=== PATIENT | male | born 1970 | race Caucasian/White ===

== ENCOUNTER 2021-04-07 15:21 | Inpatient (IN) | payer OTHER, SELFPAY ==
[2021-04-07] VITALS (12 sets, daily range): BP systolic 99–185; BP diastolic 75–98; PULSE 78–109; RESP 10–16; TEMP 36.6–37.8; O2SAT 98–100; BMI 21.2
--- NOTE | ~2021-04-07 | CT_ITS ---
EXAMINATION: CT ABDOMEN AND PELVIS WITHOUT CONTRAST CLINICAL INFORMATION: Post bowel resection with question of intra-abdominal hemorrhage COMPARISON: CT abdomen pelvis 04/07/2021 TECHNIQUE: Multidetector volumetric imaging was performed from the superior aspect of the liver through the pubic symphysis. Sagittal and coronal reformatted images were obtained on the technologist's workstation. This CT examination was performed using dose optimization techniques as appropriate, variously including the following: *Automated exposure control *Adjustment of mA and/or kV according to patient size (this includes techniques or standardized protocols for targeted exams where dose is matched to indication/reason for exam; i.e. extremities or head) *Use of iterative reconstruction technique DLP: 453 mGy-cm FINDINGS: LUNG BASES: New small bilateral pleural effusions are seen. LIVER, GALLBLADDER, AND BILIARY TREE: The liver is normal in size, shape, and attenuation. No focal hepatic lesion or biliary ductal dilatation is present. The gallbladder is dense probably from prior contrast administration but is otherwise unremarkable with no evidence of radiopaque gallstones, gallbladder wall thickening, or obvious pericholecystic inflammatory changes. PANCREAS: Unremarkable. SPLEEN: Unremarkable. ADRENAL GLANDS: Unremarkable. KIDNEYS AND URETERS: The kidneys are normal in size, shape, and attenuation. No hydronephrosis, hydroureter, or calculi seen. No perinephric stranding. BLADDER: Poole catheter is present in the bladder. GASTROINTESTINAL TRACT AND PERITONEAL CAVITY: Since the prior exam, the patient has undergone a right hemicolectomy an extensive surgical material is present in the right mid/upper abdomen. Free intraperitoneal air is present along with moderate amount of intraperitoneal fluid/blood. Small foci of air are present in the leaves of the mesentery as well. Higher density is seen within the mesentery (for example 3:39 consistent with blood clot). The ascites in the pelvis is mixed with lower and higher attenuation indicative of blood clot. The residual colon is grossly abnormal and edematous, even more so than at the time of the prior study (the best example is seen in the proximal sigmoid/ distal descending colon (3:62)). There is gaseous distention of the transverse colon just prior to the surgical site. Incidental note made of a small hiatal hernia. ABDOMINAL WALL: There has been interval laparotomy with new wound in the anterior abdominal wall. Small collections of air and fluid are present. LYMPH NODES: No retroperitoneal lymphadenopathy VASCULAR: Unremarkable. Surprisingly, the IVC is not flattened despite volume loss secondary to hemorrhage PELVIC VISCERA: There is mild BPH OSSEOUS STRUCTURES: Degenerative changes present at L4-L5 CT/CT abdomen pelvis wo con IMPRESSION: Postop hemorrhage with hemoperitoneum and blood in the mesentery. Free intraperitoneal air most likely secondary to recent postop state. Grossly abnormal edematous remaining colon. This critical result was discussed with Robert JADE at 11:25 PM on the evening of the exam and it was ascertained that the content and urgency of the report was understood at the time of direct communication.
--- NOTE | ~2021-04-07 | XR_ITS ---
EXAMINATION: XR ABDOMEN KUB CLINICAL INDICATION: Postop assess for intra-abdominal bleed or perforation COMPARISON: None TECHNIQUE: AP view of the abdomen. FINDINGS: Midline skin wseetie noted. Overlying bladder catheter seen. No acute fracture or dislocation. Bowel gas pattern is grossly unremarkable. No obstructive changes seen on this single film. XR/XR abdomen 1V IMPRESSION: Postoperative changes. Unremarkable bowel gas pattern.
--- NOTE | ~2021-04-07 | NM_ITS ---
Myocardial perfusion study Indication: NSTEMI to evaluate for myocardial ischemia Technique: The patient was brought in for a Lexiscan perfusion study on 04/16/2021. Patient performed low-level exercise and was injected 0.4 mg of Lexiscan intravenously. Within a minute of injection, 25 mCi of sestamibi was given intravenously. Images were obtained using the SPECT gamma camera interlaced with the gating device. Images were obtained in supine position. Resting perfusion study was performed on 04/17/2021. Patient was administered 25 mCi of sestamibi intravenously at rest. Images were then obtained in supine position. Images obtained with and without CT attenuation. Total DLP 75 mGy-cm. Images were processed with the software and compared side to side in short axis, horizontal long axis and vertical long axis views. Findings: The stress perfusion study showed nonattenuated images show moderately reduced uptake in the basal and mid inferior wall of the LV myocardium. Remainder of the LV myocardium is normally perfused. Attenuation correction images show normalized uptake in the basal and mid inferior wall of the LV myocardium which may be over correction.. The gated study shows normal LV systolic function with calculated LVEF of 60%. LV cavity is normal in size. The gated study shows reduced inferior basal wall thickening and contraction of segments. Resting study shows no change in perfusion pattern compared to stress perfusion study. Gating at rest reveals basal and mid inferior wall motion abnormality with ejection fraction at 67%. The findings are consistent with no clear reversible defect suggestive of ischemia. On nonattenuated images there is fixed basal and mid inferior wall defect suggestive of nontransmural infarct with basal inferior wall motion abnormality.. NM/NM chapin perf SPECT rest & str Impression: 1. Myocardial perfusion imaging study shows basal and mid inferior nontransmural infarct without reversible ischemia 2. Gated LVEF is 60% 3. Transient ischemic dilatation not present EKG is nondiagnostic for ischemia
--- NOTE | ~2021-04-07 | CT_ITS ---
EXAMINATION: CT abdomen pelvis wo/w con CLINICAL INFORMATION: Reason for Exam GI bleed protocol COMPARISON: 2015 TECHNIQUE: Multidetector volumetric imaging was performed from the superior aspect of the liver through the pubic symphysis 100 mL of Omnipaque 300 injected Sagittal and coronal reformatted images were obtained on the technologist's workstation. This CT examination was performed using dose optimization techniques as appropriate, variously including the following: *Automated exposure control *Adjustment of mA and/or kV according to patient size (this includes techniques or standardized protocols for targeted exams where dose is matched to indication/reason for exam; i.e. extremities or head) *Use of iterative reconstruction technique DLP: 226 mGy-cm FINDINGS: LOWER THORAX: Platelike atelectasis at right lung base. HEPATOBILIARY: No focal hepatic lesions. No biliary ductal dilatation. GALLBLADDER: Gallbladder unremarkable. SPLEEN: Spleen is normal in size. PANCREAS: No focal mass or ductal dilatation. STOMACH AND GASTROINTESTINAL TRACT: Stomach is grossly unremarkable. There are multiple segments of circumferential wall thickening of the bowel loops especially the one seen in the right lower quadrant adjacent to the surgical anastomosis site, although nonspecific, this is compatible with patient history of Crohn's disease. There is no CT evidence of bowel obstruction. Other entities such as ischemia, infection, neoplastic infiltration are in the differential however less common. ADRENALS: No adrenal nodules. KIDNEYS/URETERS: Tiny hypodensity in the left kidney too small to characterize however commonly found to be evolving cysts. URINARY BLADDER: Partially decompressed. PELVIC VISCERA: Unremarkable PERITONEUM: No free air or fluid. LYMPH NODES: No lymphadenopathy. VASCULAR:Abdominal aorta normal in size, no aneurysm found. BONES, ABDOMINAL WALL AND SOFT TISSUES: There is anterior abdominal wall hernia mesenteric fat herniating through a small defect 1.[address]/CT abdomen pelvis wo/w con IMPRESSION: 1. There are multiple segments of bowel which exhibits circumferential wall thickening, most prominent is in the right colon adjacent to surgical anastomosis site right lower quadrants, cecum, although nonspecific, this is compatible with patient history of Crohn's disease. Included in the differential are less common entities including colitis, neoplasm, ischemia . No evidence of bowel obstruction.. Clinical correlation and Follow-up recommended. 2. Anterior abdominal wall hernias containing fat and mesentery. 3. No evidence of lymphadenopathy.
--- NOTE | ~2021-04-07 | XR_ITS ---
EXAMINATION: XR CHEST CLINICAL INFORMATION: Right jugular TLC insertion COMPARISON: 05/16/2016 TECHNIQUE: Frontal view of the chest was obtained. FINDINGS: Right IJ central line tip lies in the region of the cavoatrial junction. Lung volumes are symmetric. No focal consolidation is seen. No evidence of pneumothorax, pleural effusion, or pulmonary edema. The cardiomediastinal contour is unremarkable. No acute osseous findings are seen. XR/XR chest 1V IMPRESSION: Right IJ central line tip in the region of the cavoatrial junction.
--- NOTE | ~2021-04-07 | CT_ITS ---
EXAMINATION: CT HEAD WITHOUT CONTRAST CLINICAL INFORMATION: Fall. COMPARISON: None available. TECHNIQUE: Contiguous axial imaging was performed from the skull base to vertex without intravenous administration of contrast. DLP: 683 mGy-cm FINDINGS: There is no evidence of acute intracranial hemorrhage or edematous territorial infarction. There is no abnormal attenuation within the brain parenchyma. Booker-white matter differentiation is preserved. The ventricles are normal in size and configuration. No evidence for obstructive hydrocephalus. No abnormal mass effect or midline shift. No extra-axial fluid collections. No acute soft tissue or osseous abnormalities. Persistent metopic suture. Mild mucosal thickening of the paranasal sinuses. The mastoid air cells and middle air cavities remain well aerated. CT/CT head/brain wo con IMPRESSION: No evidence of acute intracranial hemorrhage or edematous territorial infarction.
--- NOTE | ~2021-04-07 | NM_ITS ---
EXAMINATION: NUCLEAR MEDICINE GI BLEEDING SCAN. CLINICAL INFORMATION: Acute anemia. Bloody diarrhea. History of Crohn's disease. Rule out GI bleeding. COMPARISON: None TECHNIQUE: Following labeling of red blood cells with 25 mCi of 90 9M technetium pertechnetate, imaging over the abdomen was obtained up to 1 hour. FINDINGS: On flow images there is no abnormal activity seen in the abdomen. Symmetrical activity seen in the aorta and common iliac arteries verifying patency. On continued imaging up to 1 hour there is no focal abnormal activity seen to suspect any extravasation of isotope. Normal physiological activity seen in spleen and, kidneys and bladder. NM/NM GI bleeding IMPRESSION: Unremarkable GI bleeding scan. No active focus of isotope extravasation seen.
--- NOTE | 2021-04-07 16:02 | ECG_ITS ---
Test Reason : WEAKNESS/DIZZYNESS Blood Pressure : / mmHG Vent. Rate : 089 BPM Atrial Rate : 089 BPM P-R Int : 130 ms QRS Dur : 078 ms QT Int : 358 ms P-R-T Axes : 077 034 080 degrees QTc Int : 435 ms Normal sinus rhythm Voltage criteria for left ventricular hypertrophy Nonspecific ST and T wave abnormality Abnormal ECG When compared with ECG of 19-MAY-2016 17:00, Vent. rate has increased BY 48 BPM Nonspecific T wave abnormality now evident in Lateral leads Referred By: Generic ED Physician Electronically Signed By:Tunde Lopez
[2021-04-07 16:20] LABS: MANUAL DIFF FLAG NO
[2021-04-07 16:24] LABS: Basophils Percent Auto 0.3 % (0-2); Eosinophils Absolute Auto 0.3 X10*3/uL (0.0-0.4); Eosinophils Percent Auto 2.6 % (0-4); Hematocrit 23.3 % (42-52); Hemoglobin 7.8 g/dl (14.0-18.0); Imm Gran Abs Auto 0.15 X10*3/uL (0.00-0.03); Imm Gran Pct Auto 1.2 % (0.0-0.4); Lymphocytes Percent Auto 16.6 % (20-40); Mean Corpuscular HGB Conc 33.5 g/dl (31.0-36.0); Mean Corpuscular Hemoglobin 32.6 pg (27.0-33.0); Mean Corpuscular Volume 97.5 fL (80-98); Mean Platelet Volume 9.1 fL (9.4-12.4); Monocytes Absolute Auto 1.2 X10*3/uL (0.1-1.2); Monocytes Percent Auto 9.9 % (2-11); Neutrophils Absolute Auto 8.5 X10*3/uL (2.0-8.3); Neutrophils Percent Auto 69.4 % (45-73); Platelet Count 343 X10*3/uL (160-400); Red Blood Count 2.39 X10*6/uL (4.60-5.80); Red Cell Distribution Width 14.8 % (11.0-16.0); White Blood Count 12.2 X10*3/uL (4.8-10.8)
--- NOTE | 2021-04-07 16:27 | ED_ITS ---
HPI - GI Bleed General Chief complaint: GI Bleed <TIAGO Peck Last Filed: 04/07/21 17:53> Stated complaint: blood in stool <TIAGO Peck Last Filed: 04/07/21 17:53> Time Seen by Provider: 04/07/21 16:11 <TIAGO Peck Last Filed: 04/07/21 17:53> Source: patient <TIAGO Peck Last Filed: 04/07/21 17:53> Mode of arrival: ambulatory <TIAGO Peck Last Filed: 04/07/21 17:53> Limitations: no limitations <TIAGO Peck Last Filed: 04/07/21 17:53> History of Present Illness HPI Narrative: Patient is a 51-year-old male the past medical history of Crohn's disease who presents with 2 days of bloody diarrhea, he states he has also passed a few larger maroon-colored clots. He is also complaining of dizziness, shortness of breath and a clammy feeling. Denies fevers, nausea or sick contacts. He has not been eating and drinking normally and states he has had weight loss of 25 lb over the last few months, unintentionally. He states he had a colonoscopy approximately 1 year ago, not at this hospital, which was unremarkable. He states he does take medications for his Crohn's and he is compliant. <TIAGO Peck Last Filed: 04/07/21 17:53> Related Data Home medications: Home Medications Medication Instructions Recorded Confirmed adalimumab [Humira(CF) Pen] 40 mg SUBCUT Q2W 04/07/21 04/07/21 budesonide 2 cap PO DAILY 04/07/21 04/07/21 diphenoxylate-atropine 2 tab PO NEEDED PRN 04/07/21 04/07/21 <TIAGO Peck Last Filed: 04/07/21 17:53> Allergies/Adverse reactions: Allergies Allergy/AdvReac Type Severity Reaction Status Date / Time No Known Allergies Allergy Verified 04/07/21 16:01 [No Known Allergies*] <TIAGO Peck Last Filed: 04/07/21 17:53> Review of Systems Review of Systems: Yes all other systems are reviewed and are negative <Steph Ibarra PA-C - Last Filed: 04/07/21 17:53> FORMERLY [facility], [facility] Past Medical History Medical History: Medical History (Updated 04/09/21 @ 18:[address]) Crohn's colitis Crohn's disease Psoriasis <Steph Ibarra PA-C - Last Filed: 04/07/21 17:53> Surgical History: Surgical History H/O colectomy <Steph Ibarra PA-C - Last Filed: 04/07/21 17:53> Social History Social History: Social History Household Members: Family Housing: House Do you presently have visiting nurse or other home services: No Patient Tobacco Use Status: Current everyday Tobacco user Patient Interested in Nicotine Replacement: Yes Use of substances other than those prescribed or required for medical reasons: No Currently Displaying Signs/Symptoms of Drug Intoxication Withdrawal: No Have you been hit, kicked, punched, or otherwise hurt by someone within the past year? If so, by whom?: No Do you feel safe in your current relationship?: No Is there a partner from a previous relationship who is making you feel unsafe now?: No Are you made to feel afraid or neglected: No Advance Directives: No Advance Directives Information Provided: No Do you have thoughts of harming others: None Do you have a plan to hurt others: No Plan Recently lost weight without trying: No Eating poorly because of decreased appetite: Yes Nutrition Risks: No Nutritional Risk Poor oral hygiene: No service: No Current occupational status: employed <TIAGO Peck Last Filed: 04/07/21 17:53> Physical Exam Vital Signs: Vital Signs: Last Vital Signs Temp 98.7 F 04/09/21 20:00 Pulse 80 04/09/21 20:00 Resp 12 04/09/21 20:00 BP 152/81 H 04/09/21 20:00 Pulse Ox 98 04/09/21 20:00 Body Mass Index 21.2 <TIAGO Peck Last Filed: 04/07/21 17:53> Vital Signs: Last Vital Signs Temp 98.7 F 04/09/21 20:00 Pulse 80 04/09/21 20:00 Resp 12 04/09/21 20:00 BP 152/81 H 04/09/21 20:00 Pulse Ox 98 04/09/21 20:00 Body Mass Index 21.2 <Beena Alegria, AUTOMOTIVE BRAKE SPECIALIST- - Last Filed: 04/09/21 21:58> Const: General: cooperative, healthy appearing, comfortable and tired appearing <Steph Ibarra PA-C - Last Filed: 04/07/21 17:53> Nutritional Appearance: thin <Steph Ibarra PA-C - Last Filed: 04/07/21 17:53> Orientation/consciousness: patient oriented x3 <Steph Ibarra PA-C - Last Filed: 04/07/21 17:53> HENMT: Head: Yes normal to inspection <Steph Ibarra PA-C - Last Filed: 04/07/21 17:53> Eyes: Other: Bilateral conjunctiva pallor <Stehp Ibarra PA-C - Last Filed: 04/07/21 17:53> General: appearance normal, both eyes and all related structures <Steph Ibarra PA-C - Last Filed: 04/07/21 17:53> Neck: Neck: Yes normal visual inspection and Yes full ROM <Steph Ibarra PA-C - Last Filed: 04/07/21 17:53> Resp: Effort & Inspection: normal respiratory effort and able to speak in complete sentences <Steph Ibarra PA-C - Last Filed: 04/07/21 17:53> Auscultation: clear to auscultation bilaterally <Steph Ibarra PA-C - Last Filed: 04/07/21 17:53> Cardio: Rate: regular rate (Patient was tachycardic upon arrival at 109BPM, currently heart rate is 92) <Steph Ibarra PA-C - Last Filed: 04/07/21 17:53> Rhythm: regular rhythm <Steph Ibarra PA-C - Last Filed: 04/07/21 17:53> Heart sounds: normal S1 and S2 <TIAGO Peck Last Filed: 04/07/21 17:53> GI: Palpation (GI): Soft to palpation, Tenderness to palpation present (GI) in the LLQ and in the RLQ; not periumbilically and not suprapubicly and Hernia present umbilical and ventral <TIAGO Peck Last Filed: 04/07/21 17:53> Auscultation: normal bowel sounds <TIAGO Peck Last Filed: 04/07/21 17:53> Skin: General skin exam: pallor <TIAGO Peck Last Filed: 04/07/21 17:53> Neuro: General: patient oriented x3 <TIAGO Peck Last Filed: 04/07/21 17:53> Extrem: General: Yes normal to inspection and Yes no pedal edema <TIAGO Peck Last Filed: 04/07/21 17:53> Course Course Course Narrative: Patient is a 51-year-old male the past medical history of Crohn's disease who presents with 2 days of bloody diarrhea, he states he has also passed a few larger maroon-colored clots. He is also complaining of dizziness, shortness of breath and a clammy feeling. VSS slightly tachycardic upon arrival at 109BPM but currently is 92BPM. PE remarkable for lower abdominal tenderness and guaiac- positive stool. Will get labs and abdominal and pelvic CT scan then reassess. <TIAGO Peck Last Filed: 04/07/21 17:53> Reevaluation(s) Reevaluation #1: WBC 12.2, hemoglobin 7.8 patient still actively bleeding rectally, ordered 2U RBC, consent for blood products obtained. EKG NSR 89BPM <TIAGO Peck Last Filed: 04/07/21 17:53> Time: 16:40 <TIAGO Peck Last Filed: 04/07/21 17:53> Reevaluation #2: Troponin negative, chemistry panel within normal limits, remainder of labs pending, pending CT <Steph Ibarra PA-C - Last Filed: 04/07/21 17:53> Time: 17:52 <Steph Ibarra PA-C - Last Filed: 04/07/21 17:53> Reevaluation #3: Sign out to GERMAINE Vanegas. Pending CT abd/pelvis w/wo contrast. <Steph Ibarra PA-C - Last Filed: 04/07/21 17:53> MDM - GI Bleed Medical Records Attestation: I reviewed the patient's medical records. <Steph Ibarra PA-C - Last Filed: 04/07/21 17:53> Lab Data Attestation: I reviewed the patient's lab results. <Steph Ibarra PA-C - Last Filed: 04/07/21 17:53> Result diagrams: : 04/09/21 19:15 04/09/21 19:03 <Steph Ibarra PA-C - Last Filed: 04/07/21 17:53> Labs: Lab Results 04/07/21 04/07/21 04/07/21 Range/Units 16:14 16:15 16:15 WBC 12.2 H (4.8-10.8) X10*3/uL RBC 2.39 L (4.60-5.80) X10*6/uL Hgb 7.8 L (14.0-18.0) g/dl Hct 23.3 L (42-52) % MCV 97.5 (80-98) fL MCH 32.6 (27.0-33.0) pg MCHC 33.5 (31.0-36.0) g/dl RDW 14.8 (11.0-16.0) % Plt Count 343 (160-400) X10*3/uL MPV 9.1 L (9.4-12.4) fL Immature Gran % (Auto) 1.2 H (0.0-0.4) % Neut % (Auto) 69.4 (45-73) % Lymph % (Auto) 16.6 L (20-40) % Winn % (Auto) 9.9 (2-11) % Eos % (Auto) 2.6 (0-4) % Baso % (Auto) 0.3 (0-2) % Lymph # (Auto) 2.0 (1.2-4.9) X10*3/uL Winn # (Auto) 1.2 (0.1-1.2) X10*3/uL Eos # (Auto) 0.3 (0.0-0.4) X10*3/uL Baso # (Auto) 0.0 (0.0-0.2) X10*3/uL Abs Immat Gran (auto) 0.15 H (0.00-0.03) X10*3/uL Absolute Neuts (auto) 8.5 H (2.0-8.3) X10*3/uL Absolute Nucleated RBC 0.000 (0.0-0.012) X10*3/uL Nucleated RBC % (auto) 0.0 (0.0-0.2) /100WBC PT 12.2 (10.8-13.0) SEC INR 1.0 (0.9-1.1) Sodium 138 (135-145) mmol/L Potassium 4.5 (3.3-5.1) mmol/L Chloride 105 (96-108) mmol/L Carbon Dioxide 24 (22-29) mmol/L Anion Gap 14 (12-20) BUN 18 H (9-16) mg/dL Creatinine 1.41 H (0.5-1.4) mg/dL Estim Creat Clear Calc 55.2 Estimated GFR 53 Random Glucose 114 (60-115) mg/dL Calcium 7.8 L (8.4-10.2) mg/dL Magnesium (1.6-2.6) mg/dL Total Bilirubin (0.0-1.0) mg/dL Direct Bilirubin (0.0-0.5) mg/dL AST (5-37) U/L ALT (0-40) U/L Alkaline Phosphatase (39-117) U/L Troponin I High Sens (<3.5-35.0) ng/L C-Reactive Protein 0.56 H (< or = 0.50) mg/dL Total Protein (6.5-8.0) g/dL Albumin (3.5-5.0) g/dL COVID-19 (EDD) (Negative) COVID-19 Clin Com Blood Type Antibody Screen Crossmatch 04/07/21 04/07/21 04/07/21 Range/Units 16:15 16:15 16:43 WBC (4.8-10.8) X10*3/uL RBC (4.60-5.80) X10*6/uL Hgb (14.0-18.0) g/dl Hct (42-52) % MCV (80-98) fL MCH (27.0-33.0) pg MCHC (31.0-36.0) g/dl RDW (11.0-16.0) % Plt Count (160-400) X10*3/uL MPV (9.4-12.4) fL Immature Gran % (Auto) (0.0-0.4) % Neut % (Auto) (45-73) % Lymph % (Auto) (20-40) % Winn % (Auto) (2-11) % Eos % (Auto) (0-4) % Baso % (Auto) (0-2) % Lymph # (Auto) (1.2-4.9) X10*3/uL Winn # (Auto) (0.1-1.2) X10*3/uL Eos # (Auto) (0.0-0.4) X10*3/uL Baso # (Auto) (0.0-0.2) X10*3/uL Abs Immat Gran (auto) (0.00-0.03) X10*3/uL Absolute Neuts (auto) (2.0-8.3) X10*3/uL Absolute Nucleated RBC (0.0-0.012) X10*3/uL Nucleated RBC % (auto) (0.0-0.2) /100WBC PT (10.8-13.0) SEC INR (0.9-1.1) Sodium (135-145) mmol/L Potassium (3.3-5.1) mmol/L Chloride (96-108) mmol/L Carbon Dioxide (22-29) mmol/L Anion Gap (12-20) BUN (9-16) mg/dL Creatinine (0.5-1.4) mg/dL Estim Creat Clear Calc Estimated GFR Random Glucose (60-115) mg/dL Calcium (8.4-10.2) mg/dL Magnesium (1.6-2.6) mg/dL Total Bilirubin (0.0-1.0) mg/dL Direct Bilirubin (0.0-0.5) mg/dL AST (5-37) U/L ALT (0-40) U/L Alkaline Phosphatase (39-117) U/L Troponin I High Sens 6.4 (<3.5-35.0) ng/L C-Reactive Protein (< or = 0.50) mg/dL Total Protein (6.5-8.0) g/dL Albumin (3.5-5.0) g/dL COVID-19 (EDD) Negative (Negative) COVID-19 Clin Com See Note Blood Type O Positive Antibody Screen NEGATIVE Crossmatch See Detail 04/07/21 Range/Units 16:43 WBC (4.8-10.8) X10*3/uL RBC (4.60-5.80) X10*6/uL Hgb (14.0-18.0) g/dl Hct (42-52) % MCV (80-98) fL MCH (27.0-33.0) pg MCHC (31.0-36.0) g/dl RDW (11.0-16.0) % Plt Count (160-400) X10*3/uL MPV (9.4-12.4) fL Immature Gran % (Auto) (0.0-0.4) % Neut % (Auto) (45-73) % Lymph % (Auto) (20-40) % Winn % (Auto) (2-11) % Eos % (Auto) (0-4) % Baso % (Auto) (0-2) % Lymph # (Auto) (1.2-4.9) X10*3/uL Winn # (Auto) (0.1-1.2) X10*3/uL Eos # (Auto) (0.0-0.4) X10*3/uL Baso # (Auto) (0.0-0.2) X10*3/uL Abs Immat Gran (auto) (0.00-0.03) X10*3/uL Absolute Neuts (auto) (2.0-8.3) X10*3/uL Absolute Nucleated RBC (0.0-0.012) X10*3/uL Nucleated RBC % (auto) (0.0-0.2) /100WBC PT (10.8-13.0) SEC INR (0.9-1.1) Sodium (135-145) mmol/L Potassium (3.3-5.1) mmol/L Chloride (96-108) mmol/L Carbon Dioxide (22-29) mmol/L Anion Gap (12-20) BUN (9-16) mg/dL Creatinine (0.5-1.4) mg/dL Estim Creat Clear Calc Estimated GFR Random Glucose (60-115) mg/dL Calcium (8.4-10.2) mg/dL Magnesium 1.6 (1.6-2.6) mg/dL Total Bilirubin 0.4 (0.0-1.0) mg/dL Direct Bilirubin 0.2 (0.0-0.5) mg/dL AST 8 (5-37) U/L ALT < 6 (0-40) U/L Alkaline Phosphatase 52 (39-117) U/L Troponin I High Sens (<3.5-35.0) ng/L C-Reactive Protein (< or = 0.50) mg/dL Total Protein 4.9 L (6.5-8.0) g/dL Albumin 3.0 L (3.5-5.0) g/dL COVID-19 (EDD) (Negative) COVID-19 Clin Com Blood Type Antibody Screen Crossmatch <Steph Ibarra PA-C - Last Filed: 04/07/21 17:53> Lab Results 04/07/21 04/07/21 04/07/21 Range/Units 16:14 16:15 16:15 WBC 12.2 H (4.8-10.8) X10*3/uL RBC 2.39 L (4.60-5.80) X10*6/uL Hgb 7.8 L (14.0-18.0) g/dl Hct 23.3 L (42-52) % MCV 97.5 (80-98) fL MCH 32.6 (27.0-33.0) pg MCHC 33.5 (31.0-36.0) g/dl RDW 14.8 (11.0-16.0) % Plt Count 343 (160-400) X10*3/uL MPV 9.1 L (9.4-12.4) fL Immature Gran % (Auto) 1.2 H (0.0-0.4) % Neut % (Auto) 69.4 (45-73) % Lymph % (Auto) 16.6 L (20-40) % Winn % (Auto) 9.9 (2-11) % Eos % (Auto) 2.6 (0-4) % Baso % (Auto) 0.3 (0-2) % Lymph # (Auto) 2.0 (1.2-4.9) X10*3/uL Winn # (Auto) 1.2 (0.1-1.2) X10*3/uL Eos # (Auto) 0.3 (0.0-0.4) X10*3/uL Baso # (Auto) 0.0 (0.0-0.2) X10*3/uL Abs Immat Gran (auto) 0.15 H (0.00-0.03) X10*3/uL Absolute Neuts (auto) 8.5 H (2.0-8.3) X10*3/uL Absolute Nucleated RBC 0.000 (0.0-0.012) X10*3/uL Nucleated RBC % (auto) 0.0 (0.0-0.2) /100WBC PT 12.2 (10.8-13.0) SEC INR 1.0 (0.9-1.1) Sodium 138 (135-145) mmol/L Potassium 4.5 (3.3-5.1) mmol/L Chloride 105 (96-108) mmol/L Carbon Dioxide 24 (22-29) mmol/L Anion Gap 14 (12-20) BUN 18 H (9-16) mg/dL Creatinine 1.41 H (0.5-1.4) mg/dL Estim Creat Clear Calc 55.2 Estimated GFR 53 Random Glucose 114 (60-115) mg/dL Calcium 7.8 L (8.4-10.2) mg/dL Magnesium (1.6-2.6) mg/dL Total Bilirubin (0.0-1.0) mg/dL Direct Bilirubin (0.0-0.5) mg/dL AST (5-37) U/L ALT (0-40) U/L Alkaline Phosphatase (39-117) U/L Troponin I High Sens (<3.5-35.0) ng/L C-Reactive Protein 0.56 H (< or = 0.50) mg/dL Total Protein (6.5-8.0) g/dL Albumin (3.5-5.0) g/dL COVID-19 (EDD) (Negative) COVID-19 Clin Com Blood Type Antibody Screen Crossmatch 04/07/21 04/07/21 04/07/21 Range/Units 16:15 16:15 16:43 WBC (4.8-10.8) X10*3/uL RBC (4.60-5.80) X10*6/uL Hgb (14.0-18.0) g/dl Hct (42-52) % MCV (80-98) fL MCH (27.0-33.0) pg MCHC (31.0-36.0) g/dl RDW (11.0-16.0) % Plt Count (160-400) X10*3/uL MPV (9.4-12.4) fL Immature Gran % (Auto) (0.0-0.4) % Neut % (Auto) (45-73) % Lymph % (Auto) (20-40) % Winn % (Auto) (2-11) % Eos % (Auto) (0-4) % Baso % (Auto) (0-2) % Lymph # (Auto) (1.2-4.9) X10*3/uL Winn # (Auto) (0.1-1.2) X10*3/uL Eos # (Auto) (0.0-0.4) X10*3/uL Baso # (Auto) (0.0-0.2) X10*3/uL Abs Immat Gran (auto) (0.00-0.03) X10*3/uL Absolute Neuts (auto) (2.0-8.3) X10*3/uL Absolute Nucleated RBC (0.0-0.012) X10*3/uL Nucleated RBC % (auto) (0.0-0.2) /100WBC PT (10.8-13.0) SEC INR (0.9-1.1) Sodium (135-145) mmol/L Potassium (3.3-5.1) mmol/L Chloride (96-108) mmol/L Carbon Dioxide (22-29) mmol/L Anion Gap (12-20) BUN (9-16) mg/dL Creatinine (0.5-1.4) mg/dL Estim Creat Clear Calc Estimated GFR Random Glucose (60-115) mg/dL Calcium (8.4-10.2) mg/dL Magnesium (1.6-2.6) mg/dL Total Bilirubin (0.0-1.0) mg/dL Direct Bilirubin (0.0-0.5) mg/dL AST (5-37) U/L ALT (0-40) U/L Alkaline Phosphatase (39-117) U/L Troponin I High Sens 6.4 (<3.5-35.0) ng/L C-Reactive Protein (< or = 0.50) mg/dL Total Protein (6.5-8.0) g/dL Albumin (3.5-5.0) g/dL COVID-19 (EDD) Negative (Negative) COVID-19 Clin Com See Note Blood Type O Positive Antibody Screen NEGATIVE Crossmatch See Detail 04/07/21 Range/Units 16:43 WBC (4.8-10.8) X10*3/uL RBC (4.60-5.80) X10*6/uL Hgb (14.0-18.0) g/dl Hct (42-52) % MCV (80-98) fL MCH (27.0-33.0) pg MCHC (31.0-36.0) g/dl RDW (11.0-16.0) % Plt Count (160-400) X10*3/uL MPV (9.4-12.4) fL Immature Gran % (Auto) (0.0-0.4) % Neut % (Auto) (45-73) % Lymph % (Auto) (20-40) % Winn % (Auto) (2-11) % Eos % (Auto) (0-4) % Baso % (Auto) (0-2) % Lymph # (Auto) (1.2-4.9) X10*3/uL Winn # (Auto) (0.1-1.2) X10*3/uL Eos # (Auto) (0.0-0.4) X10*3/uL Baso # (Auto) (0.0-0.2) X10*3/uL Abs Immat Gran (auto) (0.00-0.03) X10*3/uL Absolute Neuts (auto) (2.0-8.3) X10*3/uL Absolute Nucleated RBC (0.0-0.012) X10*3/uL Nucleated RBC % (auto) (0.0-0.2) /100WBC PT (10.8-13.0) SEC INR (0.9-1.1) Sodium (135-145) mmol/L Potassium (3.3-5.1) mmol/L Chloride (96-108) mmol/L Carbon Dioxide (22-29) mmol/L Anion Gap (12-20) BUN (9-16) mg/dL Creatinine (0.5-1.4) mg/dL Estim Creat Clear Calc Estimated GFR Random Glucose (60-115) mg/dL Calcium (8.4-10.2) mg/dL Magnesium 1.6 (1.6-2.6) mg/dL Total Bilirubin 0.4 (0.0-1.0) mg/dL Direct Bilirubin 0.2 (0.0-0.5) mg/dL AST 8 (5-37) U/L ALT < 6 (0-40) U/L Alkaline Phosphatase 52 (39-117) U/L Troponin I High Sens (<3.5-35.0) ng/L C-Reactive Protein (< or = 0.50) mg/dL Total Protein 4.9 L (6.5-8.0) g/dL Albumin 3.0 L (3.5-5.0) g/dL COVID-19 (EDD) (Negative) COVID-19 Clin Com Blood Type Antibody Screen Crossmatch <Beena Alegria AUTOMOTIVE BRAKE SPECIALIST-BC - Last Filed: 04/09/21 21:58> Imaging Data CT scan - abdomen: Radiologist's impression: FINDINGS: LOWER THORAX: Platelike atelectasis at right lung base. HEPATOBILIARY: No focal hepatic lesions. No biliary ductal dilatation. GALLBLADDER: Gallbladder unremarkable. SPLEEN: Spleen is normal in size. PANCREAS: No focal mass or ductal dilatation. STOMACH AND GASTROINTESTINAL TRACT: Stomach is grossly unremarkable. There are multiple segments of circumferential wall thickening of the bowel loops especially the one seen in the right lower quadrant adjacent to the surgical anastomosis site, although nonspecific, this is compatible with patient history of Crohn's disease. There is no CT evidence of bowel obstruction. Other entities such as ischemia, infection, neoplastic infiltration are in the differential however less common. ADRENALS: No adrenal nodules. KIDNEYS/URETERS: Tiny hypodensity in the left kidney too small to characterize however commonly found to be evolving cysts. URINARY BLADDER: Partially decompressed. PELVIC VISCERA: Unremarkable PERITONEUM: No free air or fluid. LYMPH NODES: No lymphadenopathy. VASCULAR:Abdominal aorta normal in size, no aneurysm found. BONES, ABDOMINAL WALL AND SOFT TISSUES: There is anterior abdominal wall hernia mesenteric fat herniating through a small defect 1.[address]/CT abdomen pelvis wo/w con IMPRESSION: 1. There are multiple segments of bowel which exhibits circumferential wall thickening, most prominent is in the right colon adjacent to surgical anastomosis site right lower quadrants, cecum, although nonspecific, this is compatible with patient history of Crohn's disease. Included in the differential are less common entities including colitis, neoplasm, ischemia . No evidence of bowel obstruction.. Clinical correlation and Follow-up recommended. 2. Anterior abdominal wall hernias containing fat and mesentery. 3. No evidence of lymphadenopathy. <GINETTE ZamoraP-BC - Last Filed: 05/23 21:58> ECG Data Attestation: I personally reviewed and interpreted this ECG as follows: <Steph adams PA-C - Last Filed: 04/07/21 17:53> Interpretation: 149 Steph Ibarra PA-C Find Patient ECG 12 lead EKG Stat Adrián Cornejo 51 M 1970 ACTIVITY DATE EXAM STATUS AUTHOR 04/07/21 16:[address] [id number] ReportDraft Patient: Garland Cornejo#: [id number]: 1970Acct:[id number]/Sex: 51 / MADM Date: 04/07/21Loc: EDAttending Dr: Ordering Physician: Generic ED Physician Date of Service: 04/07/21 Procedure(s): ECG 12 lead EKG Accession Number(s): [id number] cc: ~ Test Reason : WEAKNESS/DIZZYNESS Blood Pressure : / mmHG Vent. Rate : 089 BPM Atrial Rate : 089 BPM P-R Int : 130 ms QRS Dur : 078 ms QT Int : 358 ms P-R-T Axes : 077 034 080 degrees QTc Int : 435 ms Normal sinus rhythm Voltage criteria for left ventricular hypertrophy Nonspecific ST and T wave abnormality Abnormal ECG When compared with ECG of 19-MAY-2016 17:00, Vent. rate has increased BY 48 BPM Nonspecific T wave abnormality now evident in Lateral leads QT has lengthened Referred By: Generic ED Physician Electronically Signed By: Dictated By:Signed By: DD/ 16TD/TT: 04/07/211616Transcriptionist: <CRISTIANE Peck - Last Filed: 04/07/21 17:53> Discharge Plan Discharge Clinical Impression: Lower gastrointestinal hemorrhage Crohn's colitis Qualifiers: Digestive disease complication type: with rectal bleeding Qualified Code(s): K50.111 - Crohn's disease of large intestine with rectal bleeding <TIAGO Peck Last Filed: 04/07/21 17:53> Patient Disposition: Admitted As Inpatient <TIAGO Peck Last Filed: 04/07/21 17:53> Interventions: Admission Worksheet (ED) Last Done: 04/08/21 00:48 <Steph Ibarra PA-C - Last Filed: 04/07/21 17:53> Discharge Date/Time: 04/08/21 00:48 <TIAGO Peck Last Filed: 04/07/21 17:53>
[2021-04-07 16:31] LABS: Prothrombin Time 12.2 SEC (10.8-13.0)
[2021-04-07] MEDS: Lactated Ringers 1,000 ML 999 ML IV ×2 (16:36→17:45)
[2021-04-07 16:39] LABS: COVID-19 Test Negative (Negative)
[2021-04-07 16:59] LABS: Anion Gap 14 (12-20); Blood Urea Nitrogen 18 mg/dL (9-16); Calcium 7.8 mg/dL (8.4-10.2); Carbon Dioxide 24 mmol/L (22-29); Chloride 105 mmol/L (96-108); Creatinine Clr Calc Pharmacy 55.2; Estimated Glomerular Filt Rate 53; Glucose Random 114 mg/dL (60-115); Potassium 4.5 mmol/L (3.3-5.1); Sodium 138 mmol/L (135-145)
[2021-04-07 17:04] LABS: Troponin-I High Sensitivity 6.4 ng/L (<3.5-35.0)
[2021-04-07 17:27] LABS: Alanine Aminotransferase < 6 U/L (0-40); Alkaline Phosphatase 52 U/L (39-117); Aspartate Amino Transferase 8 U/L (5-37); Bilirubin Direct 0.2 mg/dL (0.0-0.5); Bilirubin Total 0.4 mg/dL (0.0-1.0); Magnesium 1.6 mg/dL (1.6-2.6); Total Protein 4.9 g/dL (6.5-8.0)
[2021-04-07 19:31] LABS: C Reactive Protein 0.56 mg/dL (< or = 0.50)
[2021-04-07] MEDS: iohexoL 350 MG/ML 100 ML INFUS..BTL IV (19:37)
--- NOTE | 2021-04-07 23:30 | P.HPHOSP_ITS ---
History of Present Illness Date of Service: 04/07/21 Chief Complaint: bloody diarrhea This is a 51-year-old male with past medical history of Crohn's disease currently and he marrow and budesonide as well as psoriasis who presents to the hospital with complaints of 2 days history of diarrhea with blood. Patient r eports that his Crohn was under control for very long time but last night he developed diarrhea that was bloody and then again had a second episode of bloody bowel movements. Patient reports that he lost about 1 gal of blood. He became lightheaded, weak, loss of appetite. He reports that for the past 2 months he probably lost about 25 lb mostly due to loss of appetite. He denies any abdominal pain, he denies any fever or chills, he reports a flare of his psoriasis. He denies any headache, change in vision, no chest pain, no shortness of breath, no urinary symptoms and no lower extremity edema. Arrival to the ED hemodynamically stable with no significant abnormal vitals Labs are significant for WBC count 12.2, hemoglobin of 7.8 (no baseline for comparison, hematocrit of 23.3, INR 1.0, creatinine of 1.4, normal LFTs, CRP of 0.56, albumin of 3.0, COVID-19 negative. Patient received 2 units of PRBC and will be admitted for further management Past medical history as below on confirm the patient CT abdomen shows multiple segments of bowels which exhibit circumferential wall thickening, most prominent in the right colon adjacent to surgical anastomosis site right lower quadrant, cecum this is compatible with patient history of Crohn's disease. Include in the differential also has common entities including colitis, neoplasm, ischemia. No evidence of bowel obstruction. Review of Systems Review of Systems: Yes all other systems are reviewed and are negative [facility] Medical History (Updated 04/08/21 @ 06:40 by Wen Hill MD) Crohn's disease Psoriasis Surgical History (Updated 04/08/21 @ 06:41 by Wen Hill MD) H/O colectomy Social History Household Members: Family Housing: House Do you presently have visiting nurse or other home services: No Patient Tobacco Use Status: Current everyday Tobacco user Patient Interested in Nicotine Replacement: Yes Use of substances other than those prescribed or required for medical reasons: No Have you been hit, kicked, punched, or otherwise hurt by someone within the past year? If so, by whom?: No Do you feel safe in your current relationship?: No Is there a partner from a previous relationship who is making you feel unsafe now?: No Are you made to feel afraid or neglected: No Advance Directives: No Advance Directives Information Provided: No Do you have thoughts of harming others: None Do you have a plan to hurt others: No Plan Recently lost weight without trying: No Eating poorly because of decreased appetite: Yes Nutrition Risks: No Nutritional Risk Poor oral hygiene: No Meds Allergies Allergy/AdvReac Type Severity Reaction Status Date / Time No Known Allergies Allergy Verified 04/07/21 16:01 [No Known Allergies*] Active Medications: Current Medications Generic Name Dose Route Start Last Admin Trade Name Freq PRN Reason Stop Dose Admin Pharmacy Consult 1 each 04/07/21 21:43 Consult Rx Perform Med Rec MISCELLANE ONCE PRN Consult order Home Medications Medication Instructions Recorded Confirmed Last Taken Type adalimumab [Humira(CF) Pen] 40 mg SUBCUT Q2W 04/07/21 04/07/21 Unknown History budesonide 2 cap PO DAILY 04/07/21 04/07/21 Unknown History diphenoxylate-atropine 2 tab PO NEEDED PRN 04/07/21 04/07/21 Unknown History Physical Exam Vital Signs and Narrative: Vital Signs: Last Vital Signs Temp 99.2 F 04/07/21 22:12 Pulse 80 04/07/21 23:13 Resp 10 L 04/07/21 23:13 BP 147/90 H 04/07/21 23:13 Pulse Ox 98 04/07/21 23:13 Body Mass Index 21.2 Const: General: cooperative and no acute distress Orientation/consciousness: patient oriented x3 Eyes: General: appearance normal, both eyes and all related structures Resp: Effort & Inspection: normal respiratory effort and able to speak in complete sentences Cardio: Rate: regular rate Rhythm: regular rhythm GI: Palpation (GI): Soft to palpation Auscultation: normal bowel sounds Skin: General skin exam: no rashes or lesions noted Neuro: General: patient oriented x3 Cognition (Neuro): normal cognition Extrem: General: Yes normal to inspection and Yes no pedal edema Results Labs CBC and Chem 7: 04/08/21 03:55 04/08/21 03:55 Labs: Laboratory Results - last 24 hr 04/07/21 04/07/21 04/07/21 16:14 16:15 16:15 MCV 97.5 MCH 32.6 MCHC 33.5 RDW 14.8 Plt Count 343 MPV 9.1 L Immature Gran % (Auto) 1.2 H Neut % (Auto) 69.4 Lymph % (Auto) 16.6 L Antelope % (Auto) 9.9 Eos % (Auto) 2.6 Baso % (Auto) 0.3 Lymph # (Auto) 2.0 Antelope # (Auto) 1.2 Eos # (Auto) 0.3 Baso # (Auto) 0.0 Abs Immat Gran (auto) 0.15 H Absolute Neuts (auto) 8.5 H Absolute Nucleated RBC 0.000 Nucleated RBC % (auto) 0.0 PT 12.2 INR 1.0 Anion Gap 14 Estim Creat Clear Calc 55.2 Estimated GFR 53 Random Glucose 114 Calcium 7.8 L Magnesium Total Bilirubin Direct Bilirubin AST ALT Alkaline Phosphatase Troponin I High Sens C-Reactive Protein 0.56 H Total Protein Albumin COVID-19 (EDD) COVID-[place] Com Blood Type Antibody Screen Crossmatch 04/07/21 04/07/21 04/07/21 16:15 16:15 16:43 MCV MCH MCHC RDW Plt Count MPV Immature Gran % (Auto) Neut % (Auto) Lymph % (Auto) Antelope % (Auto) Eos % (Auto) Baso % (Auto) Lymph # (Auto) Antelope # (Auto) Eos # (Auto) Baso # (Auto) Abs Immat Gran (auto) Absolute Neuts (auto) Absolute Nucleated RBC Nucleated RBC % (auto) PT INR Anion Gap Estim Creat Clear Calc Estimated GFR Random Glucose Calcium Magnesium Total Bilirubin Direct Bilirubin AST ALT Alkaline Phosphatase Troponin I High Sens 6.4 C-Reactive Protein Total Protein Albumin COVID-19 (EDD) Negative COVID-Instapage See Note Blood Type O Positive Antibody Screen NEGATIVE Crossmatch See Detail 04/07/21 16:43 MCV MCH MCHC RDW Plt Count MPV Immature Gran % (Auto) Neut % (Auto) Lymph % (Auto) Antelope % (Auto) Eos % (Auto) Baso % (Auto) Lymph # (Auto) Antelope # (Auto) Eos # (Auto) Baso # (Auto) Abs Immat Gran (auto) Absolute Neuts (auto) Absolute Nucleated RBC Nucleated RBC % (auto) PT INR Anion Gap Estim Creat Clear Calc Estimated GFR Random Glucose Calcium Magnesium 1.6 Total Bilirubin 0.4 Direct Bilirubin 0.2 AST 8 ALT < 6 Alkaline Phosphatase 52 Troponin I High Sens C-Reactive Protein Total Protein 4.9 L Albumin 3.0 L COVID-19 (EDD) COVID-19 Clin Com Blood Type Antibody Screen Crossmatch Imaging Radiologist's Impressions: Impressions Abdomen/Pelvis CT 04/07/21 16:36 IMPRESSION: 1. There are multiple segments of bowel which exhibits circumferential wall thickening, most prominent is in the right colon adjacent to surgical anastomosis site right lower quadrants, cecum, although nonspecific, this is compatible with patient history of Crohn's disease. Included in the differential are less common entities including colitis, neoplasm, ischemia . No evidence of bowel obstruction.. Clinical correlation and Follow-up recommended. 2. Anterior abdominal wall hernias containing fat and mesentery. 3. No evidence of lymphadenopathy. Assessment and Plan (1) Lower gastrointestinal hemorrhage: Status: Acute (2) Crohn's colitis: Qualifiers: Digestive disease complication type: with rectal bleeding Qualified Code(s): K50.111 - Crohn's disease of large intestine with rectal bleeding Status: Acute (3) Acute anemia: Status: Acute (4) ALLISON (acute kidney injury): Status: Acute 51-year-old male with past medical history of Crohn's disease who presents to the hospital with complaints of abdominal pain and bloody diarrhea # Crohn's colitis - patient on heme air on budesonide at home - presents with bloody diarrhea - will start patient on Solu-Medrol 60 mg daily - consult GI # acute anemia - most likely secondary to GI bleed in the setting of Crohn's colitis - received 2 units of PRBC - follow H&H # GI bleed - secondary to above - hemodynamically stable - gastroenterology consulted # ALLISON - most likely secondary to GI bleed - IV fluids - follow BMP # tobacco use - pt requesting nicotine patch DVT prophylaxis: SCDs
--- NOTE | 2021-04-07 23:58 | PC.NURSE ---
report given to rn on floor, pt ready for transport to floor.
[2021-04-08] VITALS (15 sets, daily range): BP systolic 121–165; BP diastolic 81–102; PULSE 74–114; RESP 12–18; TEMP 36.8–37.6; O2SAT 95–100
[2021-04-08] MEDS: methylPREDNISolone Sod Succ 40 MG/ML VIAL 60 MG IVPUSH (00:57)
[2021-04-08] MEDS: 0.9 % Sodium Chloride Flush 3 ML SYRINGE IVFLUSH ×4 (00:58→23:32)
[2021-04-08] MEDS: Lactated Ringers 1,000 ML 100 ML IVCONT (00:58)
[2021-04-08 04:41] LABS: Basophils Percent Auto 0.3 % (0-2); Eosinophils Percent Auto 0.5 % (0-4); Hematocrit 25.7 % (42-52); Hemoglobin 8.7 g/dl (14.0-18.0); Imm Gran Pct Auto 1.3 % (0.0-0.4); Lymphocytes Absolute Auto 0.7 X10*3/uL (1.2-4.9); Lymphocytes Percent Auto 8.6 % (20-40); MANUAL DIFF FLAG SCAN; Mean Corpuscular HGB Conc 33.9 g/dl (31.0-36.0); Mean Corpuscular Hemoglobin 30.4 pg (27.0-33.0); Mean Corpuscular Volume 89.9 fL (80-98); Mean Platelet Volume 9.9 fL (9.4-12.4); Monocytes Absolute Auto 0.2 X10*3/uL (0.1-1.2); Monocytes Percent Auto 1.9 % (2-11); Neutrophils Absolute Auto 6.8 X10*3/uL (2.0-8.3); Neutrophils Percent Auto 87.4 % (45-73); Platelet Count 216 X10*3/uL (160-400); Red Blood Count 2.86 X10*6/uL (4.60-5.80); Red Cell Distribution Width 16.9 % (11.0-16.0); SCAN SMEAR FLAG 1; White Blood Count 7.8 X10*3/uL (4.8-10.8)
[2021-04-08 05:01] LABS: Anion Gap 13 (12-20); Blood Urea Nitrogen 16 mg/dL (9-16); Calcium 7.6 mg/dL (8.4-10.2); Carbon Dioxide 23 mmol/L (22-29); Chloride 107 mmol/L (96-108); Creatinine Clr Calc Pharmacy 72.1; Estimated Glomerular Filt Rate > 60; Glucose Random 80 mg/dL (60-115); Potassium 4.3 mmol/L (3.3-5.1); Sodium 139 mmol/L (135-145)
[2021-04-08 05:08] LABS: SLIDE REVIEW VERIFIED
[2021-04-08] MEDS: Nicotine 14 MG PATCH.TD24 TRANSDERMA (07:11)
--- NOTE | 2021-04-08 09:15 | PC.NURSE ---
Patient found on bathroom floor with large amount of bloody stool. Patient visibly gomez, up to w/c, transported to bed. BP 90s systolic, fluids hung, transported to ICU at this time.
[2021-04-08] MEDS: 0.9 % Sodium Chloride 500 ML 999 ML IV ×4 (09:36→11:03)
--- NOTE | 2021-04-08 10:01 | HO.PM.IMPN ---
Subjective Subjective Date of Service: 04/08/21 Interval History: The patient was seen earlier this morning as I was called to [facility] [place]ush of blood noticed as the patient was found in the bathroom crying for help and on the floor with breathing covered with blood including the toilet and the floor. His blood pressure was noted to be around 90/60 with symptoms of lethargy shivering. Started on fluids and transferred to ICU for further management. Physical Exam Vital Signs: Vital Signs: Last Vital Signs Temp 98.5 F 04/08/21 09:17 Pulse 74 04/08/21 09:17 Resp 13 04/08/21 09:17 BP 147/83 H 04/08/21 09:17 Pulse Ox 98 04/08/21 04:00 Body Mass Index 21.2 Const: Other: Constitutional : Alert, oriented, pale, shivering, lethargic looking, in mild distress Neck : Normal inspection, Supple Cardiovascular : RRR, S1 S2, no lower extremity edema Respiratory : Who fair bilateral air entry, no crackles, wheezes or rhonchi Gastrointestinal: soft, lax, Normal bowel sounds, mild generalized abdominal tenderness Skin : Warm/Dry, No rash Neurological : Alert & oriented x3, No focal deficit Objective Data Current Medications Generic Name Dose Route Start Last Admin Trade Name Freq PRN Reason Stop Dose Admin Diphenoxylate HCl/Atropine 2 tab 04/08/21 00:31 Diphenoxylate/Atrop 2.5/0.025 Tablet PO . NEEDED PRN Diarrhea Sodium Chloride 500 mls @ 999 mls/hr 04/08/21 09:30 04/08/21 09:36 Ns IV 04/08/21 11:30 999 mls/hr .Q31M LENORA Administration Methylprednisolone Sodium Succinate 60 mg 04/08/21 01:00 04/08/21 00:57 Methylprednisolone Sod Succ 40 Mg/Ml Vial IVPUSH 60 mg Q24H LENORA Administration Nicotine 14 mg 04/08/21 09:00 04/08/21 07:11 Nicotine 14 Mg Patch.Td24 TRANSDERMA 14 mg DAILY LENORA Administration Ondansetron HCl 4 mg 04/08/21 00:31 Ondansetron Hcl 4 Mg/2 Ml Vial IVPUSH Q8H PRN Nausea and Vomiting Pharmacy Consult 1 each 04/07/21 21:43 Consult Rx Perform Med Rec MISCELLANE ONCE PRN Consult order Sodium Chloride 3 ml 04/08/21 00:31 04/08/21 07:11 0.9 % Sodium Chloride Flush 3 Ml Syringe IVFLUSH 3 ml QSHIFT [facility] Administration Labs CBC & Chem 7: 04/08/21 03:55 04/08/21 03:55 Assessment and Plan (1) Lower gastrointestinal hemorrhage: Status: Acute (2) Crohn's colitis: Status: Acute (3) Acute anemia: Status: Acute (4) ALLISON (acute kidney injury): Status: Acute Assessment and Plan: 51-year-old male with past medical history of Crohn's disease who presents to the hospital with complaints of abdominal pain and bloody diarrhea Acute blood loss anemia Symptomatic anemia Massive bleeding noticed earlier this morning Two IV lines started with statin boluses of IV fluids. Four units of RBCs were ordered. FFP ordered as well. Veterinary Dentist contacted and accepted the patient to be transferred to the ICU. GI contacted for evaluation, recommended tagged RBC study. Crohn's colitis Continue Solu-Medrol 60 mg daily Pending GI evaluation ALLISON secondary to GI bleed Continue IV fluids follow BMP tobacco use nicotine patch DVT prophylaxis: SCDs
--- NOTE | 2021-04-08 10:18 | P.PNCC_ITS ---
Subjective Subjective Date of Service: 04/08/21 Interval History: ICU day 1 for GI bleed and Crohn's disease 51-year-old gentleman with underlying history of psoriasis, chronic methadone us e, Crohn's status post left hemicolectomy, on Humira and budesonide admitted on 04/07/2021 to general medical reyez with bright red blood per rectum and subacute weight loss secondary to poor appetite. He has had 2 units of packed red blood cells transfused overnight. This a.m. patient was on the toilet and has had another episode of bright red blood per rectum, when he got up, he felt orthostatic and syncopized. He was started on IV fluid and additional blood product resuscitation (received to more units of packed red blood cells, 1 unit of FFP, and 1 unit platelets) and transferred to intensive care unit. Upon arrival to intensive care unit patient was hemodynamically stable with systolic blood pressure in 120s, pulse in 70s, normoxemia on room air. Gastroenterology evaluation is pending. Critical Care Time (minutes): 60 Physical Exam Vital Signs: Vital Signs: Last Vital Signs Temp 98.5 F 04/08/21 09:17 Pulse 74 04/08/21 09:17 Resp 13 04/08/21 09:17 BP 147/83 H 04/08/21 09:17 Pulse Ox 98 04/08/21 04:00 Body Mass Index 21.2 Const: General: no acute distress, alert and awake Eyes: Sclerae: sclerae normal EOM: EOMs intact bilaterally Neck: Neck: Yes no lymphadenopathy, Yes trachea midline and Yes supple Resp: Effort & Inspection: normal respiratory effort and no respiratory dist ress Auscultation: clear to auscultation bilaterally Cardio: Rate: regular rate Rhythm: regular rhythm Heart sounds: no gallops, no murmurs and no rubs GI: Inspection: Yes other (Ventral hernia) Palpation (GI): Soft to palpation and Other GI palpation findings present ( Nontender) Auscultation: normal bowel sounds Extrem: General: Yes no pedal edema, No clubbing and No cyanosis Objective Data Labs CBC & Chem 7: 04/08/21 03:55 04/08/21 03:55 Labs: Laboratory Results - last 24 hr 04/07/21 04/07/21 04/07/21 16:14 16:15 16:15 WBC 12.2 H RBC 2.39 L Hgb 7.8 L Hct 23.3 L MCV 97.5 MCH 32.6 MCHC 33.5 RDW 14.8 Plt Count 343 MPV 9.1 L Immature Gran % (Auto) 1.2 H Neut % (Auto) 69.4 Lymph % (Auto) 16.6 L [place] % (Auto) 9.9 Eos % (Auto) 2.6 Baso % (Auto) 0.3 Lymph # (Auto) 2.0 [place] # (Auto) 1.2 Eos # (Auto) 0.3 Baso # (Auto) 0.0 Abs Immat Gran (auto) 0.15 H Absolute Neuts (auto) 8.5 H Absolute Nucleated RBC 0.000 Nucleated RBC % (auto) 0.0 Smear Tech's Comments PT 12.2 INR 1.0 Sodium 138 Potassium 4.5 Chloride 105 Carbon Dioxide 24 Anion Gap 14 BUN 18 H Creatinine 1.41 H Estim Creat Clear Calc 55.2 Estimated GFR 53 Random Glucose 114 Calcium 7.8 L Magnesium Total Bilirubin Direct Bilirubin AST ALT Alkaline Phosphatase Troponin I High Sens C-Reactive Protein 0.56 H Total Protein Albumin Stool Occult Blood COVID-19 (EDD) [facility] Blood Type Antibody Screen Crossmatch 04/07/21 04/07/21 04/07/21 16:15 16:15 16:43 WBC RBC Hgb Hct MCV MCH MCHC RDW Plt Count MPV Immature Gran % (Auto) Neut % (Auto) Lymph % (Auto) [place] % (Auto) Eos % (Auto) Baso % (Auto) Lymph # (Auto) [place] # (Auto) Eos # (Auto) Baso # (Auto) Abs Immat Gran (auto) Absolute Neuts (auto) Absolute Nucleated RBC Nucleated RBC % (auto) Smear Tech's Comments PT INR Sodium Potassium Chloride Carbon Dioxide Anion Gap BUN Creatinine Estim Creat Clear Calc Estimated GFR Random Glucose Calcium Magnesium Total Bilirubin Direct Bilirubin AST ALT Alkaline Phosphatase Troponin I High Sens 6.4 C-Reactive Protein Total Protein Albumin Stool Occult Blood COVID-19 (EDD) Negative COVID-[facility] Com See Note Blood Type O Positive Antibody Screen NEGATIVE Crossmatch See Detail 04/07/21 04/07/21 04/08/21 16:43 Unknown 03:55 WBC 7.8 RBC 2.86 L Hgb 8.7 L Hct 25.7 L MCV 89.9 D MCH 30.4 MCHC 33.9 RDW 16.9 H Plt Count 216 D MPV 9.9 Immature Gran % (Auto) 1.3 H Neut % (Auto) 87.4 H Lymph % (Auto) 8.6 L [place] % (Auto) 1.9 L Eos % (Auto) 0.5 Baso % (Auto) 0.3 Lymph # (Auto) 0.7 L [place] # (Auto) 0.2 Eos # (Auto) 0.0 Baso # (Auto) 0.0 Abs Immat Gran (auto) 0.10 H Absolute Neuts (auto) 6.8 Absolute Nucleated RBC 0.000 Nucleated RBC % (auto) 0.0 Smear Tech's Comments VERIFIED PT INR Sodium Potassium Chloride Carbon Dioxide Anion Gap BUN Creatinine Estim Creat Clear Calc Estimated GFR Random Glucose Calcium Magnesium 1.6 Total Bilirubin 0.4 Direct Bilirubin 0.2 AST 8 ALT < 6 Alkaline Phosphatase 52 Troponin I High Sens C-Reactive Protein Total Protein 4.9 L Albumin 3.0 L Stool Occult Blood Cancelled COVID-19 (EDD) COVID-[facility] Blood Type Antibody Screen Crossmatch 04/08/21 03:55 WBC RBC Hgb Hct MCV MCH MCHC RDW Plt Count MPV Immature Gran % (Auto) Neut % (Auto) Lymph % (Auto) [place] % (Auto) Eos % (Auto) Baso % (Auto) Lymph # (Auto) [place] # (Auto) Eos # (Auto) Baso # (Auto) Abs Immat Gran (auto) Absolute Neuts (auto) Absolute Nucleated RBC Nucleated RBC % (auto) Smear Tech's Comments PT INR Sodium 139 Potassium 4.3 Chloride 107 Carbon Dioxide 23 Anion Gap 13 BUN 16 Creatinine 1.08 Estim Creat Clear Calc 72.1 Estimated GFR > 60 Random Glucose 80 Calcium 7.6 L Magnesium Total Bilirubin Direct Bilirubin AST ALT Alkaline Phosphatase Troponin I High Sens C-Reactive Protein Total Protein Albumin Stool Occult Blood COVID-19 (EDD) COVID-[facility] Blood Type Antibody Screen Crossmatch Progress Note: A&P Assessment and plan (1) Acute anemia: Status: Acute Assessment and Plan: Assessment: 51-year-old gentleman with underlying Crohn's disease admitted with acute GI bleed, likely secondary to lower GI bleed Plan: Neuro: No acute issues. Cardiac: No acute issues. Pulmonary: No acute issues. Renal: Acute kidney injury, likely secondary to intravascular volume depletion resolved with IV fluid resuscitation. Continue to monitor urine output and renal indices. Endo: No acute issues. GI: GI bleed, likely low, likely secondary to underlying Crohn's. Gastroenterology evaluation is pending. Continue on IV glucocorticoids. ID: No acute issues Heme/Onc: Acute blood loss anemia secondary to GI bleed. Status post 4 units of packed red blood cells, 1 of FFP, and 1 of platelets. Continue to monitor hemoglobin level. Psych: No acute issues. Miscellaneous: No acute issues. Prophylaxis: Intermittent pneumatic compression Diet: Nothing by mouth Critical care time spent: 60 minutes (2) Lower gastrointestinal hemorrhage: Status: Acute (3) Crohn's colitis: Status: Acute (4) ALLISON (acute kidney injury): Status: Acute
[2021-04-08 13:41] LABS: MANUAL DIFF FLAG NO
[2021-04-08 13:43] LABS: Basophils Percent Auto 0.1 % (0-2); Hematocrit 25.6 % (42-52); Hemoglobin 8.7 g/dl (14.0-18.0); Imm Gran Abs Auto 0.07 X10*3/uL (0.00-0.03); Lymphocytes Absolute Auto 0.7 X10*3/uL (1.2-4.9); Lymphocytes Percent Auto 9.7 % (20-40); Mean Corpuscular Volume 91.1 fL (80-98); Mean Platelet Volume 9.3 fL (9.4-12.4); Monocytes Absolute Auto 0.3 X10*3/uL (0.1-1.2); Monocytes Percent Auto 4.1 % (2-11); Neutrophils Absolute Auto 6.2 X10*3/uL (2.0-8.3); Neutrophils Percent Auto 85.1 % (45-73); Platelet Count 173 X10*3/uL (160-400); Red Blood Count 2.81 X10*6/uL (4.60-5.80); Red Cell Distribution Width 15.5 % (11.0-16.0); White Blood Count 7.3 X10*3/uL (4.8-10.8)
--- NOTE | 2021-04-08 13:57 | MHC.CM.PN ---
dc plan is home no svcs. pt lives alone in [facility]. he reports that he is independent in his care, he works a job and drives a car. pt has parents that live in the area and can help him should he need it. this will include a ride home at dc. dc plan is for patient to return home no svcs at dc. cm to cont. to follow.
[2021-04-08 14:04] LABS: Anion Gap 10 (12-20); Blood Urea Nitrogen 16 mg/dL (9-16); Calcium 7.4 mg/dL (8.4-10.2); Carbon Dioxide 26 mmol/L (22-29); Chloride 109 mmol/L (96-108); Creatinine Clr Calc Pharmacy 74.2; Estimated Glomerular Filt Rate > 60; Glucose Random 111 mg/dL (60-115); Magnesium 1.6 mg/dL (1.6-2.6); Potassium 4.1 mmol/L (3.3-5.1); Sodium 141 mmol/L (135-145)
[2021-04-08] MEDS: Hydrocortisone Sod Succ/PF 100 MG VIAL IVPUSH ×2 (15:15→23:32)
[2021-04-08] MEDS: Pantoprazole Sodium 40 MG/10 ML VIAL IVPUSH (15:15)
--- NOTE | 2021-04-08 15:30 | PM.EVENT ---
Event Note Date of Service: 04/08/21 Event Note: GI Consult-Full note dictated-history via patient, RN, and EMR. Imp: 51 male with underlying Crohn's presenting with fairly acute onset of diarrhea and significant bright red blood, clots, and significant anemia. He describes having had a takeout lasagna 24 hours before his symptoms started. He has required 4 u PRBC and 1 u FFP. He has presently been stable with stable VS and no active bleeding. His abdomen is benign and his bleeding scan is negative. He denies antibiotics, ill contacts, NSAID use, nor any UGI sx. He denies melena. He has been compliant with his Humira QOWeek amd Budesonide 6mg QD. His CT scan shows changes c/w inflammation of GI tract. Diff dx: Crohn's flare vs. Enteric infection. Rec: Check stools, IV steroids, IV PPI, F/U labs closely including ESR and CRP. Hold off on antibiotics for now. Try clear liquids. Will follow. D/W patient in detail. He is comfortable with this plan. Thanks.
[2021-04-08] MEDS: Calcium Gluconate/NaCl,Iso-Osm 2 GM/100 ML PLAST..BAG IV (15:45)
[2021-04-08] MEDS: Magnesium Sulfate/H2O 2 GM/50 ML PIGGYBACK IV (15:46)
--- NOTE | 2021-04-08 19:05 | PC.NURSE ---
PT TOLD ME THAT HE GOES TO THE [facility] ([facility]) ON [address] IN [place]. HIS LAST DOSE WAS 04/07/21. HE RECEIVED 85 MG. HIS REFERENCE #[id number]. THE [facility] VERIFICATION FORM IS ALL FILLED OUT, BUT THE CLINIC IS CLOSED TODAY SO PASSED FORM ON FOR IT TO BE CLARIFIED IN THE MORNING. [facility] IS NOT ON HIS HOME MEDICATION LIST.
[2021-04-08 22:12] LABS: CDIFF Ag Negative (Negative); CDIFF Internal ctrl Dots and bkg OK (V); CDiff Toxin Negative (Negative)
[2021-04-08 22:17] LABS: Leukocytes Stool Qualitative NEGATIVE (NEGATIVE)
[2021-04-09] VITALS (19 sets, daily range): BP systolic 103–158; BP diastolic 74–95; PULSE 74–111; RESP 10–20; TEMP 36.8–37.1; O2SAT 98–100
[2021-04-09] MEDS: Hydrocortisone Sod Succ/PF 100 MG VIAL IVPUSH ×3 (06:33→23:47)
[2021-04-09] MEDS: Pantoprazole Sodium 40 MG/10 ML VIAL IVPUSH ×2 (06:33→16:16)
--- NOTE | 2021-04-09 06:54 | PC.NURSE ---
Patient with 2 large stools during shift; dark maroon with clots. Patient dizzy and diaphoretic after bowel movements. See flowsheet for vital signs post bowel movements. Conrad aG NP notified of bowel movements.
[2021-04-09] MEDS: 0.9 % Sodium Chloride Flush 3 ML SYRINGE IVFLUSH ×2 (07:36→16:16)
[2021-04-09 08:00] LABS: VBG HCO3 23 mmol/L (22-26); VBG pCO2 34 mmHg; VBG pH 7.42 (7.32-7.43); VBG pO2 140 mmHg
[2021-04-09 08:25] LABS: MANUAL DIFF FLAG NO
[2021-04-09 08:30] LABS: Basophils Percent Auto 0.1 % (0-2); Imm Gran Abs Auto 0.14 X10*3/uL (0.00-0.03); Imm Gran Pct Auto 1.2 % (0.0-0.4); Lymphocytes Absolute Auto 1.1 X10*3/uL (1.2-4.9); Lymphocytes Percent Auto 9.7 % (20-40); Mean Corpuscular Hemoglobin 31.1 pg (27.0-33.0); Mean Corpuscular Volume 91.5 fL (80-98); Mean Platelet Volume 10.3 fL (9.4-12.4); Monocytes Absolute Auto 0.8 X10*3/uL (0.1-1.2); Monocytes Percent Auto 6.6 % (2-11); Neutrophils Absolute Auto 9.6 X10*3/uL (2.0-8.3); Neutrophils Percent Auto 82.4 % (45-73); Platelet Count 218 X10*3/uL (160-400); Red Blood Count 1.77 X10*6/uL (4.60-5.80); Red Cell Distribution Width 15.7 % (11.0-16.0); White Blood Count 11.7 X10*3/uL (4.8-10.8)
[2021-04-09 08:36] LABS: Venous Blood Gas Refer to POC result
[2021-04-09 08:57] LABS: C Reactive Protein 0.31 mg/dL (< or = 0.50)
[2021-04-09 08:59] LABS: Hematocrit 16.2 % (42-52); Hemoglobin 5.5 g/dl (14.0-18.0)
[2021-04-09 09:02] LABS: Alanine Aminotransferase < 6 U/L (0-40); Albumin Level 2.3 g/dL (3.5-5.0); Alkaline Phosphatase 33 U/L (39-117); Anion Gap 12 (12-20); Aspartate Amino Transferase 6 U/L (5-37); Bilirubin Total 0.5 mg/dL (0.0-1.0); Blood Urea Nitrogen 23 mg/dL (9-16); Calcium 7.4 mg/dL (8.4-10.2); Carbon Dioxide 22 mmol/L (22-29); Chloride 109 mmol/L (96-108); Creatinine Clr Calc Pharmacy 47.8; Estimated Glomerular Filt Rate 45; Glucose Random 132 mg/dL (60-115); Phosphorus 4.8 mg/dL (2.7-4.5); Sodium 139 mmol/L (135-145); Total Protein 3.6 g/dL (6.5-8.0)
[2021-04-09 10:05] LABS: Erythrocyte Sedimentation Rate 3 MM/HR (0-15)
--- NOTE | 2021-04-09 11:05 | P.PNCC_ITS ---
Subjective Subjective Date of Service: 04/09/21 Interval History: Mr. Cornejo was admitted to ICU yesterday bec of hemorrhagic shock 2? presumed lower GI bleed. The patient is a 51-year-old gentleman with underlying history of Crohn?s disease, psoriasis, and chronic methadone use. 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 15 years ago. He takes Humira and budesonide, and is compliant with his meds. Never had lower GI bleeding before. Colonoscopy some months ago was negative except for narrowing of the anastomotic site. The patient told us that about a month ago, he had a few streaks of blood in his stool which went away, and did not recur. The patient presented to the ED on April 07 complaining of 2 days of red bloody diarrhea, dizziness, shortness of breath, and a clammy feeling. He had not been eating and drinking normally and had unintentional weight loss of 25 lb over the prior few months. In the ED, the patient was tachycardic and hypotensive. Labs in ED were notable for Hb 7.8, normal coags, BUN and creatinine of 18/1.4 (no b aseline), normal LFTs, and albumin of 3.0. No lactic acid was done. He was admitted to medicine and transfused 2 units of packed red blood cells overnight. The next morning, while on the toilet, the patient had another episode of bright red blood per rectum. When he got up, he had a syncopal epi sode. He was given IV fluid and 2 more units of packed red blood cells and 1 unit of FFP, and transferred to intensive care unit. Upon arrival to intensive care unit patient was hemodynamically stable with normoxemia on room air. The patient was changed to IV hydrocortisone. Early this morning, he had minor hypotension with a blood pressure down to 103/74 associated with tachycardia. Hemoglobin at 05:00 came back 5.5, down from 8.7 yesterday afternoon. We?ve transfuse him another two units RBCs. F/U Hb is up to 7.7. Patient remains fully alert and breathing easy with a sat of 99% on room air. Heart rate this afternoon is 82, blood pressure is 140/89. He remains afebrile. The belly is benign. He has no edema. LABORATORY DATA: As below. Notably, BUN and creatinine are up to 23/1.6. IMPRESSION: 1. Crohn's disease. 2. Recurrent hemorrhagic shock secondary to lower GI bleeding. The patient did vomit this morning when he got lightheaded but there was no coffee-grounds or b lood. (Pretty much rules out an upper GI bleed.) GI bleeding is likely from a Crohn's flare versus AVM or diverticular bleed. D/W Dr. De La Torre. Colonoscopy planned for later today. Keep two units ahead in the blood bank. Recheck PT. F/U Hb after 2nd unit. Surgical consult 3. ALLISON. Hypovolemia vs ATN. Check urine lytes. Echo for volume status. Critical care time (include d/w consultants): 60+ min Critical Care Time (minutes): 60 Physical Exam Vital Signs: Vital Signs: Last Vital Signs Temp 98.4 F 04/09/21 10:53 Pulse 78 04/09/21 10:53 Resp 14 04/09/21 10:53 BP 127/85 04/09/21 10:53 Pulse Ox 100 04/09/21 07:41 Body Mass Index 21.2 Objective Data Labs CBC & Chem 7: 04/09/21 13:02 04/09/21 19:03 Labs: Laboratory Results - last 24 hr 04/07/21 04/08/21 04/08/21 16:43 13:23 13:23 WBC 7.3 RBC 2.81 L Hgb 8.7 L Hct 25.6 L MCV 91.1 MCH 31.0 MCHC 34.0 RDW 15.5 Plt Count 173 MPV 9.3 L Immature Gran % (Auto) 1.0 H Neut % (Auto) 85.1 H Lymph % (Auto) 9.7 L [place] % (Auto) 4.1 Eos % (Auto) 0.0 Baso % (Auto) 0.1 Lymph # (Auto) 0.7 L [place] # (Auto) 0.3 Eos # (Auto) 0.0 Baso # (Auto) 0.0 Abs Immat Gran (auto) 0.07 H Absolute Neuts (auto) 6.2 Absolute Nucleated RBC 0.000 Nucleated RBC % (auto) 0.0 ESR VBG pH VBG pCO2 VBG pO2 VBG HCO3 VBG O2 Saturation VBG Base Excess Sodium 141 Potassium 4.1 Chloride 109 H Carbon Dioxide 26 Anion Gap 10 L BUN 16 Creatinine 1.05 Estim Creat Clear Calc 74.2 Estimated GFR > 60 Random Glucose 111 D Calcium 7.4 L Phosphorus Magnesium 1.6 Total Bilirubin AST ALT Alkaline Phosphatase C-Reactive Protein Total Protein Albumin Stool Leukocytes, Qual C. difficile Toxin A&B C. difficile Antigen C. difficile Interpret Blood Type O Positive Antibody Screen NEGATIVE Crossmatch See Detail 04/08/21 04/08/21 04/09/21 21:16 21:16 07:53 WBC 11.7 H RBC 1.77 L D Hgb 5.5 L* D Hct 16.2 L* D MCV 91.5 MCH 31.1 MCHC 34.0 RDW 15.7 Plt Count 218 D MPV 10.3 Immature Gran % (Auto) 1.2 H Neut % (Auto) 82.4 H Lymph % (Auto) 9.7 L [place] % (Auto) 6.6 Eos % (Auto) 0.0 Baso % (Auto) 0.1 Lymph # (Auto) 1.1 L [place] # (Auto) 0.8 Eos # (Auto) 0.0 Baso # (Auto) 0.0 Abs Immat Gran (auto) 0.14 H Absolute Neuts (auto) 9.6 H Absolute Nucleated RBC 0.000 Nucleated RBC % (auto) 0.0 ESR VBG pH VBG pCO2 VBG pO2 VBG HCO3 VBG O2 Saturation VBG Base Excess Sodium Potassium Chloride Carbon Dioxide Anion Gap BUN Creatinine Estim Creat Clear Calc Estimated GFR Random Glucose Calcium Phosphorus Magnesium Total Bilirubin AST ALT Alkaline Phosphatase C-Reactive Protein Total Protein Albumin Stool Leukocytes, Qual NEGATIVE C. difficile Toxin A&B Negative C. difficile Antigen Negative C. difficile Interpret SEE NOTE Blood Type Antibody Screen Crossmatch 04/09/21 04/09/21 04/09/21 07:53 07:53 07:53 WBC RBC Hgb Hct MCV MCH MCHC RDW Plt Count MPV Immature Gran % (Auto) Neut % (Auto) Lymph % (Auto) [place] % (Auto) Eos % (Auto) Baso % (Auto) Lymph # (Auto) [place] # (Auto) Eos # (Auto) Baso # (Auto) Abs Immat Gran (auto) Absolute Neuts (auto) Absolute Nucleated RBC Nucleated RBC % (auto) ESR 3 VBG pH VBG pCO2 VBG pO2 VBG HCO3 VBG O2 Saturation VBG Base Excess Sodium 139 Potassium 4.0 Chloride 109 H Carbon Dioxide 22 Anion Gap 12 BUN 23 H Creatinine 1.63 H Estim Creat Clear Calc 47.8 Estimated GFR 45 Random Glucose 132 H Calcium 7.4 L Phosphorus 4.8 H Magnesium 2.0 Total Bilirubin 0.5 AST 6 ALT < 6 Alkaline Phosphatase 33 L D C-Reactive Protein 0.31 Total Protein 3.6 L D Albumin 2.3 L D Stool Leukocytes, Qual C. difficile Toxin A&B C. difficile Antigen C. difficile Interpret Blood Type Antibody Screen Crossmatch 04/09/21 07:53 WBC RBC Hgb Hct MCV MCH MCHC RDW Plt Count MPV Immature Gran % (Auto) Neut % (Auto) Lymph % (Auto) [place] % (Auto) Eos % (Auto) Baso % (Auto) Lymph # (Auto) [place] # (Auto) Eos # (Auto) Baso # (Auto) Abs Immat Gran (auto) Absolute Neuts (auto) Absolute Nucleated RBC Nucleated RBC % (auto) ESR VBG pH 7.42 VBG pCO2 34 VBG pO2 140 VBG HCO3 23 VBG O2 Saturation 99.0 VBG Base Excess -1.0 Sodium Potassium Chloride Carbon Dioxide Anion Gap BUN Creatinine Estim Creat Clear Calc Estimated GFR Random Glucose Calcium Phosphorus Magnesium Total Bilirubin AST ALT Alkaline Phosphatase C-Reactive Protein Total Protein Albumin Stool Leukocytes, Qual C. difficile Toxin A&B C. difficile Antigen C. difficile Interpret Blood Type Antibody Screen Crossmatch Microbiology Microbiology Results: Microbiology 04/08/21 21:16 Stool Stool Culture - Preliminary Normal so far. Progress Note: A&P Assessment and plan (1) Crohn's colitis: Status: Acute Critical Care Time Critical Care Time (minutes): 60
--- NOTE | 2021-04-09 11:28 | CONS_ITS ---
DATE OF SERVICE: 04/08/2021 REASON FOR CONSULTATION: History of Crohn's disease and GI bleeding. HISTORY OF PRESENT ILLNESS: The patient presents for evaluation of fairly acute onset of diarrhea and lower GI bleeding. In reviewing his medical record and in discussion with him, he has a history of Crohn's disease, diagnosed approximately 20 years ago during colonoscopy with Dr. Powell, which revealed evidence of involvement of the ileocecal valve and terminal ileum. He has had a history of a small bowel obstruction. His most recent care has been with Dr. Parker Caba in [place]. He did undergo a probable ileocolectomy based on his history over 10 years ago with a temporary either ileostomy or colostomy by his description. This was done at an outside facility. The patient describes that he has been doing very well on a regimen of Humira injections every other week and budesonide 6 mg daily under the guidance of Dr. Caba. He describes a colonoscopy about 6 months ago that was negative as far as he knows. He does not recall being told of any active Crohn's disease. In any event, he was doing well up until the night before admission when he developed fairly acute onset of abdominal cramping, diarrhea and hematochezia. That morning, he had a normal bowel movement. He then had frequent episodes of diarrhea and bleeding prompting his arrival in the ER. Overnight, he had further bleeding and some transient hypotension that required him to be transferred to the ICU. Since arrival in the ICU, he has been hemodynamically stable and has had no further obvious bleeding. He did have a nuclear medicine bleeding scan, which was negative for any sign of active bleeding. He has thus far received a total of 4 units of packed red blood cells and 1 unit of FFP, and things have been stable and he is more comfortable. Prior to 48 hours ago, he reports he was doing well without any abdominal complaints other than occasional episodes of diarrhea, but without bleeding. He does describe having had a takeout lasagna about 24 hours before his symptoms started. He denies any recent antibiotic use, NSAID use, nor alcohol use. He does smoke about 2 packs a day. He has had no nausea nor vomiting. There has been no reported melena. The bleeding is described as either fresh blood or mixed with blood clots and some maroon stool. He presently denies any abdominal pain. MEDICATIONS: At home; Humira injections every other week, budesonide 6 mg daily, and occasional Lomotil. PAST MEDICAL HISTORY: Crohn's disease as above. Surgery for Crohn's disease as described above. Psoriasis. He denies history of ID, diabetes, stroke, lung disease, or kidney disease. SOCIAL HISTORY: He is . He does smoke. He denies any alcohol use. 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 FAMILY HISTORY: Noncontributory. REVIEW OF SYSTEMS: CONSTITUTIONAL: Up until the past 2 days, he had been feeling well, although does describe about a 20-pound weight loss over the past few months despite having a normal diet and no reported active Crohn disease such as diarrhea or abdominal pain. He denies any fevers. SKIN: No rash or no pruritus, although he does report some psoriasis. CARDIAC: No chest pain. PULMONARY: No cough. No hemoptysis. GI: As above. URINARY: No dysuria or hematuria. NEUROLOGIC: No headache or seizures. PHYSICAL EXAMINATION: GENERAL: The patient is a pleasant, alert, comfortable-appearing male. SKIN: Warm and dry. HEENT: Anicteric sclerae. Moist mucous membranes. NECK: Supple. CHEST: Clear. CARDIAC: Normal S1 and S2. ABDOMEN: Soft and flat. Normal bowel sounds. Nontender. There is no palpable mass, rebound, or guarding. EXTREMITIES: Without edema. LABORATORY DATA: His hemoglobin on admission was 7.8 with a repeat this morning of 8.7 and a followup of 8.7 as well. MCV 91, platelets 173,000. PT 12.2 with INR 1.0. Normal electrolytes. BUN 16, creatinine 1.1. Normal LFTs. Albumin of 3.0. COVID test was negative. He did have a negative nuclear medicine bleeding scan as described above. CAT scan of the abdomen and pelvis on admission describes inflammatory changes in the area of the right lower quadrant involving at least the small bowel. There was no evidence of any bowel obstruction, free air, nor any intraabdominal fluid collections. Overall, this was felt to likely represent active Crohn's disease. There was noted an anterior abdominal wall hernia with some fat and mesentery, but no obstruction. There was no lymphadenopathy. IMPRESSION: Given the patient's clinical history, I do suspect this represents a flare of his Crohn's disease. Given some associated weight loss over the past couple of months, he may have been having some manifestations of Crohn disease without knowing it. In any event, he has had significant bleeding, but is currently stable. The only thing of note is that he did have some takeout food 24 hours before the onset of symptoms and this does raise the potential for some enteric infection contributing to this current process. At this point, he appears very stable with a benign abdomen. Given the likelihood of this being an active Crohn's flare, I would recommend IV steroids on a continuous basis every 8 hours. I have also ordered stool specimens to rule out any type of enteric infection in the meantime. Given his good clinical appearance, I would hold off on any antibiotics at this time. He will continue to be closely monitored with followup laboratories, including a sedimentation rate and C-reactive protein. I do not think he needs any further imaging studies nor endoscopic evaluation at this time. I think he can be on clear liquids for now as well. Hopefully, if things continue to remain stable and improved, we could then slowly advance his diet and transition him to oral steroids. He does report that he is not due for another Humira injection for over 1 week, so I do not think that will be an issue during the hospitalization and he can resume that once he is discharged. This has all been discussed with the patient in detail, and he is currently comfortable with the plan. Thank you for this consultation. MD BERNARD Lopez/DANIELA / [id number] [email or web address]
--- NOTE | 2021-04-09 11:47 | P.CONGS_ITS ---
History of Present Illness Consult details Consult date: 04/09/21 Narrative: 51-year-old male patient with a known history of Crohn's disease status post ileal colectomy with temporary ostomy followed by closure of ostomy performed approximately 15 years ago now presenting with lower GI bleed bright red blood over the last several days. Patient is currently being monitored in the ICU after developing orthostatic hypotension and syncope. He denies a previous history of lower GI bleeds and reports a previous colonoscopy approximately [address] of the abdomen pelvis reveals an area of inflammation at the terminal ileum and at the ileocolonic anastomosis suggestive of a Crohn's flare. Review of Systems Review of Systems: Yes all other systems are reviewed and are negative Constitutional: Constitutional: Reports fatigue, Reports lethargy, Denies night sweats and Reports weakness Cardiovascular: Cardiovascular: Denies chest pain, Reports syncope, Reports rapid heart rate and Denies dyspnea Respiratory: Respiratory: Denies cough, Denies dyspnea and Denies wheezing Gastrointestinal: Gastrointestinal: Denies bloating, Reports hematochezia, Reports diarrhea, Reports loose stools, Denies nausea and Denies hematemesis Genitourinary: Genitourinary: Reports no additional male genitourinary complaints Neurologic: Reports syncope and Reports weakness Endocrine: Endocrine: Reports fatigue Allergic/Immunologic: Allergic/Immunologic: Denies wheezing PMFSH Past Medical History Medical History Crohn's disease Psoriasis Surgical History Surgical History H/O colectomy Social History Social History Household Members: Family Housing: House Do you presently have visiting nurse or other home services: No Patient Tobacco Use Status: Current everyday Tobacco user Patient Interested in Nicotine Replacement: Yes Use of substances other than those prescribed or required for medical reasons: No Currently Displaying Signs/Symptoms of Drug Intoxication Withdrawal: No Have you been hit, kicked, punched, or otherwise hurt by someone within the past year? If so, by whom?: No Do you feel safe in your current relationship?: No Is there a partner from a previous relationship who is making you feel unsafe now?: No Are you made to feel afraid or neglected: No Advance Directives: No Advance Directives Information Provided: No Do you have thoughts of harming others: None Do you have a plan to hurt others: No Plan Recently lost weight without trying: No Eating poorly because of decreased appetite: Yes Nutrition Risks: No Nutritional Risk Poor oral hygiene: No service: No Current occupational status: employed Meds Allergies Allergy/AdvReac Type Severity Reaction Status Date / Time No Known Allergies Allergy Verified 04/07/21 16:01 [No Known Allergies*] Active Medications: Current Medications Generic Name Dose Route Start Last Admin Trade Name Freq PRN Reason Stop Dose Admin Hydrocortisone Sodium Succinate 100 mg 04/08/21 15:00 04/09/21 06:33 Hydrocortisone Sod Succ/Pf 100 Mg Vial IVPUSH 100 mg Q8H LENORA Administration Methadone HCl 80 mg 04/09/21 08:00 04/09/21 07:39 Methadone Hcl 1 Mg/0.1 Ml Oral.Conc PO Not Given DAILY LENORA Nicotine 14 mg 04/08/21 09:00 04/08/21 07:11 Nicotine 14 Mg Patch.Td24 TRANSDERMA 14 mg DAILY LENORA Administration Ondansetron HCl 4 mg 04/08/21 00:31 Ondansetron Hcl 4 Mg/2 Ml Vial IVPUSH Q8H PRN Nausea and Vomiting Pantoprazole Sodium 40 mg 04/08/21 16:30 04/09/21 06:33 Pantoprazole Sodium 40 Mg/10 Ml Vial IVPUSH 40 mg BID@0630,1630 [facility] Administration Pharmacy Consult 1 each 04/07/21 21:43 Consult Rx Perform Med Rec MISCELLANE ONCE PRN Consult order Sodium Chloride 3 ml 04/08/21 00:31 04/09/21 07:36 0.9 % Sodium Chloride Flush 3 Ml Syringe IVFLUSH 3 ml QSHIFT LENORA Administration Home Medications Medication Instructions Recorded Confirmed Last Taken Type adalimumab [Humira(CF) Pen] 40 mg SUBCUT Q2W 04/07/21 04/07/21 Unknown History budesonide 2 cap PO DAILY 04/07/21 04/07/21 Unknown History diphenoxylate-atropine 2 tab PO NEEDED PRN 04/07/21 04/07/21 Unknown History Physical Exam Vital Signs: Vital Signs: Last Vital Signs Temp 98.7 F 04/09/21 11:34 Pulse 75 06/07/21 11:34 Resp 14 04/09/21 11:34 BP 139/84 04/09/21 11:34 Pulse Ox 100 04/09/21 07:41 Body Mass Index 21.2 Const: General: cooperative, no acute distress, alert and awake Nutritional Appearance: average body habitus Orientation/consciousness: patient oriented x3 Limitations: no limitations HENMT: Head: Yes normocephalic and Yes atraumatic Ears: hearing grossly nor mal bilaterally Neck: Neck: Yes full ROM and Yes no JVD Resp: Effort & Inspection: normal respiratory effort, no cough, no stridor and not tachypneic GI: Inspection: Yes normal to inspection Palpation (GI): Soft to palpation, nontender, no guarding, not rigid and no masses Skin: Other: Cool, pale, dry, no rash Neuro: General: patient oriented x3 Extrem: General: No edema Results Labs Result diagrams: 04/09/21 07:53 04/09/21 07:53 Labs: Abnormal lab results 04/07/21 04/08/21 04/08/21 Range/Units 16:43 13:23 13:23 WBC (4.8-10.8) X10*3/uL RBC 2.81 L (4.60-5.80) X10*6/uL Hgb 8.7 L (14.0-18.0) g/dl Hct 25.6 L (42-52) % MPV 9.3 L (9.4-12.4) fL Immature Gran % (Auto) 1.0 H (0.0-0.4) % Neut % (Auto) 85.1 H (45-73) % Lymph % (Auto) 9.7 L (20-40) % Lymph # (Auto) 0.7 L (1.2-4.9) X10*3/uL Abs Immat Gran (auto) 0.07 H (0.00-0.03) X10*3/uL Absolute Neuts (auto) (2.0-8.3) X10*3/uL Chloride 109 H (96-108) mmol/L Anion Gap 10 L (12-20) BUN (9-16) mg/dL Creatinine (0.5-1.4) mg/dL Random Glucose (60-115) mg/dL Calcium 7.4 L (8.4-10.2) mg/dL Phosphorus (2.7-4.5) mg/dL Alkaline Phosphatase (39-117) U/L Total Protein (6.5-8.0) g/dL Albumin (3.5-5.0) g/dL Crossmatch See Detail 04/09/21 04/09/21 Range/Units 07:53 07:53 WBC 11.7 H (4.8-10.8) X10*3/uL RBC 1.77 L D (4.60-5.80) X10*6/uL Hgb 5.5 L* D (14.0-18.0) g/dl Hct 16.2 L* D (42-52) % MPV (9.4-12.4) fL Immature Gran % (Auto) 1.2 H (0.0-0.4) % Neut % (Auto) 82.4 H (45-73) % Lymph % (Auto) 9.7 L (20-40) % Lymph # (Auto) 1.1 L (1.2-4.9) X10*3/uL Abs Immat Gran (auto) 0.14 H (0.00-0.03) X10*3/uL Absolute Neuts (auto) 9.6 H (2.0-8.3) X10*3/uL Chloride 109 H (96-108) mmol/L Anion Gap (12-20) BUN 23 H (9-16) mg/dL Creatinine 1.63 H (0.5-1.4) mg/dL Random Glucose 132 H (60-115) mg/dL Calcium 7.4 L (8.4-10.2) mg/dL Phosphorus 4.8 H (2.7-4.5) mg/dL Alkaline Phosphatase 33 L D (39-117) U/L Total Protein 3.6 L D (6.5-8.0) g/dL Albumin 2.3 L D (3.5-5.0) g/dL Crossmatch Short CBC 04/08/21 04/09/21 Range/Units 13:23 07:53 WBC 7.3 11.7 H (4.8-10.8) X10*3/uL Hgb 8.7 L 5.5 L* D (14.0-18.0) g/dl Hct 25.6 L 16.2 L* D (42-52) % Plt Count 173 218 D (160-400) X10*3/uL BMP 04/08/21 04/09/21 13:23 07:53 Sodium 141 139 Potassium 4.1 4.0 Chloride 109 H 109 H Carbon Dioxide 26 22 BUN 16 23 H Creatinine 1.05 1.63 H Calcium 7.4 L 7.4 L Liver Function 04/09/21 Range/Units 07:53 Total Bilirubin 0.5 (0.0-1.0) mg/dL AST 6 (5-37) U/L ALT < 6 (0-40) U/L Alkaline Phosphatase 33 L D (39-117) U/L Albumin 2.3 L D (3.5-5.0) g/dL All other labs normal. Assessment and Plan (1) Lower gastrointestinal hemorrhage: Status: Acute 51-year-old male patient with history of Crohn's disease now with a 2 day history of lower GI bleed with bright red blood per rectum. Patient has become quite anemic as a result of the acute blood loss. Areas of suspected blood loss include the area of anastomosis with possible active Crohn's disease in the ileocecal anastomosis verses a diverticular or AVM bleed in the remaining colon. Colonoscopy, bleeding scan, and/or angiography would be helpful in localizing the source of bleeding. options for control of bleeding include injection, clipping, Interventional Radiology embolization, and as a last resort surgery. Discussed with Dr. De La Torre who is considering a colonoscopy for later today. Will await these results. Continue supportive care and transfusion as necessary. (2) Crohn's colitis: Qualifiers: Digestive disease complication type: with rectal bleeding Qualified Code(s): K50.111 - Crohn's disease of large intestine with rectal bleeding Status: Acute Procedures Date of Service Date of Service: 04/09/21
[2021-04-09 13:10] LABS: Hematocrit 22.6 % (42-52); Hemoglobin 7.7 g/dl (14.0-18.0)
[2021-04-09 13:34] LABS: Anion Gap 10 (12-20); Blood Urea Nitrogen 27 mg/dL (9-16); Calcium 7.3 mg/dL (8.4-10.2); Carbon Dioxide 23 mmol/L (22-29); Chloride 109 mmol/L (96-108); Creatinine Clr Calc Pharmacy 41.4; Estimated Glomerular Filt Rate 38; Glucose Random 137 mg/dL (60-115); Potassium 4.3 mmol/L (3.3-5.1); Sodium 138 mmol/L (135-145)
--- NOTE | 2021-04-09 15:02 | P.CONAN_ITS ---
[facility] Active Problems Active Problems: All Active Problems (Updated 04/08/21 @ 06:40 by Wen Hill MD) ALLISON (acute kidney injury) (Acute) Acute anemia (Acute) Lower gastrointestinal hemorrhage (Acute) Crohn's colitis (Acute) Past Medical History Medical History Crohn's disease Psoriasis Surgical History Surgical History H/O colectomy Social History Social History Household Members: Family Housing: House Do you presently have visiting nurse or other home services: No Patient Tobacco Use Status: Current everyday Tobacco user Patient Interested in Nicotine Replacement: Yes Use of substances other than those prescribed or required for medical reasons: No Currently Displaying Signs/Symptoms of Drug Intoxication Withdrawal: No Have you been hit, kicked, punched, or otherwise hurt by someone within the past year? If so, by whom?: No Do you feel safe in your current relationship?: No Is there a partner from a previous relationship who is making you feel unsafe now?: No Are you made to feel afraid or neglected: No Advance Directives: No Advance Directives Information Provided: No Do you have thoughts of harming others: None Do you have a plan to hurt others: No Plan Recently lost weight without trying: No Eating poorly because of decreased appetite: Yes Nutrition Risks: No Nutritional Risk Poor oral hygiene: No service: No Current occupational status: employed Meds Allergies Allergy/AdvReac Type Severity Reaction Status Date / Time No Known Allergies Allergy Verified 04/07/21 16:01 [No Known Allergies*] Active Medications: Current Medications Generic Name Dose Route Start Last Admin Trade Name Freq PRN Reason Stop Dose Admin Hydrocortisone Sodium Succinate 100 mg 04/08/21 15:00 04/09/21 06:33 Hydrocortisone Sod Succ/Pf 100 Mg Vial IVPUSH 100 mg Q8H LENORA Administration Methadone HCl 80 mg 04/09/21 08:00 04/09/21 07:39 Methadone Hcl 1 Mg/0.1 Ml Oral.Conc PO Not Given DAILY LENORA Nicotine 14 mg 04/08/21 09:00 04/08/21 07:11 Nicotine 14 Mg Patch.Td24 TRANSDERMA 14 mg DAILY LENORA Administration Ondansetron HCl 4 mg 04/08/21 00:31 Ondansetron Hcl 4 Mg/2 Ml Vial IVPUSH Q8H PRN Nausea and Vomiting Pantoprazole Sodium 40 mg 04/08/21 16:30 04/09/21 06:33 Pantoprazole Sodium 40 Mg/10 Ml Vial IVPUSH 40 mg BID@0630,1630 [facility] Administration Pharmacy Consult 1 each 04/07/21 21:43 Consult Rx Perform Med Rec MISCELLANE ONCE PRN Consult order Sodium Chloride 3 ml 04/08/21 00:31 04/09/21 07:36 0.9 % Sodium Chloride Flush 3 Ml Syringe IVFLUSH 3 ml QSHIFT [facility] Administration Home Medications Medication Instructions Recorded Confirmed Last Taken Type adalimumab [Humira(CF) Pen] 40 mg SUBCUT Q2W 04/07/21 04/07/21 Unknown History budesonide 2 cap PO DAILY 04/07/21 04/07/21 Unknown History diphenoxylate-atropine 2 tab PO NEEDED PRN 04/07/21 04/07/21 Unknown History Exam Exam Date and Time: April 09, 2021 1502 Height,Weight and Vital Signs: Height 5 ft 7 in Weight 61.689 kg Last Vital Signs Temp 98.5 F 04/09/21 14:54 Pulse 85 04/09/21 14:54 Resp 13 04/09/21 14:54 BP 158/95 H 04/09/21 14:54 Pulse Ox 100 04/09/21 12:00 Pertinent Lab Results Pertinent Lab Results: Laboratory Tests 04/07/21 04/07/21 04/07/21 16:14 16:15 16:15 WBC 12.2 H RBC 2.39 L Hgb 7.8 L Hct 23.3 L MCV 97.5 MCH 32.6 MCHC 33.5 RDW 14.8 Plt Count 343 MPV 9.1 L Immature Gran % (Auto) 1.2 H Neut % (Auto) 69.4 Lymph % (Auto) 16.6 L [place] % (Auto) 9.9 Eos % (Auto) 2.6 Baso % (Auto) 0.3 Lymph # (Auto) 2.0 [place] # (Auto) 1.2 Eos # (Auto) 0.3 Baso # (Auto) 0.0 Abs Immat Gran (auto) 0.15 H Absolute Neuts (auto) 8.5 H Absolute Nucleated RBC 0.000 Nucleated RBC % (auto) 0.0 Smear Tech's Comments ESR PT 12.2 INR 1.0 VBG pH VBG pCO2 VBG pO2 VBG HCO3 VBG O2 Saturation VBG Base Excess Sodium 138 Potassium 4.5 Chloride 105 Carbon Dioxide 24 Anion Gap 14 BUN 18 H Creatinine 1.41 H Estim Creat Clear Calc 55.2 Estimated GFR 53 Random Glucose 114 Calcium 7.8 L Phosphorus Magnesium Total Bilirubin Direct Bilirubin AST ALT Alkaline Phosphatase Troponin I High Sens C-Reactive Protein 0.56 H Total Protein Albumin Stool Occult Blood Stool Leukocytes, Qual C. difficile Toxin A&B C. difficile Antigen C. difficile Interpret COVID-19 (EDD) COVID-19 Collections Com Blood Type Antibody Screen Crossmatch 04/07/21 04/07/21 04/07/21 16:15 16:15 16:43 WBC RBC Hgb Hct MCV MCH MCHC RDW Plt Count MPV Immature Gran % (Auto) Neut % (Auto) Lymph % (Auto) [place] % (Auto) Eos % (Auto) Baso % (Auto) Lymph # (Auto) [place] # (Auto) Eos # (Auto) Baso # (Auto) Abs Immat Gran (auto) Absolute Neuts (auto) Absolute Nucleated RBC Nucleated RBC % (auto) Smear Tech's Comments ESR PT INR VBG pH VBG pCO2 VBG pO2 VBG HCO3 VBG O2 Saturation VBG Base Excess Sodium Potassium Chloride Carbon Dioxide Anion Gap BUN Creatinine Estim Creat Clear Calc Estimated GFR Random Glucose Calcium Phosphorus Magnesium Total Bilirubin Direct Bilirubin AST ALT Alkaline Phosphatase Troponin I High Sens 6.4 C-Reactive Protein Total Protein Albumin Stool Occult Blood Stool Leukocytes, Qual C. difficile Toxin A&B C. difficile Antigen C. difficile Interpret COVID-19 (EDD) Negative COVID-19 Tapru See Note Blood Type O Positive Antibody Screen NEGATIVE Crossmatch See Detail 04/07/21 04/07/21 04/08/21 16:43 Unknown 03:55 WBC 7.8 RBC 2.86 L Hgb 8.7 L Hct 25.7 L MCV 89.9 D MCH 30.4 MCHC 33.9 RDW 16.9 H Plt Count 216 D MPV 9.9 Immature Gran % (Auto) 1.3 H Neut % (Auto) 87.4 H Lymph % (Auto) 8.6 L [place] % (Auto) 1.9 L Eos % (Auto) 0.5 Baso % (Auto) 0.3 Lymph # (Auto) 0.7 L [place] # (Auto) 0.2 Eos # (Auto) 0.0 Baso # (Auto) 0.0 Abs Immat Gran (auto) 0.10 H Absolute Neuts (auto) 6.8 Absolute Nucleated RBC 0.000 Nucleated RBC % (auto) 0.0 Smear Tech's Comments VERIFIED ESR PT INR VBG pH VBG pCO2 VBG pO2 VBG HCO3 VBG O2 Saturation VBG Base Excess Sodium Potassium Chloride Carbon Dioxide Anion Gap BUN Creatinine Estim Creat Clear Calc Estimated GFR Random Glucose Calcium Phosphorus Magnesium 1.6 Total Bilirubin 0.4 Direct Bilirubin 0.2 AST 8 ALT < 6 Alkaline Phosphatase 52 Troponin I High Sens C-Reactive Protein Total Protein 4.9 L Albumin 3.0 L Stool Occult Blood Cancelled Stool Leukocytes, Qual C. difficile Toxin A&B C. difficile Antigen C. difficile Interpret COVID-19 (EDD) COVID-19 Clin Com Blood Type Antibody Screen Crossmatch 04/08/21 04/08/21 04/08/21 03:55 13:23 13:23 WBC 7.3 RBC 2.81 L Hgb 8.7 L Hct 25.6 L MCV 91.1 MCH 31.0 MCHC 34.0 RDW 15.5 Plt Count 173 MPV 9.3 L Immature Gran % (Auto) 1.0 H Neut % (Auto) 85.1 H Lymph % (Auto) 9.7 L [place] % (Auto) 4.1 Eos % (Auto) 0.0 Baso % (Auto) 0.1 Lymph # (Auto) 0.7 L [place] # (Auto) 0.3 Eos # (Auto) 0.0 Baso # (Auto) 0.0 Abs Immat Gran (auto) 0.07 H Absolute Neuts (auto) 6.2 Absolute Nucleated RBC 0.000 Nucleated RBC % (auto) 0.0 Smear Tech's Comments ESR PT INR VBG pH VBG pCO2 VBG pO2 VBG HCO3 VBG O2 Saturation VBG Base Excess Sodium 139 141 Potassium 4.3 4.1 Chloride 107 109 H Carbon Dioxide 23 26 Anion Gap 13 10 L BUN 16 16 Creatinine 1.08 1.05 Estim Creat Clear Calc 72.1 74.2 Estimated GFR > 60 > 60 Random Glucose 80 111 D Calcium 7.6 L 7.4 L Phosphorus Magnesium 1.6 Total Bilirubin Direct Bilirubin AST ALT Alkaline Phosphatase Troponin I High Sens C-Reactive Protein Total Protein Albumin Stool Occult Blood Stool Leukocytes, Qual C. difficile Toxin A&B C. difficile Antigen C. difficile Interpret COVID-19 (EDD) COVID-19 Clin Com Blood Type Antibody Screen Crossmatch 04/08/21 04/08/21 04/09/21 21:16 21:16 07:53 WBC 11.7 H RBC 1.77 L D Hgb 5.5 L* D Hct 16.2 L* D MCV 91.5 MCH 31.1 MCHC 34.0 RDW 15.7 Plt Count 218 D MPV 10.3 Immature Gran % (Auto) 1.2 H Neut % (Auto) 82.4 H Lymph % (Auto) 9.7 L [place] % (Auto) 6.6 Eos % (Auto) 0.0 Baso % (Auto) 0.1 Lymph # (Auto) 1.1 L [place] # (Auto) 0.8 Eos # (Auto) 0.0 Baso # (Auto) 0.0 Abs Immat Gran (auto) 0.14 H Absolute Neuts (auto) 9.6 H Absolute Nucleated RBC 0.000 Nucleated RBC % (auto) 0.0 Smear Tech's Comments ESR PT INR VBG pH VBG pCO2 VBG pO2 VBG HCO3 VBG O2 Saturation VBG Base Excess Sodium Potassium Chloride Carbon Dioxide Anion Gap BUN Creatinine Estim Creat Clear Calc Estimated GFR Random Glucose Calcium Phosphorus Magnesium Total Bilirubin Direct Bilirubin AST ALT Alkaline Phosphatase Troponin I High Sens C-Reactive Protein Total Protein Albumin Stool Occult Blood Stool Leukocytes, Qual NEGATIVE C. difficile Toxin A&B Negative C. difficile Antigen Negative C. difficile Interpret SEE NOTE COVID-19 (EDD) COVID-19 Clin Com Blood Type Antibody Screen Crossmatch 04/09/21 04/09/21 04/09/21 07:53 07:53 07:53 WBC RBC Hgb Hct MCV MCH MCHC RDW Plt Count MPV Immature Gran % (Auto) Neut % (Auto) Lymph % (Auto) [place] % (Auto) Eos % (Auto) Baso % (Auto) Lymph # (Auto) [place] # (Auto) Eos # (Auto) Baso # (Auto) Abs Immat Gran (auto) Absolute Neuts (auto) Absolute Nucleated RBC Nucleated RBC % (auto) Smear Tech's Comments ESR 3 PT INR VBG pH VBG pCO2 VBG pO2 VBG HCO3 VBG O2 Saturation VBG Base Excess Sodium 139 Potassium 4.0 Chloride 109 H Carbon Dioxide 22 Anion Gap 12 BUN 23 H Creatinine 1.63 H Estim Creat Clear Calc 47.8 Estimated GFR 45 Random Glucose 132 H Calcium 7.4 L Phosphorus 4.8 H Magnesium 2.0 Total Bilirubin 0.5 Direct Bilirubin AST 6 ALT < 6 Alkaline Phosphatase 33 L D Troponin I High Sens C-Reactive Protein 0.31 Total Protein 3.6 L D Albumin 2.3 L D Stool Occult Blood Stool Leukocytes, Qual C. difficile Toxin A&B C. difficile Antigen C. difficile Interpret COVID-19 (EDD) COVID-19 Tapru Blood Type Antibody Screen Crossmatch 04/09/21 04/09/21 04/09/21 07:53 13:02 13:02 WBC RBC Hgb 7.7 L D Hct 22.6 L D MCV MCH MCHC RDW Plt Count MPV Immature Gran % (Auto) Neut % (Auto) Lymph % (Auto) [place] % (Auto) Eos % (Auto) Baso % (Auto) Lymph # (Auto) [place] # (Auto) Eos # (Auto) Baso # (Auto) Abs Immat Gran (auto) Absolute Neuts (auto) Absolute Nucleated RBC Nucleated RBC % (auto) Smear Tech's Comments ESR PT INR VBG pH 7.42 VBG pCO2 34 VBG pO2 140 VBG HCO3 23 VBG O2 Saturation 99.0 VBG Base Excess -1.0 Sodium 138 Potassium 4.3 Chloride 109 H Carbon Dioxide 23 Anion Gap 10 L BUN 27 H Creatinine 1.88 H Estim Creat Clear Calc 41.4 Estimated GFR 38 Random Glucose 137 H Calcium 7.3 L Phosphorus Magnesium Total Bilirubin Direct Bilirubin AST ALT Alkaline Phosphatase Troponin I High Sens C-Reactive Protein Total Protein Albumin Stool Occult Blood Stool Leukocytes, Qual C. difficile Toxin A&B C. difficile Antigen C. difficile Interpret COVID-19 (EDD) COVID-19 Tapru Blood Type Antibody Screen Crossmatch Airway Mallampati Class: III (Top front teeth broken) TM Dist: >3cm Neck ROM: Full Partial: Upper Heart: RRR Lungs: CTA Assessment and Plan Assessment Anesthesia Assessment: Anesthesia Plan Discussed (Pt taking 85mg of methadone) and Chart Reviewed Final Anesthetic Review NPO: Yes ASA Class: III Final Preanesthetic Review: No Changes in Pt Med Stat and Consent Obtained/Reviewed Patient Risk: Intermediate Procedure Risk: Intermediate Anesthetic Plan Anesthetic Plan: MAC: Disposition: Standard PACU
--- NOTE | 2021-04-09 15:53 | MHC.SHP ---
Pre-Procedural Eval Section A The patient is an INPATIENT: Yes The History & Physical has been completed within 30 days and I have reviewed it.: Yes Section B Chief Complaint: Chohn's Disease, anemia Allergies: Allergies Allergy/AdvReac Type Severity Reaction Status Date / Time No Known Allergies Allergy Verified 04/07/21 16:01 [No Known Allergies*] Plan I have reviewed the history and physical and performed a pertinent physical examination on my patient. No changes have occurred unless specified.
--- NOTE | 2021-04-09 15:54 | P.EN_ITS ---
Event Note Date of Service: 04/09/21 Event Note: GI Course note re: continued significant lower GI bleeding with an emia. He had N/V x 1 without any signs of bleeding. Will plan for colonoscopy with MAC. Full consent obtained from him for this, including risks of bleeding and perforation. D/W Dr. Sahni and Dr. Simmons. Thanks
--- NOTE | 2021-04-09 18:00 | PC.NURSE ---
PT TRANSFUSED WITH 3 RBCS THIS SHIFT, TOLERATED WELL. NO BMS THIS SHIFT. BOWEL PREP TO BEGIN WHEN AVAILABLE FROM PHARMACY FOR COLONOSCOPY TOMORROW.
--- NOTE | 2021-04-09 18:19 | P.PNGI_ITS ---
Subjective Subjective Date of Service: 04/09/21 Critical Care Time (minutes): 0 Comment: Course noted with recurrent bleeding early this AM with recurrent drop in Hgb requiring transfusions. He did have nausea and vomiting x 1 without any coffee grounds nor hematemesis. He denies any abdominal pain. He has had no further bleeding since this AM. He feels OK but is weak and frustrated. Physical Exam Vital Signs: Vital Signs: Last Vital Signs Temp 98.4 F 04/09/21 16:17 Pulse 77 04/09/21 16:17 Resp 13 04/09/21 16:17 BP 141/83 H 04/09/21 16:17 Pulse Ox 99 04/09/21 16:00 Body Mass Index 21.2 Const: General: cooperative, comfortable, no acute distress, alert and awake Nutritional Appearance: thin Eyes: Sclerae: sclerae normal GI: Other: Soft, +BS, NT, nondistended, without mass/rebound/guarding Objective Data Labs CBC & Chem 7: 04/09/21 13:02 04/09/21 13:02 Labs: Laboratory Results - last 24 hr 04/07/21 04/08/21 04/08/21 16:43 21:16 21:16 WBC RBC Hgb Hct MCV MCH MCHC RDW Plt Count MPV Immature Gran % (Auto) Neut % (Auto) Lymph % (Auto) [place] % (Auto) Eos % (Auto) Baso % (Auto) Lymph # (Auto) [place] # (Auto) Eos # (Auto) Baso # (Auto) Abs Immat Gran (auto) Absolute Neuts (auto) Absolute Nucleated RBC Nucleated RBC % (auto) ESR VBG pH VBG pCO2 VBG pO2 VBG HCO3 VBG O2 Saturation VBG Base Excess Sodium Potassium Chloride Carbon Dioxide Anion Gap BUN Creatinine Estim Creat Clear Calc Estimated GFR Random Glucose Calcium Phosphorus Magnesium Total Bilirubin AST ALT Alkaline Phosphatase C-Reactive Protein Total Protein Albumin Stool Leukocytes, Qual NEGATIVE C. difficile Toxin A&B Negative C. difficile Antigen Negative C. difficile Interpret SEE NOTE Blood Type O Positive Antibody Screen NEGATIVE Crossmatch See Detail 04/09/21 04/09/21 04/09/21 07:53 07:53 07:53 WBC 11.7 H RBC 1.77 L D Hgb 5.5 L* D Hct 16.2 L* D MCV 91.5 MCH 31.1 MCHC 34.0 RDW 15.7 Plt Count 218 D MPV 10.3 Immature Gran % (Auto) 1.2 H Neut % (Auto) 82.4 H Lymph % (Auto) 9.7 L [place] % (Auto) 6.6 Eos % (Auto) 0.0 Baso % (Auto) 0.1 Lymph # (Auto) 1.1 L [place] # (Auto) 0.8 Eos # (Auto) 0.0 Baso # (Auto) 0.0 Abs Immat Gran (auto) 0.14 H Absolute Neuts (auto) 9.6 H Absolute Nucleated RBC 0.000 Nucleated RBC % (auto) 0.0 ESR 3 VBG pH VBG pCO2 VBG pO2 VBG HCO3 VBG O2 Saturation VBG Base Excess Sodium 139 Potassium 4.0 Chloride 109 H Carbon Dioxide 22 Anion Gap 12 BUN 23 H Creatinine 1.63 H Estim Creat Clear Calc 47.8 Estimated GFR 45 Random Glucose 132 H Calcium 7.4 L Phosphorus 4.8 H Magnesium 2.0 Total Bilirubin 0.5 AST 6 ALT < 6 Alkaline Phosphatase 33 L D C-Reactive Protein Total Protein 3.6 L D Albumin 2.3 L D Stool Leukocytes, Qual C. difficile Toxin A&B C. difficile Antigen C. difficile Interpret Blood Type Antibody Screen Crossmatch 04/09/21 04/09/21 04/09/21 07:53 07:53 13:02 WBC RBC Hgb 7.7 L D Hct 22.6 L D MCV MCH MCHC RDW Plt Count MPV Immature Gran % (Auto) Neut % (Auto) Lymph % (Auto) [place] % (Auto) Eos % (Auto) Baso % (Auto) Lymph # (Auto) [place] # (Auto) Eos # (Auto) Baso # (Auto) Abs Immat Gran (auto) Absolute Neuts (auto) Absolute Nucleated RBC Nucleated RBC % (auto) ESR VBG pH 7.42 VBG pCO2 34 VBG pO2 140 VBG HCO3 23 VBG O2 Saturation 99.0 VBG Base Excess -1.0 Sodium Potassium Chloride Carbon Dioxide Anion Gap BUN Creatinine Estim Creat Clear Calc Estimated GFR Random Glucose Calcium Phosphorus Magnesium Total Bilirubin AST ALT Alkaline Phosphatase C-Reactive Protein 0.31 Total Protein Albumin Stool Leukocytes, Qual C. difficile Toxin A&B C. difficile Antigen C. difficile Interpret Blood Type Antibody Screen Crossmatch 04/09/21 13:02 WBC RBC Hgb Hct MCV MCH MCHC RDW Plt Count MPV Immature Gran % (Auto) Neut % (Auto) Lymph % (Auto) [place] % (Auto) Eos % (Auto) Baso % (Auto) Lymph # (Auto) [place] # (Auto) Eos # (Auto) Baso # (Auto) Abs Immat Gran (auto) Absolute Neuts (auto) Absolute Nucleated RBC Nucleated RBC % (auto) ESR VBG pH VBG pCO2 VBG pO2 VBG HCO3 VBG O2 Saturation VBG Base Excess Sodium 138 Potassium 4.3 Chloride 109 H Carbon Dioxide 23 Anion Gap 10 L BUN 27 H Creatinine 1.88 H Estim Creat Clear Calc 41.4 Estimated GFR 38 Random Glucose 137 H Calcium 7.3 L Phosphorus Magnesium Total Bilirubin AST ALT Alkaline Phosphatase C-Reactive Protein Total Protein Albumin Stool Leukocytes, Qual C. difficile Toxin A&B C. difficile Antigen C. difficile Interpret Blood Type Antibody Screen Crossmatch Microbiology Microbiology Results: Microbiology 04/08/21 21:16 Stool Stool Culture - Preliminary Normal so far. Progress Note: A&P Assessment and plan (1) Crohn's colitis: Status: Acute Fall Risk Details Current Medications: Current Medications Generic Name Dose Route Start Last Admin Trade Name Freq PRN Reason Stop Dose Admin Hydrocortisone Sodium Succinate 100 mg 04/10/21 00:00 Hydrocortisone Sod Succ/Pf 100 Mg Vial IVPUSH Q6H LENORA Methadone HCl 80 mg 04/09/21 08:00 04/09/21 07:39 Methadone Hcl 1 Mg/0.1 Ml Oral.Conc PO Not Given DAILY LENORA Nicotine 14 mg 04/08/21 09:00 04/08/21 07:11 Nicotine 14 Mg Patch.Td24 TRANSDERMA 14 mg DAILY LENORA Administration Ondansetron HCl 4 mg 04/08/21 00:31 Ondansetron Hcl 4 Mg/2 Ml Vial IVPUSH Q8H PRN Nausea and Vomiting Pantoprazole Sodium 40 mg 04/08/21 16:30 04/09/21 16:16 Pantoprazole Sodium 40 Mg/10 Ml Vial IVPUSH 40 mg BID@0630,1630 [facility] Administration Pharmacy Consult 1 each 04/07/21 21:43 Consult Rx Perform Med Rec MISCELLANE ONCE PRN Consult order Sodium Chloride 3 ml 04/08/21 00:31 04/09/21 16:16 0.9 % Sodium Chloride Flush 3 Ml Syringe IVFLUSH 3 ml QSHIFT LENORA Administration Time Spent With Patient Time: Total time spent is greater than 50% in coordination of care (as documented) at patient's floor/unit and/or counseling patient: Time with patient: 15 - 24 minutes Procedures Date of Service Date of Service: 04/09/21
[2021-04-09] MEDS: PEG 3350/Na Sulf,Bicarb,Cl/KCL 4,000 ML SOLN.RECON 4000 ML PO (18:24)
[2021-04-09 19:35] LABS: Hematocrit 26.1 % (42-52); Hemoglobin 9.2 g/dl (14.0-18.0)
[2021-04-09 19:41] LABS: INTERNATIONAL NORM RATIO 1.4 (0.9-1.1); Prothrombin Time 17.2 SEC (10.8-13.0)
[2021-04-09 19:44] LABS: Blood Urea Nitrogen 29 mg/dL (9-16); Creatinine Clr Calc Pharmacy 40.1; Estimated Glomerular Filt Rate 37
--- NOTE | 2021-04-09 21:30 | W.PM.CCHP ---
Procedures Date of Service Date of Service: 04/10/21
[2021-04-09] MEDS: Lactated Ringers 1,000 ML 500 ML IV (21:38)
[2021-04-09 22:18] LABS: Potassium Urine Random 102.6 mmol/L; Sodium Urine Random < 20.0 mmol/L
[2021-04-09 22:48] LABS: Chloride Urine Random < 20.0 mmol/L
[2021-04-09] MEDS: Lactated Ringers 1,000 ML 100 ML IVCONT (23:46)
[2021-04-10] VITALS (42 sets, daily range): BP systolic 91–186; BP diastolic 49–110; PULSE 60–135; RESP 11–123; TEMP 35.8–37; O2SAT 97–100; BMI 21.2
--- NOTE | 2021-04-10 | ECG_ITS ---
Test Reason : repeat Blood Pressure : / mmHG Vent. Rate : 125 BPM Atrial Rate : 125 BPM P-R Int : 122 ms QRS Dur : 086 ms QT Int : 312 ms P-R-T Axes : 069 048 083 degrees QTc Int : 450 ms Sinus tachycardia with Premature atrial complexes Possible Left atrial enlargement Nonspecific ST abnormality Abnormal ECG When compared with ECG of 07-APR-2021 16:17, Premature atrial complexes are now Present ST now depressed in Anterior leads Nonspecific T wave abnormality no longer evident in Lateral leads Referred By: Matteo Jones Electronically Signed By:GAUDENCIO DYE MD
[2021-04-10 02:07] LABS: Hematocrit 18.4 % (42-52)
[2021-04-10 02:09] LABS: Hemoglobin 6.4 g/dl (14.0-18.0)
[2021-04-10] MEDS: Lactated Ringers 1,000 ML 999 ML IV ×4 (02:40→21:36)
[2021-04-10] MEDS: LORazepam 2 MG/ML VIAL 0.5 MG IVPUSH (04:45)
[2021-04-10 05:25] LABS: Hemoglobin 8.1 g/dl (14.0-18.0); Mean Corpuscular HGB Conc 35.2 g/dl (31.0-36.0); Mean Corpuscular Hemoglobin 32.9 pg (27.0-33.0); Mean Corpuscular Volume 93.5 fL (80-98); Mean Platelet Volume 10.2 fL (9.4-12.4); NRBC Pct Auto 0.2 /100WBC (0.0-0.2); Platelet Count 100 X10*3/uL (160-400); Red Blood Count 2.46 X10*6/uL (4.60-5.80); Red Cell Distribution Width 14.6 % (11.0-16.0); White Blood Count 15.4 X10*3/uL (4.8-10.8)
[2021-04-10 05:33] LABS: INTERNATIONAL NORM RATIO 2.2 (0.9-1.1); Prothrombin Time 26.4 SEC (10.8-13.0)
[2021-04-10 05:36] LABS: Partial Thromboplastin Time 32.2 SEC (24.1-38.0)
[2021-04-10 05:59] LABS: Alanine Aminotransferase < 6 U/L (0-40); Albumin Level 1.5 g/dL (3.5-5.0); Alkaline Phosphatase 20 U/L (39-117); Anion Gap 11 (12-20); Aspartate Amino Transferase 8 U/L (5-37); Bilirubin Total 0.6 mg/dL (0.0-1.0); Blood Urea Nitrogen 32 mg/dL (9-16); Calcium 6.4 mg/dL (8.4-10.2); Carbon Dioxide 22 mmol/L (22-29); Chloride 110 mmol/L (96-108); Estimated Glomerular Filt Rate 42; Glucose Random 183 mg/dL (60-115); Magnesium 1.6 mg/dL (1.6-2.6); Potassium 3.6 mmol/L (3.3-5.1); Sodium 139 mmol/L (135-145); Total Protein 2.3 g/dL (6.5-8.0)
[2021-04-10] MEDS: Phytonadione (Vit K1) 5 MG in 0.9 % Sodium Chloride 50 ML 50.5 MG IV (06:05)
[2021-04-10] MEDS: Pantoprazole Sodium 40 MG/10 ML VIAL IVPUSH (06:09)
[2021-04-10] MEDS: Hydrocortisone Sod Succ/PF 100 MG VIAL IVPUSH ×2 (06:09→13:18)
[2021-04-10] MEDS: flumazeniL 0.5 MG/5 ML VIAL 0.2 MG IVPUSH (06:14)
[2021-04-10 07:35] LABS: Cancel Lactic Acid Canceled
--- NOTE | 2021-04-10 07:42 | PC.NURSE ---
Patient alert and oriented at beginning of shift. Clear liquids and small intake of bowel prep (per patient 2.5 cups total.) [id number] Patient with 2 large stools, liquid, maroon and bloody. Total measures output 1400ml. YASMANY Dupont notified. Stat H/H ordered. Results 6.4/18.4. 2units PRBC to be infused, 1 liter LR administered. At 0300 TLC was placed to RIJ with xray confirmation. Patient with large stool during procedure. Patient with increased anxiety after procedure. Ativan 0.4 mg was administered at 0440. Patient with another large stool starting at 0530, am labs resulted and 2 units FFP ordered and 5mg VitK. First unit FFP administered and Vit K. Around 0600 patient with AMS, YASMANY notified, 0.2 mg flumazenil administered. Patient able to follow commands. At approximately [address] and time. PA was made aware during shift that patient was not voiding urine. Patient remained NPO after 2300.
--- NOTE | 2021-04-10 07:43 | P.CONAN_ITS ---
FORMERLY [facility], [facility] Active Problems Active Problems: All Active Problems (Updated 04/09/21 @ 18:[address]) Crohn's colitis (Acute) ALLISON (acute kidney injury) (Acute) Acute anemia (Acute) Lower gastrointestinal hemorrhage (Acute) Past Medical History Medical History (Updated 04/09/21 @ 18:[address] [place]) Crohn's colitis Crohn's disease Psoriasis Surgical History Surgical History H/O colectomy Social History Social History Household Members: Family Housing: House Do you presently have visiting nurse or other home services: No Patient Tobacco Use Status: Current everyday Tobacco user Patient Interested in Nicotine Replacement: Yes Use of substances other than those prescribed or required for medical reasons: No Currently Displaying Signs/Symptoms of Drug Intoxication Withdrawal: No Have you been hit, kicked, punched, or otherwise hurt by someone within the past year? If so, by whom?: No Do you feel safe in your current relationship?: No Is there a partner from a previous relationship who is making you feel unsafe now?: No Are you made to feel afraid or neglected: No Advance Directives: No Advance Directives Information Provided: No Do you have thoughts of harming others: None Do you have a plan to hurt others: No Plan Recently lost weight without trying: No Eating poorly because of decreased appetite: Yes Nutrition Risks: No Nutritional Risk Poor oral hygiene: No service: No Current occupational status: employed Meds Allergies Allergy/AdvReac Type Severity Reaction Status Date / Time No Known Allergies Allergy Verified 04/07/21 16:01 [No Known Allergies*] Active Medications: Current Medications Generic Name Dose Route Start Last Admin Trade Name Freq PRN Reason Stop Dose Admin Hydrocortisone Sodium Succinate 100 mg 04/10/21 00:00 04/10/21 06:09 Hydrocortisone Sod Succ/Pf 100 Mg Vial IVPUSH 100 mg Q6H LENORA Administration Lactated Ringer's 1,000 mls @ 100 mls/hr 04/09/21 21:00 04/10/21 03:31 Lr IVCONT 100 mls/hr .Q10H LENORA Infusion Albumin Human 100 mls @ 100 mls/hr 04/10/21 06:15 Kedbumin 25 % IV 04/10/21 08:14 Q1H LENORA Phytonadione 10 mg/ Sodium 51 mls @ 51 mls/hr 04/10/21 07:02 Chloride IV 04/10/21 08:01 ONCE ONE Methadone HCl 80 mg 04/09/21 08:00 04/09/21 07:39 Methadone Hcl 1 Mg/0.1 Ml Oral.Conc PO Not Given DAILY LENORA Nicotine 14 mg 04/08/21 09:00 04/08/21 07:11 Nicotine 14 Mg Patch.Td24 TRANSDERMA 14 mg DAILY LENORA Administration Ondansetron HCl 4 mg 04/08/21 00:31 Ondansetron Hcl 4 Mg/2 Ml Vial IVPUSH Q8H PRN Nausea and Vomiting Pantoprazole Sodium 40 mg 04/08/21 16:30 04/10/21 06:09 Pantoprazole Sodium 40 Mg/10 Ml Vial IVPUSH 40 mg BID@0630,1630 [facility] Administration Pharmacy Consult 1 each 04/07/21 21:43 Consult Rx Perform Med Rec MISCELLANE ONCE PRN Consult order Sodium Chloride 3 ml 04/08/21 00:31 04/09/21 23:49 0.9 % Sodium Chloride Flush 3 Ml Syringe IVFLUSH Not Given QSHIFT [facility] Home Medications Medication Instructions Recorded Confirmed Last Taken Type adalimumab [Humira(CF) Pen] 40 mg SUBCUT Q2W 04/07/21 04/07/21 Unknown History budesonide 2 cap PO DAILY 04/07/21 04/07/21 Unknown History diphenoxylate-atropine 2 tab PO NEEDED PRN 04/07/21 04/07/21 Unknown History Exam Exam Date and Time: April 10, 2021 0743 Height,Weight and Vital Signs: Height 5 ft 7 in Weight 61.689 kg Last Vital Signs Temp 97.8 F 04/10/21 07:34 Pulse 100 04/10/21 07:34 Resp 16 04/10/21 07:34 BP 120/75 04/10/21 07:34 Pulse Ox 97 04/10/21 07:00 Pertinent Lab Results Pertinent Lab Results: Laboratory Tests 04/07/21 04/07/21 04/07/21 16:14 16:15 16:15 WBC 12.2 H RBC 2.39 L Hgb 7.8 L Hct 23.3 L MCV 97.5 MCH 32.6 MCHC 33.5 RDW 14.8 Plt Count 343 MPV 9.1 L Immature Gran % (Auto) 1.2 H Neut % (Auto) 69.4 Lymph % (Auto) 16.6 L [place] % (Auto) 9.9 Eos % (Auto) 2.6 Baso % (Auto) 0.3 Lymph # (Auto) 2.0 [place] # (Auto) 1.2 Eos # (Auto) 0.3 Baso # (Auto) 0.0 Abs Immat Gran (auto) 0.15 H Absolute Neuts (auto) 8.5 H Absolute Nucleated RBC 0.000 Nucleated RBC % (auto) 0.0 Smear Tech's Comments ESR PT 12.2 INR 1.0 APTT VBG pH VBG pCO2 VBG pO2 VBG HCO3 VBG O2 Saturation VBG Base Excess Sodium 138 Potassium 4.5 Chloride 105 Carbon Dioxide 24 Anion Gap 14 BUN 18 H Creatinine 1.41 H Estim Creat Clear Calc 55.2 Estimated GFR 53 Random Glucose 114 Lactic Acid Calcium 7.8 L Phosphorus Magnesium Total Bilirubin Direct Bilirubin AST ALT Alkaline Phosphatase Troponin I High Sens C-Reactive Protein 0.56 H Total Protein Albumin Ur Random Sodium Ur Random Potassium Ur Random Chloride Stool Occult Blood Stool Leukocytes, Qual C. difficile Toxin A&B C. difficile Antigen C. difficile Interpret COVID-19 (EDD) COVID-19 Clin Com Blood Type Antibody Screen Crossmatch 04/07/21 04/07/21 04/07/21 16:15 16:15 16:43 WBC RBC Hgb Hct MCV MCH MCHC RDW Plt Count MPV Immature Gran % (Auto) Neut % (Auto) Lymph % (Auto) [place] % (Auto) Eos % (Auto) Baso % (Auto) Lymph # (Auto) [place] # (Auto) Eos # (Auto) Baso # (Auto) Abs Immat Gran (auto) Absolute Neuts (auto) Absolute Nucleated RBC Nucleated RBC % (auto) Smear Tech's Comments ESR PT INR APTT VBG pH VBG pCO2 VBG pO2 VBG HCO3 VBG O2 Saturation VBG Base Excess Sodium Potassium Chloride Carbon Dioxide Anion Gap BUN Creatinine Estim Creat Clear Calc Estimated GFR Random Glucose Lactic Acid Calcium Phosphorus Magnesium Total Bilirubin Direct Bilirubin AST ALT Alkaline Phosphatase Troponin I High Sens 6.4 C-Reactive Protein Total Protein Albumin Ur Random Sodium Ur Random Potassium Ur Random Chloride Stool Occult Blood Stool Leukocytes, Qual C. difficile Toxin A&B C. difficile Antigen C. difficile Interpret COVID-19 (EDD) Negative COVID-19 Clin Com See Note Blood Type O Positive Antibody Screen NEGATIVE Crossmatch See Detail 04/07/21 04/07/21 04/08/21 16:43 Unknown 03:55 WBC 7.8 RBC 2.86 L Hgb 8.7 L Hct 25.7 L MCV 89.9 D MCH 30.4 MCHC 33.9 RDW 16.9 H Plt Count 216 D MPV 9.9 Immature Gran % (Auto) 1.3 H Neut % (Auto) 87.4 H Lymph % (Auto) 8.6 L [place] % (Auto) 1.9 L Eos % (Auto) 0.5 Baso % (Auto) 0.3 Lymph # (Auto) 0.7 L [place] # (Auto) 0.2 Eos # (Auto) 0.0 Baso # (Auto) 0.0 Abs Immat Gran (auto) 0.10 H Absolute Neuts (auto) 6.8 Absolute Nucleated RBC 0.000 Nucleated RBC % (auto) 0.0 Smear Tech's Comments VERIFIED ESR PT INR APTT VBG pH VBG pCO2 VBG pO2 VBG HCO3 VBG O2 Saturation VBG Base Excess Sodium Potassium Chloride Carbon Dioxide Anion Gap BUN Creatinine Estim Creat Clear Calc Estimated GFR Random Glucose Lactic Acid Calcium Phosphorus Magnesium 1.6 Total Bilirubin 0.4 Direct Bilirubin 0.2 AST 8 ALT < 6 Alkaline Phosphatase 52 Troponin I High Sens C-Reactive Protein Total Protein 4.9 L Albumin 3.0 L Ur Random Sodium Ur Random Potassium Ur Random Chloride Stool Occult Blood Cancelled Stool Leukocytes, Qual C. difficile Toxin A&B C. difficile Antigen C. difficile Interpret COVID-19 (EDD) COVID-19 Clin Com Blood Type Antibody Screen Crossmatch 04/08/21 04/08/21 04/08/21 03:55 13:23 13:23 WBC 7.3 RBC 2.81 L Hgb 8.7 L Hct 25.6 L MCV 91.1 MCH 31.0 MCHC 34.0 RDW 15.5 Plt Count 173 MPV 9.3 L Immature Gran % (Auto) 1.0 H Neut % (Auto) 85.1 H Lymph % (Auto) 9.7 L [place] % (Auto) 4.1 Eos % (Auto) 0.0 Baso % (Auto) 0.1 Lymph # (Auto) 0.7 L [place] # (Auto) 0.3 Eos # (Auto) 0.0 Baso # (Auto) 0.0 Abs Immat Gran (auto) 0.07 H Absolute Neuts (auto) 6.2 Absolute Nucleated RBC 0.000 Nucleated RBC % (auto) 0.0 Smear Tech's Comments ESR PT INR APTT VBG pH VBG pCO2 VBG pO2 VBG HCO3 VBG O2 Saturation VBG Base Excess Sodium 139 141 Potassium 4.3 4.1 Chloride 107 109 H Carbon Dioxide 23 26 Anion Gap 13 10 L BUN 16 16 Creatinine 1.08 1.05 Estim Creat Clear Calc 72.1 74.2 Estimated GFR > 60 > 60 Random Glucose 80 111 D Lactic Acid Calcium 7.6 L 7.4 L Phosphorus Magnesium 1.6 Total Bilirubin Direct Bilirubin AST ALT Alkaline Phosphatase Troponin I High Sens C-Reactive Protein Total Protein Albumin Ur Random Sodium Ur Random Potassium Ur Random Chloride Stool Occult Blood Stool Leukocytes, Qual C. difficile Toxin A&B C. difficile Antigen C. difficile Interpret COVID-19 (EDD) COVID-19 Clin Com Blood Type Antibody Screen Crossmatch 04/08/21 04/08/21 04/09/21 21:16 21:16 07:53 WBC 11.7 H RBC 1.77 L D Hgb 5.5 L* D Hct 16.2 L* D MCV 91.5 MCH 31.1 MCHC 34.0 RDW 15.7 Plt Count 218 D MPV 10.3 Immature Gran % (Auto) 1.2 H Neut % (Auto) 82.4 H Lymph % (Auto) 9.7 L [place] % (Auto) 6.6 Eos % (Auto) 0.0 Baso % (Auto) 0.1 Lymph # (Auto) 1.1 L [place] # (Auto) 0.8 Eos # (Auto) 0.0 Baso # (Auto) 0.0 Abs Immat Gran (auto) 0.14 H Absolute Neuts (auto) 9.6 H Absolute Nucleated RBC 0.000 Nucleated RBC % (auto) 0.0 Smear Tech's Comments ESR PT INR APTT VBG pH VBG pCO2 VBG pO2 VBG HCO3 VBG O2 Saturation VBG Base Excess Sodium Potassium Chloride Carbon Dioxide Anion Gap BUN Creatinine Estim Creat Clear Calc Estimated GFR Random Glucose Lactic Acid Calcium Phosphorus Magnesium Total Bilirubin Direct Bilirubin AST ALT Alkaline Phosphatase Troponin I High Sens C-Reactive Protein Total Protein Albumin Ur Random Sodium Ur Random Potassium Ur Random Chloride Stool Occult Blood Stool Leukocytes, Qual NEGATIVE C. difficile Toxin A&B Negative C. difficile Antigen Negative C. difficile Interpret SEE NOTE COVID-19 (EDD) COVID-19 [facility] Blood Type Antibody Screen Crossmatch 04/09/21 04/09/21 04/09/21 07:53 07:53 07:53 WBC RBC Hgb Hct MCV MCH MCHC RDW Plt Count MPV Immature Gran % (Auto) Neut % (Auto) Lymph % (Auto) [place] % (Auto) Eos % (Auto) Baso % (Auto) Lymph # (Auto) [place] # (Auto) Eos # (Auto) Baso # (Auto) Abs Immat Gran (auto) Absolute Neuts (auto) Absolute Nucleated RBC Nucleated RBC % (auto) Smear Tech's Comments ESR 3 PT INR APTT VBG pH VBG pCO2 VBG pO2 VBG HCO3 VBG O2 Saturation VBG Base Excess Sodium 139 Potassium 4.0 Chloride 109 H Carbon Dioxide 22 Anion Gap 12 BUN 23 H Creatinine 1.63 H Estim Creat Clear Calc 47.8 Estimated GFR 45 Random Glucose 132 H Lactic Acid Calcium 7.4 L Phosphorus 4.8 H Magnesium 2.0 Total Bilirubin 0.5 Direct Bilirubin AST 6 ALT < 6 Alkaline Phosphatase 33 L D Troponin I High Sens C-Reactive Protein 0.31 Total Protein 3.6 L D Albumin 2.3 L D Ur Random Sodium Ur Random Potassium Ur Random Chloride Stool Occult Blood Stool Leukocytes, Qual C. difficile Toxin A&B C. difficile Antigen C. difficile Interpret COVID-19 (EDD) COVID-19 [facility] Blood Type Antibody Screen Crossmatch 04/09/21 04/09/21 04/09/21 07:53 13:02 13:02 WBC RBC Hgb 7.7 L D Hct 22.6 L D MCV MCH MCHC RDW Plt Count MPV Immature Gran % (Auto) Neut % (Auto) Lymph % (Auto) [place] % (Auto) Eos % (Auto) Baso % (Auto) Lymph # (Auto) [place] # (Auto) Eos # (Auto) Baso # (Auto) Abs Immat Gran (auto) Absolute Neuts (auto) Absolute Nucleated RBC Nucleated RBC % (auto) Smear Tech's Comments ESR PT INR APTT VBG pH 7.42 VBG pCO2 34 VBG pO2 140 VBG HCO3 23 VBG O2 Saturation 99.0 VBG Base Excess -1.0 Sodium 138 Potassium 4.3 Chloride 109 H Carbon Dioxide 23 Anion Gap 10 L BUN 27 H Creatinine 1.88 H Estim Creat Clear Calc 41.4 Estimated GFR 38 Random Glucose 137 H Lactic Acid Calcium 7.3 L Phosphorus Magnesium Total Bilirubin Direct Bilirubin AST ALT Alkaline Phosphatase Troponin I High Sens C-Reactive Protein Total Protein Albumin Ur Random Sodium Ur Random Potassium Ur Random Chloride Stool Occult Blood Stool Leukocytes, Qual C. difficile Toxin A&B C. difficile Antigen C. difficile Interpret COVID-19 (EDD) [facility] Blood Type Antibody Screen Crossmatch 04/09/21 04/09/21 04/09/21 19:03 19:15 19:15 WBC RBC Hgb 9.2 L Hct 26.1 L MCV MCH MCHC RDW Plt Count MPV Immature Gran % (Auto) Neut % (Auto) Lymph % (Auto) [place] % (Auto) Eos % (Auto) Baso % (Auto) Lymph # (Auto) [place] # (Auto) Eos # (Auto) Baso # (Auto) Abs Immat Gran (auto) Absolute Neuts (auto) Absolute Nucleated RBC Nucleated RBC % (auto) Smear Tech's Comments ESR PT 17.2 H D INR 1.4 H APTT VBG pH VBG pCO2 VBG pO2 VBG HCO3 VBG O2 Saturation VBG Base Excess Sodium Potassium Chloride Carbon Dioxide Anion Gap BUN 29 H Creatinine 1.94 H Estim Creat Clear Calc 40.1 Estimated GFR 37 Random Glucose Lactic Acid Calcium Phosphorus Magnesium Total Bilirubin Direct Bilirubin AST ALT Alkaline Phosphatase Troponin I High Sens C-Reactive Protein Total Protein Albumin Ur Random Sodium Ur Random Potassium Ur Random Chloride Stool Occult Blood Stool Leukocytes, Qual C. difficile Toxin A&B C. difficile Antigen C. difficile Interpret COVID-19 (EDD) COVID-19 [employer] Com Blood Type Antibody Screen Crossmatch 04/09/21 04/10/21 04/10/21 21:23 02:02 05:15 WBC RBC Hgb 6.4 L* D Hct 18.4 L* D MCV MCH MCHC RDW Plt Count MPV Immature Gran % (Auto) Neut % (Auto) Lymph % (Auto) [place] % (Auto) Eos % (Auto) Baso % (Auto) Lymph # (Auto) [place] # (Auto) Eos # (Auto) Baso # (Auto) Abs Immat Gran (auto) Absolute Neuts (auto) Absolute Nucleated RBC Nucleated RBC % (auto) Smear Tech's Comments ESR PT INR APTT VBG pH VBG pCO2 VBG pO2 VBG HCO3 VBG O2 Saturation VBG Base Excess Sodium 139 Potassium 3.6 Chloride 110 H Carbon Dioxide 22 Anion Gap 11 L BUN 32 H Creatinine 1.73 H Estim Creat Clear Calc 45.0 Estimated GFR 42 Random Glucose 183 H Lactic Acid Calcium 6.4 L D Phosphorus 5.0 H Magnesium 1.6 Total Bilirubin 0.6 Direct Bilirubin AST 8 ALT < 6 Alkaline Phosphatase 20 L D Troponin I High Sens C-Reactive Protein Total Protein 2.3 L D Albumin 1.5 L D Ur Random Sodium < 20.0 Ur Random Potassium 102.6 Ur Random Chloride < 20.0 Stool Occult Blood Stool Leukocytes, Qual C. difficile Toxin A&B C. difficile Antigen C. difficile Interpret COVID-19 (EDD) COVID-19 Clin Com Blood Type Antibody Screen Crossmatch 04/10/21 04/10/21 04/10/21 05:15 05:15 05:15 WBC 15.4 H RBC 2.46 L D Hgb 8.1 L D Hct 23.0 L D MCV 93.5 MCH 32.9 MCHC 35.2 RDW 14.6 Plt Count 100 L D MPV 10.2 Immature Gran % (Auto) Neut % (Auto) Lymph % (Auto) [place] % (Auto) Eos % (Auto) Baso % (Auto) Lymph # (Auto) [place] # (Auto) Eos # (Auto) Baso # (Auto) Abs Immat Gran (auto) Absolute Neuts (auto) Absolute Nucleated RBC 0.030 H Nucleated RBC % (auto) 0.2 Smear Tech's Comments ESR PT 26.4 H D INR 2.2 H APTT 32.2 VBG pH VBG pCO2 VBG pO2 VBG HCO3 VBG O2 Saturation VBG Base Excess Sodium Potassium Chloride Carbon Dioxide Anion Gap BUN Creatinine Estim Creat Clear Calc Estimated GFR Random Glucose Lactic Acid Cancelled Calcium Phosphorus Magnesium Total Bilirubin Direct Bilirubin AST ALT Alkaline Phosphatase Troponin I High Sens C-Reactive Protein Total Protein Albumin Ur Random Sodium Ur Random Potassium Ur Random Chloride Stool Occult Blood Stool Leukocytes, Qual C. difficile Toxin A&B C. difficile Antigen C. difficile Interpret COVID-19 (EDD) COVID-19 Clin Com Blood Type Antibody Screen Crossmatch Airway Mallampati Class: II (Top teeth broken) TM Dist: >3cm Neck ROM: Full Heart: Tachy Lungs: CTA Assessment and Plan Assessment Anesthesia Assessment: Anesthesia Plan Discussed and Chart Reviewed (Pt with more bleeding received 2 units PRBC/2 FFP) Final Anesthetic Review NPO: Yes ASA Class: IV Final Preanesthetic Review: No Changes in Pt Med Stat and Consent Obtained/Reviewed Patient Risk: High Procedure Risk: Intermediate Anesthetic Plan Anesthetic Plan: GA Disposition: Standard PACU
[2021-04-10] MEDS: Albumin Human 25 % 100 ML IV (07:46)
--- NOTE | 2021-04-10 07:46 | P.EN_ITS ---
Event Note Date of Service: 04/10/21 Event Note: Overnight events noted and discussed with ICU staff re: ongoing bl eeding, need for further transfusions, and need for central line placement. Will plan for both EGD and Colonoscopy this morning. Full consent has been obtained for this including risks of bleeding and perforation. Thanks.
[2021-04-10 10:34] LABS: Mean Corpuscular HGB Conc 35.2 g/dl (31.0-36.0); Mean Corpuscular Hemoglobin 32.3 pg (27.0-33.0); Mean Corpuscular Volume 91.7 fL (80-98); Mean Platelet Volume 10.2 fL (9.4-12.4); Red Blood Count 1.92 X10*6/uL (4.60-5.80); Red Cell Distribution Width 13.2 % (11.0-16.0); White Blood Count 10.5 X10*3/uL (4.8-10.8)
[2021-04-10 10:36] LABS: Platelet Count 52 X10*3/uL (160-400)
[2021-04-10 10:38] LABS: Hematocrit 17.6 % (42-52); Hemoglobin 6.2 g/dl (14.0-18.0)
--- NOTE | 2021-04-10 10:56 | MHC.CLN ---
RE: CONSULT SEE CLINICAL NUTRITION ASSESSMENT FOR FULL CONSULT FOLLOWING
--- NOTE | 2021-04-10 11:44 | P.OP_ITS ---
Operative Note Operative Note Date of Service: 04/10/21 Narrative: Preoperative diagnosis: Lower GI bleed, right colon, Crohn's disease Postoperative diagnosis: Same Procedure: Exploratory laparotomy, right colectomy with ileocolonic anastomosis Surgeon: Mark Simmons MD Superintendent Quarry: No physician Anesthesia: General endotracheal Indications for procedure: 51-year-old male patient with history of Crohn's disease and previous history of an ileocecal resection approximately 15 years ago with loop ileostomy now presenting with an acute GI bleed. Patient previously underwent endoscopy approximately 6 months ago with evidence of a stricture at the ileocolonic anastomosis. No active Crohn's disease was noted at that time. Repeat colonoscopy today by Dr. De La Torre however revealed a bleeding vessel with pulsatile flow located distal to the anastomosis. The anastomosis could not be cannulated due to stricture and inflammation. Attempt at injection of the vessel was able to slow the bleeding but not stop it. After discussion with the patient's family, the decision was made to proceed to operative intervention to resect the area of bleeding. Operative findings: Dense adhesions were noted in the right lower quadrant due to the previous abdominal surgery and ileostomy. A significant area of inflammation was noted in the distal ileum/colonic anastomosis but no active Crohn's disease was noted proximal to this in the ileum. Mildly dilated ileum was identified perhaps due to the colonic anastomotic stricture. Patient underwent a right colectomy with ileocolonic anastomosis. Specimen: Ileal colonic anastomosis Estimated blood loss: 200 mL Complications: None Procedure details: Patient was brought to the OR following completion of the colonoscopy as noted above. Informed consent was obtained from the patient's family. Patient received preoperative antibiotics and Venodyne boots were in place. Local anesthesia consisting of 0.25% Sensorcaine was infiltrated into the midline incision. The previous midline incision was opened with a scalpel carried out through subcutaneous tissue through linea alba into the peritoneal cavity. A Bookwalter retractor was placed. Multiple hernias were identified in the upper incision. These were taken down using electrocautery. Adhesions were then noted in the right lower quadrant in the region of the ileocolonic anastomosis. Using Osmin clamps to elevate the abdominal wall the adhesions were sharply taken down using Metzenbaum scissors. With this was completed the right colon was mobilized along the white line of Toldt to the hepatic flexure. Distal ileum was noted to be soft without evidence of active Crohn's disease. An area approximately 15 cm proximal to the a colonic anastomosis was identified as a normal segment. Mesentery below this was using a hemostat. A RUPERTO stapler, 60 mm, blue stapler was then obtained. This was used to divide the ileum proximal to the ileocolonic anastomosis. LigaSure was then used to divide the mesentery proximally up to the ileocolic vessels. Attention was then directed to the distal right colon which was full or other mobilized to the hepatic flexure. An area just beyond the flexure was identified as an area of resection. The mesentery was similarly divided and a RUPERTO stapler fired to staple and divide the proximal transverse colon. Mesentery was then taken down again using the LigaSure. The right colonic vessels were individually ligated using 0 silk ties. Similarly the ileocolonic vessels were ligated using silk ties. The specimen was removed and sent to pathology for further examination. A functional end-to-end stapled anastomosis was next performed. The distal ileum and proximal transverse colon were brought together using 3-0 Surgilon sutures. Enterotomy was made in both the colon and ileum and a reload of the RUPERTO 60 stapler placed into the enterotomies. The stapler was then fired to anastomose the 2 loops of bowel. The enterotomy was then closed using a TA 60 stapler. The TA stapler line was then reinforced using Lembert 3-0 Surgilon sutures. Mesentery was then reapproximated using interrupted 3-0 Surgilon sutures. The crotch point of the distal anastomosis was also reinforced using a 3-0 Surgilon suture. The bowel was returned to the abdominal cavity. Gloves were changed in the abdominal cavity irrigated thoroughly with saline solution. Wounds were checked for hemostasis at this time. Fascia was closed using a running 1 Maxon suture, sutured in a running fashion from above and below and tied in the center of the incision. Skin was then closed using skin sweetie. Sterile dressings consisting of 4 x 4 gauze and tape were then applied. The patient tolerated the procedure well. Sponge, instrument, and needle counts reported as correct. Patient was transferred to ICU in stable condition.
--- NOTE | 2021-04-10 12:26 | PM.UROCN ---
History of Present Illness Consult details Consult date: 04/10/21 Narrative: ATSP - urinary retention Undergoing surgery Unable to place Poole catheter No prior history of BPH Flexible cystoscopy performed in the operating room Navigation into bladder achieved Sixteen Lithuanian Poole catheter placed over wire Good efflux of urine Review of Systems Review of Systems: Intubated unable to obtain Yes Unobtainable due to mental condition PMFSH Past Medical History Medical History (Updated 04/10/21 @ 12:28 by Horace Betancourt MD) Crohn's colitis Crohn's disease Psoriasis Surgical History Surgical History H/O colectomy Social History Social History Household Members: Family Housing: House Do you presently have visiting nurse or other home services: No Patient Tobacco Use Status: Current everyday Tobacco user Patient Interested in Nicotine Replacement: Yes Use of substances other than those prescribed or required for medical reasons: No Currently Displaying Signs/Symptoms of Drug Intoxication Withdrawal: No Have you been hit, kicked, punched, or otherwise hurt by someone within the past year? If so, by whom?: No Do you feel safe in your current relationship?: No Is there a partner from a previous relationship who is making you feel unsafe now?: No Are you made to feel afraid or neglected: No Advance Directives: No Advance Directives Information Provided: No Do you have thoughts of harming others: None Do you have a plan to hurt others: No Plan Recently lost weight without trying: No Eating poorly because of decreased appetite: Yes Nutrition Risks: No Nutritional Risk Poor oral hygiene: No service: No Current occupational status: employed Meds Allergies Allergy/AdvReac Type Severity Reaction Status Date / Time No Known Allergies Allergy Verified 04/07/21 16:01 [No Known Allergies*] Active Medications: Current Medications Generic Name Dose Route Start Last Admin Trade Name Freq PRN Reason Stop Dose Admin Hydrocortisone Sodium Succinate 100 mg 04/10/21 00:00 04/10/21 06:09 Hydrocortisone Sod Succ/Pf 100 Mg Vial IVPUSH 100 mg Q6H LENORA Administration Lactated Ringer's 1,000 mls @ 100 mls/hr 04/09/21 21:00 04/10/21 03:31 Lr IVCONT 100 mls/hr .Q10H LENORA Infusion Potassium Chloride 40 meq in 100 mls @ 50 mls/hr 04/10/21 10:43 IV 04/10/21 12:42 ONCE ONE Magnesium Sulfate 2 gm in 50 mls @ 25 mls/hr 04/10/21 10:43 Magnesium Sulfate/H2o IV 04/10/21 12:42 ONCE ONE Phytonadione 10 mg/ Sodium 51 mls @ 51 mls/hr 04/10/21 12:15 Chloride IV 04/11/21 07:14 Q6H LENORA Methadone HCl 80 mg 04/09/21 08:00 04/09/21 07:39 Methadone Hcl 1 Mg/0.1 Ml Oral.Conc PO Not Given DAILY LENORA Nicotine 14 mg 04/08/21 09:00 04/08/21 07:11 Nicotine 14 Mg Patch.[id number] TRANSDERMA 14 mg DAILY [facility] Administration Ondansetron HCl 4 mg 04/08/21 00:31 Ondansetron Hcl 4 Mg/2 Ml Vial IVPUSH Q8H PRN Nausea and Vomiting Pantoprazole Sodium 40 mg 04/08/21 16:30 04/10/21 06:09 Pantoprazole Sodium 40 Mg/10 Ml Vial IVPUSH 40 mg BID@0630,1630 [facility] Administration Pharmacy Consult 1 each 04/07/21 21:43 Consult Rx Perform Med Rec MISCELLANE ONCE PRN Consult order Sodium Chloride 3 ml 04/08/21 00:31 04/09/21 23:49 0.9 % Sodium Chloride Flush 3 Ml Syringe IVFLUSH Not Given QSHIFT [facility] Home Medications Medication Instructions Recorded Confirmed Last Taken Type adalimumab [Humira(CF) Pen] 40 mg SUBCUT Q2W 04/07/21 04/07/21 Unknown History budesonide 2 cap PO DAILY 04/07/21 04/07/21 Unknown History diphenoxylate-atropine 2 tab PO NEEDED PRN 04/07/21 04/07/21 Unknown History Physical Exam Vital Signs: Vital Signs: Last Vital Signs Temp 97.8 F 04/10/21 07:34 Pulse 100 04/10/21 07:34 Resp 16 04/10/21 07:34 BP 120/75 04/10/21 07:34 Pulse Ox 97 04/10/21 07:00 Body Mass Index 21.2 Intubated Globally intact Results Labs Result diagrams: 04/10/21 10:23 04/10/21 05:15 Labs: Abnormal lab results 04/07/21 04/09/21 04/09/21 Range/Units 16:43 13:02 13:02 WBC (4.8-10.8) X10*3/uL RBC (4.60-5.80) X10*6/uL Hgb 7.7 L D (14.0-18.0) g/dl Hct 22.6 L D (42-52) % Plt Count (160-400) X10*3/uL Absolute Nucleated RBC (0.0-0.012) X10*3/uL PT (10.8-13.0) SEC INR (0.9-1.1) Chloride 109 H (96-108) mmol/L Anion Gap 10 L (12-20) BUN 27 H (9-16) mg/dL Creatinine 1.88 H (0.5-1.4) mg/dL Random Glucose 137 H (60-115) mg/dL Calcium 7.3 L (8.4-10.2) mg/dL Phosphorus (2.7-4.5) mg/dL Alkaline Phosphatase (39-117) U/L Total Protein (6.5-8.0) g/dL Albumin (3.5-5.0) g/dL Crossmatch See Detail 04/09/21 04/09/21 04/09/21 Range/Units 19:03 19:15 19:15 WBC (4.8-10.8) X10*3/uL RBC (4.60-5.80) X10*6/uL Hgb 9.2 L (14.0-18.0) g/dl Hct 26.1 L (42-52) % Plt Count (160-400) X10*3/uL Absolute Nucleated RBC (0.0-0.012) X10*3/uL PT 17.2 H D (10.8-13.0) SEC INR 1.4 H (0.9-1.1) Chloride (96-108) mmol/L Anion Gap (12-20) BUN 29 H (9-16) mg/dL Creatinine 1.94 H (0.5-1.4) mg/dL Random Glucose (60-115) mg/dL Calcium (8.4-10.2) mg/dL Phosphorus (2.7-4.5) mg/dL Alkaline Phosphatase (39-117) U/L Total Protein (6.5-8.0) g/dL Albumin (3.5-5.0) g/dL Crossmatch 04/10/21 04/10/21 04/10/21 Range/Units 02:02 05:15 05:15 WBC 15.4 H (4.8-10.8) X10*3/uL RBC 2.46 L D (4.60-5.80) X10*6/uL Hgb 6.4 L* D 8.1 L D (14.0-18.0) g/dl Hct 18.4 L* D 23.0 L D (42-52) % Plt Count 100 L D (160-400) X10*3/uL Absolute Nucleated RBC 0.030 H (0.0-0.012) X10*3/uL PT (10.8-13.0) SEC INR (0.9-1.1) Chloride 110 H (96-108) mmol/L Anion Gap 11 L (12-20) BUN 32 H (9-16) mg/dL Creatinine 1.73 H (0.5-1.4) mg/dL Random Glucose 183 H (60-115) mg/dL Calcium 6.4 L D (8.4-10.2) mg/dL Phosphorus 5.0 H (2.7-4.5) mg/dL Alkaline Phosphatase 20 L D (39-117) U/L Total Protein 2.3 L D (6.5-8.0) g/dL Albumin 1.5 L D (3.5-5.0) g/dL Crossmatch 04/10/21 04/10/21 Range/Units 05:15 10:23 WBC (4.8-10.8) X10*3/uL RBC 1.92 L D (4.60-5.80) X10*6/uL Hgb 6.2 L* D (14.0-18.0) g/dl Hct 17.6 L* D (42-52) % Plt Count 52 L D (160-400) X10*3/uL Absolute Nucleated RBC (0.0-0.012) X10*3/uL PT 26.4 H D (10.8-13.0) SEC INR 2.2 H (0.9-1.1) Chloride (96-108) mmol/L Anion Gap (12-20) BUN (9-16) mg/dL Creatinine (0.5-1.4) mg/dL Random Glucose (60-115) mg/dL Calcium (8.4-10.2) mg/dL Phosphorus (2.7-4.5) mg/dL Alkaline Phosphatase (39-117) U/L Total Protein (6.5-8.0) g/dL Albumin (3.5-5.0) g/dL Crossmatch Short CBC 04/09/21 04/09/21 04/10/21 Range/Units 13:02 19:15 02:02 WBC (4.8-10.8) X10*3/uL Hgb 7.7 L D 9.2 L 6.4 L* D (14.0-18.0) g/dl Hct 22.6 L D 26.1 L 18.4 L* D (42-52) % Plt Count (160-400) X10*3/uL 04/10/21 04/10/21 Range/Units 05:15 10:23 WBC 15.4 H 10.5 (4.8-10.8) X10*3/uL Hgb 8.1 L D 6.2 L* D (14.0-18.0) g/dl Hct 23.0 L D 17.6 L* D (42-52) % Plt Count 100 L D 52 L D (160-400) X10*3/uL BMP 04/09/21 04/09/21 04/10/21 13:02 19:03 05:15 Sodium 138 139 Potassium 4.3 3.6 Chloride 109 H 110 H Carbon Dioxide 23 22 BUN 27 H 29 H 32 H Creatinine 1.88 H 1.94 H 1.73 H Calcium 7.3 L 6.4 L D Liver Function 04/10/21 Range/Units 05:15 Total Bilirubin 0.6 (0.0-1.0) mg/dL AST 8 (5-37) U/L ALT < 6 (0-40) U/L Alkaline Phosphatase 20 L D (39-117) U/L Albumin 1.5 L D (3.5-5.0) g/dL All other labs normal. Assessment and Plan (1) Urinary retention: Status: Acute Procedures Date of Service Date of Service: 04/10/21 Catheter Insertion (Urinary) Date of insertion: 04/10/21 Time of insertion: 12:28 Size (Lithuanian): 16 Catheter balloon size (mL): 10 Procedure performed: without complications Additional comments: Difficult Poole placement Required bedside cystoscopy
[2021-04-10 12:36] LABS: Base Excess Bedside Calculated -3 mmol/L (-3-3); Glucose, i-STAT 178 mg/dL (60-115); HCO3 Bedside Calculated 23 mmol/L (22-26); Hematocrit Bedside < 15 %PCV (42-52); Potassium Bedside 3.5 mmol/L (3.3-5.1); SO2 Bedside Calculated 95 %; Sodium Bedside 141 mmol/L (135-145); TCO2 Bedside 25 mmol/L (24-29); pCO2 Bedside 44 mmhg (35-48); pH Bedside 7.33 (7.35-7.45); pO2 Bedside 82 mmhg (83-108)
[2021-04-10 12:36] LABS: Base Excess Bedside Calculated -4 mmol/L (-3-3); Glucose, i-STAT 167 mg/dL (60-115); HCO3 Bedside Calculated 23 mmol/L (22-26); Hematocrit Bedside < 15 %PCV (42-52); SO2 Bedside Calculated 98 %; Sodium Bedside 131 mmol/L (135-145); TCO2 Bedside 25 mmol/L (24-29); pCO2 Bedside 50 mmhg (35-48); pH Bedside 7.28 (7.35-7.45); pO2 Bedside 115 mmhg (83-108)
[2021-04-10] MEDS: Phytonadione (Vit K1) 10 MG in 0.9 % Sodium Chloride 50 ML 51 MG IV ×3 (13:17→23:20)
[2021-04-10] MEDS: HYDROmorphone HCl 1 MG/ML SYRINGE IVPUSH ×2 (13:20→21:33)
--- NOTE | 2021-04-10 13:25 | PM.CCPN ---
Subjective Subjective Date of Service: 04/10/21 Interval History: Mr. Cornejo was transferred to the ICU on April 08 bec of hemorrhagic shock 2? lower GI bleed. The patient is a 51-year-old gentleman with underlying history of Crohn?s disease, psoriasis, and chronic methadone use. 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 15 years ago. He takes Humira and budesonides. Never had lower GI bleeding before. Colonoscopy some months ago was negative except for narrowing of the anastomotic site. The patient told us that about a month ago, he had a few streaks of blood in his stool which went away, and did not recur. The patient presented to the ED on April 07 complaining of 2 days of red bloody diarrhea, dizziness, shortness of breath, and a clammy feeling. He had not been eating and drinking normally and had unintentional weight loss of 25 lb over the prior few months. In the ED, the patient was tachycardic and hypotensive. Labs in ED were notable for Hb 7.8, normal coags, BUN and creatinine of 18/1.4 (no baseline), normal LFTs, and albumin of 3.0. No lactic acid was done. He was admitted to medicine and transfused 2 units of packed red cells. The next morning, April 08, the patient had another episode of bright red blood per rectum. When he got up, he had a syncopal episode. He was given IV fluid and 2 more units of packed red blood cells and 1 unit of FFP, and transferred to intensive care unit. Upon arrival to intensive care unit patient was hemodynamically stable with normoxemia on room air. The patient was changed to IV hydrocortisone. Yesterday morning April 09, he had minor hypotension with a blood pressure down to 103/74 associated with tachycardia. Hemoglobin came back at 5.5, down from 8.7 the prior afternoon. He was transfused another two units RBCs. F/U Hb was up to 7.7. He was given a third unit of RBCs. He remained fully alert. Dr. De La Torre was unable to get him onto the OR schedule for colonoscopy yesterday, so was planned for today. He was given GoLYTELY in preparation. Early this morning, he had another bleed with recurrent hemorrhagic shock. Became tachycardic and hypotensive. Hb dropped to 6.4 from 9.2 last night. He was given 2L crystalloid, and 2 u RBCs. F/u labs showed Hb 8.1 and PT 2.2. BUN and creatinine were 32/1.7. Albumin was 1.5. He was given 2 units of FFP and vitamin K. He was taken to the OR this morning for colonoscopy, at which she was found to have an arterial pumper at or near the anastomotic site. It was unable to be controlled by Dr. De La Torre, therefore the patient underwent laparotomy and right colectomy with primary ileocolonic anastomosis. At surgery, Dr. Simmons identified a significant area of inflammation in the distal ileum/colonic anastomosis, but there was no active Crohn's disease proximal to that in the ileum. Estimated blood loss during the procedure was 200 cc. The patient was given 4 units of packed cells, 2 units FFP, and about 2300 cc of crystalloid. Urine output for the case was 800 cc. The patient was transfused one 5-pack of platelets after arrival in the ICU. The patient was brought back to the ICU still intubated. Hemodynamics were steady, if not hypertensive. Patient was put on propofol for brief period of time while everything settled in. He was breathing easy on pressure support with sat of 100% on PSV 5/40%/+5. He was then extubated to 4 L nasal cannula oxygen with no problem, satting 100%. He is complaining of pain, for which we have given him Dilaudid. No JVD at 30?. Chest is clear to auscultation, with a normal expiratory phase. The abdomen is flat with dry dressings. I heard no bowel sounds. He has no peripheral edema. Postop laboratory data: White count is 14.2, hemoglobin 7.8, [place] [address] (after the platelets). PT is 14.3/1.2. Venous blood gas shows a base excess of -4. Sodium is 141, potassium 3.4, chloride 110, bicarb 22, BUN and creatinine 28/1.7, calcium 6.4, albumin is 2.1. Magnesium was 1.6 this morning. IMPRESSION: 1. Crohn's disease. 2. Recurrent hemorrhagic shock secondary to lower GI bleeding. It?s possible that the bleeder had no relationship to the patient's Crohn's disease or the anastomosis. Either way though, the surgical resection should have taken care of it. 3. Coagulopathy. Resolved post vitamin K and FFP. I am going to continue a full replacement dose of vitamin K. 4. ALLISON. Hypovolemia +/- ATN. Improving post volume resuscitation. 5. Metabolic. Ca, K+, and Mg need replacement. 6. ID: He is not septic. He was given 2 g cefotetan in the OR. Critical care time (include d/w Dr. De La Torre, Dr. Simmons, and anesthesiology): 75+ min Critical Care Time (minutes): 75 Physical Exam Vital Signs: Vital Signs: Last Vital Signs Temp 96.5 F L 04/10/21 13:11 Pulse 72 04/10/21 13:11 Resp 19 04/10/21 13:11 BP 186/102 H 04/10/21 13:11 Pulse Ox 100 04/10/21 13:00 Body Mass Index 21.2 Objective Data Labs CBC & Chem 7: 04/10/21 14:00 04/10/21 14:00 Labs: Laboratory Results - last 24 hr 04/07/21 04/09/21 04/09/21 16:43 13:02 19:03 WBC RBC Hgb POC Hgb (Calc) Hct POC Hct MCV MCH MCHC RDW Plt Count MPV Absolute Nucleated RBC Nucleated RBC % (auto) PT INR APTT POC Std Base Excess POC O2 Sat (Calc) POC ABG pO2 POC ABG Total CO2 POC Capillary pH POC Capillary pCO2 POC Cap HCO3 (Calc) POC Sodium Sodium 138 POC Potassium Potassium 4.3 Chloride 109 H Carbon Dioxide 23 Anion Gap 10 L BUN 27 H 29 H Creatinine 1.88 H 1.94 H Estim Creat Clear Calc 41.4 40.1 Estimated GFR 38 37 POC Glucose Random Glucose 137 H Lactic Acid Calcium 7.3 L Phosphorus Magnesium Total Bilirubin AST ALT Alkaline Phosphatase Total Protein Albumin Ur Random Sodium Ur Random Potassium Ur Random Chloride Blood Type O Positive Antibody Screen NEGATIVE Crossmatch See Detail 04/09/21 04/09/21 04/09/21 19:15 19:15 21:23 WBC RBC Hgb 9.2 L POC Hgb (Calc) Hct 26.1 L POC Hct MCV MCH MCHC RDW Plt Count MPV Absolute Nucleated RBC Nucleated RBC % (auto) PT 17.2 H D INR 1.4 H APTT POC Std Base Excess POC O2 Sat (Calc) POC ABG pO2 POC ABG Total CO2 POC Capillary pH POC Capillary pCO2 POC Cap HCO3 (Calc) POC Sodium Sodium POC Potassium Potassium Chloride Carbon Dioxide Anion Gap BUN Creatinine Estim Creat Clear Calc Estimated GFR POC Glucose Random Glucose Lactic Acid Calcium Phosphorus Magnesium Total Bilirubin AST ALT Alkaline Phosphatase Total Protein Albumin Ur Random Sodium < 20.0 Ur Random Potassium 102.6 Ur Random Chloride < 20.0 Blood Type Antibody Screen Crossmatch 04/10/21 04/10/21 04/10/21 02:02 05:15 05:15 WBC 15.4 H RBC 2.46 L D Hgb 6.4 L* D 8.1 L D POC Hgb (Calc) Hct 18.4 L* D 23.0 L D POC Hct MCV 93.5 MCH 32.9 MCHC 35.2 RDW 14.6 Plt Count 100 L D MPV 10.2 Absolute Nucleated RBC 0.030 H Nucleated RBC % (auto) 0.2 PT INR APTT POC Std Base Excess POC O2 Sat (Calc) POC ABG pO2 POC ABG Total CO2 POC Capillary pH POC Capillary pCO2 POC Cap HCO3 (Calc) POC Sodium Sodium 139 POC Potassium Potassium 3.6 Chloride 110 H Carbon Dioxide 22 Anion Gap 11 L BUN 32 H Creatinine 1.73 H Estim Creat Clear Calc 45.0 Estimated GFR 42 POC Glucose Random Glucose 183 H Lactic Acid Calcium 6.4 L D Phosphorus 5.0 H Magnesium 1.6 Total Bilirubin 0.6 AST 8 ALT < 6 Alkaline Phosphatase 20 L D Total Protein 2.3 L D Albumin 1.5 L D Ur Random Sodium Ur Random Potassium Ur Random Chloride Blood Type Antibody Screen Crossmatch 04/10/21 04/10/21 04/10/21 05:15 05:15 09:56 WBC RBC Hgb POC Hgb (Calc) TNP Hct POC Hct < 15 L* MCV MCH MCHC RDW Plt Count MPV Absolute Nucleated RBC Nucleated RBC % (auto) PT 26.4 H D INR 2.2 H APTT 32.2 POC Std Base Excess -4 L POC O2 Sat (Calc) 98 POC ABG pO2 115 H POC ABG Total CO2 25 POC Capillary pH 7.28 L POC Capillary pCO2 50 H POC Cap HCO3 (Calc) 23 POC Sodium 131 L Sodium POC Potassium Potassium Chloride Carbon Dioxide Anion Gap BUN Creatinine Estim Creat Clear Calc Estimated GFR POC Glucose 167 H Random Glucose Lactic Acid Cancelled Calcium Phosphorus Magnesium Total Bilirubin AST ALT Alkaline Phosphatase Total Protein Albumin Ur Random Sodium Ur Random Potassium Ur Random Chloride Blood Type Antibody Screen Crossmatch 04/10/21 04/10/21 10:13 10:23 WBC 10.5 RBC 1.92 L D Hgb 6.2 L* D POC Hgb (Calc) TNP Hct 17.6 L* D POC Hct < 15 L* MCV 91.7 MCH 32.3 MCHC 35.2 RDW 13.2 Plt Count 52 L D MPV 10.2 Absolute Nucleated RBC 0.000 Nucleated RBC % (auto) 0.0 PT INR APTT POC Std Base Excess -3 POC O2 Sat (Calc) 95 POC ABG pO2 82 L POC ABG Total CO2 25 POC Capillary pH 7.33 L POC Capillary pCO2 44 POC Cap HCO3 (Calc) 23 POC Sodium 141 Sodium POC Potassium 3.5 Potassium Chloride Carbon Dioxide Anion Gap BUN Creatinine Estim Creat Clear Calc Estimated GFR POC Glucose 178 H Random Glucose Lactic Acid Calcium Phosphorus Magnesium Total Bilirubin AST ALT Alkaline Phosphatase Total Protein Albumin Ur Random Sodium Ur Random Potassium Ur Random Chloride Blood Type Antibody Screen Crossmatch Microbiology Microbiology Results: Microbiology 04/08/21 21:16 Stool Stool Culture - Preliminary Normal so far. Critical Care Time Critical Care Time (minutes): 90
--- NOTE | 2021-04-10 13:30 | PM.OP ---
Brief Operative Note Date of Service: 04/10/21 Pre-op diagnosis: GI Bleed Post-op diagnosis: other (Actively bleeding Dieulafoy lesion of ascending colon, Anastomotic colonic stricture, Small hiatal hernia) Procedure: EGD, Colonoscopy to anastomosis with sclerotherapy with Epi 1:10,000 Surgeon: Lane De La Torre Was an Circle Edger used for this Procedure?: No Estimated blood loss (mL): 200.0 Pathology: none sent Condition: stable Disposition: other (His care was turned over to Dr. Simmons in the OR for surgery.)
[2021-04-10] MEDS: Magnesium Sulfate/H2O 2 GM/50 ML PIGGYBACK IV (14:00)
[2021-04-10 14:06] LABS: VBG Base Excess -4.4 mmol/L; VBG HCO3 20 mmol/L (22-26); VBG pCO2 35 mmHg; VBG pH 7.36 (7.32-7.43); VBG pO2 45 mmHg
[2021-04-10 14:12] LABS: Venous Blood Gas Refer to POC result
[2021-04-10 14:21] LABS: Hematocrit 22.4 % (42-52); Hemoglobin 7.8 g/dl (14.0-18.0); Mean Corpuscular HGB Conc 34.8 g/dl (31.0-36.0); Mean Corpuscular Hemoglobin 31.1 pg (27.0-33.0); Mean Corpuscular Volume 89.2 fL (80-98); Mean Platelet Volume 10.5 fL (9.4-12.4); NRBC Pct Auto 0.2 /100WBC (0.0-0.2); Red Blood Count 2.51 X10*6/uL (4.60-5.80); Red Cell Distribution Width 13.9 % (11.0-16.0); White Blood Count 14.2 X10*3/uL (4.8-10.8)
[2021-04-10 14:27] LABS: Platelet Count 80 X10*3/uL (160-400)
[2021-04-10 14:32] LABS: INTERNATIONAL NORM RATIO 1.2 (0.9-1.1); Prothrombin Time 14.3 SEC (10.8-13.0)
[2021-04-10] MEDS: HYDROmorphone HCl 2 MG/ML VIAL IVPUSH ×4 (14:37→23:18)
[2021-04-10] MEDS: Lactated Ringers 1,000 ML 100 ML IVCONT ×2 (14:38→21:36)
[2021-04-10] MEDS: 0.9 % Sodium Chloride Flush 3 ML SYRINGE IVFLUSH ×2 (14:39→15:35)
[2021-04-10 14:55] LABS: Albumin Level 2.1 g/dL (3.5-5.0); Anion Gap 12 (12-20); Blood Urea Nitrogen 28 mg/dL (9-16); Calcium 6.4 mg/dL (8.4-10.2); Carbon Dioxide 22 mmol/L (22-29); Chloride 110 mmol/L (96-108); Creatinine Clr Calc Pharmacy 45.3; Estimated Glomerular Filt Rate 42; Glucose Random 157 mg/dL (60-115); Potassium 3.4 mmol/L (3.3-5.1); Sodium 141 mmol/L (135-145)
[2021-04-10 15:18] LABS: Lactic Acid 4.5 mmol/L (0.5-2.0)
[2021-04-10] MEDS: Potassium Chloride/H20 40 MEQ/100 ML PIGGYBACK 50 MEQ IV (15:35)
[2021-04-10] MEDS: Calcium Gluconate/NaCl,Iso-Osm 1 GM/50 ML PLAST..BAG IV (15:35)
[2021-04-10 16:33] LABS: Cancel Lactic Acid Canceled
[2021-04-10] MEDS: Hydrocortisone Sod Succ/PF 100 MG VIAL 50 MG IVPUSH ×2 (17:18→23:18)
[2021-04-10 20:19] LABS: MANUAL DIFF FLAG SCAN; PLT CLUMP 1; Red Cell Distribution Width 14.1 % (11.0-16.0); SCAN SMEAR FLAG 1
[2021-04-10 20:21] LABS: Imm Gran Abs Auto 0.46 X10*3/uL (0.00-0.03); Imm Gran Pct Auto 3.1 % (0.0-0.4); Lymphocytes Absolute Auto 1.2 X10*3/uL (1.2-4.9); Lymphocytes Percent Auto 8.3 % (20-40); Mean Corpuscular HGB Conc 35.4 g/dl (31.0-36.0); Mean Corpuscular Volume 90.4 fL (80-98); Mean Platelet Volume 11.1 fL (9.4-12.4); Monocytes Absolute Auto 1.1 X10*3/uL (0.1-1.2); Monocytes Percent Auto 7.6 % (2-11); Neutrophils Absolute Auto 12.2 X10*3/uL (2.0-8.3); Platelet Count 103 X10*3/uL (160-400); Red Blood Count 1.78 X10*6/uL (4.60-5.80)
[2021-04-10 20:25] LABS: Hematocrit 16.1 % (42-52); Hemoglobin 5.7 g/dl (14.0-18.0)
[2021-04-10 20:27] LABS: INTERNATIONAL NORM RATIO 1.2 (0.9-1.1); Prothrombin Time 13.9 SEC (10.8-13.0)
--- NOTE | 2021-04-10 20:47 | PM.CCN ---
Critical Care Event Note Summary Date of Service: 04/10/21 Code activated: No Narrative: This case had a high probability of a clinically significant, sudden, or life threatening deterioration of this patient's condition which required my full and direct attention, intervention and personal management. Critical Care Time (minutes): 45 Comment: this is a late entry from event happening on 04/10/2021 at 1:55 a.m. At 155 am RN mentioned patient was not feeling well, he feels very anxious, slightly diaphoretic, pale. Following commands. According to nurses he has had a very large hematochezia stool. Blood pressure is stable but his heart rate is in the 140s, he is a little tachypneic. I am concerned that he will developed hemorrhagic shock, axis is poor. Discussed with patient possibility of a central line and he agrees. VS: Blood pressure blood pressure has been slowly decreased and currently 99/59, heart rate 12 5, respirations 23, temperature 98.3?. General: Alert oriented x3, pale, ill-looking. Skin: Ecchymotic spots on the bilateral arms from needlestick at times. HEENT: Normocephalic, atraumatic, extraocular movements intact, neck is supple, no lymphadenopathy. Buccal mucosa moist. Throat midline. Cardiac: Clear S1-S2, no murmurs rubs or gallops. Pulmonary: Clear to auscultation, no wheezes, rales or rhonchi. Abdomen: Abdomen as above, no bowel sounds noted. Soft, nontender to light palpation. Musculoskeletal: Moving all 4 extremities upon request a major joints, no calf tenderness, no edema. Neurologic: As above, no focal deficits. Vascular: 2+ pulses upper and lower extremities distally. SIGNIFICANT LABORATORY DATA: Reviewed from yesterday, repeat labs shows H&H decrease of 6.4 from 9.2 and 18.4 from 20/6 0.1 respectively. Awaiting other labs. ASSESSMENT AND PLAN: 1.0 Lower GI bleed due to Crohn's, question malignancy versus AVM==== patient will need further evaluation by GI. In the meantime I will stabilize him, obtain labs and given blood, if necessary fresh frozen plasma, a more in INR and PT and if it is elevated will plan to give him vitamin K; will resuscitate aggressively to avoid Hemorrhagic shock. Will repeat labs closely. Given his degree of anxiety and per patient's request, I ordered 0.5 mg of Ativan IV x1 which did not have could affect the patient, he became significantly confused and sleepy, flumazenil 0.2 mg IV x1 was given with good affect. This morning, the case in the overnight events were discussed with the district medical examiner Dr De La Torre. who will plan to do a colonoscopy later on today. Will repeat labs in the morning. Case was discussed in detail with Dr. Sahni. He is aware of all the above as well as the plan of care for this patient. Critical care time used for critical evaluation of this patient, diagnosis, treatment and coordination of care, review her records and documentation TOTAL CRITICAL CARE TIME 45 MIN
[2021-04-10 20:49] LABS: Alanine Aminotransferase < 6 U/L (0-40); Albumin Level 1.8 g/dL (3.5-5.0); Alkaline Phosphatase 22 U/L (39-117); Anion Gap 15 (12-20); Aspartate Amino Transferase 7 U/L (5-37); Bilirubin Total 0.7 mg/dL (0.0-1.0); Blood Urea Nitrogen 31 mg/dL (9-16); Calcium 6.5 mg/dL (8.4-10.2); Carbon Dioxide 18 mmol/L (22-29); Chloride 111 mmol/L (96-108); Creatinine Clr Calc Pharmacy 38.2; Estimated Glomerular Filt Rate 35; Glucose Random 218 mg/dL (60-115); Magnesium 2.1 mg/dL (1.6-2.6); Phosphorus 5.9 mg/dL (2.7-4.5); Potassium 4.2 mmol/L (3.3-5.1); Sodium 140 mmol/L (135-145); Total Protein 2.6 g/dL (6.5-8.0)
[2021-04-10 20:51] LABS: Lactic Acid 8.4 mmol/L (0.5-2.0)
[2021-04-10 20:51] LABS: Troponin-I High Sensitivity 152.5 ng/L (<3.5-35.0)
[2021-04-10 20:53] LABS: SLIDE REVIEW VERIFIED
--- NOTE | 2021-04-10 20:55 | PM.CCN ---
Critical Care Event Note Summary Date of Service: 04/10/21 Code activated: No Narrative: At 7:45 p.m., the nurse reported the patient was not feeling well and his heart rate went from the 0 140s sinus tachycardia to as low as 48 beats per minute, this stain for approximately 3 minutes, on the monitor and to my eyes this rhythm appear consistent with Mobitz type 1 heart block. Patient states that he does not feel right and he feels similar to yesterday when he thought he was anxious and we discover he was having more of a GI bleed. Admits to having some chest pressure on the left chest 2/10 along with some shortness of breath, nonradiating, described as tightness, associated with lightheadedness, no nausea or vomiting. VS: Blood pressure 111/78, heart rate 69 but it was low as 48 beats per minute on the monitor, respirations 26, O2 sat 98% on 2 L nasal cannula. General: Alert oriented x3, pale, ill-looking. Skin: Fresh surgical scar cover with dressing in the mid abdomen all through the center. No surrounding bleeding, there is ecchymotic spots on the bilateral arms old in appearance. HEENT: Normocephalic, atraumatic, extraocular movements intact, neck is supple, no lymphadenopathy. Buccal mucosa moist. Throat midline. Cardiac: Clear S1-S2, no murmurs rubs or gallops. Pulmonary: Clear to auscultation, no wheezes, rales or rhonchi. Abdomen: Abdomen as above, no bowel sounds noted. Soft, nontender to light palpation. Musculoskeletal: Moving all 4 extremities upon request a major joints, no calf tenderness, no edema. Neurologic: As above, no focal deficits. Vascular: 2+ pulses upper and lower extremities distally. SIGNIFICANT LABORATORY DATA: Will be requested EKG REVIEW: EKG obtained at the time of symptoms, revealed sinus tachycardia with PVCs, there is T-wave inversions throughout leads V1 through V3 with ST depressions in leads V3, V4 all of which are new in comparison to EKG from April 07. ECHOCARDIOGRAPHY for hemodynamic monitorin. Wall thickness appears normal 2. LV cavity size is normal, and LV fxn is hyperkinetic, with approximated EF 55-60%. 3. RV size looks enlarged on the parasternal and apical 4-chamber views (RV:LV cavity ratio 1.0), but looks normal on the subcostal view. 4. LA and RA not adequately assessed. 5. AoV not assessed. 6. MV appears normal with trace MR by color ronald. 7. TV appears normal with 1+ TR by color ronald, with CWD jet measuring 2.6m/sec, or gradient of 27 mm. 8. IVC normal sized and half way contractile with inspiration. Estimated CVP of 8-10. RVSP estimate about 32 mm. ASSESSMENT AND PLAN: 1. Bradycardia, chest pain rule out ACS/PE/recurring GI bleed or surgical intra abdominal bleed and demand ischemia related chest pain, rule out electrolyte abnormality (hyperkalemia). I am concerned about the patient having recurrent bleeding but all the above should be consider, full set of labs including CBC, Chem 7, troponin, lactic acid, magnesium, phosphorus will be ordered. Blood bank has been called as I suspect the patient may have a recurrent bleed although he is not hypotensive will be ready for transfusion. In the meantime even though he has no abdominal pain, a abdominal x-ray will be done to rule out free air but will likely need a CT of the abdomen pelvis to rule out intra-abdominal bleeding versus significant ischemia. The EKG somewhat concerning and will correlate these with a repeat troponin as the 1st 1 was reported to be 152.5. His current lactic acid is 8.4. 2. ALLISON likely hypoperfussion A 2019, 2 units of packed red blood cells were ordered as the H&H was reported to be 5.716.1, this is significantly lower from earlier. Patient did receive a lactated Ringers x 1 will order a second litter as he is Anuric and has worsening ALLISON. 3. Low Albumin ==== will give 2 doses of albumin salt 4. Coagulopathy of unknown reason ? ITP 1130 pm I spoke to Dr. Cody from [facility] who reported that the patient has intra-abdominal bleed around the surgical site and the right abdomen. At this point the patient is now complaining of pain 6/10 in a diffuse manner, his abdomen is somewhat distended. His repeat H&H after the transfusion of 2 units of packed red blood cells is 7 and 21, he is hemodynamically stable. Dilaudid given. I have discussed in detail the findings with Dr. Rivas (general surgeon on-call) it is likely that the patient will undergo an exploratory surgery today. In the meantime, the patient will continue to receive 2 more units of blood, fresh frozen plasma and platelets all of which have been ordered. His repeat troponin is 203.7; repeat lactic acid 4.9. His currently hypertensive, I believe this is related to the intra-abdominal pressure on the kidneys. He did receive 2.5 mg of Lopressor, will give him 2.5 mg of Lopressor additional to that in order to control the blood pressure and heart rate. 1230 patient seen by general surgeon, patient going to the OR. 330 am pt back from the OR, exploratory surgery showed no specific bleeding site, abd cavity full of blood, DEBI drain in place, pt c/o pain will increase Dilaudid dose frequency; will give Tranxenemic ACID IV load and 6h gtt x 1 BP elevated likely due to pain will use Dilaudid and Lopressor prn given intermittent tachycardia Labs in am . All of the above was discussed in detail with Dr. Sahni who agrees with all of bed and will discuss the case with Dr. Bright patient's surgeon who is in agreement with the CT abdomen and pelvis in the remainder of the above-mentioned workup. Critical care time used for critical evaluation of this patient, diagnosis, treatment and coordination of care, review her records and documentation TOTAL CRITICAL CARE TIME 90 MIN This case had a high probability of a clinically significant, sudden, or life threatening deterioration of this patient's condition which required my full and direct attention, intervention and personal management. Critical Care Time (minutes): 60
[2021-04-10 21:02] LABS: Thyroid Stimulating Hormone 0.46 uIU/mL (0.32-4.0)
[2021-04-10] MEDS: Albumin Human 25 % 50 ML 100 ML IV ×2 (21:34→21:48)
[2021-04-10 22:03] LABS: Reflex Lactate? Lactic Acid Added
[2021-04-10 22:24] LABS: VBG Base Excess -5.4 mmol/L; VBG HCO3 19 mmol/L (22-26); VBG pCO2 33 mmHg; VBG pH 7.35 (7.32-7.43); VBG pO2 40 mmHg
[2021-04-10 22:32] LABS: MANUAL DIFF FLAG NO
[2021-04-10 22:37] LABS: Basophils Percent Auto 0.1 % (0-2); Imm Gran Pct Auto 4.1 % (0.0-0.4); Lymphocytes Absolute Auto 0.9 X10*3/uL (1.2-4.9); Lymphocytes Percent Auto 7.3 % (20-40); Mean Corpuscular HGB Conc 34.1 g/dl (31.0-36.0); Mean Corpuscular Hemoglobin 30.4 pg (27.0-33.0); Mean Corpuscular Volume 89.1 fL (80-98); Mean Platelet Volume 11.4 fL (9.4-12.4); Monocytes Absolute Auto 1.5 X10*3/uL (0.1-1.2); Neutrophils Absolute Auto 9.4 X10*3/uL (2.0-8.3); Neutrophils Percent Auto 76.5 % (45-73); White Blood Count 12.2 X10*3/uL (4.8-10.8)
[2021-04-10 22:38] LABS: NRBC Pct Auto 1.2 /100WBC (0.0-0.2); Platelet Count 64 X10*3/uL (160-400)
[2021-04-10 22:40] LABS: Hematocrit 20.5 % (42-52)
[2021-04-10 23:29] LABS: Troponin-I High Sensitivity 203.7 ng/L (<3.5-35.0)
[2021-04-10] MEDS: Metoprolol Tartrate 5 MG/5 ML VIAL 2.5 MG IVPUSH (23:43)
[2021-04-11] VITALS (46 sets, daily range): BP systolic 164–225; BP diastolic 76–124; PULSE 50–101; RESP 13–26; TEMP 36.6–37.3; O2SAT 93–100
--- NOTE | 2021-04-11 | ECG_ITS ---
Test Reason : R/O NM Blood Pressure : / mmHG Vent. Rate : 058 BPM Atrial Rate : 058 BPM P-R Int : 138 ms QRS Dur : 086 ms QT Int : 476 ms P-R-T Axes : 047 014 005 degrees QTc Int : 467 ms Sinus bradycardia Voltage criteria for left ventricular hypertrophy Abnormal ECG When compared with ECG of 10-APR-2021 19:49, Premature atrial complexes are no longer Present Vent. rate has decreased BY 67 BPM T wave inversion now evident in Inferior leads T wave amplitude has increased in Lateral leads Referred By: [place] Sahni Electronically Signed By:GAUDENCIO DYE MD
--- NOTE | 2021-04-11 00:19 | PM.EVENT ---
Event Note Date of Service: 04/11/21 Event Note: Pt underwent right colectomy earlier today for bleeding from the right colon Called by ICU team because of dropping hemoglobin from 7.8 to 5.7 postop had worsening lactic acidosis tonight Abdomen also noted to be getting more distended and firm CT scan done shows large amount of hemoperitoneum Will take the patient therefore to the OR for exploratory laparotomy and control of bleeder, likely from mesentery I explained to the patient the technique of this procedure. I reviewed the risks including but not limited to further bleeding, infections, bowel injury, injury to other organs, inherent risks of anesthesia including respiratory failure as well as the benefits and alternatives He has given consent I have discussed the plan with his mother as well over the phone I have reviewed the CAT scan images The patient just received 2 units of packed RBC Currently hemodynamically stable and appears alert
--- NOTE | 2021-04-11 00:27 | OP_ITS ---
SURGEON: Lane De La Torre MD INDICATIONS: The patient presents for evaluation of recurrent GI bleeding. Full consent has been obtained from him for both procedures, including risks of bleeding and perforation. PREOPERATIVE DIAGNOSIS: Recurrent gastrointestinal bleeding. POSTOPERATIVE DIAGNOSIS: PROCEDURE PERFORMED: Esophagogastroduodenoscopy and colonoscopy to the ascending colon and area of anastomosis with sclerotherapy of a bleeding probable Dieulafoy's lesion just distal to the strictured anastomosis. ESTIMATED BLOOD LOSS: COMPLICATIONS: ANESTHESIA: General anesthesia via endotracheal intubation. ASSISTANTS: SPECIMENS: POSTOPERATIVE DIAGNOSES: Recurrent gastrointestinal bleeding, small hiatal hernia, actively bleeding, probable Dieulafoy's lesion in the ascending colon, anastomotic stricture in the ascending colon. DESCRIPTION OF PROCEDURE: The patient was placed in the supine position. The Olympus video gastroscope was passed in the posterior oropharynx and upper esophagus. The scope was advanced into the distal esophagus. The gastroesophageal junction appeared normal at 38 cm. There was no sign of any esophagitis. The scope entered into the stomach where there was a small hiatal hernia. The scope was advanced into pylorus and the duodenum was cannulated to the descending portion. The duodenum including the bulb appeared normal without mass or ulceration. There was no blood anywhere in the duodenum. The scope was withdrawn back in the stomach. The gastric antrum and body appeared normal with good peristalsis. Scope was retroflexed visualizing the proximal stomach carefully, which appeared normal, without any sign of mass or ulceration. Scope was straightened and withdrawn back to the esophagus. The esophageal mucosa appeared normal. The scope was withdrawn from the patient. He was turned around for colonoscopy. The digital rectal exam revealed earl blood on the examining glove with some clots. The Olympus video pediatric colonoscope was entered into the rectum and was then able to easily advance to the region of his anastomosis, which appeared to be quite strictured with very minimal lumen. However, there was no mass, ulceration nor any sign of active Crohn's disease. The lumen clearly could not be passed with the scope. However, just distal to this lumen was a pulsatile area of bleeding which upon irrigation revealed what appeared to be, a Dieulafoy lesion with active bleeding. This remained basically pulsatile throughout. There was no ulceration. After copious irrigation and suction. I was then able to inject epinephrine with a sclerotherapy needle into and around the bleeding site. This was not amenable to placement of a clip as it was quite flat. However, with epinephrine injection there was good blanching of the mucosa and good hemostasis other than some very minimal oozing. At that point, with Dr. Simmons in the OR, we discussed further treatment options which would include cautery, attempts at clipping, and/or hemo spray. The other alternative was that of surgery. Given the patient's clinical course of at least 3 significant bleeds while he has been inpatient with significant hypotension requiring significant amounts of blood products, I felt that surgery would be the best option here given the presence of the stricture, which would need to be addressed at some point anyway and what I felt was a very high risk of recurrent bleeding regardless of endoscopic intervention. As such, no further endoscopic treatment was done and his care was turned over to Dr. Simmons. I could not visualize much mucosa on the way out of the colon due to all the blood. After turning his care over to Dr. Simmons, he was stable. IMPRESSION: 1. Actively bleeding Dieulafoy lesion of ascending colon, just distal to the anastomosis. 2. Anastomotic stricture. 3. Small hiatal hernia. PLAN: At this point, he will have surgery immediately. Further plans will be made depending upon the operative findings. MD BERNARD Lopez/DANIELA / [id number] MTDD
[2021-04-11] MEDS: ondansetron HCL 4 MG/2 ML VIAL IVPUSH (00:33)
[2021-04-11 00:41] LABS: Lactic Acid 4.9 mmol/L (0.5-2.0)
[2021-04-11 00:42] LABS: Reflex Lactate? Lactic Acid Added
[2021-04-11] MEDS: Metoprolol Tartrate 5 MG/5 ML VIAL 2.5 MG IVPUSH (00:56)
--- NOTE | 2021-04-11 00:57 | P.CONAN_ITS ---
[facility] Active Problems Active Problems: All Active Problems (Updated 04/10/21 @ 12:28 by Horace clinton MD) Urinary retention (Acute) Crohn's colitis (Acute) ALLISON (acute kidney injury) (Acute) Acute anemia (Acute) Lower gastrointestinal hemorrhage (Acute) Past Medical History Medical History (Updated 04/10/21 @ 12:28 by Horace Betancourt MD) Crohn's colitis Crohn's disease Psoriasis Surgical History Surgical History H/O colectomy Social History Social History Household Members: Family Housing: House Do you presently have visiting nurse or other home services: No Patient Tobacco Use Status: Current everyday Tobacco user Patient Interested in Nicotine Replacement: Yes Use of substances other than those prescribed or required for medical reasons: No Currently Displaying Signs/Symptoms of Drug Intoxication Withdrawal: No Have you been hit, kicked, punched, or otherwise hurt by someone within the past year? If so, by whom?: No Do you feel safe in your current relationship?: No Is there a partner from a previous relationship who is making you feel unsafe now?: No Are you made to feel afraid or neglected: No Advance Directives: No Advance Directives Information Provided: No Do you have thoughts of harming others: None Do you have a plan to hurt others: No Plan Recently lost weight without trying: No Eating poorly because of decreased appetite: Yes Nutrition Risks: No Nutritional Risk Poor oral hygiene: No service: No Current occupational status: employed Meds Allergies Allergy/AdvReac Type Severity Reaction Status Date / Time No Known Allergies Allergy Verified 04/07/21 16:01 [No Known Allergies*] Active Medications: Current Medications Generic Name Dose Route Start Last Admin Trade Name Freq PRN Reason Stop Dose Admin Hydrocortisone Sodium Succinate 50 mg 04/10/21 18:00 04/10/21 23:18 Hydrocortisone Sod Succ/Pf 100 Mg Vial IVPUSH 50 mg Q6H LENORA Administration Hydromorphone HCl 1 mg 04/10/21 13:27 04/10/21 21:33 Hydromorphone Hcl 1 Mg/Ml Syringe IVPUSH 1 mg Q1H PRN Administration mild pain Hydromorphone HCl 2 mg 04/10/21 13:27 04/10/21 23:18 Hydromorphone Hcl 2 Mg/Ml Vial IVPUSH 2 mg Q2H PRN Administration mod-severe pain Lactated Ringer's 1,000 mls @ 100 mls/hr 04/09/21 21:00 04/10/21 21:36 Lr IVCONT 100 mls/hr .Q10H LENORA Administration Phytonadione 10 mg/ Sodium 51 mls @ 51 mls/hr 04/10/21 12:15 04/10/21 23:36 Chloride IV 04/11/21 07:14 Infused Q6H LENORA Infusion Cefazolin Sodium/Dextrose 2 gm in 50 mls @ 100 mls/hr 04/11/21 00:38 Ancef IV 04/11/21 01:07 PREOP ONE Methadone HCl 80 mg 04/09/21 08:00 04/10/21 13:27 Methadone Hcl 1 Mg/0.1 Ml Oral.Conc PO Not Given DAILY LENORA Nicotine 14 mg 04/08/21 09:00 04/08/21 07:11 Nicotine 14 Mg Patch.[id number] TRANSDERMA 14 mg DAILY LENORA Administration Ondansetron HCl 4 mg 04/08/21 00:31 04/11/21 00:33 Ondansetron Hcl 4 Mg/2 Ml Vial IVPUSH 4 mg Q8H PRN Administration Nausea and Vomiting Pantoprazole Sodium 40 mg 04/11/21 06:30 Pantoprazole Sodium 40 Mg/10 Ml Vial IVPUSH DAILY@0630 L[place]A Sodium Chloride 3 ml 04/08/21 00:31 04/10/21 22:50 0.9 % Sodium Chloride Flush 3 Ml Syringe IVFLUSH Not Given QSHIFT [facility] Home Medications Medication Instructions Recorded Confirmed Last Taken Type adalimumab [Humira(CF) Pen] 40 mg SUBCUT Q2W 04/07/21 04/07/21 Unknown History budesonide 2 cap PO DAILY 04/07/21 04/07/21 Unknown History diphenoxylate-atropine 2 tab PO NEEDED PRN 04/07/21 04/07/21 Unknown History Exam Exam Date and Time: April 11, 2021 0057 Height,Weight and Vital Signs: Height 5 ft 7 in Weight 61.689 kg Last Vital Signs Temp 98.6 F 04/11/21 00:27 Pulse 100 04/11/21 00:56 Resp 26 H 04/11/21 00:42 BP 177/102 H 04/11/21 00:56 Pulse Ox 100 04/11/21 00:00 Pertinent Lab Results Pertinent Lab Results: Laboratory Tests 04/07/21 04/07/21 04/07/21 16:14 16:15 16:15 WBC 12.2 H RBC 2.39 L Hgb 7.8 L POC Hgb (Calc) Hct 23.3 L POC Hct MCV 97.5 MCH 32.6 MCHC 33.5 RDW 14.8 Plt Count 343 MPV 9.1 L Immature Gran % (Auto) 1.2 H Neut % (Auto) 69.4 Lymph % (Auto) 16.6 L [place] % (Auto) 9.9 Eos % (Auto) 2.6 Baso % (Auto) 0.3 Lymph # (Auto) 2.0 [place] # (Auto) 1.2 Eos # (Auto) 0.3 Baso # (Auto) 0.0 Abs Immat Gran (auto) 0.15 H Absolute Neuts (auto) 8.5 H Absolute Nucleated RBC 0.000 Nucleated RBC % (auto) 0.0 Smear Tech's Comments ESR PT 12.2 INR 1.0 APTT POC Std Base Excess POC O2 Sat (Calc) POC ABG pO2 POC ABG Total CO2 VBG pH VBG pCO2 VBG pO2 VBG HCO3 VBG O2 Saturation VBG Base Excess POC Capillary pH POC Capillary pCO2 POC Cap HCO3 (Calc) POC Sodium Sodium 138 POC Potassium Potassium 4.5 Chloride 105 Carbon Dioxide 24 Anion Gap 14 BUN 18 H Creatinine 1.41 H Estim Creat Clear Calc 55.2 Estimated GFR 53 POC Glucose Random Glucose 114 Lactic Acid Calcium 7.8 L Phosphorus Magnesium Total Bilirubin Direct Bilirubin AST ALT Alkaline Phosphatase Troponin I High Sens C-Reactive Protein 0.56 H Total Protein Albumin TSH Ur Random Sodium Ur Random Potassium Ur Random Chloride Stool Occult Blood Stool Leukocytes, Qual C. difficile Toxin A&B C. difficile Antigen C. difficile Interpret COVID-19 (EDD) COVID-19 Clin Com Blood Type Antibody Screen Crossmatch 04/07/21 04/07/21 04/07/21 16:15 16:15 16:43 WBC RBC Hgb POC Hgb (Calc) Hct POC Hct MCV MCH MCHC RDW Plt Count MPV Immature Gran % (Auto) Neut % (Auto) Lymph % (Auto) [place] % (Auto) Eos % (Auto) Baso % (Auto) Lymph # (Auto) [place] # (Auto) Eos # (Auto) Baso # (Auto) Abs Immat Gran (auto) Absolute Neuts (auto) Absolute Nucleated RBC Nucleated RBC % (auto) Smear Tech's Comments ESR PT INR APTT POC Std Base Excess POC O2 Sat (Calc) POC ABG pO2 POC ABG Total CO2 VBG pH VBG pCO2 VBG pO2 VBG HCO3 VBG O2 Saturation VBG Base Excess POC Capillary pH POC Capillary pCO2 POC Cap HCO3 (Calc) POC Sodium Sodium POC Potassium Potassium Chloride Carbon Dioxide Anion Gap BUN Creatinine Estim Creat Clear Calc Estimated GFR POC Glucose Random Glucose Lactic Acid Calcium Phosphorus Magnesium Total Bilirubin Direct Bilirubin AST ALT Alkaline Phosphatase Troponin I High Sens 6.4 C-Reactive Protein Total Protein Albumin TSH Ur Random Sodium Ur Random Potassium Ur Random Chloride Stool Occult Blood Stool Leukocytes, Qual C. difficile Toxin A&B C. difficile Antigen C. difficile Interpret COVID-19 (EDD) Negative COVID-19 Clin Com See Note Blood Type O Positive Antibody Screen NEGATIVE Crossmatch See Detail 04/07/21 04/07/21 04/08/21 16:43 Unknown 03:55 WBC 7.8 RBC 2.86 L Hgb 8.7 L POC Hgb (Calc) Hct 25.7 L POC Hct MCV 89.9 D MCH 30.4 MCHC 33.9 RDW 16.9 H Plt Count 216 D MPV 9.9 Immature Gran % (Auto) 1.3 H Neut % (Auto) 87.4 H Lymph % (Auto) 8.6 L [place] % (Auto) 1.9 L Eos % (Auto) 0.5 Baso % (Auto) 0.3 Lymph # (Auto) 0.7 L [place] # (Auto) 0.2 Eos # (Auto) 0.0 Baso # (Auto) 0.0 Abs Immat Gran (auto) 0.10 H Absolute Neuts (auto) 6.8 Absolute Nucleated RBC 0.000 Nucleated RBC % (auto) 0.0 Smear Tech's Comments VERIFIED ESR PT INR APTT POC Std Base Excess POC O2 Sat (Calc) POC ABG pO2 POC ABG Total CO2 VBG pH VBG pCO2 VBG pO2 VBG HCO3 VBG O2 Saturation VBG Base Excess POC Capillary pH POC Capillary pCO2 POC Cap HCO3 (Calc) POC Sodium Sodium POC Potassium Potassium Chloride Carbon Dioxide Anion Gap BUN Creatinine Estim Creat Clear Calc Estimated GFR POC Glucose Random Glucose Lactic Acid Calcium Phosphorus Magnesium 1.6 Total Bilirubin 0.4 Direct Bilirubin 0.2 AST 8 ALT < 6 Alkaline Phosphatase 52 Troponin I High Sens C-Reactive Protein Total Protein 4.9 L Albumin 3.0 L TSH Ur Random Sodium Ur Random Potassium Ur Random Chloride Stool Occult Blood Cancelled Stool Leukocytes, Qual C. difficile Toxin A&B C. difficile Antigen C. difficile Interpret COVID-19 (EDD) COVID-19 Clin Com Blood Type Antibody Screen Crossmatch 04/08/21 04/08/21 04/08/21 03:55 13:23 13:23 WBC 7.3 RBC 2.81 L Hgb 8.7 L POC Hgb (Calc) Hct 25.6 L POC Hct MCV 91.1 MCH 31.0 MCHC 34.0 RDW 15.5 Plt Count 173 MPV 9.3 L Immature Gran % (Auto) 1.0 H Neut % (Auto) 85.1 H Lymph % (Auto) 9.7 L [place] % (Auto) 4.1 Eos % (Auto) 0.0 Baso % (Auto) 0.1 Lymph # (Auto) 0.7 L [place] # (Auto) 0.3 Eos # (Auto) 0.0 Baso # (Auto) 0.0 Abs Immat Gran (auto) 0.07 H Absolute Neuts (auto) 6.2 Absolute Nucleated RBC 0.000 Nucleated RBC % (auto) 0.0 Smear Tech's Comments ESR PT INR APTT POC Std Base Excess POC O2 Sat (Calc) POC ABG pO2 POC ABG Total CO2 VBG pH VBG pCO2 VBG pO2 VBG HCO3 VBG O2 Saturation VBG Base Excess POC Capillary pH POC Capillary pCO2 POC Cap HCO3 (Calc) POC Sodium Sodium 139 141 POC Potassium Potassium 4.3 4.1 Chloride 107 109 H Carbon Dioxide 23 26 Anion Gap 13 10 L BUN 16 16 Creatinine 1.08 1.05 Estim Creat Clear Calc 72.1 74.2 Estimated GFR > 60 > 60 POC Glucose Random Glucose 80 111 D Lactic Acid Calcium 7.6 L 7.4 L Phosphorus Magnesium 1.6 Total Bilirubin Direct Bilirubin AST ALT Alkaline Phosphatase Troponin I High Sens C-Reactive Protein Total Protein Albumin TSH Ur Random Sodium Ur Random Potassium Ur Random Chloride Stool Occult Blood Stool Leukocytes, Qual C. difficile Toxin A&B C. difficile Antigen C. difficile Interpret COVID-19 (EDD) COVID-19 Clin Com Blood Type Antibody Screen Crossmatch 04/08/21 04/08/21 04/09/21 21:16 21:16 07:53 WBC 11.7 H RBC 1.77 L D Hgb 5.5 L* D POC Hgb (Calc) Hct 16.2 L* D POC Hct MCV 91.5 MCH 31.1 MCHC 34.0 RDW 15.7 Plt Count 218 D MPV 10.3 Immature Gran % (Auto) 1.2 H Neut % (Auto) 82.4 H Lymph % (Auto) 9.7 L [place] % (Auto) 6.6 Eos % (Auto) 0.0 Baso % (Auto) 0.1 Lymph # (Auto) 1.1 L [place] # (Auto) 0.8 Eos # (Auto) 0.0 Baso # (Auto) 0.0 Abs Immat Gran (auto) 0.14 H Absolute Neuts (auto) 9.6 H Absolute Nucleated RBC 0.000 Nucleated RBC % (auto) 0.0 Smear Tech's Comments ESR PT INR APTT POC Std Base Excess POC O2 Sat (Calc) POC ABG pO2 POC ABG Total CO2 VBG pH VBG pCO2 VBG pO2 VBG HCO3 VBG O2 Saturation VBG Base Excess POC Capillary pH POC Capillary pCO2 POC Cap HCO3 (Calc) POC Sodium Sodium POC Potassium Potassium Chloride Carbon Dioxide Anion Gap BUN Creatinine Estim Creat Clear Calc Estimated GFR POC Glucose Random Glucose Lactic Acid Calcium Phosphorus Magnesium Total Bilirubin Direct Bilirubin AST ALT Alkaline Phosphatase Troponin I High Sens C-Reactive Protein Total Protein Albumin TSH Ur Random Sodium Ur Random Potassium Ur Random Chloride Stool Occult Blood Stool Leukocytes, Qual NEGATIVE C. difficile Toxin A&B Negative C. difficile Antigen Negative C. difficile Interpret SEE NOTE COVID-19 (EDD) COVID-19 Clin Com Blood Type Antibody Screen Crossmatch 04/09/21 04/09/21 04/09/21 07:53 07:53 07:53 WBC RBC Hgb POC Hgb (Calc) Hct POC Hct MCV MCH MCHC RDW Plt Count MPV Immature Gran % (Auto) Neut % (Auto) Lymph % (Auto) [place] % (Auto) Eos % (Auto) Baso % (Auto) Lymph # (Auto) [place] # (Auto) Eos # (Auto) Baso # (Auto) Abs Immat Gran (auto) Absolute Neuts (auto) Absolute Nucleated RBC Nucleated RBC % (auto) Smear Tech's Comments ESR 3 PT INR APTT POC Std Base Excess POC O2 Sat (Calc) POC ABG pO2 POC ABG Total CO2 VBG pH VBG pCO2 VBG pO2 VBG HCO3 VBG O2 Saturation VBG Base Excess POC Capillary pH POC Capillary pCO2 POC Cap HCO3 (Calc) POC Sodium Sodium 139 POC Potassium Potassium 4.0 Chloride 109 H Carbon Dioxide 22 Anion Gap 12 BUN 23 H Creatinine 1.63 H Estim Creat Clear Calc 47.8 Estimated GFR 45 POC Glucose Random Glucose 132 H Lactic Acid Calcium 7.4 L Phosphorus 4.8 H Magnesium 2.0 Total Bilirubin 0.5 Direct Bilirubin AST 6 ALT < 6 Alkaline Phosphatase 33 L D Troponin I High Sens C-Reactive Protein 0.31 Total Protein 3.6 L D Albumin 2.3 L D TSH Ur Random Sodium Ur Random Potassium Ur Random Chloride Stool Occult Blood Stool Leukocytes, Qual C. difficile Toxin A&B C. difficile Antigen C. difficile Interpret COVID-19 (EDD) COVID-19 Clin Com Blood Type Antibody Screen Crossmatch 04/09/21 04/09/21 04/09/21 07:53 13:02 13:02 WBC RBC Hgb 7.7 L D POC Hgb (Calc) Hct 22.6 L D POC Hct MCV MCH MCHC RDW Plt Count MPV Immature Gran % (Auto) Neut % (Auto) Lymph % (Auto) [place] % (Auto) Eos % (Auto) Baso % (Auto) Lymph # (Auto) [place] # (Auto) Eos # (Auto) Baso # (Auto) Abs Immat Gran (auto) Absolute Neuts (auto) Absolute Nucleated RBC Nucleated RBC % (auto) Smear Tech's Comments ESR PT INR APTT POC Std Base Excess POC O2 Sat (Calc) POC ABG pO2 POC ABG Total CO2 VBG pH 7.42 VBG pCO2 34 VBG pO2 140 VBG HCO3 23 VBG O2 Saturation 99.0 VBG Base Excess -1.0 POC Capillary pH POC Capillary pCO2 POC Cap HCO3 (Calc) POC Sodium Sodium 138 POC Potassium Potassium 4.3 Chloride 109 H Carbon Dioxide 23 Anion Gap 10 L BUN 27 H Creatinine 1.88 H Estim Creat Clear Calc 41.4 Estimated GFR 38 POC Glucose Random Glucose 137 H Lactic Acid Calcium 7.3 L Phosphorus Magnesium Total Bilirubin Direct Bilirubin AST ALT Alkaline Phosphatase Troponin I High Sens C-Reactive Protein Total Protein Albumin TSH Ur Random Sodium Ur Random Potassium Ur Random Chloride Stool Occult Blood Stool Leukocytes, Qual C. difficile Toxin A&B C. difficile Antigen C. difficile Interpret COVID-19 (EDD) COVID-19 [facility] Blood Type Antibody Screen Crossmatch 04/09/21 04/09/21 04/09/21 19:03 19:15 19:15 WBC RBC Hgb 9.2 L POC Hgb (Calc) Hct 26.1 L POC Hct MCV MCH MCHC RDW Plt Count MPV Immature Gran % (Auto) Neut % (Auto) Lymph % (Auto) [place] % (Auto) Eos % (Auto) Baso % (Auto) Lymph # (Auto) [place] # (Auto) Eos # (Auto) Baso # (Auto) Abs Immat Gran (auto) Absolute Neuts (auto) Absolute Nucleated RBC Nucleated RBC % (auto) Smear Tech's Comments ESR PT 17.2 H D INR 1.4 H APTT POC Std Base Excess POC O2 Sat (Calc) POC ABG pO2 POC ABG Total CO2 VBG pH VBG pCO2 VBG pO2 VBG HCO3 VBG O2 Saturation VBG Base Excess POC Capillary pH POC Capillary pCO2 POC Cap HCO3 (Calc) POC Sodium Sodium POC Potassium Potassium Chloride Carbon Dioxide Anion Gap BUN 29 H Creatinine 1.94 H Estim Creat Clear Calc 40.1 Estimated GFR 37 POC Glucose Random Glucose Lactic Acid Calcium Phosphorus Magnesium Total Bilirubin Direct Bilirubin AST ALT Alkaline Phosphatase Troponin I High Sens C-Reactive Protein Total Protein Albumin TSH Ur Random Sodium Ur Random Potassium Ur Random Chloride Stool Occult Blood Stool Leukocytes, Qual C. difficile Toxin A&B C. difficile Antigen C. difficile Interpret COVID-19 (EDD) COVID-19 [facility] Blood Type Antibody Screen Crossmatch 04/09/21 04/10/21 04/10/21 21:23 02:02 05:15 WBC RBC Hgb 6.4 L* D POC Hgb (Calc) Hct 18.4 L* D POC Hct MCV MCH MCHC RDW Plt Count MPV Immature Gran % (Auto) Neut % (Auto) Lymph % (Auto) [place] % (Auto) Eos % (Auto) Baso % (Auto) Lymph # (Auto) [place] # (Auto) Eos # (Auto) Baso # (Auto) Abs Immat Gran (auto) Absolute Neuts (auto) Absolute Nucleated RBC Nucleated RBC % (auto) Smear Tech's Comments ESR PT INR APTT POC Std Base Excess POC O2 Sat (Calc) POC ABG pO2 POC ABG Total CO2 VBG pH VBG pCO2 VBG pO2 VBG HCO3 VBG O2 Saturation VBG Base Excess POC Capillary pH POC Capillary pCO2 POC Cap HCO3 (Calc) POC Sodium Sodium 139 POC Potassium Potassium 3.6 Chloride 110 H Carbon Dioxide 22 Anion Gap 11 L BUN 32 H Creatinine 1.73 H Estim Creat Clear Calc 45.0 Estimated GFR 42 POC Glucose Random Glucose 183 H Lactic Acid Calcium 6.4 L D Phosphorus 5.0 H Magnesium 1.6 Total Bilirubin 0.6 Direct Bilirubin AST 8 ALT < 6 Alkaline Phosphatase 20 L D Troponin I High Sens C-Reactive Protein Total Protein 2.3 L D Albumin 1.5 L D TSH Ur Random Sodium < 20.0 Ur Random Potassium 102.6 Ur Random Chloride < 20.0 Stool Occult Blood Stool Leukocytes, Qual C. difficile Toxin A&B C. difficile Antigen C. difficile Interpret COVID-19 (EDD) COVID-19 Clin Com Blood Type Antibody Screen Crossmatch 04/10/21 04/10/21 04/10/21 05:15 05:15 05:15 WBC 15.4 H RBC 2.46 L D Hgb 8.1 L D POC Hgb (Calc) Hct 23.0 L D POC Hct MCV 93.5 MCH 32.9 MCHC 35.2 RDW 14.6 Plt Count 100 L D MPV 10.2 Immature Gran % (Auto) Neut % (Auto) Lymph % (Auto) [place] % (Auto) Eos % (Auto) Baso % (Auto) Lymph # (Auto) [place] # (Auto) Eos # (Auto) Baso # (Auto) Abs Immat Gran (auto) Absolute Neuts (auto) Absolute Nucleated RBC 0.030 H Nucleated RBC % (auto) 0.2 Smear Tech's Comments ESR PT 26.4 H D INR 2.2 H APTT 32.2 POC Std Base Excess POC O2 Sat (Calc) POC ABG pO2 POC ABG Total CO2 VBG pH VBG pCO2 VBG pO2 VBG HCO3 VBG O2 Saturation VBG Base Excess POC Capillary pH POC Capillary pCO2 POC Cap HCO3 (Calc) POC Sodium Sodium POC Potassium Potassium Chloride Carbon Dioxide Anion Gap BUN Creatinine Estim Creat Clear Calc Estimated GFR POC Glucose Random Glucose Lactic Acid Cancelled Calcium Phosphorus Magnesium Total Bilirubin Direct Bilirubin AST ALT Alkaline Phosphatase Troponin I High Sens C-Reactive Protein Total Protein Albumin TSH Ur Random Sodium Ur Random Potassium Ur Random Chloride Stool Occult Blood Stool Leukocytes, Qual C. difficile Toxin A&B C. difficile Antigen C. difficile Interpret COVID-19 (EDD) COVID-19 Clin Com Blood Type Antibody Screen Crossmatch 04/10/21 04/10/21 04/10/21 09:56 10:13 10:23 WBC 10.5 RBC 1.92 L D Hgb 6.2 L* D POC Hgb (Calc) TNP TNP Hct 17.6 L* D POC Hct < 15 L* < 15 L* MCV 91.7 MCH 32.3 MCHC 35.2 RDW 13.2 Plt Count 52 L D MPV 10.2 Immature Gran % (Auto) Neut % (Auto) Lymph % (Auto) [place] % (Auto) Eos % (Auto) Baso % (Auto) Lymph # (Auto) [place] # (Auto) Eos # (Auto) Baso # (Auto) Abs Immat Gran (auto) Absolute Neuts (auto) Absolute Nucleated RBC 0.000 Nucleated RBC % (auto) 0.0 Smear Tech's Comments ESR PT INR APTT POC Std Base Excess -4 L -3 POC O2 Sat (Calc) 98 95 POC ABG pO2 115 H 82 L POC ABG Total CO2 25 25 VBG pH VBG pCO2 VBG pO2 VBG HCO3 VBG O2 Saturation VBG Base Excess POC Capillary pH 7.28 L 7.33 L POC Capillary pCO2 50 H 44 POC Cap HCO3 (Calc) 23 23 POC Sodium 131 L 141 Sodium POC Potassium 3.5 Potassium Chloride Carbon Dioxide Anion Gap BUN Creatinine Estim Creat Clear Calc Estimated GFR POC Glucose 167 H 178 H Random Glucose Lactic Acid Calcium Phosphorus Magnesium Total Bilirubin Direct Bilirubin AST ALT Alkaline Phosphatase Troponin I High Sens C-Reactive Protein Total Protein Albumin TSH Ur Random Sodium Ur Random Potassium Ur Random Chloride Stool Occult Blood Stool Leukocytes, Qual C. difficile Toxin A&B C. difficile Antigen C. difficile Interpret COVID-19 (EDD) COVID-19 Clin Com Blood Type Antibody Screen Crossmatch 04/10/21 04/10/21 04/10/21 13:59 14:00 14:00 WBC 14.2 H RBC 2.51 L D Hgb 7.8 L D POC Hgb (Calc) Hct 22.4 L D POC Hct MCV 89.2 MCH 31.1 MCHC 34.8 RDW 13.9 Plt Count 80 L D MPV 10.5 Immature Gran % (Auto) Neut % (Auto) Lymph % (Auto) [place] % (Auto) Eos % (Auto) Baso % (Auto) Lymph # (Auto) [place] # (Auto) Eos # (Auto) Baso # (Auto) Abs Immat Gran (auto) Absolute Neuts (auto) Absolute Nucleated RBC 0.030 H Nucleated RBC % (auto) 0.2 Smear Tech's Comments ESR PT 14.3 H D INR 1.2 H APTT POC Std Base Excess POC O2 Sat (Calc) POC ABG pO2 POC ABG Total CO2 VBG pH 7.36 VBG pCO2 35 VBG pO2 45 VBG HCO3 20 L VBG O2 Saturation 78.0 VBG Base Excess -4.4 POC Capillary pH POC Capillary pCO2 POC Cap HCO3 (Calc) POC Sodium Sodium POC Potassium Potassium Chloride Carbon Dioxide Anion Gap BUN Creatinine Estim Creat Clear Calc Estimated GFR POC Glucose Random Glucose Lactic Acid Calcium Phosphorus Magnesium Total Bilirubin Direct Bilirubin AST ALT Alkaline Phosphatase Troponin I High Sens C-Reactive Protein Total Protein Albumin TSH Ur Random Sodium Ur Random Potassium Ur Random Chloride Stool Occult Blood Stool Leukocytes, Qual C. difficile Toxin A&B C. difficile Antigen C. difficile Interpret COVID-19 (EDD) COVID-19 Clin Com Blood Type Antibody Screen Crossmatch 04/10/21 04/10/21 04/10/21 14:00 14:00 15:00 WBC RBC Hgb POC Hgb (Calc) Hct POC Hct MCV MCH MCHC RDW Plt Count MPV Immature Gran % (Auto) Neut % (Auto) Lymph % (Auto) [place] % (Auto) Eos % (Auto) Baso % (Auto) Lymph # (Auto) [place] # (Auto) Eos # (Auto) Baso # (Auto) Abs Immat Gran (auto) Absolute Neuts (auto) Absolute Nucleated RBC Nucleated RBC % (auto) Smear Tech's Comments ESR PT INR APTT POC Std Base Excess POC O2 Sat (Calc) POC ABG pO2 POC ABG Total CO2 VBG pH VBG pCO2 VBG pO2 VBG HCO3 VBG O2 Saturation VBG Base Excess POC Capillary pH POC Capillary pCO2 POC Cap HCO3 (Calc) POC Sodium Sodium 141 POC Potassium Potassium 3.4 Chloride 110 H Carbon Dioxide 22 Anion Gap 12 BUN 28 H Creatinine 1.72 H Estim Creat Clear Calc 45.3 Estimated GFR 42 POC Glucose Random Glucose 157 H Lactic Acid 4.5 H* Calcium 6.4 L Phosphorus Magnesium Total Bilirubin Direct Bilirubin AST ALT Alkaline Phosphatase Troponin I High Sens C-Reactive Protein Total Protein Albumin 2.1 L D TSH Ur Random Sodium 77.0 Ur Random Potassium Ur Random Chloride Stool Occult Blood Stool Leukocytes, Qual C. difficile Toxin A&B C. difficile Antigen C. difficile Interpret COVID-19 (EDD) COVID-19 Clin Com Blood Type Antibody Screen Crossmatch 04/10/21 04/10/21 04/10/21 17:40 19:55 19:58 WBC RBC Hgb POC Hgb (Calc) Hct POC Hct MCV MCH MCHC RDW Plt Count MPV Immature Gran % (Auto) Neut % (Auto) Lymph % (Auto) [place] % (Auto) Eos % (Auto) Baso % (Auto) Lymph # (Auto) [place] # (Auto) Eos # (Auto) Baso # (Auto) Abs Immat Gran (auto) Absolute Neuts (auto) Absolute Nucleated RBC Nucleated RBC % (auto) Smear Tech's Comments ESR PT INR APTT POC Std Base Excess POC O2 Sat (Calc) POC ABG pO2 POC ABG Total CO2 VBG pH VBG pCO2 VBG pO2 VBG HCO3 VBG O2 Saturation VBG Base Excess POC Capillary pH POC Capillary pCO2 POC Cap HCO3 (Calc) POC Sodium Sodium 140 POC Potassium Potassium 4.2 D Chloride 111 H Carbon Dioxide 18 L Anion Gap 15 BUN 31 H Creatinine 2.04 H Estim Creat Clear Calc 38.2 Estimated GFR 35 POC Glucose Random Glucose 218 H D Lactic Acid 8.4 H* Calcium 6.5 L Phosphorus 5.9 H Magnesium 2.1 Total Bilirubin 0.7 Direct Bilirubin AST 7 ALT < 6 Alkaline Phosphatase 22 L Troponin I High Sens C-Reactive Protein Total Protein 2.6 L Albumin 1.8 L TSH 0.46 Ur Random Sodium Ur Random Potassium Ur Random Chloride Stool Occult Blood Stool Leukocytes, Qual C. difficile Toxin A&B C. difficile Antigen C. difficile Interpret COVID-19 (EDD) COVID-19 Clin Com Blood Type O Positive Antibody Screen NEGATIVE Crossmatch See Detail 04/10/21 04/10/21 04/10/21 19:58 19:58 19:58 WBC 15.0 H RBC 1.78 L D Hgb 5.7 L* D POC Hgb (Calc) Hct 16.1 L* D POC Hct MCV 90.4 MCH 32.0 MCHC 35.4 RDW 14.1 Plt Count 103 L D MPV 11.1 Immature Gran % (Auto) 3.1 H Neut % (Auto) 81.0 H Lymph % (Auto) 8.3 L [place] % (Auto) 7.6 Eos % (Auto) 0.0 Baso % (Auto) 0.0 Lymph # (Auto) 1.2 [place] # (Auto) 1.1 Eos # (Auto) 0.0 Baso # (Auto) 0.0 Abs Immat Gran (auto) 0.46 H Absolute Neuts (auto) 12.2 H Absolute Nucleated RBC 0.150 H Nucleated RBC % (auto) 1.0 H Smear Tech's Comments VERIFIED ESR PT 13.9 H INR 1.2 H APTT POC Std Base Excess POC O2 Sat (Calc) POC ABG pO2 POC ABG Total CO2 VBG pH VBG pCO2 VBG pO2 VBG HCO3 VBG O2 Saturation VBG Base Excess POC Capillary pH POC Capillary pCO2 POC Cap HCO3 (Calc) POC Sodium Sodium POC Potassium Potassium Chloride Carbon Dioxide Anion Gap BUN Creatinine Estim Creat Clear Calc Estimated GFR POC Glucose Random Glucose Lactic Acid Calcium Phosphorus Magnesium Total Bilirubin Direct Bilirubin AST ALT Alkaline Phosphatase Troponin I High Sens 152.5 H* D C-Reactive Protein Total Protein Albumin TSH Ur Random Sodium Ur Random Potassium Ur Random Chloride Stool Occult Blood Stool Leukocytes, Qual C. difficile Toxin A&B C. difficile Antigen C. difficile Interpret COVID-19 (EDD) COVID-19 Clin Com Blood Type Antibody Screen Crossmatch 04/10/21 04/10/21 04/10/21 20:00 20:00 22:16 WBC 12.2 H RBC 2.30 L D Hgb 7.0 L* D POC Hgb (Calc) Hct 20.5 L* D POC Hct MCV 89.1 MCH 30.4 MCHC 34.1 RDW 15.0 Plt Count 64 L D MPV 11.4 Immature Gran % (Auto) 4.1 H Neut % (Auto) 76.5 H Lymph % (Auto) 7.3 L [place] % (Auto) 12.0 H Eos % (Auto) 0.0 Baso % (Auto) 0.1 Lymph # (Auto) 0.9 L [place] # (Auto) 1.5 H Eos # (Auto) 0.0 Baso # (Auto) 0.0 Abs Immat Gran (auto) 0.50 H Absolute Neuts (auto) 9.4 H Absolute Nucleated RBC 0.150 H Nucleated RBC % (auto) 1.2 H Smear Tech's Comments ESR PT INR APTT POC Std Base Excess POC O2 Sat (Calc) POC ABG pO2 POC ABG Total CO2 VBG pH VBG pCO2 VBG pO2 VBG HCO3 VBG O2 Saturation VBG Base Excess POC Capillary pH POC Capillary pCO2 POC Cap HCO3 (Calc) POC Sodium Sodium POC Potassium Potassium Chloride Carbon Dioxide Anion Gap BUN Creatinine Estim Creat Clear Calc Estimated GFR POC Glucose Random Glucose Lactic Acid Calcium Phosphorus Cancelled Magnesium Cancelled Total Bilirubin Direct Bilirubin AST ALT Alkaline Phosphatase Troponin I High Sens C-Reactive Protein Total Protein Albumin TSH Cancelled Ur Random Sodium Ur Random Potassium Ur Random Chloride Stool Occult Blood Stool Leukocytes, Qual C. difficile Toxin A&B C. difficile Antigen C. difficile Interpret COVID-19 (EDD) COVID-19 Clin Com Blood Type Antibody Screen Crossmatch 04/10/21 04/10/21 04/10/21 22:16 22:17 22:17 WBC RBC Hgb POC Hgb (Calc) Hct POC Hct MCV MCH MCHC RDW Plt Count MPV Immature Gran % (Auto) Neut % (Auto) Lymph % (Auto) [place] % (Auto) Eos % (Auto) Baso % (Auto) Lymph # (Auto) [place] # (Auto) Eos # (Auto) Baso # (Auto) Abs Immat Gran (auto) Absolute Neuts (auto) Absolute Nucleated RBC Nucleated RBC % (auto) Smear Tech's Comments ESR PT INR APTT POC Std Base Excess POC O2 Sat (Calc) POC ABG pO2 POC ABG Total CO2 VBG pH 7.35 VBG pCO2 33 VBG pO2 40 VBG HCO3 19 L VBG O2 Saturation 71.0 VBG Base Excess -5.4 POC Capillary pH POC Capillary pCO2 POC Cap HCO3 (Calc) POC Sodium Sodium POC Potassium Potassium Chloride Carbon Dioxide Anion Gap BUN Creatinine Estim Creat Clear Calc Estimated GFR POC Glucose Random Glucose Lactic Acid 4.9 H* Calcium Phosphorus Magnesium Total Bilirubin Direct Bilirubin AST ALT Alkaline Phosphatase Troponin I High Sens 203.7 H* C-Reactive Protein Total Protein Albumin TSH Ur Random Sodium Ur Random Potassium Ur Random Chloride Stool Occult Blood Stool Leukocytes, Qual C. difficile Toxin A&B C. difficile Antigen C. difficile Interpret COVID-19 (EDD) COVID-19 Clin Com Blood Type Antibody Screen Crossmatch Airway Mallampati Class: II TM Dist: >3cm Neck ROM: Full Heart: ST Lungs: CTA Assessment and Plan Assessment Anesthesia Assessment: Anesthesia Plan Discussed and Chart Reviewed Final Anesthetic Review NPO: Yes ASA Class: III and Emergency Final Preanesthetic Review: No Changes in Pt Med Stat, Meds/Allgs Chart Reviewed, Consent Obtained/Reviewed and Anes Risks/Benef Reviewed Patient Risk: Intermediate Procedure Risk: High Anesthetic Plan Anesthetic Plan: GA Disposition: Inp. Admit - ICU
[2021-04-11 00:58] LABS: Venous Blood Gas Refer to POC result
[2021-04-11] MEDS: ceFAZolin Sodium/Dextrose,Iso 2 GM/50 ML PIGGYBACK IV (02:00)
[2021-04-11] MEDS: Metoprolol Tartrate 5 MG/5 ML VIAL IVPUSH (03:30)
[2021-04-11] MEDS: HYDROmorphone HCl 2 MG/ML VIAL IVPUSH ×11 (03:30→16:33)
[2021-04-11] MEDS: Hydrocortisone Sod Succ/PF 100 MG VIAL 50 MG IVPUSH ×2 (05:36→12:37)
[2021-04-11] MEDS: Phytonadione (Vit K1) 10 MG in 0.9 % Sodium Chloride 50 ML 51 MG IV (05:37)
[2021-04-11 05:38] LABS: VBG Base Excess 1.2 mmol/L; VBG HCO3 24 mmol/L (22-26); VBG pCO2 33 mmHg; VBG pH 7.47 (7.32-7.43); VBG pO2 39 mmHg
[2021-04-11] MEDS: Pantoprazole Sodium 40 MG/10 ML VIAL IVPUSH (05:39)
[2021-04-11 05:48] LABS: MANUAL DIFF FLAG NO
[2021-04-11 05:52] LABS: Hematocrit 22.8 % (42-52); Hemoglobin 8.1 g/dl (14.0-18.0); Imm Gran Abs Auto 0.13 X10*3/uL (0.00-0.03); Imm Gran Pct Auto 1.6 % (0.0-0.4); Lymphocytes Absolute Auto 0.9 X10*3/uL (1.2-4.9); Lymphocytes Percent Auto 11.5 % (20-40); Mean Corpuscular HGB Conc 35.5 g/dl (31.0-36.0); Mean Corpuscular Hemoglobin 31.3 pg (27.0-33.0); Mean Platelet Volume 10.5 fL (9.4-12.4); Monocytes Absolute Auto 0.9 X10*3/uL (0.1-1.2); Monocytes Percent Auto 11.3 % (2-11); NRBC Pct Auto 1.1 /100WBC (0.0-0.2); Neutrophils Percent Auto 75.6 % (45-73); Platelet Count 73 X10*3/uL (160-400); Red Blood Count 2.59 X10*6/uL (4.60-5.80); Red Cell Distribution Width 14.2 % (11.0-16.0); White Blood Count 7.9 X10*3/uL (4.8-10.8)
--- NOTE | 2021-04-11 06:06 | W.PM.OPN ---
Operative Note Operative Note Date of Service: 04/11/21 Narrative: Preop diagnosis: Hemoperitoneum, status post right colon resection Postop diagnosis: Hemoperitoneum, status post right colon resection, with diffuse no oozing, no specific bleeding vessel identified Procedure: Exploratory laparotomy, evacuation of hemoperitoneum, over-saw of oozing areas in the right gutter, placement of Surgicel in the retroperitoneal surface Surgeon: Guru Rivas MD Neurology Stroke Physician: None The patient is a 51-year-old male who had undergone right colon resection in the morning of 08/10/2021 because of bleeding from the right colon. He was noted to have a significant drop in his hemoglobin a few hours postop with increasing distension, and worsening firmness of the abdomen. He had worsening lactic acidosis as well. He was sent for a CT scan which showed large amounts of hemoperitoneum. I therefore explained to him that it would be best to proceed with laparotomy to see if there is any bleeding vessel. I reviewed with him the risks, benefits, and alternatives. He was brought the operating room and placed in supine position under general anesthesia via endotracheal tube. I released the skin sweetie. The abdomen is then prepped and draped in the usual sterile fashion. A surgical time-out was done. The patient received cefazolin 2 g IV for prophylaxis. I opened up the incision and released the fascial suture. Immediately, large amounts of clots and blood were seen. The patient had also significant oozing from along the muscle layer of the incision. I applied retractors on the abdominal wall for good exposure. I exteriorized the small bowel loops. Large amounts of clots were also seen mostly on the right gutter and the pelvis. There was also what appeared to be relatively fresh blood. In total, I was able to evacuate about at least 1500 cc of blood and clots. I examined the anastomotic site. This appeared viable and intact. There was note of diffuse oozing from the right gutter and there seemed to be an area had relatively brisk oozing from a break in the peritoneum on the right side near the gutter. I applied multiple [id number] Dexon 3-0 sutures along this which did seem to achieve good hemostasis. Examination of the retroperitoneum on the right side including the area just adjacent to the duodenum also showed significant diffuse oozing without any identifiable particular bleeding vessel. We copiously irrigated and suctioned the irrigant fluid. I further evacuated more clots from in between the loops of bowel mostly in the right side. We applied lap packings and periodically left these in place for 2 minutes at a time. I gently released this lap pads sequentially and examined the peritoneum and there did not seem to be any significant bleeding vessel at all. However, after observing for few more minutes on the retroperitoneum, I would notice recurrent diffuse oozing again without any specific source. I therefore applied Surgicel in this area. I also examined the divided mesentery along the lines of resection. There was no obvious pulsatile bleeding on any of these although there did seem to be some mild oozing along the raw areas as well along the gutter. We spent several minutes observing, repacking and releasing the packing and would notice that the peritoneum remained dry except for diffuse, slow but steady oozing on multiple areas of the gutter. At this time, I was confident that there was no particular bleeding vessel that we needed to tie off. It is likely that the diffuse oozing was secondary to coagulopathy from his recent transfusions. I positioned a DEBI drain along the right gutter and this was brought out through an exit site on the right lower quadrant. This was secured with nylon 3-0 sutures to the skin. I closed the fascia with a running Maxon 1 stitch with a malleable retractor underneath to protect the bowel loops during closure. The skin was also closed with skin sweetie. Again, there was note of significant steady oozing throughout the muscle layer during closure of the fascia. I infiltrated the area of the incision with Marcaine 0.5% for postop analgesia. Dressings were applied and the procedure was completed. The patient tolerated the procedure well. There were no immediate complications. Initial and final counts of sponges and instruments were correct. Estimated blood loss including blood clots and blood evacuated more than 1500 cc. The patient was extubated without difficulty and transferred to the recovery room with stable vital signs.
[2021-04-11 06:21] LABS: Alanine Aminotransferase < 6 U/L (0-40); Albumin Level 2.5 g/dL (3.5-5.0); Alkaline Phosphatase 32 U/L (39-117); Anion Gap 8 (12-20); Aspartate Amino Transferase 16 U/L (5-37); Bilirubin Total 0.4 mg/dL (0.0-1.0); Blood Urea Nitrogen 26 mg/dL (9-16); Calcium 6.9 mg/dL (8.4-10.2); Carbon Dioxide 25 mmol/L (22-29); Chloride 110 mmol/L (96-108); Creatinine Clr Calc Pharmacy 45.8; Estimated Glomerular Filt Rate 43; Glucose Random 107 mg/dL (60-115); Magnesium 1.6 mg/dL (1.6-2.6); Phosphorus 4.1 mg/dL (2.7-4.5); Potassium 3.5 mmol/L (3.3-5.1); Sodium 139 mmol/L (135-145); Total Protein 3.5 g/dL (6.5-8.0)
--- NOTE | 2021-04-11 06:50 | PC.NURSE ---
Upon initial assessment at 1945- pt A&Ox3, lethargic, states feeling off , c/o SOB and CP, nausea. On tele, HR dropping from 140s to 50s - rhythm noted to be mobitz 1. Oliguric. Matteo JADE notified and at bedside. Stat EKG and labs done. PA aware of critical labs. Abd XR done. SBP 110s, MAP > 65. Abd firm and tender to palpation. New orders for 2L LR bolus, 25g albumin x2, 1 unit FFP, 1 unit PLT, and 4 units of PRBCs. S/p transfusions, SBP 180s, HR >100. Given 5 mg total of IVP metoprolol. C/O 08/12 abd/back pain. Medicated with IVP dilaudid x2 with minimal effect. Surgical dsg to midline C/D/I. 30 mL total UOP from [id number] - Matteo JADE made aware of UOP. Pt brought to CT abd without incident. PA aware of imaging results and surgery contacted and to bedside. Patient mental status improved minimally. Family updated and pt agreeable to go back to OR. Pt transported to OR by staff at approx 0120. Return from OR @ 0310. Patient A&Ox4. Midline abd surgical dressing C/D/I, DEBI drain placed in the OR - draining moderate amt sanguinous output. Total output from DEBI drain- 3:10am to 7am 0620ml. Matteo JADE at bedside, aware of pain & DEBI drain. PA ordered tranexamic acid bolus and drip, PRN IVP dilaudid, and 5mg IVP lopressor for SBP > 200. Order for Tranexemic bolus and drip, confirmed with pharmacy prior to administration. @0330 - 5mg IVP lopressor, 2mg IVP dilaudid given. Patient continuing c/o pain - Matteo JADE made aware - doesn't want to give more than Q1H dilaudid. @0400 - 1 unit FFP hung @0430 - 2mg IVP dilaudid given again for continued pain. @0435 - FFP transfused. Urine output improving, 40-50ml/hr since coming out of OR. @0445 - TXA bolus started. @0515 - TXA bolus finished, drip started at 17 ml/hr over 6 hours. Patient resting. @0530 & 0630 - dilaudid given again for consistent pain. BP still running high - Matteo PA aware.
[2021-04-11] MEDS: 0.9 % Sodium Chloride Flush 3 ML SYRINGE IVFLUSH ×2 (07:13→16:07)
--- NOTE | 2021-04-11 07:32 | PM.PNGS ---
Subjective Subjective Date of Service: 04/11/21 Interval history: Events of last night noted; return to OR for hemoperitoneum with findings of diffuse oozing from multiple surfaces. Patient awake and complaining of incisional pain. Physical Exam Vital Signs: Vital Signs: Last Vital Signs Temp 98 F 04/11/21 06:00 Pulse 80 04/11/21 07:00 Resp 20 04/11/21 07:31 BP 182/100 H 04/11/21 07:00 Pulse Ox 97 04/11/21 07:00 Body Mass Index 21.2 Const: General: alert, awake and anxious Nutritional Appearance: thin Orientation/consciousness: oriented to person and oriented to place Resp: Effort & Inspection: normal respiratory effort Auscultation: no crackles GI: Other: incisions clean and intact without bleeding/discharge. DEBI inplace, with sanguinous output. Skin: Other: warm, dry Neuro: General: oriented to person and oriented to place Extrem: General: No edema Progress Note: A&P Assessment and plan (1) Lower gastrointestinal hemorrhage: Status: Acute Assessment and Plan: POD #1/0 s/p right colectomy and return this morning for hemoperitoneum. Review of record reveals multiple oozing surfaces with blood and clot within the abdomen, mostly in the right abdominal wall and mesentary. Findings suggestive of a bleeding disorder. Will need additional clotting factor transfusion. Monitor DEBI output. Pain management. Fall Risk Details Current Medications: Current Medications Generic Name Dose Route Start Last Admin Trade Name Freq PRN Reason Stop Dose Admin Hydrocortisone Sodium Succinate 50 mg 04/10/21 18:00 04/11/21 05:36 Hydrocortisone Sod Succ/Pf 100 Mg Vial IVPUSH 50 mg Q6H LENORA Administration Hydromorphone HCl 2 mg 04/11/21 05:45 04/11/21 07:31 Hydromorphone Hcl 2 Mg/Ml Vial IVPUSH 2 mg Q1H PRN Administration Pain, Severe (Pain Scale 7-10) Hydromorphone HCl 1 mg 04/11/21 05:50 Hydromorphone Hcl 1 Mg/Ml Syringe IVPUSH Q30M PRN Pain, Mild (Pain Scale 1-3) Lactated Ringer's 1,000 mls @ 100 mls/hr 04/09/21 21:00 04/10/21 21:36 Lr IVCONT 100 mls/hr .Q10H LENORA Administration Tranexamic Acid 370 mg/ Sodium 100 mls @ 16.667 mls/hr 04/11/21 04:45 04/11/21 05:15 Chloride IV 04/11/21 10:44 16.67 mls/hr ONCE ONE Administration Methadone HCl 80 mg 04/09/21 08:00 04/11/21 07:12 Methadone Hcl 1 Mg/0.1 Ml Oral.Conc PO 80 mg DAILY LENORA Administration Nicotine 14 mg 04/08/21 09:00 04/08/21 07:11 Nicotine 14 Mg Patch.Td24 TRANSDERMA 14 mg DAILY LENORA Administration Ondansetron HCl 4 mg 04/08/21 00:31 04/11/21 00:33 Ondansetron Hcl 4 Mg/2 Ml Vial IVPUSH 4 mg Q8H PRN Administration Nausea and Vomiting Pantoprazole Sodium 40 mg 04/11/21 06:30 04/11/21 05:39 Pantoprazole Sodium 40 Mg/10 Ml Vial IVPUSH 40 mg DAILY@0630 LENORA Administration Sodium Chloride 3 ml 04/08/21 00:31 04/11/21 07:13 0.9 % Sodium Chloride Flush 3 Ml Syringe IVFLUSH 3 ml QSHIFT LENORA Administration Time Spent With Patient Time: Total time spent is greater than 50% in coordination of care (as documented) at patient's floor/unit and/or counseling patient: Time with patient: 15 - 24 minutes Procedures Date of Service Date of Service: 04/11/21
[2021-04-11 08:58] LABS: VBG Base Excess 2.5 mmol/L; VBG HCO3 25 mmol/L (22-26); VBG pCO2 35 mmHg; VBG pH 7.47 (7.32-7.43); VBG pO2 40 mmHg
[2021-04-11 09:00] LABS: Hemoglobin 8.3 g/dl (14.0-18.0); Mean Corpuscular Volume 88.3 fL (80-98); PLT CLUMP 1
[2021-04-11 09:02] LABS: Hematocrit 23.5 % (42-52); Mean Corpuscular HGB Conc 35.3 g/dl (31.0-36.0); Mean Corpuscular Hemoglobin 31.2 pg (27.0-33.0); Mean Platelet Volume 10.6 fL (9.4-12.4); NRBC Pct Auto 0.9 /100WBC (0.0-0.2); Red Blood Count 2.66 X10*6/uL (4.60-5.80); White Blood Count 7.7 X10*3/uL (4.8-10.8)
[2021-04-11 09:08] LABS: Platelet Count 72 X10*3/uL (160-400)
[2021-04-11 09:11] LABS: INTERNATIONAL NORM RATIO 1.1 (0.9-1.1); Prothrombin Time 12.7 SEC (10.8-13.0)
[2021-04-11 09:18] LABS: Lactic Acid 0.8 mmol/L (0.5-2.0)
[2021-04-11 09:30] LABS: Anion Gap 8 (12-20); Blood Urea Nitrogen 25 mg/dL (9-16); Calcium 6.9 mg/dL (8.4-10.2); Carbon Dioxide 26 mmol/L (22-29); Chloride 109 mmol/L (96-108); Creatinine Clr Calc Pharmacy 46.6; Estimated Glomerular Filt Rate 44; Glucose Fasting 105 mg/dL (60-99); Potassium 3.4 mmol/L (3.3-5.1); Sodium 140 mmol/L (135-145)
[2021-04-11 09:31] LABS: Anion Gap 7 (12-20); Blood Urea Nitrogen 24 mg/dL (9-16); Carbon Dioxide 27 mmol/L (22-29); Chloride 109 mmol/L (96-108); Creatinine Clr Calc Pharmacy 46.9; Estimated Glomerular Filt Rate 44; Glucose Random 102 mg/dL (60-115); Potassium 3.4 mmol/L (3.3-5.1); Sodium 140 mmol/L (135-145)
[2021-04-11] MEDS: Nicotine 14 MG PATCH.TD24 TRANSDERMA (09:33)
[2021-04-11] MEDS: Ketamine HCl/NS 50 MG/5 ML SYRINGE 10 MG IVPUSH ×5 (09:43→15:43)
[2021-04-11 09:56] LABS: Venous Blood Gas Refer to POC result
--- NOTE | 2021-04-11 10:13 | MHC.CLN ---
F/U DISCUSSED WITH MD DURING ROUNDS PT TO OR TODAY TPN TO START RECOMMEND D15 AA5% AT 35CC/HR TO PROVIDE [id number], 42G PROTEIN DISCUSSED WITH PHARMACY, REPLETE LYTES NEEDED FOLLOWING
[2021-04-11 10:44] LABS: Cancel Lactic Acid Canceled
[2021-04-11 10:58] LABS: Fibrinogen 314 MG/DL (259-690)
[2021-04-11 11:01] LABS: Partial Thromboplastin Time 31.6 SEC (24.1-38.0)
--- NOTE | 2021-04-11 11:22 | MHC.CM.PN ---
Patient remains in the ICU. Went to the OR this morning with Dr Rivas due to bleeding. Patient is from home and receives methadone through a clinic. No additional services anticipated to be needed. Continue to monitor for d/c needs.
[2021-04-11 11:28] LABS: Albumin Level 2.6 g/dL (3.5-5.0); Magnesium 1.6 mg/dL (1.6-2.6); Phosphorus 3.9 mg/dL (2.7-4.5)
[2021-04-11] MEDS: HYDROmorphone HCl/NS 10 MG/50 ML PIGGYBACK IV (11:29)
[2021-04-11] MEDS: Tranexamic Acid 1,000 MG in 0.9 % Sodium Chloride 50 ML 7.5 MG IV ×2 (11:35→20:58)
[2021-04-11] MEDS: Lactated Ringers 1,000 ML 100 ML IVCONT (11:41)
--- NOTE | 2021-04-11 11:45 | P.CNHO_ITS ---
Subjective - Subjective Chief complaint: GI bleeding Patient: new to practice Consult date: 04/11/21 Requesting Physician: Chico Sahni MD Primary Care Provider: Tobin Keen MD HPI - Consult Narrative Reason for consult: Coagulopathy Narrative: Adrián Cornejo is a 51 year old male with history of Crohn's diseasewho has been admitted to the ICU with severe GI bleeding. He presented on April 07 with bright red blood per rectum and hemorrhagic shock. he was anemic with a hemoglobin of 7.8 gram/dL but normal coagulation tests and normal platelet counts. He received 2 units PRBC. On April 08 patient had another episode of rectal bleeding and had a syncopal episode. He was transferred to the ICU, received 2 more units of PRBC and 1 unit FFP. On April 09 he was noted to be hypotensive and his hemoglobin was down to 5.5 gram/dL, he was transfused another 2 units of PRBC and underwent colonoscopy. He was found to have a bleeding artery at the anastomotic site from his previous right-sided bowel partial resection for Crohn's disease over 15 years ago. Bleeding could not be controlled therefore he underwent a laparotomy and right hemicolectomy with primary ileocolonic anastomosis. There were no complications during that surgery and blood loss was about 200 cc. Patient was given 4 units PRBC, 2 units FFP and crystalloid. Patient received 1 unit of platelets after arrival in the ICU. On April 10 patient developed abdominal pain and distension. His hemoglobin again dropped to 7 gram/dL and he was given 2 more units of blood and 1 unit FFP. He was taken back to the OR and this time exploratory laparotomy revealed no specific bleeding site but oozing from multiple surfaces. Coagulation tests were normal and platelet count was about 70 K. Patient has had no previous history of bleeding problems. His prior surgery had no bleeding complications 15 years ago and he has had multiple teeth extractions without any bleeding. No family history of bleeding disorder. He was started on Humira 2 years ago, he states that in the last year he feels that his cuts do not heal fast enough. However, he denies epistaxis, gum bleeding, rectal bleeding or hematuria. He does not take aspirin or any NSAIDs. He is not on any other blood thinner. Review of Systems - Constitutional Reports as per HPI - Gastrointestinal Reports abdominal pain - Neurologic Reports syncope, Reports weakness PMFSH Medical History: Medical History (Last Updated 04/09/21 @ 18:[address] La Torre) Crohn's colitis Crohn's disease Psoriasis Surgical History: Surgical History (Last Reviewed 04/09/21 @ 13:03 by Mark Simmons MD) H/O colectomy Social History: Social History (Last Reviewed 04/09/21 @ 13:03 by Mark Simmons MD) Living Situation History: Household Members: Family Housing: House Do you presently have visiting nurse or other home services: No Alcohol History Details: Alcohol intake frequency: does not drink Tobacco History: Patient Tobacco Use Status: Current everyday Tobacco Patient Interested in Nicotine Replacement: Yes Substance Use History: Use of substances other than those prescribed or required for medical reasons : No Currently Displaying Signs/Symptoms of Drug Intoxication Withdrawal: No Domestic Abuse History: Have you been hit, kicked, punched, or otherwise hurt by someone within the past year? If so, by whom?: No Do you feel safe in your current relationship?: No Is there a partner from a previous relationship who is making you feel unsafe now?: No Are you made to feel afraid or neglected: No Advance Directives: Advance Directives: No Advance Directives Information Provided: No Homicidal Assessment: Do you have thoughts of harming others: None Do you have a plan to hurt others: No Plan Nutrition Assessment: Recently lost weight without trying: No Eating poorly because of decreased appetite: Yes Nutrition Risks: No Nutritional Risk Poor oral hygiene: No Occupation Assessmet: service: No Current occupational status: employed Home Medications and Allergies Current Medications: Current Medications Generic Name Dose Route Start Last Admin Trade Name Freq PRN Reason Stop Dose Admin Hydrocortisone Sodium Succinate 50 mg 04/10/21 18:00 04/11/21 05:36 Hydrocortisone Sod Succ/Pf 100 Mg Vial IVPUSH 50 mg Q6H LENORA Administration Hydromorphone HCl 2 mg 04/11/21 05:45 04/11/21 10:35 Hydromorphone Hcl 2 Mg/Ml Vial IVPUSH 2 mg Q1H PRN Administration Pain, Severe (Pain Scale 7-10) Hydromorphone HCl 1 mg 04/11/21 05:50 Hydromorphone Hcl 1 Mg/Ml Syringe IVPUSH Q30M PRN Pain, Mild (Pain Scale 1-3) Lactated Ringer's 1,000 mls @ 100 mls/hr 04/09/21 21:00 04/11/21 11:41 Lr IVCONT 100 mls/hr .Q10H LENORA Administration Hydromorphone HCl 10 mg in 50 mls @ 0 mls/hr 04/11/21 10:00 04/11/21 11:29 Dilaudid IV 0.2 mg/hr .Q0M LENORA 1 mls/hr Administration Protocol Per Protocol Ketamine HCl 500 mg/ Dextrose 255 mls @ 2.55 mls/hr 04/11/21 10:15 04/11/21 11:03 IVCONT 5 mg/hr .Q24H LENORA 2.55 mls/hr Administration 5 MG/HR Tranexamic Acid 1,000 mg/ 60 mls @ 7.5 mls/hr 04/11/21 11:00 04/11/21 11:35 Sodium Chloride IV 04/11/21 18:59 7.5 mls/hr ONCE ONE Administration Ketamine HCl 10 mg 04/11/21 10:16 04/11/21 10:35 Ketamine Hcl/Ns 50 Mg/5 Ml Syringe IVPUSH 10 mg Q1H PRN Administration Pain, Severe (Pain Scale 7-10) Methadone HCl 80 mg 04/09/21 08:00 04/11/21 07:12 Methadone Hcl 1 Mg/0.1 Ml Oral.Conc PO 80 mg DAILY LENORA Administration Naloxone HCl 0.2 mg 04/11/21 09:47 Naloxone Hcl 0.4 Mg/Ml Vial IVPUSH Q2M PRN Excessive sedation or RR < 8 Nicotine 14 mg 04/08/21 09:00 04/11/21 09:33 Nicotine 14 Mg Patch.Td24 TRANSDERMA 14 mg DAILY LENORA Administration Ondansetron HCl 4 mg 04/08/21 00:31 04/11/21 00:33 Ondansetron Hcl 4 Mg/2 Ml Vial IVPUSH 4 mg Q8H PRN Administration Nausea and Vomiting Pantoprazole Sodium 40 mg 04/11/21 06:30 04/11/21 05:39 Pantoprazole Sodium 40 Mg/10 Ml Vial IVPUSH 40 mg DAILY@0630 LENORA Administration Sodium Chloride 3 ml 04/08/21 00:31 04/11/21 07:13 0.9 % Sodium Chloride Flush 3 Ml Syringe IVFLUSH 3 ml QSHIFT LENORA Administration Home Medications Medication Instructions Recorded Confirmed Type adalimumab [Humira(CF) Pen] 40 mg SUBCUT Q2W 04/07/21 04/07/21 History budesonide 2 cap PO DAILY 04/07/21 04/07/21 History diphenoxylate-atropine 2 tab PO NEEDED PRN 04/07/21 04/07/21 History Allergies Allergy/AdvReac Type Severity Reaction Status Date / Time No Known Allergies Allergy Verified 04/07/21 16:01 [No Known Allergies*] Physical Exam Vital signs: Vital Signs Temp 98.0 F 04/11/21 08:00 Pulse 71 04/11/21 11:00 Resp 20 04/11/21 11:29 BP 190/96 H 04/11/21 11:00 Pulse Ox 97 04/11/21 11:00 Intake & Output 04/10/21 04/11/21 04/11/21 18:59 06:59 18:59 Intake Total 1711.833 / 6033.500 4321.667 / 6033.500 1159.3 / 1159.3 Output Total 1989 1330 / 1330 Balance 731.833 / 4043.500 3411.667 / 4043.500 -170.7 / -170.7 Urine Output (Average ml/kg/hr) 1.32 0.39 1.80 Intake: Intake, Oral Amount 0 / 0 Intake (Blood Product) Amount 592 4 1322 / 1914 Aph Plts Irr Lvds (Ea015) Unit 316 / 316 [id number] Plt Aph Pas Pathreduced(E8342) 280 / 280 Unit [id number] Red Blood Cells (E0336) Unit 350 / 350 [id number] Red Blood Cells (E0336) Unit 0 / 0 [id number] Red Blood Cells (E0382) Unit 350 / 350 [id number] Thawed Plasma (E2720) Unit 312 / 312 [id number] Thawed Plasma (E2720) Unit 306 / 306 [id number] Intake, IV Amount 1119.833 / 4119.500 2999.667 / 4119.500 1159.3 / 1159.3 Albumin Human 25 % 100 ml @ 100 100 / 100 mls/hr IV Q1H [facility] Rx#: [id number] Albumin Human 25 % 50 ml @ 100 100 / 100 mls/hr IV ONCE ONE Rx#: [id number] Calcium Gluconate/NaCl,Iso-Osm 50 / 50 1 gm In 50 ml @ 50 mls/hr IV ONCE ONE Rx#:[id number] Lactated Ringers 1,000 ml @ 999 2000 / 2000 mls/hr IV .Q1H1M [facility] Rx#: [id number] Magnesium Sulfate/H2O 2 gm In 50 / 50 50 ml @ 25 mls/hr IV ONCE ONE Rx#:[id number] Phytonadione (Vit K1) 10 mg In 101.5 / 254.5 153 / 254.5 0.9 % Sodium Chloride 50 ml @ 51 mls/hr IV Q6H [facility] Rx#: [id number] Potassium Chloride/H20 40 meq 100 / 100 In 100 ml @ 50 mls/hr IV ONCE ONE Rx#:[id number] Tranexamic Acid 370 mg In 0.9 % 159.3 / 159.3 Sodium Chloride 100 ml @ 16. 667 mls/hr IV ONCE ONE Rx#: [id number] ceFAZolin Sodium/Dextrose,Iso 2 50 / 50 gm In 50 ml @ 100 mls/hr IV PREOP ONE Rx#:[id number] Lactated Ringers 1,000 ml @ 100 718.333 / 1415.000 696.667 / 8908.373 8017 / 1000 mls/hr IVCONT .Q10H [facility] Rx#: [id number] Output: Output, Tube Amount 620 / 620 DEBI Drain 620 / 620 Output, Urine Amount (Catheter) 980 / 1370 290 / 1370 1330 / 1330 Urethral 980 / 1370 290 / 1370 1330 / 1330 Other: NPO Yes Yes Urine Color Yellow Last Bowel Movement 04/10/21 Weight 61.689 kg Weight 61.689 kg Narrative: Ill-appearing, anxious appearing male, appears pale. Lying in bed, alert oriented x3. - Constitutional Present: moderate distress, thin - Routine HEENT Exam Head: Present: normal inspection Eye: Present: normal appearance, PERRL - Routine Neck Exam Absent: lymphadenopathy - Routine Respiratory Exam Present: decreased breath sounds - Routine Cardiovascular Exam Cardiovascular: Present: S1, S2 - Routine Abdominal Exam Present: diminished bowel sounds Comments: Intra-abdominal drain with blood. Hem/Onc Consult Result - Labs CBC & Chem 7: 04/11/21 08:51 04/11/21 08:51 Labs: Short CBC 04/10/21 04/10/21 04/10/21 Range/Units 14:00 19:58 22:16 WBC 14.2 H 15.0 H 12.2 H (4.8-10.8) X10*3/uL Hgb 7.8 L D 5.7 L* D 7.0 L* D (14.0-18.0) g/dl Hct 22.4 L D 16.1 L* D 20.5 L* D (42-52) % Plt Count 80 L D 103 L D 64 L D (160-400) X10*3/uL 04/11/21 04/11/21 Range/Units 05:10 08:51 WBC 7.9 7.7 (4.8-10.8) X10*3/uL Hgb 8.1 L 8.3 L (14.0-18.0) g/dl Hct 22.8 L 23.5 L (42-52) % Plt Count 73 L 72 L (160-400) X10*3/uL BMP 04/10/21 04/10/21 04/11/21 14:00 19:58 05:10 Sodium 141 140 139 Potassium 3.4 4.2 D 3.5 Chloride 110 H 111 H 110 H Carbon Dioxide 22 18 L 25 BUN 28 H 31 H 26 H Creatinine 1.72 H 2.04 H 1.70 H Calcium 6.4 L 6.5 L 6.9 L D 04/11/21 04/11/21 08:51 08:51 Sodium 140 140 Potassium 3.4 3.4 Chloride 109 H 109 H Carbon Dioxide 27 26 BUN 24 H 25 H Creatinine 1.66 H 1.67 H Calcium 7.0 L 6.9 L Liver Function 04/10/21 04/10/21 04/11/21 Range/Units 14:00 19:58 05:10 Total Bilirubin 0.7 0.4 (0.0-1.0) mg/dL AST 7 16 D (5-37) U/L ALT < 6 < 6 (0-40) U/L Alkaline Phosphatase 22 L 32 L D (39-117) U/L Albumin 2.1 L D 1.8 L 2.5 L D (3.5-5.0) g/dL 04/11/21 Range/Units 08:51 Total Bilirubin (0.0-1.0) mg/dL AST (5-37) U/L ALT (0-40) U/L Alkaline Phosphatase (39-117) U/L Albumin 2.6 L (3.5-5.0) g/dL Assessment and Plan (1) Bleeding diathesis Status: Acute 1. This is a 51-year-old male with Crohn's disease and previous partial r esection of right colon now admitted with GI bleeding and hemorrhagic shock. As detailed above patient has undergone right hemicolectomy after finding a bleeding artery on colonoscopy that could not be controlled during colonoscopy procedure. Postoperatively he became quite anemic and was found to have bleeding from multiple surfaces on exploratory laparotomy. His coagulation tests have been normal when tested on multiple occasions. No past history of bleeding diathesis and no family history of bleeding disorder. Patient has received 16 units of PRBC, 6 units FFP and 2 units platelets until this morning. Repeat coagulation tests today including fibrinogen level is normal. Possibility for bleeding could be previously undiagnosed factor XIII deficiency which is rather rare or insufficient replacement of platelets in the face of massive transfusion of RBCs. I have recommended transfusion of cryoprecipitate and platelets to control the bleeding. Administer Tranexamic acid 10 mg/kg round the clock, every 4-6 hours. I thank you for this consultation, will follow with you.
[2021-04-11] MEDS: Ketamine HCl/NS 50 MG/5 ML SYRINGE IVPUSH (11:51)
[2021-04-11] MEDS: Magnesium Sulfate/D5W 1 GM/100 ML PIGGYBACK IV (12:37)
[2021-04-11] MEDS: Calcium Gluconate/NaCl,Iso-Osm 1 GM/50 ML PLAST..BAG IV (12:38)
--- NOTE | 2021-04-11 14:15 | HO.POSTANES ---
Post Anesthesia Evaluation Post Anesthesia Evaluation Vital Signs: Vital Signs Temp Pulse Resp BP Pulse Ox 04/11/21 14:02 98.5 F 59 18 179/96 H 04/11/21 13:48 99.2 F 69 19 195/100 H 04/11/21 13:00 60 17 191/96 H 96 04/11/21 12:29 99.0 F 62 19 194/99 H 04/11/21 12:24 99.0 F 62 20 185/97 H 04/11/21 12:06 98.8 F 66 18 191/103 H 04/11/21 12:00 98.8 F 68 17 190/103 H 96 04/11/21 11:46 19 04/11/21 11:29 20 04/11/21 11:00 71 20 190/96 H 97 04/11/21 10:35 18 04/11/21 10:00 74 17 177/91 H 96 04/11/21 09:32 22 H 04/11/21 09:00 60 18 164/76 H 96 04/11/21 08:35 22 H 04/11/21 08:00 98.0 F 84 13 194/106 H 95 04/11/21 07:31 20 04/11/21 07:00 80 19 182/100 H 97 04/11/21 06:30 23 H 04/11/21 06:00 98 F 85 23 H 180/99 H 95 04/11/21 05:36 26 H 04/11/21 05:30 84 23 H 225/99 H 94 04/11/21 05:00 98 F 85 23 H 180/99 H 94 04/11/21 04:30 98 F 81 23 H 193/113 H 95 04/11/21 04:00 98 F 85 23 H 180/99 H 93 04/11/21 03:30 80 23 H 199/124 H 94 Anesthesia: General Endotracheal-GETA Mental Status: Sedated Pain Control: Satisfactory Nausea/Vomiting: None Hydration: Adequate Anesthesia-Related Issues: No Anes. Related Issues Comments: patient for colonoscopy converted to exploratory laparotomy. Patient was brought back overnight for bleeding and is in ICU comfortably recovering
--- NOTE | 2021-04-11 15:02 | PM.CCPN ---
Subjective Subjective Date of Service: 04/11/21 Interval History: Mr. Cornejo was transferred to the ICU on April 08 bec of hemorrhagic shock 2? lower GI bleed. The patient is a 51-year-old gentleman with underlying history of Crohn?s disease, psoriasis, and chronic methadone use. 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 15 years ago. He takes Humira and budesonides. Never had lower GI bleeding before. Colonoscopy some months ago was negative except for narrowing of the anastomotic site. About a month ago, he had a few streaks of blood in his stool which went away, and did not recur. The patient presented to the ED on April 07 complaining of 2 days of red bloody diarrhea, dizziness, shortness of breath, and a clammy feeling. He had not been eating and drinking normally and had unintentional weight loss of 25 lb over the prior few months. In the ED, the patient was tachycardic and hypotensive. Labs were notable for Hb 7.8, normal coags, BUN and creatinine of 18/1.4 (no baseline), normal LFTs, and albumin of 3.0. No lactic acid was done. He was admitted to medicine and transfused 2 units of packed red cells. The next morning, April 08, the patient had another episode of bright red blood per rectum. When he got up, he had a syncopal episode. He was given IV fluid and 2 more units of packed red blood cells and 1 unit of FFP, and transferred to intensive care unit. Upon arrival to intensive care unit patient was hemodynamically stable with normoxemia on room air. The patient was started on IV hydrocortisone. On the morning of April 09, he had minor hypotension with a blood pressure down to 103/74 associated with tachycardia. Hemoglobin came back at 5.5, down from 8.7 the prior afternoon. He was transfused another two units RBCs. F/U Hb was up to 7.7. He was given a third unit of RBCs. He remained fully alert. Dr. De La Torre was unable to get him onto the OR schedule for colonoscopy, so he was given GoLYTELY in preparation for colonoscopy the next morning. Early that morning (April 10) however, he had another bleed with recurrent hemorrhagic shock. Became tachycardic and hypotensive. Hb dropped to 6.4 from 9.2. He was given 2L crystalloid and 2 u RBCs. F/u labs showed Hb 8.1 and INR 2.2, BUN/creat 32/1.7, albumin 1.5. 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 It was unable to be controlled by Dr. De La Torre, therefore the patient underwent laparotomy and right colectomy with primary ileocolonic anastomosis. At surgery, Dr. Simmons identified a significant area of inflammation in the distal ileum/colonic anastomosis, but there was no active Crohn's disease proximal to that in the ileum. Estimated blood loss during the procedure was 200 cc. The patient was given 4 units of packed cells, 2 units FFP, and about 2300 cc of crystalloid. Urine output for the case was 800 cc. The patient was transfused one 5-pack of platelets after arrival in the ICU. The patient was brought back to the ICU still intubated. Hemodynamics were steady, and he was extubated about an hour later. Post op labs showed hemoglobin 7.8, platelet count 80K (after the platelets), PT 14.3/1.2, bicarb 22, BUN/creatinine 28/1.7, albumin 2.1, calcium 6.4, lactate 4.5, base excess of -4 on VBG. He was having severe pain and was medicated w Dilaudid 2mg prn. He was stable until the evening, when he became shocky again and had some bradycardic episodes. Hb was down to 5.7, lactate up to 8.4. He was vol resuscitated. Abd CT showed large hemoperitoneum. He was taken back to the OR for E-lap by Dr. Rivas, at which he was found to have large hemoperitoneum. About 2500 cc blood was evacuated. No specific bleeding site was found, more a general ooze from mult surfaces. At the end of surg, a DEBI drain was placed. The patient was extubated and returned to the ICU. All told, the patient was given 2 more units of red cells, a 5 pack of platelets, and 1 more bag of FFP. He was also given tranexamic acid. This morning the patient is sitting up in bed and looking washed out although otherwise relatively well and nontoxic. He is complaining of severe pain, 10/10. Dilaudid 2 mg hourly is not controlling his pain. We gave him 10 mg of ketamine, and he had substantial relief of pain with that. Heart rate is about 60, sinus rhythm. Blood pressure is 178/89, respiratory rate is 17, with sat of 96% on room air. The patient is afebrile and normothermic. No JVD with the head of the bed at about 40 degrees. Chest clear to auscultation, with normal expiratory phase. Heart rate and rhythm are regular, with normal-sounding S1 and S2 without any murmur or gallops. The abdomen is flat and the dressings are dry. No clear bowel sounds. He has 1+ systemic edema. LABORATORY DATA: As below. 3pm hemoglobin is 7.7, down from 8.3 at 8[place] [address] after a 5 pack of platelets this morning. INR this morning was 1.1, PTT was 31, and fibrinogen level was 314. Central venous gas this morning showed a base excess of +2. Chemistries this morning were notable for sodium of 140, potassium 3.4, BUN creatinine 25/1.6, Sandi 3.9, magnesium 1.6, and albumin of 2.6. IMPRESSION: 1. Crohn's disease. 2. Recurrent hemorrhagic shock secondary to lower GI bleeding. It?s possible that the bleeder had no relationship to the patient's Crohn's disease or the anastomosis. Either way, the surgical resection took care of it. 3. Postop hemoperitoneum, with recurrent hemorrhagic shock. 2? dilutional coagulopathy vs bleeding diathesis 2? intrinsic coagulation defect. Consulted and discussed at length w Dr. Sevilla. Gave cryoprecipitate and another plat bag. We?ve sent off VW, platelet, and F13 assays. He?s edematous from all the products. Starting Lasix. 4. Coagulopathy. Resolved post vitamin K and FFP. He?s had a full replacement dose of vitamin K. 5. Acute pain. Discussed at length w pharmacy. 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 6. ALLISON. Hypovolemia +/- ATN. Improving post volume resuscitation. 7. Metabolic. Ca, K+, and Mg need replacement. 8. ID: He is not septic. 9. Nutrition: We?ll start TPN. Critical care time (including d/w surgeons consultants, pharmacy: 75+ min Critical Care Time (minutes): 75 Physical Exam Vital Signs: Vital Signs: Last Vital Signs Temp 99.0 F 04/11/21 14:12 Pulse 50 04/11/21 14:12 Resp 18 04/11/21 14:12 BP 184/99 H 04/11/21 14:12 Pulse Ox 96 04/11/21 14:00 Body Mass Index 21.2 Objective Data Labs CBC & Chem 7: 04/11/21 15:09 04/11/21 15:09 Labs: Laboratory Results - last 24 hr 04/07/21 04/10/21 04/10/21 16:43 09:56 14:00 WBC RBC Hgb Hct MCV MCH MCHC RDW Plt Count MPV Immature Gran % (Auto) Neut % (Auto) Lymph % (Auto) Mellette % (Auto) Eos % (Auto) Baso % (Auto) Lymph # (Auto) Mellette # (Auto) Eos # (Auto) Baso # (Auto) Abs Immat Gran (auto) Absolute Neuts (auto) Absolute Nucleated RBC Nucleated RBC % (auto) Smear Tech's Comments Smear Path Review PT INR APTT Fibrinogen VBG pH VBG pCO2 VBG pO2 VBG HCO3 VBG O2 Saturation VBG Base Excess Sodium POC Potassium > 7.9 H* Potassium Chloride Carbon Dioxide Anion Gap BUN Creatinine Estim Creat Clear Calc Estimated GFR Random Glucose Fasting Glucose Lactic Acid 4.5 H* Calcium Phosphorus Magnesium Total Bilirubin AST ALT Alkaline Phosphatase Troponin I High Sens Total Protein Albumin TSH Ur Random Sodium Blood Type O Positive Antibody Screen NEGATIVE Crossmatch See Detail 04/10/21 04/10/21 04/10/21 15:00 17:40 19:55 WBC RBC Hgb Hct MCV MCH MCHC RDW Plt Count MPV Immature Gran % (Auto) Neut % (Auto) Lymph % (Auto) Mellette % (Auto) Eos % (Auto) Baso % (Auto) Lymph # (Auto) Mellette # (Auto) Eos # (Auto) Baso # (Auto) Abs Immat Gran (auto) Absolute Neuts (auto) Absolute Nucleated RBC Nucleated RBC % (auto) Smear Tech's Comments Smear Path Review PT INR APTT Fibrinogen VBG pH VBG pCO2 VBG pO2 VBG HCO3 VBG O2 Saturation VBG Base Excess Sodium POC Potassium Potassium Chloride Carbon Dioxide Anion Gap BUN Creatinine Estim Creat Clear Calc Estimated GFR Random Glucose Fasting Glucose Lactic Acid 8.4 H* Calcium Phosphorus Magnesium Total Bilirubin AST ALT Alkaline Phosphatase Troponin I High Sens Total Protein Albumin TSH Ur Random Sodium 77.0 Blood Type O Positive Antibody Screen NEGATIVE Crossmatch See Detail 04/10/21 04/10/21 04/10/21 19:58 19:58 19:58 WBC 15.0 H RBC 1.78 L D Hgb 5.7 L* D Hct 16.1 L* D MCV 90.4 MCH 32.0 MCHC 35.4 RDW 14.1 Plt Count 103 L D MPV 11.1 Immature Gran % (Auto) 3.1 H Neut % (Auto) 81.0 H Lymph % (Auto) 8.3 L Mellette % (Auto) 7.6 Eos % (Auto) 0.0 Baso % (Auto) 0.0 Lymph # (Auto) 1.2 Mellette # (Auto) 1.1 Eos # (Auto) 0.0 Baso # (Auto) 0.0 Abs Immat Gran (auto) 0.46 H Absolute Neuts (auto) 12.2 H Absolute Nucleated RBC 0.150 H Nucleated RBC % (auto) 1.0 H Smear Tech's Comments VERIFIED Smear Path Review SEE NOTE PT INR APTT Fibrinogen VBG pH VBG pCO2 VBG pO2 VBG HCO3 VBG O2 Saturation VBG Base Excess Sodium 140 POC Potassium Potassium 4.2 D Chloride 111 H Carbon Dioxide 18 L Anion Gap 15 BUN 31 H Creatinine 2.04 H Estim Creat Clear Calc 38.2 Estimated GFR 35 Random Glucose 218 H D Fasting Glucose Lactic Acid Calcium 6.5 L Phosphorus 5.9 H Magnesium 2.1 Total Bilirubin 0.7 AST 7 ALT < 6 Alkaline Phosphatase 22 L Troponin I High Sens 152.5 H* D Total Protein 2.6 L Albumin 1.8 L TSH 0.46 Ur Random Sodium Blood Type Antibody Screen Crossmatch 04/10/21 04/10/21 04/10/21 19:58 20:00 20:00 WBC RBC Hgb Hct MCV MCH MCHC RDW Plt Count MPV Immature Gran % (Auto) Neut % (Auto) Lymph % (Auto) Mellette % (Auto) Eos % (Auto) Baso % (Auto) Lymph # (Auto) Mellette # (Auto) Eos # (Auto) Baso # (Auto) Abs Immat Gran (auto) Absolute Neuts (auto) Absolute Nucleated RBC Nucleated RBC % (auto) Smear Tech's Comments Smear Path Review PT 13.9 H INR 1.2 H APTT Fibrinogen VBG pH VBG pCO2 VBG pO2 VBG HCO3 VBG O2 Saturation VBG Base Excess Sodium POC Potassium Potassium Chloride Carbon Dioxide Anion Gap BUN Creatinine Estim Creat Clear Calc Estimated GFR Random Glucose Fasting Glucose Lactic Acid Calcium Phosphorus Cancelled Magnesium Cancelled Total Bilirubin AST ALT Alkaline Phosphatase Troponin I High Sens Total Protein Albumin TSH Cancelled Ur Random Sodium Blood Type Antibody Screen Crossmatch 04/10/21 04/10/21 04/10/21 22:16 22:16 22:17 WBC 12.2 H RBC 2.30 L D Hgb 7.0 L* D Hct 20.5 L* D MCV 89.1 MCH 30.4 MCHC 34.1 RDW 15.0 Plt Count 64 L D MPV 11.4 Immature Gran % (Auto) 4.1 H Neut % (Auto) 76.5 H Lymph % (Auto) 7.3 L Mellette % (Auto) 12.0 H Eos % (Auto) 0.0 Baso % (Auto) 0.1 Lymph # (Auto) 0.9 L Mellette # (Auto) 1.5 H Eos # (Auto) 0.0 Baso # (Auto) 0.0 Abs Immat Gran (auto) 0.50 H Absolute Neuts (auto) 9.4 H Absolute Nucleated RBC 0.150 H Nucleated RBC % (auto) 1.2 H Smear Tech's Comments Smear Path Review PT INR APTT Fibrinogen VBG pH VBG pCO2 VBG pO2 VBG HCO3 VBG O2 Saturation VBG Base Excess Sodium POC Potassium Potassium Chloride Carbon Dioxide Anion Gap BUN Creatinine Estim Creat Clear Calc Estimated GFR Random Glucose Fasting Glucose Lactic Acid 4.9 H* Calcium Phosphorus Magnesium Total Bilirubin AST ALT Alkaline Phosphatase Troponin I High Sens 203.7 H* Total Protein Albumin TSH Ur Random Sodium Blood Type Antibody Screen Crossmatch 04/10/21 04/11/21 04/11/21 22:17 05:10 05:10 WBC 7.9 RBC 2.59 L Hgb 8.1 L Hct 22.8 L MCV 88.0 MCH 31.3 MCHC 35.5 RDW 14.2 Plt Count 73 L MPV 10.5 Immature Gran % (Auto) 1.6 H Neut % (Auto) 75.6 H Lymph % (Auto) 11.5 L Mellette % (Auto) 11.3 H Eos % (Auto) 0.0 Baso % (Auto) 0.0 Lymph # (Auto) 0.9 L Mellette # (Auto) 0.9 Eos # (Auto) 0.0 Baso # (Auto) 0.0 Abs Immat Gran (auto) 0.13 H Absolute Neuts (auto) 6.0 Absolute Nucleated RBC 0.090 H Nucleated RBC % (auto) 1.1 H Smear Tech's Comments Smear Path Review PT INR APTT Fibrinogen VBG pH 7.35 VBG pCO2 33 VBG pO2 40 VBG HCO3 19 L VBG O2 Saturation 71.0 VBG Base Excess -5.4 Sodium 139 POC Potassium Potassium 3.5 Chloride 110 H Carbon Dioxide 25 Anion Gap 8 L BUN 26 H Creatinine 1.70 H Estim Creat Clear Calc 45.8 Estimated GFR 43 Random Glucose 107 D Fasting Glucose Lactic Acid Calcium 6.9 L D Phosphorus 4.1 Magnesium 1.6 Total Bilirubin 0.4 AST 16 D ALT < 6 Alkaline Phosphatase 32 L D Troponin I High Sens Total Protein 3.5 L D Albumin 2.5 L D TSH Ur Random Sodium Blood Type Antibody Screen Crossmatch 04/11/21 04/11/21 04/11/21 05:10 05:12 08:50 WBC RBC Hgb Hct MCV MCH MCHC RDW Plt Count MPV Immature Gran % (Auto) Neut % (Auto) Lymph % (Auto) Mellette % (Auto) Eos % (Auto) Baso % (Auto) Lymph # (Auto) Mellette # (Auto) Eos # (Auto) Baso # (Auto) Abs Immat Gran (auto) Absolute Neuts (auto) Absolute Nucleated RBC Nucleated RBC % (auto) Smear Tech's Comments Smear Path Review PT INR APTT Fibrinogen VBG pH 7.47 H VBG pCO2 33 VBG pO2 39 VBG HCO3 24 VBG O2 Saturation 72.0 VBG Base Excess 1.2 Sodium POC Potassium Potassium Chloride Carbon Dioxide Anion Gap BUN Creatinine Estim Creat Clear Calc Estimated GFR Random Glucose Fasting Glucose Lactic Acid 1.0 0.8 Calcium Phosphorus Magnesium Total Bilirubin AST ALT Alkaline Phosphatase Troponin I High Sens Total Protein Albumin TSH Ur Random Sodium Blood Type Antibody Screen Crossmatch 04/11/21 04/11/21 04/11/21 08:51 08:51 08:51 WBC 7.7 RBC 2.66 L Hgb 8.3 L Hct 23.5 L MCV 88.3 MCH 31.2 MCHC 35.3 RDW 14.0 Plt Count 72 L MPV 10.6 Immature Gran % (Auto) Neut % (Auto) Lymph % (Auto) Mellette % (Auto) Eos % (Auto) Baso % (Auto) Lymph # (Auto) Mellette # (Auto) Eos # (Auto) Baso # (Auto) Abs Immat Gran (auto) Absolute Neuts (auto) Absolute Nucleated RBC 0.070 H Nucleated RBC % (auto) 0.9 H Smear Tech's Comments Smear Path Review PT INR APTT Fibrinogen VBG pH VBG pCO2 VBG pO2 VBG HCO3 VBG O2 Saturation VBG Base Excess Sodium 140 140 POC Potassium Potassium 3.4 3.4 Chloride 109 H 109 H Carbon Dioxide 27 26 Anion Gap 7 L 8 L BUN 24 H 25 H Creatinine 1.66 H 1.67 H Estim Creat Clear Calc 46.9 46.6 Estimated GFR 44 44 Random Glucose 102 Fasting Glucose 105 H Lactic Acid Calcium 7.0 L 6.9 L Phosphorus 3.9 Magnesium 1.6 Total Bilirubin AST ALT Alkaline Phosphatase Troponin I High Sens Total Protein Albumin 2.6 L TSH Ur Random Sodium Blood Type Antibody Screen Crossmatch 04/11/21 04/11/21 08:51 08:51 WBC RBC Hgb Hct MCV MCH MCHC RDW Plt Count MPV Immature Gran % (Auto) Neut % (Auto) Lymph % (Auto) Mellette % (Auto) Eos % (Auto) Baso % (Auto) Lymph # (Auto) Mellette # (Auto) Eos # (Auto) Baso # (Auto) Abs Immat Gran (auto) Absolute Neuts (auto) Absolute Nucleated RBC Nucleated RBC % (auto) Smear Tech's Comments Smear Path Review PT 12.7 INR 1.1 APTT 31.6 Fibrinogen 314 VBG pH 7.47 H VBG pCO2 35 VBG pO2 40 VBG HCO3 25 VBG O2 Saturation 73.0 VBG Base Excess 2.5 Sodium POC Potassium Potassium Chloride Carbon Dioxide Anion Gap BUN Creatinine Estim Creat Clear Calc Estimated GFR Random Glucose Fasting Glucose Lactic Acid Calcium Phosphorus Magnesium Total Bilirubin AST ALT Alkaline Phosphatase Troponin I High Sens Total Protein Albumin TSH Ur Random Sodium Blood Type Antibody Screen Crossmatch Microbiology Microbiology Results: Microbiology 06/06/21 21:16 Stool Stool Culture - Final 04/10/21 07:36 Blood - Venous Blood Culture - Preliminary No growth after 24 hours. 04/10/21 Unknown Blood - Venous Blood Culture - Final Critical Care Time Critical Care Time (minutes): 90
[2021-04-11 15:18] LABS: Hematocrit 22.1 % (42-52); Hemoglobin 7.7 g/dl (14.0-18.0); Mean Corpuscular HGB Conc 34.8 g/dl (31.0-36.0); Mean Corpuscular Hemoglobin 30.8 pg (27.0-33.0); Mean Corpuscular Volume 88.4 fL (80-98); Mean Platelet Volume 9.9 fL (9.4-12.4); Red Cell Distribution Width 13.9 % (11.0-16.0); White Blood Count 8.1 X10*3/uL (4.8-10.8)
[2021-04-11 15:25] LABS: NRBC Pct Auto 1.2 /100WBC (0.0-0.2); Platelet Count 92 X10*3/uL (160-400)
--- NOTE | 2021-04-11 15:29 | PM.EVENT ---
Event Note Date of Service: 04/11/21 Event Note: He underwent laparotomy and evacuation of hemoperitoneum early this morning He complains of pain but otherwise has been stable hemodynamically He was seen sitting up Abdomen is soft DEBI is in place-continues to significant bloody output Stable vital signs Hemoglobin some drift Seen by hematology - continue tranexamic acid, replacement of blood products No obvious bleeding vessel identified during laparotomy
[2021-04-11] MEDS: Furosemide 20 MG/2 ML VIAL IVPUSH (15:45)
[2021-04-11 15:58] LABS: Lactic Acid 0.7 mmol/L (0.5-2.0)
[2021-04-11] MEDS: Lidocaine HCl/D5W 2 GM/250 ML IV.SOLN 7.5 GM IVCONT (16:03)
[2021-04-11 16:26] LABS: Anion Gap 10 (12-20); Blood Urea Nitrogen 23 mg/dL (9-16); Calcium 7.4 mg/dL (8.4-10.2); Carbon Dioxide 27 mmol/L (22-29); Chloride 106 mmol/L (96-108); Creatinine Clr Calc Pharmacy 49.3; Estimated Glomerular Filt Rate 47; Glucose Random 93 mg/dL (60-115); Magnesium 1.9 mg/dL (1.6-2.6); Potassium 3.3 mmol/L (3.3-5.1); Sodium 140 mmol/L (135-145)
[2021-04-11] MEDS: Potassium Chloride/H20 40 MEQ/100 ML PIGGYBACK 50 MEQ IV (16:43)
[2021-04-11] MEDS: HYDROmorphone HCl/NS 10 MG/50 ML PIGGYBACK 5 MG IV (17:34)
[2021-04-11 18:19] LABS: Troponin-I High Sensitivity 1398.8 ng/L (<3.5-35.0)
--- NOTE | 2021-04-11 18:34 | PC.NURSE ---
Addendum entered by Danii Livingston RN 04/11/21 18:59: EDIT: TPN STARTED AT 35 ML/HR, NOT TPA. SEE MAR. Original Note: PAIN 8-10/10 TO ABDOMEN THROUGHOUT SHIFT. NEIDA ESQUIVEL X 2 AWARE. TREATED WITH PRN KETAMINE AND PRN DILAUDID WITHOUT RELIEF. STARTED ON KETAMINE GTT, DILAUDID BOAT PULLER PUMP, AND LIDOCAINE GTT - ALL GTTS STARTED AND TITRATED WITH A RN AND/OR CLIENT RELATION SPECIALIST WITNESS. SEE MAR FOR DETAILS. METHADONE GIVEN EARLY PER MD/PA. DEBI DRAIN OUTPUT FROM [id number] = 440 ML TOTAL. AT START OF SHIFT SANGUINEOUS AND HAS SLOWLY TURNED INTO MORE SEROSANGUINOUS. TRANSFUSED WITH (1)CRYOPRECIPITATE AND (1) PLASMA. TOLERATED WELL. POTASSIUM 40 MEQ, CALCIUM GLOCONATE 1 GM, AND MAGNESIUM 1 GM REPLACED. LASIX 20 MG IVP X 1 ADMINISTERED. TPA STARTED AT 35 ML/HR AT 1807. EKG DONE. CRITICAL TROPONIN 1,398.8 REPORTED TO MD AT 1817. HR LOW 53. SBP 170-190S. AWARE.
[2021-04-11] MEDS: Nitroglycerin 2 % Oint 1 GM Packet 1 INCH TRANSDERMA (19:24)
[2021-04-11] MEDS: Atorvastatin Calcium 80 MG TABLET PO (20:54)
[2021-04-11 21:15] LABS: Hemoglobin 7.7 g/dl (14.0-18.0); Mean Corpuscular Volume 88.6 fL (80-98); PLT CLUMP 1
[2021-04-11 21:17] LABS: Hematocrit 21.8 % (42-52); Mean Corpuscular HGB Conc 35.3 g/dl (31.0-36.0); Mean Corpuscular Hemoglobin 31.3 pg (27.0-33.0); Mean Platelet Volume 10.1 fL (9.4-12.4); NRBC Pct Auto 1.9 /100WBC (0.0-0.2); Platelet Count 114 X10*3/uL (160-400); Red Blood Count 2.46 X10*6/uL (4.60-5.80); Red Cell Distribution Width 13.9 % (11.0-16.0); White Blood Count 7.8 X10*3/uL (4.8-10.8)
[2021-04-11 21:47] LABS: Lactic Acid 0.7 mmol/L (0.5-2.0)
[2021-04-12] VITALS (38 sets, daily range): BP systolic 118–189; BP diastolic 74–111; PULSE 57–123; RESP 9–70; TEMP 36.7–37.3; O2SAT 94–99
--- NOTE | 2021-04-12 | ECG_ITS ---
Test Reason : ACUTE OH Blood Pressure : / mmHG Vent. Rate : 065 BPM Atrial Rate : 065 BPM P-R Int : 136 ms QRS Dur : 092 ms QT Int : 450 ms P-R-T Axes : 056 018 -07 degrees QTc Int : 468 ms Normal sinus rhythm Voltage criteria for left ventricular hypertrophy Abnormal ECG When compared with ECG of 11-APR-2021 16:56, No significant change was found Referred By: Chico Sahni Electronically Signed By:GAUDENCIO DYE MD
[2021-04-12] MEDS: 0.9 % Sodium Chloride Flush 3 ML SYRINGE IVFLUSH ×2 (00:28→09:54)
[2021-04-12] MEDS: Nitroglycerin 2 % Oint 1 GM Packet 1 INCH TRANSDERMA (00:28)
[2021-04-12] MEDS: Hydrocortisone Sod Succ/PF 100 MG VIAL 50 MG IVPUSH ×2 (00:28→14:33)
[2021-04-12] MEDS: Pantoprazole Sodium 40 MG/10 ML VIAL IVPUSH (06:23)
[2021-04-12 07:21] LABS: Hemoglobin 7.2 g/dl (14.0-18.0); Mean Corpuscular HGB Conc 34.6 g/dl (31.0-36.0); Mean Corpuscular Hemoglobin 30.9 pg (27.0-33.0); Mean Corpuscular Volume 89.3 fL (80-98); Platelet Count 108 X10*3/uL (160-400); Red Blood Count 2.33 X10*6/uL (4.60-5.80); Red Cell Distribution Width 13.8 % (11.0-16.0); White Blood Count 8.7 X10*3/uL (4.8-10.8)
[2021-04-12 07:22] LABS: VBG Base Excess 11.2 mmol/L; VBG HCO3 35 mmol/L (22-26); VBG pCO2 47 mmHg; VBG pH 7.48 (7.32-7.43); VBG pO2 59 mmHg
[2021-04-12 07:27] LABS: Venous Blood Gas Refer to POC result
[2021-04-12 07:29] LABS: Hematocrit 20.8 % (42-52)
[2021-04-12 07:34] LABS: Lactic Acid 0.5 mmol/L (0.5-2.0)
[2021-04-12 07:42] LABS: Alanine Aminotransferase 7 U/L (0-40); Albumin Level 2.5 g/dL (3.5-5.0); Alkaline Phosphatase 38 U/L (39-117); Anion Gap 8 (12-20); Aspartate Amino Transferase 26 U/L (5-37); Bilirubin Total 0.6 mg/dL (0.0-1.0); Blood Urea Nitrogen 22 mg/dL (9-16); Calcium 7.3 mg/dL (8.4-10.2); Carbon Dioxide 32 mmol/L (22-29); Chloride 99 mmol/L (96-108); Creatinine Clr Calc Pharmacy 51.2; Estimated Glomerular Filt Rate 49; Glucose Random 123 mg/dL (60-115); Magnesium 1.9 mg/dL (1.6-2.6); Phosphorus 3.6 mg/dL (2.7-4.5); Potassium 3.3 mmol/L (3.3-5.1); Sodium 136 mmol/L (135-145); Total Protein 3.8 g/dL (6.5-8.0)
[2021-04-12 07:46] LABS: Troponin-I High Sensitivity 3343.1 ng/L (<3.5-35.0)
--- NOTE | 2021-04-12 08:06 | CA_ITS ---
Transthoracic Echocardiogram Patient (Last, First, Middle): Adrián Cornejo, Gender: Male Date of : 1970 Age: 51 Procedure Date: 04/12/2021 Procedure Type: Transthoracic Echocardiogram Location: ICU Height: 170.18 cm Weight: 61.69 kg BSA: 1.72 m2 Heart Rate: bpm BP: 185 / 98 mmHg [facility] Coordinator: NIC [place] MD: Chico Sahni MD Manager Technical Services: Donovan Alanis MD Symptoms: Acute PR Study Quality: Good ECG Rhythm: Sinus Conclusions: - 1. Normal LV systolic and diastolic function with regional wall motion abnormality the of basal inferior inferoseptal segment in RCA territory 2. Normal cardiac valvular Doppler 3. Mildly dilated left atrium 4. Normal RV systolic pressure 5. No pericardial effusion Findings Left Ventricle Normal left ventricular size, thickness, and systolic function. The visually estimated ejection fraction is between 60-65%. There is evidence of regional wall motion abnormalities. Diastolic function is normal for age. Wall Motion Rest Echo Findings The basal inferior, basal inferoseptal, and basal inferolateral segments are akinetic. All other scored wall segments showed normal motion. Right Ventricle Normal right ventricular cavity size and systolic function. Atria The left atrium is mildly dilated. There is no evidence of interatrial shunt. The right atrium is normal in size. Aortic Valve The aortic valve structure and function is likely normal. There is no aortic valve stenosis. There is no aortic valve regurgitation. Mitral Valve Normal mitral valve structure and function. There is trace mitral valve regurgitation. There is no mitral valve stenosis. Pulmonic Valve The pulmonic valve is likely normal. Tricuspid Valve Normal tricuspid valve structure. There is trace tricuspid valve regurgitation. The right ventricular systolic pressure is normal. Normal right atrial pressure. There is no evidence of pulmonary hypertension. Great Vessels All visible segments of the aorta are normal in size. The pulmonary artery was not well visualized. Venous The inferior vena cava is normal in size and collapses greater than 50% with inspiration. Pericardium/Pleural There is no evidence of pericardial effusion. Prior Study Comparison No prior study available for comparison. Measurements 2D Linear Measurements IVSd: 0.75 0.6-0.9/0.6-1.0 cm LVIDd: 5.23 3.9-5.3/4.2-5.9 cm LVIDd Index: 3.04 2.4-3.2/2.2-3.1 cm/m2 LVIDs: 3.73 2.0-3.6 cm LVPWd: 0.98 0.7-1.1 cm Ao Root: 3.60 2.1-3.5 cm LA Diam: 3.50 2.7-3.8/3.0-4.0 cm LAIDs Index: 2.03 1.5-2.3 cm/m2 LV Mass: 200.80 67-162/88-224 g LV Mass Index: 116.75 43-95/49-115 g/m2 LVOT Diam: 2.20 3.0+(-)1.3 cm 2D Systolic Function EF 4C: 62.00 >55% EF 2C: 51.40 >55% EF BiP: 57.00 >55% Mitral Valve MV Pk E: 0.67 MV PK A: 0.36 MV Decel Time: 369.00 E/A: 1.90 E'Lateral: 14.40 E'Medial: 7.40 E/E' Med: 9.00 E/E' Lat: 4.60 PHT: 108.00 MVA PHT: 2.04 Decel [place]: 1.81 Aortic Valve AoV Pk Yung: 1.42 AoV Mn Yung: 1.03 AoV VTI: 0.29 AoV Pk Grad: 8.00 Aov Mn Grad: 5.00 HIRAM Cont.VTI: 2.60 LVOT LVOT Pk Yung: 0.96 LVOT Mn Yugn: 0.63 LVOT VTI: 0.20 LVOT Pk Grad: 4.00 LVOT Mn Grad: 2.00 LVOT Diam: 2.20 LVOT Area: 3.80 Diastolic Function MV Pk E: 0.67 MV Pk A: 0.36 E/A: 1.90 E'Medial: 7.40 E/E' Med: 9.00 E' Laterial: 14.40 E/E' Lat: 4.60 Tricuspid Valve TR Pk Yung: 1.64 TR Pk Grad: 11.00 RA Press: 15.00 RVSP: 26.00 Great Vessels Aorta Ao Root-2D: 3.60 2.0-3.7 cm Ao Asc: 3.20 2.1-3.4 cm Updated in Other Vendor System with Status of Final Donovan Alanis MD electronically signed on 04/12/2021 1:31:26 PM with status of Final
--- NOTE | 2021-04-12 09:18 | P.CONCA_ITS ---
History of Present Illness History of Present Illness Date of Service: 04/12/21 Requesting physician: Chico Sahni Consult reason: myocardial infarction Chief complaint: Chohn's Disease, anemia Narrative: I was requested to see Adrián in cardiology consultation today for elevated troponin consistent with myocardial infarction. He is a 51-year-old male with prior history of Crohn's disease and chronic pain syndrome was admitted with acute lower gastrointestinal bleeding leading to hemorrhagic shock. He subsequently underwent repeat major abdominal surgery for hemoperitoneum and hemorrhagic shock. Postoperatively was noted to have some E KG changes with anterior ST depression. Subsequent workup shows elevated troponins in clear rise and fall pattern consistent with acute myocardial infarction, non ST elevation. Patient was under effect of anesthesia and had no obvious ischemic symptoms. Patient says he has not had any prior cardiovascular history. His troponins are down trending. Postoperatively his EKG is improved and normalized. He currently denies any chest pain. His main issue is abdominal discomfort. He is also significantly hypertensive being managed by nitro paste at this point in time. His heart rate stable. No arrhythmias. No CHF symptoms. His QT interval is mildly prolonged at 476 milliseconds. There i s concern for QT prolongation as patient is on methadone therapy and there is plan for possibly up titrating methadone therapy due to his significant pain issues. Review of Systems Constitutional: Constitutional: Reports lethargy and Reports malaise Cardiovascular: Cardiovascular: Reports no additional cardiovascular complaints Respiratory: Respiratory: Reports no additional respiratory complaints Gastrointestinal: Gastrointestinal: Reports abdominal pain Genitourinary: Genitourinary: Reports no additional male genitourinary compl aints Neurologic: Reports system reviewed and no additional complaints, except as documented Psychiatric: Psychiatric: Reports depression Endocrine: Endocrine: Reports no additional endocrine complaints Hematologic/Lymphatic: Hematologic/Lymphatic: Reports no additional hematologic/lymphatic complaints [facility] [place] Past Medical History Medical History Crohn's colitis Crohn's disease Psoriasis Surgical History Surgical History H/O colectomy Social History Social History Household Members: Family Housing: House Do you presently have visiting nurse or other home services: No Patient Tobacco Use Status: Current everyday Tobacco user Patient Interested in Nicotine Replacement: Yes Use of substances other than those prescribed or required for medical reasons: No Currently Displaying Signs/Symptoms of Drug Intoxication Withdrawal: No Have you been hit, kicked, punched, or otherwise hurt by someone within the past year? If so, by whom?: No Do you feel safe in your current relationship?: No Is there a partner from a previous relationship who is making you feel unsafe now?: No Are you made to feel afraid or neglected: No Advance Directives: No Advance Directives Information Provided: No Do you have thoughts of harming others: None Do you have a plan to hurt others: No Plan Recently lost weight without trying: No Eating poorly because of decreased appetite: Yes Nutrition Risks: No Nutritional Risk Poor oral hygiene: No service: No Current occupational status: employed Meds Allergies Allergy/AdvReac Type Severity Reaction Status Date / Time No Known Allergies Allergy Verified 04/07/21 16:01 [No Known Allergies*] Active Medications: Current Medications Generic Name Dose Route Start Last Admin Trade Name Freq PRN Reason Stop Dose Admin Acetazolamide 500 mg 04/12/21 10:00 Acetazolamide Sodium 500 Mg Vial IVPUSH Q12H LENORA Albuterol Sulfate 2.5 mg 04/11/21 14:50 Albuterol Sulfate (0.083%) 2.5 Mg/3 Ml Vial.Neb INHALE Q2H PRN wheezing Amlodipine Besylate 2.5 mg 04/12/21 09:15 Amlodipine Besylate 2.5 Mg Tablet PO DAILY LENORA Atorvastatin Calcium 80 mg 04/11/21 21:00 04/11/21 20:54 Atorvastatin Calcium 80 Mg Tablet PO 80 mg BEDTIME LENORA Administration Hydrocortisone Sodium Succinate 50 mg 04/12/21 00:00 04/12/21 00:28 Hydrocortisone Sod Succ/Pf 100 Mg Vial IVPUSH 50 mg Q12H LENORA Administration Hydromorphone HCl 2 mg 04/11/21 05:45 04/11/21 16:33 Hydromorphone Hcl 2 Mg/Ml Vial IVPUSH 2 mg Q1H PRN Administration Pain, Severe (Pain Scale 7-10) Hydromorphone HCl 1 mg 04/11/21 05:50 Hydromorphone Hcl 1 Mg/Ml Syringe IVPUSH Q30M PRN Pain, Mild (Pain Scale 1-3) Ketamine HCl 500 mg/ Dextrose 255 mls @ 7.65 mls/hr 04/11/21 10:15 04/12/21 00:15 IVCONT 4.9 mg/hr .Q24H LENORA 2.5 mls/hr Infusion 15 MG/HR Potassium Chloride 20 meq/ 840 mls @ 35 mls/hr 04/11/21 18:00 04/11/21 18:01 Magnesium Sulfate 8 meq/ IVCONT 04/12/21 17:59 35 mls/hr Potassium Phosphate 15 mmol/ DAILY@1800 LENORA Administration Calcium Gluconate 4.65 meq/ Multivitamins 12 ml/ Trace Metals 1.2 ml/ Amino Acids/ Dextrose Lidocaine HCl/Dextrose 2 gm in 250 mls @ 11.25 mls/hr 04/11/21 16:00 04/11/21 17:22 IVCONT 1.5 mg/min .[id number] LENORA 11.25 mls/hr Infusion 1.5 MG/MIN Hydromorphone HCl 20 mg in 100 mls @ 0 mls/hr 04/11/21 18:45 04/12/21 00:44 Dilaudid IVCONT 1 mg/hr .Q0M LENORA 5 mls/hr Administration Protocol Per Protocol Potassium Chloride 40 meq in 100 mls @ 50 mls/hr 04/12/21 09:00 IV 04/12/21 14:59 Q4H LENORA Magnesium Sulfate/Dextrose 1 gm in 100 mls @ 100 mls/hr 04/12/21 08:30 Magnesium Sulfate/D5w IV 04/12/21 09:29 ONCE ONE Ketamine HCl 10 mg 04/11/21 10:16 04/11/21 15:43 Ketamine Hcl/Ns 50 Mg/5 Ml Syringe IVPUSH 10 mg Q1H PRN Administration Pain, Severe (Pain Scale 7-10) Methadone HCl 80 mg 04/09/21 08:00 04/11/21 07:12 Methadone Hcl 1 Mg/0.1 Ml Oral.Conc PO 80 mg DAILY LENORA Administration Nicotine 14 mg 04/08/21 09:00 04/11/21 09:33 Nicotine 14 Mg Patch.Td24 TRANSDERMA 14 mg DAILY LENORA Administration Nitroglycerin 2 inch 04/12/21 09:00 Nitroglycerin 2 % Oint 1 Gm Packet TRANSDERMA Q6H LENORA Ondansetron HCl 4 mg 04/08/21 00:31 04/11/21 00:33 Ondansetron Hcl 4 Mg/2 Ml Vial IVPUSH 4 mg Q8H PRN Administration Nausea and Vomiting Pantoprazole Sodium 40 mg 04/11/21 06:30 04/12/21 06:23 Pantoprazole Sodium 40 Mg/10 Ml Vial IVPUSH 40 mg DAILY@0630 [facility] Administration Sodium Chloride 3 ml 04/08/21 00:31 04/12/21 00:28 0.9 % Sodium Chloride Flush 3 Ml Syringe IVFLUSH 3 ml QSHIFT LENORA Administration Home Medications Medication Instructions Recorded Confirmed Last Taken Type adalimumab [Humira(CF) Pen] 40 mg SUBCUT Q2W 04/07/21 04/07/21 Unknown History budesonide 2 cap PO DAILY 04/07/21 04/07/21 Unknown History diphenoxylate-atropine 2 tab PO NEEDED PRN 04/07/21 04/07/21 Unknown History Physical Exam Vital Signs: Vital Signs: Last Vital Signs Temp 98.9 F 04/12/21 09:13 Pulse 68 04/12/21 09:13 Resp 13 04/12/21 09:13 BP 168/91 H 04/12/21 09:13 Pulse Ox 96 04/12/21 08:00 Body Mass Index 21.2 Const: General: cooperative, comfortable, no acute distress, alert, awake and ill appearing Nutritional Appearance: thin Orientation/consciousness: patient oriented x3 HENMT: Head: Yes normocephalic and Yes atraumatic Neck: Neck: Yes trachea midline, Yes supple and Yes no JVD Resp: Effort & Inspection: normal respiratory effort Auscultation: no rales, no wheezes and diminished lung sounds Cardio: Jugular venous distension: no JVD Palpation: normal PMI Rate: regular rate Rhythm: regular rhythm Heart sounds: S1 normal heart sound present and S2 normal heart sound present GI: Inspection: Yes other (Status post recent surgery. Tender) Auscultation: abnormal bowel sounds Skin: General skin exam: no rashes or lesions noted Neuro: General: patient oriented x3 and no focal motor deficits Extrem: General: Yes no clubbing, cyanosis or edema Psych: Affect: Depressed mood present Results Labs and Meds Result diagrams: 04/12/21 07:10 04/12/21 07:10 Lab results: Laboratory Results - last 24 hr 04/08/21 04/10/21 04/10/21 21:16 17:40 19:58 WBC RBC Hgb Hct MCV MCH MCHC RDW Plt Count MPV Absolute Nucleated RBC Nucleated RBC % (auto) Smear Path Review SEE NOTE APTT Fibrinogen VBG pH VBG pCO2 VBG pO2 VBG HCO3 VBG O2 Saturation VBG Base Excess Sodium Potassium Chloride Carbon Dioxide Anion Gap BUN Creatinine Estim Creat Clear Calc Estimated GFR Random Glucose Fasting Glucose Lactic Acid Calcium Phosphorus Magnesium Total Bilirubin AST ALT Alkaline Phosphatase Troponin I High Sens Total Protein Albumin Stl Giardia Antigen SEE NOTE Blood Type O Positive Antibody Screen NEGATIVE Crossmatch See Detail 04/11/21 04/11/21 04/11/21 08:50 08:51 08:51 WBC RBC Hgb Hct MCV MCH MCHC RDW Plt Count MPV Absolute Nucleated RBC Nucleated RBC % (auto) Smear Path Review APTT Fibrinogen VBG pH VBG pCO2 VBG pO2 VBG HCO3 VBG O2 Saturation VBG Base Excess Sodium 140 140 Potassium 3.4 3.4 Chloride 109 H 109 H Carbon Dioxide 27 26 Anion Gap 7 L 8 L BUN 24 H 25 H Creatinine 1.66 H 1.67 H Estim Creat Clear Calc 46.9 46.6 Estimated GFR 44 44 Random Glucose 102 Fasting Glucose 105 H Lactic Acid 0.8 Calcium 7.0 L 6.9 L Phosphorus 3.9 Magnesium 1.6 Total Bilirubin AST ALT Alkaline Phosphatase Troponin I High Sens Total Protein Albumin 2.6 L Stl Giardia Antigen Blood Type Antibody Screen Crossmatch 04/11/21 04/11/21 04/11/21 08:51 15:02 15:09 WBC 8.1 RBC 2.50 L Hgb 7.7 L Hct 22.1 L MCV 88.4 MCH 30.8 MCHC 34.8 RDW 13.9 Plt Count 92 L D MPV 9.9 Absolute Nucleated RBC 0.100 H Nucleated RBC % (auto) 1.2 H Smear Path Review APTT 31.6 Fibrinogen 314 VBG pH VBG pCO2 VBG pO2 VBG HCO3 VBG O2 Saturation VBG Base Excess Sodium Potassium Chloride Carbon Dioxide Anion Gap BUN Creatinine Estim Creat Clear Calc Estimated GFR Random Glucose Fasting Glucose Lactic Acid Calcium Phosphorus Magnesium Total Bilirubin AST ALT Alkaline Phosphatase Troponin I High Sens 1398.8 H* D Total Protein Albumin Stl Giardia Antigen Blood Type Antibody Screen Crossmatch 04/11/21 04/11/21 04/11/21 15:09 15:09 21:05 WBC 7.8 RBC 2.46 L Hgb 7.7 L Hct 21.8 L MCV 88.6 MCH 31.3 MCHC 35.3 RDW 13.9 Plt Count 114 L MPV 10.1 Absolute Nucleated RBC 0.150 H Nucleated RBC % (auto) 1.9 H Smear Path Review APTT Fibrinogen VBG pH VBG pCO2 VBG pO2 VBG HCO3 VBG O2 Saturation VBG Base Excess Sodium 140 Potassium 3.3 Chloride 106 Carbon Dioxide 27 Anion Gap 10 L BUN 23 H Creatinine 1.58 H Estim Creat Clear Calc 49.3 Estimated GFR 47 Random Glucose 93 Fasting Glucose Lactic Acid 0.7 Calcium 7.4 L D Phosphorus Magnesium 1.9 Total Bilirubin AST ALT Alkaline Phosphatase Troponin I High Sens Total Protein Albumin Stl Giardia Antigen Blood Type Antibody Screen Crossmatch 04/11/21 04/11/21 04/12/21 21:05 21:05 07:10 WBC 8.7 RBC 2.33 L Hgb 7.2 L Hct 20.8 L* MCV 89.3 MCH 30.9 MCHC 34.6 RDW 13.8 Plt Count 108 L MPV 10.0 Absolute Nucleated RBC 0.090 H Nucleated RBC % (auto) 1.0 H Smear Path Review APTT Fibrinogen VBG pH VBG pCO2 VBG pO2 VBG HCO3 VBG O2 Saturation VBG Base Excess Sodium Potassium Chloride Carbon Dioxide Anion Gap BUN Creatinine Estim Creat Clear Calc Estimated GFR Random Glucose Fasting Glucose Lactic Acid 0.7 Calcium Phosphorus Magnesium Total Bilirubin AST ALT Alkaline Phosphatase Troponin I High Sens 3512.7 H* D Total Protein Albumin Stl Giardia Antigen Blood Type Antibody Screen Crossmatch 04/12/21 04/12/21 04/12/21 07:10 07:10 07:10 WBC RBC Hgb Hct MCV MCH MCHC RDW Plt Count MPV Absolute Nucleated RBC Nucleated RBC % (auto) Smear Path Review APTT Fibrinogen VBG pH VBG pCO2 VBG pO2 VBG HCO3 VBG O2 Saturation VBG Base Excess Sodium 136 Potassium 3.3 Chloride 99 Carbon Dioxide 32 H Anion Gap 8 L BUN 22 H Creatinine 1.52 H Estim Creat Clear Calc 51.2 Estimated GFR 49 Random Glucose 123 H Fasting Glucose Lactic Acid 0.5 Calcium 7.3 L Phosphorus 3.6 Magnesium 1.9 Total Bilirubin 0.6 AST 26 D ALT 7 Alkaline Phosphatase 38 L Troponin I High Sens 3343.1 H* Total Protein 3.8 L Albumin 2.5 L Stl Giardia Antigen Blood Type Antibody Screen Crossmatch 04/12/21 07:15 WBC RBC Hgb Hct MCV MCH MCHC RDW Plt Count MPV Absolute Nucleated RBC Nucleated RBC % (auto) Smear Path Review APTT Fibrinogen VBG pH 7.48 H VBG pCO2 47 VBG pO2 59 VBG HCO3 35 H VBG O2 Saturation 88.0 VBG Base Excess 11.2 Sodium Potassium Chloride Carbon Dioxide Anion Gap BUN Creatinine Estim Creat Clear Calc Estimated GFR Random Glucose Fasting Glucose Lactic Acid Calcium Phosphorus Magnesium Total Bilirubin AST ALT Alkaline Phosphatase Troponin I High Sens Total Protein Albumin Stl Giardia Antigen Blood Type Antibody Screen Crossmatch Assessment and Plan (1) NSTEMI (non-ST elevated myocardial infarction): Status: Acute Non ST-elevation myocardial infarction in a middle-aged man secondary to severe bleeding as well as he Michelle take shock and noncardiac surgery. He has no ischemic symptoms at current time. His ischemic EKGs have resolved. His troponins are down trending. Obviously given his recent bleeding as well as recent surgery not a candidate for any form of antiplatelet or anticoagulant therapy. He has no prior cardiovascular history however has risk of underlying coronary artery disease which eventually will need to be evaluated prior to discharge with the myocardial perfusion imaging. Will be performed once patient is both medically and surgically more stable. His blood pressure is significa ntly elevated. Agree with treating with nitro paste and add low-dose amlodipine 2.5 mg daily. Also add low-dose metoprolol therapy, 12.5 mg b.i.d.. Consider statin therapy with Lipitor 40 mg daily. Echocardiogram to be performed today to evaluate LV systolic and diastolic function to evaluate for regional wall motion abnormality for further prognostication purposes. Strongly suggest to transfuse him to maintain hematocrit above 30 to reduce myocardial oxygen demand. Case discussed with Dr. Sahni Will follow with you. Thank you for allowing us to partake in his care Procedures Date of Service Date of Service: 04/12/21
--- NOTE | 2021-04-12 09:50 | HO.POSTANES ---
Post Anesthesia Evaluation Post Anesthesia Evaluation Vital Signs: Vital Signs Temp Pulse Resp BP Pulse Ox 04/12/21 09:13 98.9 F 68 13 168/91 H 04/12/21 09:00 65 12 168/91 H 97 04/12/21 08:46 98.9 F 04/12/21 08:00 65 11 L 160/87 H 96 04/12/21 07:00 71 13 163/88 H 95 04/12/21 05:52 68 16 164/89 H 95 04/12/21 05:51 66 16 164/89 H 95 04/12/21 05:00 64 16 162/90 H 95 04/12/21 04:44 98.1 F 66 16 164/92 H 04/12/21 04:00 66 16 164/93 H 95 04/12/21 03:00 68 70 H 168/91 H 95 04/12/21 02:00 68 16 167/94 H 94 04/12/21 00:58 68 16 174/94 H 94 04/12/21 00:44 16 04/12/21 00:00 99.2 F 70 16 165/85 H 95 04/11/21 23:00 74 16 170/92 H 95 04/11/21 22:00 66 15 166/88 H 95 Anesthesia: General Endotracheal-GETA Mental Status: Awake Pain Control: Satisfactory Nausea/Vomiting: None Hydration: Adequate Anesthesia-Related Issues: No Anes. Related Issues Comments: Patient was taken back to OR for bleeding.
[2021-04-12] MEDS: acetaZOLAMIDE sodium 500 MG VIAL IVPUSH ×2 (09:54→20:50)
[2021-04-12] MEDS: Furosemide 20 MG/2 ML VIAL IVPUSH (09:54)
[2021-04-12] MEDS: Nitroglycerin 2 % Oint 1 GM Packet 2 INCH TRANSDERMA ×3 (09:56→19:36)
[2021-04-12] MEDS: amLODIPine Besylate 2.5 MG TABLET PO ×2 (09:56→14:30)
[2021-04-12] MEDS: Magnesium Sulfate/D5W 1 GM/100 ML PIGGYBACK IV (09:57)
[2021-04-12] MEDS: Nicotine 14 MG PATCH.TD24 TRANSDERMA (09:57)
[2021-04-12] MEDS: Potassium Chloride/H20 40 MEQ/100 ML PIGGYBACK 50 MEQ IV ×2 (09:58→14:34)
--- NOTE | 2021-04-12 10:36 | MHC.CLN ---
F/U DISCUSSED WITH MD DURING ROUNDS TPN CURRENTLY RUNNING RECOMMEND INCREASING D15 AA5% TO 55CC/HR TO PROVIDE 937KCALS, 66G PROTEIN (1.06G/KG) DISCUSSED WITH PHARMACY, REPLETE LYTES NEEDED; CHECK TRIGS FOR POSSIBLE LIPIDS TOMORROW FOLLOWING
[2021-04-12] MEDS: Lidocaine HCl/D5W 2 GM/250 ML IV.SOLN IVCONT (10:59)
[2021-04-12 13:13] LABS: Hematocrit 26.2 % (42-52); Hemoglobin 8.9 g/dl (14.0-18.0)
--- NOTE | 2021-04-12 13:14 | MHC.CM.PN ---
Patient remains in ICU. 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 From home with outpatient Methadone. Continue to monitor for d/c needs.
[2021-04-12 13:20] LABS: INTERNATIONAL NORM RATIO 0.9 (0.9-1.1); Prothrombin Time 10.9 SEC (10.8-13.0)
[2021-04-12] MEDS: Metoprolol Tartrate 25 MG TABLET PO ×2 (14:29→19:34)
--- NOTE | 2021-04-12 15:05 | P.PNCC_ITS ---
Subjective Subjective Date of Service: 04/12/21 Interval History: Mr. Cornejo was transferred to the ICU on April 08 bec of hemorrhagic shock 2? lower GI bleed. The patient is a 51-year-old gentleman with underlying history of Crohn?s disease, psoriasis, and chronic methadone use. 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 15 years ago. He takes Humira and budesonide. Never had lower GI bleeding before. Colonoscopy some months ago was negative except for narrowing of the anastomotic site. About a month ago, he had a few streaks of blood in his stool which went away, and did not recur. The patient presented to the ED on April 07 complaining of 2 days of red bloody diarrhea, dizziness, shortness of breath, and a clammy feeling. He had not been eating and drinking normally and had unintentional weight loss of 25 lb over the prior few months. In the ED, the patient was tachycardic and hypotensive. Labs were notable for Hb 7.8, normal coags, BUN and creatinine of 18/1.4 (no baseline), normal LFTs, and albumin of 3.0. No lactic acid was done. He was admitted to medicine and transfused 2 units of packed red cells. The next morning, April 08, the patient had another episode of bright red blood per rectum and had a syncopal episode. He was given IV fluid and 2 more units of packed red blood cells and 1 unit of FFP, and transferred to intensive care unit. Upon arrival to intensive care unit patient was hemodynamically stable with normoxemia on room air. The patient was started on IV hydrocortisone. On the morning of April 09, he had recurrent hypotension with a blood pressure down to 103/74 associated with tachycardia. Hemoglobin came back at 5.5, down from 8.7. He was transfused another two units RBCs. F/U Hb was up to 7.7. He was given a third unit of RBCs. He remained fully alert. Dr. De La Torre was unable to get him onto the OR schedule for colonoscopy, so he was given GoLYTELY in preparation for colonoscopy the next morning. Early that morning (April 10) however, he had another bleed with recurrent hemorrhagic shock. Hb dropped to 6.4 from 9.2. He was given 2L crystalloid and 2 u RBCs. F/u labs showed Hb 8.1 and INR 2.2, BUN/creat 32/1.7, albumin 1.5. 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 It was unable to be controlled by Dr. De La Torre, therefore the patient underwent laparotomy and right colectomy with primary ileocolonic anastomosis. At surgery, Dr. Simmons identified a significant area of inflammation in the distal ileum/colonic anastomosis, but there was no active Crohn's disease proximal to that in the ileum. Estimated blood loss during the procedure was 200 cc. The patient was given 4 units of packed cells, 2 units FFP, and about 2300 cc of crystalloid. Urine output for the case was 800 cc. The patient was transfused one 5-pack of platelets after arrival in the ICU. The patient was brought back to the ICU still intubated. Hemodynamics were steady, and he was extubated about an hour later. Post op labs showed hemoglobin 7.8, platelet count 80K (after the platelets), PT 14.3/1.2, bicarb 22, BUN/creatinine 28/1.7, albumin 2.1, calcium 6.4, lactate 4.5, base excess of -4 on VBG. He was having severe pain and was medicated w Dilaudid 2mg prn. He was stable until the evening, when he became shocky again and had some bradycardic episodes. Hb was down to 5.7, lactate up to 8.4. He was vol resuscitated. Abd CT showed large hemoperitoneum. He was taken back to the OR for E-lap by Dr. Rivas, at which he was found to have large hemoperitoneum. About 2500 cc blood was evacuated. No specific bleeding site was found, more a general ooze from mult surfaces. At the end of surg, a DEBI drain was placed. The patient was extubated and returned to the ICU. All told, the patient was given 2 more units of red cells, a 5 pack of platelets, and 1 more bag of FFP. He was also given tranexamic acid. Yesterday the patient was largely stable, the main issue was pain control. Pain was not controlled by Dilaudid up to 6mg/hr Ketamine was added, which gave good relief. Later in the afternoon, a lidocaine drip was added. He bumped his troponin to 3512, with no EKG changes. He was started on NTP and atorvastatin. (No ASA or heparin or beta cristobal.) Dr. Alanis was consulted. This morning the patient is sitting up in bed and looking washed out although otherwise relatively well and nontoxic. He looks a little more comfortable than yesterday, altho still c/o severe pain. 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 He is afebrile, breathing easy, w Sat 96% on room air. Heart rate is about 70, sinus rhythm. Blood pressure is 166/108, respiratory rate is 17, with sat of 96% on room air. The patient is afebrile and normothermic. No JVD with the head of the bed at about 40 degrees. Chest clear to auscultation, with normal expiratory phase. Heart rate and rhythm are regular, with normal-sounding S1 and S2 without any murmur or gallops. The abdomen is flat and soft, mild-mod tenderness. No clear bowel sounds. He has 1+ systemic edema. LABORATORY DATA: As below. Hb 8.9 after 1 u RBC this morning. Plat 108K. INR 0.9. Central venous gas this morning showed a base excess of +11. Chemistries this morning were notable for sodium of 136, potassium 3.3, BUN creatinine 22/1.5, phos 3.6, magnesium 1.9, and albumin of 2.5. Trop up to 3343. IMPRESSION: 1. Crohn's disease. 2. Recurrent hemorrhagic shock secondary to lower GI bleeding. It?s possible that the bleeder had no relationship to the patient's Crohn's disease or the anastomosis. Either way, the surgical resection took care of it. 3. Postop hemoperitoneum, with recurrent hemorrhagic shock. 2? dilutional coagulopathy vs bleeding diathesis 2? intrinsic coagulation defect. Consulted w Dr. Sevilla. Gave cryoprecipitate and another plat bag. We?ve sent off VW, platelet, and F13 assays. He?s edematous from all the products. Started on Lasix yesterday, gave another dose today. OOB to chair today. 4. Coagulopathy. Resolved post vitamin K and FFP. He?s had a full replacement dose of vitamin K. 5. Acute pain. Discussed at length w pharmacy. Next step would be switching to oral ketamine. An increase in his methadone dose is also a consideration. 6. ALLISON. Hypovolemia +/- ATN. Improving post volume resuscitation. 7. Metabolic. Ca, K+, and Mg need replacement. 8. ID: He is not septic. 9. Elevated troponin. NonSTEMI. Echo pending. Not a candidate for any kind of platelet inhib or anticoagulation. 10. Nutrition: Started TPN yesterday. Hope to start orals soon. Critical care time (including d/w surgeon, Dr. Alanis, and pharmacy: 60+ min Critical Care Time (minutes): 60 Physical Exam Vital Signs: Vital Signs: Last Vital Signs Temp 98.7 F 04/12/21 09:45 Pulse 80 04/12/21 14:30 Resp 16 04/12/21 14:00 BP 180/102 H 04/12/21 14:30 Pulse Ox 96 04/12/21 14:00 Body Mass Index 21.2 Objective Data Labs CBC & Chem 7: 04/12/21 19:41 04/12/21 19:41 Labs: Laboratory Results - last 24 hr 04/08/21 04/10/21 04/11/21 21:16 17:40 15:02 WBC RBC Hgb Hct MCV MCH MCHC RDW Plt Count MPV Absolute Nucleated RBC Nucleated RBC % (auto) PT INR VBG pH VBG pCO2 VBG pO2 VBG HCO3 VBG O2 Saturation VBG Base Excess Sodium Potassium Chloride Carbon Dioxide Anion Gap BUN Creatinine Estim Creat Clear Calc Estimated GFR Random Glucose Lactic Acid Calcium Phosphorus Magnesium Total Bilirubin AST ALT Alkaline Phosphatase Troponin I High Sens 1398.8 H* D Total Protein Albumin Stl Giardia Antigen SEE NOTE Blood Type O Positive Antibody Screen NEGATIVE Crossmatch See Detail 04/11/21 04/11/21 04/11/21 15:09 15:09 15:09 WBC 8.1 RBC 2.50 L Hgb 7.7 L Hct 22.1 L MCV 88.4 MCH 30.8 MCHC 34.8 RDW 13.9 Plt Count 92 L D MPV 9.9 Absolute Nucleated RBC 0.100 H Nucleated RBC % (auto) 1.2 H PT INR VBG pH VBG pCO2 VBG pO2 VBG HCO3 VBG O2 Saturation VBG Base Excess Sodium 140 Potassium 3.3 Chloride 106 Carbon Dioxide 27 Anion Gap 10 L BUN 23 H Creatinine 1.58 H Estim Creat Clear Calc 49.3 Estimated GFR 47 Random Glucose 93 Lactic Acid 0.7 Calcium 7.4 L D Phosphorus Magnesium 1.9 Total Bilirubin AST ALT Alkaline Phosphatase Troponin I High Sens Total Protein Albumin Stl Giardia Antigen Blood Type Antibody Screen Crossmatch 04/11/21 04/11/21 04/11/21 21:05 21:05 21:05 WBC 7.8 RBC 2.46 L Hgb 7.7 L Hct 21.8 L MCV 88.6 MCH 31.3 MCHC 35.3 RDW 13.9 Plt Count 114 L MPV 10.1 Absolute Nucleated RBC 0.150 H Nucleated RBC % (auto) 1.9 H PT INR VBG pH VBG pCO2 VBG pO2 VBG HCO3 VBG O2 Saturation VBG Base Excess Sodium Potassium Chloride Carbon Dioxide Anion Gap BUN Creatinine Estim Creat Clear Calc Estimated GFR Random Glucose Lactic Acid 0.7 Calcium Phosphorus Magnesium Total Bilirubin AST ALT Alkaline Phosphatase Troponin I High Sens 3512.7 H* D Total Protein Albumin Stl Giardia Antigen Blood Type Antibody Screen Crossmatch 04/12/21 04/12/21 04/12/21 07:10 07:10 07:10 WBC 8.7 RBC 2.33 L Hgb 7.2 L Hct 20.8 L* MCV 89.3 MCH 30.9 MCHC 34.6 RDW 13.8 Plt Count 108 L MPV 10.0 Absolute Nucleated RBC 0.090 H Nucleated RBC % (auto) 1.0 H PT INR VBG pH VBG pCO2 VBG pO2 VBG HCO3 VBG O2 Saturation VBG Base Excess Sodium 136 Potassium 3.3 Chloride 99 Carbon Dioxide 32 H Anion Gap 8 L BUN 22 H Creatinine 1.52 H Estim Creat Clear Calc 51.2 Estimated GFR 49 Random Glucose 123 H Lactic Acid 0.5 Calcium 7.3 L Phosphorus 3.6 Magnesium 1.9 Total Bilirubin 0.6 AST 26 D ALT 7 Alkaline Phosphatase 38 L Troponin I High Sens Total Protein 3.8 L Albumin 2.5 L Stl Giardia Antigen Blood Type Antibody Screen Crossmatch 04/12/21 04/12/21 04/12/21 07:10 07:15 13:02 WBC RBC Hgb 8.9 L D Hct 26.2 L D MCV MCH MCHC RDW Plt Count MPV Absolute Nucleated RBC Nucleated RBC % (auto) PT INR VBG pH 7.48 H VBG pCO2 47 VBG pO2 59 VBG HCO3 35 H VBG O2 Saturation 88.0 VBG Base Excess 11.2 Sodium Potassium Chloride Carbon Dioxide Anion Gap BUN Creatinine Estim Creat Clear Calc Estimated GFR Random Glucose Lactic Acid Calcium Phosphorus Magnesium Total Bilirubin AST ALT Alkaline Phosphatase Troponin I High Sens 3343.1 H* Total Protein Albumin Stl Giardia Antigen Blood Type Antibody Screen Crossmatch 04/12/21 13:02 WBC RBC Hgb Hct MCV MCH MCHC RDW Plt Count MPV Absolute Nucleated RBC Nucleated RBC % (auto) PT 10.9 INR 0.9 VBG pH VBG pCO2 VBG pO2 VBG HCO3 VBG O2 Saturation VBG Base Excess Sodium Potassium Chloride Carbon Dioxide Anion Gap BUN Creatinine Estim Creat Clear Calc Estimated GFR Random Glucose Lactic Acid Calcium Phosphorus Magnesium Total Bilirubin AST ALT Alkaline Phosphatase Troponin I High Sens Total Protein Albumin Stl Giardia Antigen Blood Type Antibody Screen Crossmatch Microbiology Microbiology Results: Microbiology 04/10/21 07:36 Blood - Venous Blood Culture - Preliminary No growth after 48 hours. 04/08/21 21:16 Stool Stool Culture - Final 04/10/21 Unknown Blood - Venous Blood Culture - Final Critical Care Time Critical Care Time (minutes): 60
[2021-04-12 15:24] LABS: Troponin-I High Sensitivity 3512.7 ng/L (<3.5-35.0)
[2021-04-12] MEDS: lisinopriL 10 MG TABLET PO (17:26)
--- NOTE | 2021-04-12 18:39 | PM.EVENT ---
Event Note Date of Service: 04/12/21 Event Note: still has pain issues but better no events reported looks more comfortable was sitting on the recliner earlier abd soft DEBI drain much less output, serosanguinous Hg 8.9 improving clinically follow Hg has remained hemodynamically stable
[2021-04-12] MEDS: HYDROmorphone HCl 2 MG/ML VIAL IVPUSH (19:34)
[2021-04-12] MEDS: Atorvastatin Calcium 80 MG TABLET PO (19:36)
[2021-04-12 20:01] LABS: Mean Corpuscular Volume 89.8 fL (80-98); PLT CLUMP 1
[2021-04-12 20:03] LABS: Hematocrit 27.4 % (42-52); Hemoglobin 9.3 g/dl (14.0-18.0); Mean Corpuscular HGB Conc 33.9 g/dl (31.0-36.0); Mean Corpuscular Hemoglobin 30.5 pg (27.0-33.0); Mean Platelet Volume 10.3 fL (9.4-12.4); NRBC Pct Auto 0.5 /100WBC (0.0-0.2); Platelet Count 124 X10*3/uL (160-400); Red Blood Count 3.05 X10*6/uL (4.60-5.80); Red Cell Distribution Width 13.7 % (11.0-16.0); White Blood Count 11.9 X10*3/uL (4.8-10.8)
[2021-04-12] MEDS: Ketamine HCl/NS 50 MG/5 ML SYRINGE 10 MG IVPUSH (20:31)
[2021-04-12 20:36] LABS: Anion Gap 10 (12-20); Carbon Dioxide 29 mmol/L (22-29); Chloride 100 mmol/L (96-108); Magnesium 2.3 mg/dL (1.6-2.6); Potassium 3.4 mmol/L (3.3-5.1); Sodium 136 mmol/L (135-145)
[2021-04-13] VITALS (33 sets, daily range): BP systolic 98–183; BP diastolic 59–102; PULSE 55–98; RESP 10–21; TEMP 36.4–37; O2SAT 95–99
--- NOTE | 2021-04-13 | ECG_ITS ---
Test Reason : RHYTHM CHECK Blood Pressure : / mmHG Vent. Rate : 066 BPM Atrial Rate : 066 BPM P-R Int : 144 ms QRS Dur : 086 ms QT Int : 446 ms P-R-T Axes : 058 019 -31 degrees QTc Int : 467 ms Normal sinus rhythm Possible Left atrial enlargement Left ventricular hypertrophy T wave abnormality, consider inferior ischemia Abnormal ECG When compared to the previous EKG of No significant changes seen Referred By: Chico Sahni Electronically Signed By:GAUDENCIO DYE MD
[2021-04-13] MEDS: 0.9 % Sodium Chloride Flush 3 ML SYRINGE IVFLUSH ×3 (00:01→15:05)
[2021-04-13] MEDS: Potassium Chloride/H20 40 MEQ/100 ML PIGGYBACK 50 MEQ IV ×2 (00:08→11:20)
[2021-04-13] MEDS: Hydrocortisone Sod Succ/PF 100 MG VIAL 50 MG IVPUSH ×2 (00:08→11:29)
[2021-04-13] MEDS: HYDROmorphone HCl 2 MG/ML VIAL IVPUSH (02:10)
[2021-04-13] MEDS: Nitroglycerin 2 % Oint 1 GM Packet 2 INCH TRANSDERMA ×3 (02:11→15:06)
--- NOTE | 2021-04-13 03:36 | PC.NURSE ---
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
[2021-04-13] MEDS: Pantoprazole Sodium 40 MG/10 ML VIAL IVPUSH (05:19)
[2021-04-13 05:31] LABS: VBG HCO3 23 mmol/L (22-26); VBG pCO2 35 mmHg; VBG pH 7.43 (7.32-7.43); VBG pO2 37 mmHg
[2021-04-13 05:56] LABS: Hemoglobin 10.2 g/dl (14.0-18.0); Mean Corpuscular Hemoglobin 30.4 pg (27.0-33.0); Mean Corpuscular Volume 89.3 fL (80-98); Mean Platelet Volume 9.9 fL (9.4-12.4); NRBC Pct Auto 0.3 /100WBC (0.0-0.2); Platelet Count 148 X10*3/uL (160-400); Red Blood Count 3.36 X10*6/uL (4.60-5.80); Red Cell Distribution Width 13.9 % (11.0-16.0); White Blood Count 13.7 X10*3/uL (4.8-10.8)
[2021-04-13 06:21] LABS: Albumin Level 3.3 g/dL (3.5-5.0); Anion Gap 12 (12-20); Blood Urea Nitrogen 24 mg/dL (9-16); Calcium 7.6 mg/dL (8.4-10.2); Carbon Dioxide 28 mmol/L (22-29); Chloride 101 mmol/L (96-108); Creatinine Clr Calc Pharmacy 48.1; Estimated Glomerular Filt Rate 46; Glucose Random 127 mg/dL (60-115); Magnesium 2.4 mg/dL (1.6-2.6); Phosphorus 3.5 mg/dL (2.7-4.5); Potassium 3.4 mmol/L (3.3-5.1); Sodium 138 mmol/L (135-145)
[2021-04-13 06:28] LABS: Troponin-I High Sensitivity 1009.8 ng/L (<3.5-35.0)
--- NOTE | 2021-04-13 07:27 | PM.PNGS ---
Subjective Subjective Date of Service: 04/13/21 Interval history: Patient feels more comfortable, no bowel movements over night. He is not sure if he is passing flatus. Physical Exam Vital Signs: Vital Signs: Last Vital Signs Temp 97.6 F 04/13/21 03:24 Pulse 66 04/13/21 06:00 Resp 16 04/13/21 06:41 BP 150/90 H 04/13/21 06:00 Pulse Ox 95 04/13/21 06:00 Body Mass Index 21.2 Const: General: cooperative Nutritional Appearance: thin Limitations: no limitations Resp: Effort & Inspection: normal respiratory effort, no stridor and not tachypneic GI: Other: Abdomen is flat, incisions clean, dry, and intact without redness or discharge. Peter-Contreras with serous fluid Skin: Other: Warm, dry Extrem: Other: No edema Progress Note: A&P Assessment and plan (1) Bleeding diathesis: Status: Acute (2) Lower gastrointestinal hemorrhage: Status: Acute Assessment and Plan: Status post right colectomy with ileocolonic anastomosis, re-exploration for intraperitoneal bleed with diffuse oozing identified. Patient currently with no evidence of ongoing bleeding. Incisions are clean and intact. H/H is 10/30. Okay to start clear liquids. Encouraged out of bed and deep breathing exercises. Fall Risk Details Current Medications: Current Medications Generic Name Dose Route Start Last Admin Trade Name Freq PRN Reason Stop Dose Admin Acetazolamide 500 mg 04/12/21 10:00 04/12/21 20:50 Acetazolamide Sodium 500 Mg Vial IVPUSH 500 mg Q12H LENORA Administration Albuterol Sulfate 2.5 mg 04/11/21 14:50 Albuterol Sulfate (0.083%) 2.5 Mg/3 Ml Vial.Neb INHALE Q2H PRN wheezing Amlodipine Besylate 5 mg 04/13/21 09:00 Amlodipine Besylate 5 Mg Tablet PO DAILY LENORA Atorvastatin Calcium 80 mg 04/11/21 21:00 04/12/21 19:36 Atorvastatin Calcium 80 Mg Tablet PO 80 mg BEDTIME LENORA Administration Hydrocortisone Sodium Succinate 50 mg 04/12/21 00:00 04/13/21 00:08 Hydrocortisone Sod Succ/Pf 100 Mg Vial IVPUSH 50 mg Q12H LENORA Administration Hydromorphone HCl 2 mg 04/11/21 05:45 04/13/21 02:10 Hydromorphone Hcl 2 Mg/Ml Vial IVPUSH 2 mg Q1H PRN Administration Pain, Severe (Pain Scale 7-10) Hydromorphone HCl 1 mg 04/11/21 05:50 Hydromorphone Hcl 1 Mg/Ml Syringe IVPUSH Q30M PRN Pain, Mild (Pain Scale 1-3) Ketamine HCl 500 mg/ Dextrose 255 mls @ 7.65 mls/hr 04/11/21 10:15 04/13/21 01:48 IVCONT 4.9 mg/hr .Q24H LENORA 2.5 mls/hr Infusion 15 MG/HR Lidocaine HCl/Dextrose 2 gm in 250 mls @ 11.25 mls/hr 04/11/21 16:00 04/12/21 17:50 IVCONT 0 mg/min .[id number] LENORA 0 mls/hr Infusion 1.5 MG/MIN Hydromorphone HCl 20 mg in 100 mls @ 0 mls/hr 04/11/21 18:45 04/13/21 06:41 Dilaudid IVCONT 1 mg/hr .Q0M LENORA 5 mls/hr Administration Protocol Per Protocol Potassium Chloride 40 meq/ 1,320 mls @ 55 mls/hr 04/12/21 18:00 04/12/21 18:19 Magnesium Sulfate 16 meq/ IVCONT 04/13/21 17:59 55 mls/hr Potassium Phosphate 30 mmol/ DAILY@1800 LENORA Administration Calcium Gluconate 9.3 meq/ Multivitamins 15 ml/ Trace Metals 1.5 ml/ Amino Acids/ Dextrose Ketamine HCl 10 mg 04/11/21 10:16 04/12/21 20:31 Ketamine Hcl/Ns 50 Mg/5 Ml Syringe IVPUSH 10 mg Q1H PRN Administration Pain, Severe (Pain Scale 7-10) Methadone HCl 80 mg 04/09/21 08:00 04/12/21 10:01 Methadone Hcl 1 Mg/0.1 Ml Oral.Conc PO 80 mg DAILY LENORA Administration Metoprolol Tartrate 25 mg 04/12/21 21:00 04/12/21 19:34 Metoprolol Tartrate 25 Mg Tablet PO 25 mg BID LENORA Administration Protocol Nicotine 14 mg 04/08/21 09:00 04/12/21 09:57 Nicotine 14 Mg Patch.Td24 TRANSDERMA 14 mg DAILY LENORA Administration Nitroglycerin 2 inch 04/12/21 09:00 04/13/21 02:11 Nitroglycerin 2 % Oint 1 Gm Packet TRANSDERMA 2 inch Q6H LENORA Administration Ondansetron HCl 4 mg 04/08/21 00:31 04/11/21 00:33 Ondansetron Hcl 4 Mg/2 Ml Vial IVPUSH 4 mg Q8H PRN Administration Nausea and Vomiting Pantoprazole Sodium 40 mg 04/11/21 06:30 04/13/21 05:19 Pantoprazole Sodium 40 Mg/10 Ml Vial IVPUSH 40 mg DAILY@0630 LENORA Administration Sodium Chloride 3 ml 04/08/21 00:31 04/13/21 00:01 0.9 % Sodium Chloride Flush 3 Ml Syringe IVFLUSH 3 ml QSHIFT LENORA Administration Time Spent With Patient Time: Total time spent is greater than 50% in coordination of care (as documented) at patient's floor/unit and/or counseling patient: Time with patient: 15 - 24 minutes Procedures Date of Service Date of Service: 04/13/21
[2021-04-13 08:01] LABS: Venous Blood Gas Refer to POC result
[2021-04-13 08:12] LABS: Triglycerides 131 mg/dL
[2021-04-13] MEDS: Nicotine 14 MG PATCH.TD24 TRANSDERMA (08:12)
[2021-04-13] MEDS: amLODIPine Besylate 5 MG TABLET PO (08:14)
[2021-04-13] MEDS: Metoprolol Tartrate 25 MG TABLET PO (08:14)
[2021-04-13] MEDS: acetaZOLAMIDE sodium 500 MG VIAL IVPUSH (09:29)
--- NOTE | 2021-04-13 10:05 | PM.PNCARD ---
Subjective Subjective Date of Service: 04/13/21 Principal diagnosis: NSTEMI Interval history: Patient seen and examined. Says yesterday had some palpitations. No chest discomfort. Blood pressure remains elevated. Abdominal discomfort is better currently. No shortness of breath, orthopnea, PND. No cardiac arrhythmias noted overnight. Echocardiogram shows normal LV systolic function with wall motion abnormality in RCA territory Review of Systems Constitutional: Reports no additional constitutional complaints Cardiovascular: Denies chest pain, Reports rapid heart rate, Denies lightheadedness and Denies Loss of Consciousness Respiratory: Reports no additional respiratory complaints Gastrointestinal: Reports no additional gastrointestinal complaints Reports system reviewed and no additional complaints, except as documented Psychiatric: Reports no additional psychiatric complaints Physical Exam Vital Signs: Last Vital Signs Temp 98.6 F 04/13/21 09:00 Pulse 89 04/13/21 09:00 Resp 12 04/13/21 09:00 BP 145/99 H 04/13/21 09:00 Pulse Ox 96 04/13/21 09:00 Body Mass Index 21.2 Const General: cooperative, comfortable, no acute distress, alert, awake and ill appearing Nutritional Appearance: thin Orientation/consciousness: patient oriented x3 Neck Neck: Yes trachea midline, Yes supple and Yes no JVD Resp Effort & Inspection: normal respiratory effort Auscultation: clear to auscultation bilaterally Cardio Jugular venous distension: no JVD Palpation: normal PMI Rate: regular rate Rhythm: regular rhythm Heart sounds: S1 normal heart sound present and S2 normal heart sound present GI Auscultation: Hypoactive bowel sounds present Skin General skin exam: no rashes or lesions noted Neuro General: patient oriented x3 Extrem General: Yes no clubbing, cyanosis or edema Results Labs and Meds Result diagrams: 04/13/21 05:25 04/13/21 05:25 Lab results: Laboratory Results - last 24 hr 04/10/21 04/11/21 04/12/21 17:40 21:05 13:02 WBC RBC Hgb 8.9 L D Hct 26.2 L D MCV MCH MCHC RDW Plt Count MPV Absolute Nucleated RBC Nucleated RBC % (auto) PT INR VBG pH VBG pCO2 VBG pO2 VBG HCO3 VBG O2 Saturation VBG Base Excess Sodium Potassium Chloride Carbon Dioxide Anion Gap BUN Creatinine Estim Creat Clear Calc Estimated GFR Random Glucose Calcium Phosphorus Magnesium Troponin I High Sens 3512.7 H* D Albumin Triglycerides Crossmatch See Detail 04/12/21 04/12/21 04/12/21 13:02 19:41 19:41 WBC 11.9 H RBC 3.05 L D Hgb 9.3 L Hct 27.4 L MCV 89.8 MCH 30.5 MCHC 33.9 RDW 13.7 Plt Count 124 L MPV 10.3 Absolute Nucleated RBC 0.060 H Nucleated RBC % (auto) 0.5 H PT 10.9 INR 0.9 VBG pH VBG pCO2 VBG pO2 VBG HCO3 VBG O2 Saturation VBG Base Excess Sodium 136 Potassium 3.4 Chloride 100 Carbon Dioxide 29 Anion Gap 10 L BUN Creatinine Estim Creat Clear Calc Estimated GFR Random Glucose Calcium Phosphorus Magnesium 2.3 Troponin I High Sens Albumin Triglycerides Crossmatch 04/12/21 04/13/21 04/13/21 19:41 05:24 05:25 WBC 13.7 H RBC 3.36 L Hgb Cancelled 10.2 L Hct Cancelled 30.0 L MCV 89.3 MCH 30.4 MCHC 34.0 RDW 13.9 Plt Count 148 L MPV 9.9 Absolute Nucleated RBC 0.040 H Nucleated RBC % (auto) 0.3 H PT INR VBG pH 7.43 VBG pCO2 35 VBG pO2 37 VBG HCO3 23 VBG O2 Saturation 68.0 VBG Base Excess 0.0 Sodium Potassium Chloride Carbon Dioxide Anion Gap BUN Creatinine Estim Creat Clear Calc Estimated GFR Random Glucose Calcium Phosphorus Magnesium Troponin I High Sens Albumin Triglycerides Crossmatch 04/13/21 04/13/21 05:25 05:25 WBC RBC Hgb Hct MCV MCH MCHC RDW Plt Count MPV Absolute Nucleated RBC Nucleated RBC % (auto) PT INR VBG pH VBG pCO2 VBG pO2 VBG HCO3 VBG O2 Saturation VBG Base Excess Sodium 138 Potassium 3.4 Chloride 101 Carbon Dioxide 28 Anion Gap 12 BUN 24 H Creatinine 1.62 H Estim Creat Clear Calc 48.1 Estimated GFR 46 Random Glucose 127 H Calcium 7.6 L Phosphorus 3.5 Magnesium 2.4 Troponin I High Sens 1009.8 H* D Albumin 3.3 L D Triglycerides 131 Crossmatch Progress Note: A&P Assessment and plan (1) NSTEMI (non-ST elevated myocardial infarction): Status: Acute Assessment and Plan: Non ST-elevation myocardial infarction secondary to hemorrhagic shock as well as major surgery. Clinically doing okay with no symptoms of angina. Echocardiogram shows normal LV systolic function with RCA territory wall motion abnormality. Blood pressure remains elevated. Will switch metoprolol to labetalol 200 mg b.i.d.. Continue Norvasc 5 mg daily nitro paste. Continue statin therapy. Hematocrit has improved with transfusion. Continue to trend the same. Renal function has improved marginally. If remains stable may consider adding lisinopril to his regimen as well. Once his medical/surgical condition has improved and he is off IV drips, will pursue noninvasive testing with vasodilating myocardial perfusion imaging, most likely happen early next week. Will continue to follow with the patient. Fall Risk Details Current Medications: Current Medications Generic Name Dose Route Start Last Admin Trade Name Freq PRN Reason Stop Dose Admin Acetazolamide 500 mg 04/12/21 10:00 04/13/21 09:29 Acetazolamide Sodium 500 Mg Vial IVPUSH 500 mg Q12H [facility]EN[facility]A Administration Albuterol Sulfate 2.5 mg 04/11/21 14:50 Albuterol Sulfate (0.083%) 2.5 Mg/3 Ml Vial.Neb INHALE Q2H PRN wheezing Amlodipine Besylate 5 mg 04/13/21 09:00 04/13/21 08:14 Amlodipine Besylate 5 Mg Tablet PO 5 mg DAILY LENORA Administration Atorvastatin Calcium 80 mg 04/11/21 21:00 04/12/21 19:36 Atorvastatin Calcium 80 Mg Tablet PO 80 mg BEDTIME LENORA Administration Hydrocortisone Sodium Succinate 50 mg 04/12/21 00:00 04/13/21 00:08 Hydrocortisone Sod Succ/Pf 100 Mg Vial IVPUSH 50 mg Q12H LENORA Administration Hydromorphone HCl 2 mg 04/11/21 05:45 04/13/21 02:10 Hydromorphone Hcl 2 Mg/Ml Vial IVPUSH 2 mg Q1H PRN Administration Pain, Severe (Pain Scale 7-10) Hydromorphone HCl 1 mg 04/11/21 05:50 Hydromorphone Hcl 1 Mg/Ml Syringe IVPUSH Q30M PRN Pain, Mild (Pain Scale 1-3) Ketamine HCl 500 mg/ Dextrose 255 mls @ 7.65 mls/hr 04/11/21 10:15 04/13/21 09:52 IVCONT 4.9 mg/hr .Q24H LENORA 2.5 mls/hr Administration 15 MG/HR Lidocaine HCl/Dextrose 2 gm in 250 mls @ 11.25 mls/hr 04/11/21 16:00 04/12/21 17:50 IVCONT 0 mg/min .[id number] LENORA 0 mls/hr Infusion 1.5 MG/MIN Hydromorphone HCl 20 mg in 100 mls @ 0 mls/hr 04/11/21 18:45 04/13/21 06:41 Dilaudid IVCONT 1 mg/hr .Q0M LENORA 5 mls/hr Administration Protocol Per Protocol Potassium Chloride 40 meq/ 1,320 mls @ 55 mls/hr 04/12/21 18:00 04/12/21 18:19 Magnesium Sulfate 16 meq/ IVCONT 04/13/21 17:59 55 mls/hr Potassium Phosphate 30 mmol/ DAILY@1800 LENORA Administration Calcium Gluconate 9.3 meq/ Multivitamins 15 ml/ Trace Metals 1.5 ml/ Amino Acids/ Dextrose Ketamine HCl 10 mg 04/11/21 10:16 04/12/21 20:31 Ketamine Hcl/Ns 50 Mg/5 Ml Syringe IVPUSH 10 mg Q1H PRN Administration Pain, Severe (Pain Scale 7-10) Labetalol HCl 200 mg 04/13/21 09:45 Labetalol Hcl 200 Mg Tablet PO BID [facility] Protocol Methadone HCl 80 mg 04/09/21 08:00 04/13/21 08:09 Methadone Hcl 1 Mg/0.1 Ml Oral.Conc PO 80 mg DAILY LENORA Administration Nicotine 14 mg 04/08/21 09:00 04/13/21 08:12 Nicotine 14 Mg Patch.Td24 TRANSDERMA 14 mg DAILY LENORA Administration Nitroglycerin 2 inch 04/12/21 09:00 04/13/21 08:16 Nitroglycerin 2 % Oint 1 Gm Packet TRANSDERMA 2 inch Q6H [facility] Administration Ondansetron HCl 4 mg 04/08/21 00:31 04/11/21 00:33 Ondansetron Hcl 4 Mg/2 Ml Vial IVPUSH 4 mg Q8H PRN Administration Nausea and Vomiting Pantoprazole Sodium 40 mg 04/11/21 06:30 04/13/21 05:19 Pantoprazole Sodium 40 Mg/10 Ml Vial IVPUSH 40 mg DAILY@0630 LENORA Administration Sodium Chloride 3 ml 04/08/21 00:31 04/13/21 08:10 0.9 % Sodium Chloride Flush 3 Ml Syringe IVFLUSH 3 ml QSHIFT LENORA Administration Time Spent With Patient Time: Total time spent is greater than 50% in coordination of care (as documented) at patient's floor/unit and/or counseling patient: Time with patient: 15 - 24 minutes Procedures Date of Service Date of Service: 04/13/21
[2021-04-13] MEDS: Labetalol HCL 200 MG TABLET PO ×2 (10:18→20:30)
--- NOTE | 2021-04-13 11:13 | MHC.CLN ---
F/U TPN CURRENTLY RUNNING RECOMMEND INCREASING D15 AA5% TO 75CC/HR WITH 17ML OF 20% LIPIDS X 12 HRS TO PROVIDE 1686 TOTAL KCALS (27KCALS/KG), 90G PROTEIN (1.5G/KG) DISCUSSED WITH PHARMACY, REPLETE LYTES NEEDED; HOLDING Na PER DR GEORGES FOLLOWING
[2021-04-13] MEDS: Calcium Gluconate/NaCl,Iso-Osm 2 GM/100 ML PLAST..BAG IV (12:10)
--- NOTE | 2021-04-13 12:40 | P.PNCC_ITS ---
Subjective Subjective Date of Service: 04/13/21 Interval History: Mr. Cornejo was transferred to the ICU on April 08 bec of hemorrhagic shock 2? lower GI bleed. The patient is a 51-year-old gentleman with underlying history of Crohn?s disease, psoriasis, and chronic methadone use for chronic pain. 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 15 years ago. He takes Humira and budesonide. Never had lower GI bleeding before. Colonoscopy some months ago was negative except for narrowing of the anastomotic site. About a month ago, he had a few streaks of blood in his stool which went away, and did not recur. The patient presented to the ED on April 07 complaining of 2 days of red bloody diarrhea, dizziness, shortness of breath, and a clammy feeling. He had not been eating and drinking normally and had unintentional weight loss of 25 lb over the prior few months. In the ED, the patient was tachycardic and hypotensive. Labs were notable for Hb 7.8, normal coags, BUN and creatinine of 18/1.4 (no baseline), normal LFTs, and albumin of 3.0. No lactic acid was done. He was admitted to medicine and transfused 2 units of packed red cells. Over the next 2 days, the patient had multiple bleeds with recurrent episodes of hemorrhagic shock for which she was transferred to the ICU and treated with red cells and FFP, culminating in colonoscopy in the adhesion tester of April 10, at which he was found to have an arterial pumper near the anastomotic site. It was unable to be controlled by Dr. De La Torre, therefore the patient underwent laparotomy and right colectomy with primary ileocolonic anastomosis by doctor Simmons. At surgery, Dr. Simmons identified a significant area of inflammation in the distal ileum/colonic anastomosis, but there was no active Crohn's disease proximal to that in the ileum. The patient did well in the initial hours postoperatively but that then developed recurrent hypotension and hemorrhagic shock. Abd CT showed large hemoperitoneum. He was taken back to the OR for E-lap by Dr. Rivas, at which he was found to have large hemoperitoneum. About 2500 cc blood was evacuated. No specific bleeding site was found, more a general ooze from mult surfaces, thought secondary to dilutional coagulopathy. The patient was given more products including FFP, cryoprecipitate, and platelets, plus TXA. The patient was extubated and returned to the ICU in the adhesion tester of April 11. Since then the patient?s course has been stable, with the following four issues: #1 - The night of April 10, he bumped his troponin and had some T wave inversion. Peak trop was in the 3000 range. His EKG normalized by the next morning. Echo showed regional wall motion abnormalities in the basal inferior inferoseptal segment in RCA territory. The patient never had any chest pain. He was given statin and beta cristobal, but could not be given ASA or anticoagulation. Being followed by Dr. Alanis. #2 - Uncontrolled HTN in the 190/110 range. We?ve now got him on amlodipine, labetolol, and NTP with BP down to the 120/80 range. #3 - Post op pain was difficult to control, requiring WET PROCESS TECHNICIAN Dilaudid, up to 6mg/hr; ketamine infusion up to 15 mg/hr; and lidocaine infusion up to 1.5 mg/min. He?s much improved now, and the ketamine and lidoc are off. He?s been up and walking around today. His WET PROCESS TECHNICIAN is now set to ? mg Dilaudid per WET PROCESS TECHNICIAN dose, lockout interval 10 min, max 6 doses per hour, ho basal rate. The patient has b een getting his usual 80 mg daily oral dose of methadone every day that he?s been here. #4 - He bumped his renal indices. I anticipate that eventually they?ll return to normal. I?ve diuresed him the last two days, but I?m holding further Lasix today. Respiratory status has never been an issue, he?s been on room air almost his entire ICU course. His belly is less tender today, he?s passing flatus, and has excellent bowel sounds. We gave him TPN for 3 days; today is the last day and he started taking full liquids this morning with no problem. LABORATORY DATA: As below. BUN/creat up slightly today to 24/1.6. IMPRESSION: 1. Crohn's disease. 2. Recurrent hemorrhagic shock secondary to lower GI bleeding. It?s possible that the original bleeder had no relationship to the patient's Crohn's disease or the anastomosis. Either way, the surgical resection took care of it. 3. Postop hemoperitoneum, with recurrent hemorrhagic shock. 2? dilutional coagulopathy vs bleeding diathesis 2? intrinsic coagulation defect. Consulted w Dr. Sevilla. Gave cryoprecipitate and more platelets and since then no problems. We?ve sent off VW, platelet, and F13 assays. He?s edematous from all the pro ducts. OOB and walking today. 4. Coagulopathy. Resolved post vitamin K and FFP. He?s had a full replacement dose of vitamin K. 5. Acute pain. Discussed above. 6. ALLISON. Hypovolemia +/- ATN. Improving post volume resuscitation. 7. ID: He is not septic. 8. Elevated troponin. NonSTEMI. Discussed above. F/u with Dr. Alanis. 9. Nutrition: Started TPN 04/11. Got 3 days worth. Started oral feeds today. Stable for transfer to [facility]. Will sign out to hospitalists. Time: 50 min. ([id number]) Critical Care Time (minutes): 0 Physical Exam Vital Signs: Vital Signs: Last Vital Signs Temp 98.6 F 04/13/21 11:55 Pulse 74 04/13/21 11:55 Resp 10 L 04/13/21 11:55 BP 122/81 04/13/21 11:55 Pulse Ox 95 04/13/21 11:55 Body Mass Index 21.2 Objective Data Labs CBC & Chem 7: 04/13/21 05:25 04/13/21 05:25 Labs: Laboratory Results - last 24 hr 04/10/21 04/11/21 04/12/21 17:40 21:05 13:02 WBC RBC Hgb 8.9 L D Hct 26.2 L D MCV MCH MCHC RDW Plt Count MPV Absolute Nucleated RBC Nucleated RBC % (auto) PT INR VBG pH VBG pCO2 VBG pO2 VBG HCO3 VBG O2 Saturation VBG Base Excess Sodium Potassium Chloride Carbon Dioxide Anion Gap BUN Creatinine Estim Creat Clear Calc Estimated GFR Random Glucose Calcium Phosphorus Magnesium Troponin I High Sens 3512.7 H* D Albumin Triglycerides Crossmatch See Detail 04/12/21 04/12/21 04/12/21 13:02 19:41 19:41 WBC 11.9 H RBC 3.05 L D Hgb 9.3 L Hct 27.4 L MCV 89.8 MCH 30.5 MCHC 33.9 RDW 13.7 Plt Count 124 L MPV 10.3 Absolute Nucleated RBC 0.060 H Nucleated RBC % (auto) 0.5 H PT 10.9 INR 0.9 VBG pH VBG pCO2 VBG pO2 VBG HCO3 VBG O2 Saturation VBG Base Excess Sodium 136 Potassium 3.4 Chloride 100 Carbon Dioxide 29 Anion Gap 10 L BUN Creatinine Estim Creat Clear Calc Estimated GFR Random Glucose Calcium Phosphorus Magnesium 2.3 Troponin I High Sens Albumin Triglycerides Crossmatch 04/12/21 04/13/21 04/13/21 19:41 05:24 05:25 WBC 13.7 H RBC 3.36 L Hgb Cancelled 10.2 L Hct Cancelled 30.0 L MCV 89.3 MCH 30.4 MCHC 34.0 RDW 13.9 Plt Count 148 L MPV 9.9 Absolute Nucleated RBC 0.040 H Nucleated RBC % (auto) 0.3 H PT INR VBG pH 7.43 VBG pCO2 35 VBG pO2 37 VBG HCO3 23 VBG O2 Saturation 68.0 VBG Base Excess 0.0 Sodium Potassium Chloride Carbon Dioxide Anion Gap BUN Creatinine Estim Creat Clear Calc Estimated GFR Random Glucose Calcium Phosphorus Magnesium Troponin I High Sens Albumin Triglycerides Crossmatch 04/13/21 04/13/21 05:25 05:25 WBC RBC Hgb Hct MCV MCH MCHC RDW Plt Count MPV Absolute Nucleated RBC Nucleated RBC % (auto) PT INR VBG pH VBG pCO2 VBG pO2 VBG HCO3 VBG O2 Saturation VBG Base Excess Sodium 138 Potassium 3.4 Chloride 101 Carbon Dioxide 28 Anion Gap 12 BUN 24 H Creatinine 1.62 H Estim Creat Clear Calc 48.1 Estimated GFR 46 Random Glucose 127 H Calcium 7.6 L Phosphorus 3.5 Magnesium 2.4 Troponin I High Sens 1009.8 H* D Albumin 3.3 L D Triglycerides 131 Crossmatch Microbiology Microbiology Results: Microbiology 04/10/21 07:36 Blood - Venous Blood Culture - Preliminary No growth after 48 hours. 04/08/21 21:16 Stool Stool Culture - Final 04/10/21 Unknown Blood - Venous Blood Culture - Final
--- NOTE | 2021-04-13 12:55 | PM.EVENT ---
Event Note Date of Service: 04/13/21 Event Note: pt appears to have improving pain control no events reported vital signs have been stable abd soft he looks comfortable DEBI drain now with serous output hold anticoagulation
[2021-04-13] MEDS: Fat Emulsions 20% 250 ML 17 ML IVCONT (18:03)
[2021-04-13] MEDS: Atorvastatin Calcium 80 MG TABLET PO (20:30)
[2021-04-14] VITALS (19 sets, daily range): BP systolic 103–160; BP diastolic 63–89; PULSE 63–87; RESP 16–116; TEMP 36.4–37.2; O2SAT 97–99
[2021-04-14 06:59] LABS: Hematocrit 27.5 % (42-52); Hemoglobin 9.3 g/dl (14.0-18.0); Mean Corpuscular HGB Conc 33.8 g/dl (31.0-36.0); Mean Corpuscular Hemoglobin 30.8 pg (27.0-33.0); Mean Corpuscular Volume 91.1 fL (80-98); Mean Platelet Volume 10.6 fL (9.4-12.4); NRBC Pct Auto 0.3 /100WBC (0.0-0.2); Platelet Count 209 X10*3/uL (160-400); Red Blood Count 3.02 X10*6/uL (4.60-5.80); Red Cell Distribution Width 14.6 % (11.0-16.0); White Blood Count 10.8 X10*3/uL (4.8-10.8)
[2021-04-14 07:31] LABS: Albumin Level 2.8 g/dL (3.5-5.0); Anion Gap 14 (12-20); Blood Urea Nitrogen 30 mg/dL (9-16); Calcium 7.5 mg/dL (8.4-10.2); Carbon Dioxide 19 mmol/L (22-29); Chloride 106 mmol/L (96-108); Creatinine Clr Calc Pharmacy 46.6; Estimated Glomerular Filt Rate 44; Glucose Random 110 mg/dL (60-115); Magnesium 2.1 mg/dL (1.6-2.6); Phosphorus 3.5 mg/dL (2.7-4.5); Potassium 3.4 mmol/L (3.3-5.1); Sodium 136 mmol/L (135-145)
[2021-04-14] MEDS: amLODIPine Besylate 5 MG TABLET PO (09:29)
[2021-04-14] MEDS: Labetalol HCL 200 MG TABLET PO (09:30)
[2021-04-14] MEDS: Nicotine 14 MG PATCH.TD24 TRANSDERMA (09:30)
--- NOTE | 2021-04-14 10:58 | P.PNIM_ITS ---
Subjective Subjective Date of Service: 04/14/21 Interval History: pain, no bm yet Cardiovascular Cardiovascular: Reports no additional cardiovascular complaints Gastrointestinal Gastrointestinal: Reports no additional gastrointestinal complaints Physical Exam Vital Signs: Vital Signs: Last Vital Signs Temp 99.0 F 04/14/21 03:38 Pulse 77 04/14/21 09:30 Resp 16 04/14/21 08:00 BP 130/74 04/14/21 09:30 Pulse Ox 99 04/14/21 08:00 Body Mass Index 21.2 General: AO X 3, no acute distress, frail Resp: CTA bilateral CVS: S1,S2,RRR GI: soft, drain in place Neuro: motor grossly intact Psych: appropriate affect Objective Data Current Medications Generic Name Dose Route Start Last Admin Trade Name Freq PRN Reason Stop Dose Admin Amlodipine Besylate 5 mg 04/13/21 09:00 04/14/21 09:29 Amlodipine Besylate 5 Mg Tablet PO 5 mg DAILY LENORA Administration Atorvastatin Calcium 80 mg 04/11/21 21:00 04/13/21 20:30 Atorvastatin Calcium 80 Mg Tablet PO 80 mg BEDTIME LENORA Administration Hydromorphone HCl 20 mg in 100 mls @ 0 mls/hr 04/11/21 18:45 04/14/21 05:34 Dilaudid IVCONT 0.5 mg/hr .Q0M LENORA 2.5 mls/hr Infusion Protocol Per Protocol Labetalol HCl 200 mg 04/13/21 09:45 04/14/21 09:30 Labetalol Hcl 200 Mg Tablet PO 200 mg BID LENORA Administration Protocol Methadone HCl 80 mg 04/09/21 08:00 04/14/21 09:29 Methadone Hcl 1 Mg/0.1 Ml Oral.Conc PO 80 mg DAILY LENORA Administration Nicotine 14 mg 04/08/21 09:00 04/14/21 09:30 Nicotine 14 Mg Patch.Td24 TRANSDERMA 14 mg DAILY LENORA Administration Nitroglycerin 2 inch 04/12/21 09:00 04/14/21 09:42 Nitroglycerin 2 % Oint 1 Gm Packet TRANSDERMA Not Given Q6H [facility] Sodium Chloride 3 ml 04/08/21 00:31 04/14/21 09:25 0.9 % Sodium Chloride Flush 3 Ml Syringe IVFLUSH Not Given QSHIFT [facility] Labs CBC & Chem 7: 04/14/21 05:51 04/14/21 05:51 Microbiology Microbiology Results: Microbiology 04/10/21 07:36 Blood - Venous Blood Culture - Preliminary No growth after 48 hours. 04/08/21 21:16 Stool Stool Culture - Final 04/10/21 Unknown Blood - Venous Blood Culture - Final Assessment and Plan (1) NSTEMI (non-ST elevated myocardial infarction): Status: Acute Assessment and Plan: 51M presented with hematochezia, initially admitted to medical floor, but next morning started bleeding briskly, became unstable, hgb decreased to 5.5, was transfered to ICU, received multiple tranfusions, colonoscopy 04/10/21 revealed Actively bleeding Dieulafoy lesion of ascending colon, received epi and sclerotherapy and was transferred to OR for Exploratory laparotomy, right colectomy with ileocolonic anastomosis. hgb then dropped again to 5.7 and patient became tachycardiac on 04/11/21 he underwent Exploratory laparotomy, evacuation of hemoperitoneum, over-saw of oozing areas in the right gutter, placement of Surgicel in the retroperitoneal surface, course complicated by NSTEMI, troponins peaked at 3500, felt to by type II [place], will need ischemic work up as outpaitnet. also complicated by ALLISON, due to hypoperfusion, creatinine now stable around 1.6. patient now stable, transfered to medical floor 04/13/21. acute blood loss anemia due to crohns flare with bleeding dieuloafoy lesion s/p surgery hgb stable monitor wean off dilaudid on clears, monitor stools NSTEMI type II outpatient ischemic work up ALLISON stable, monitor HTN amlodipine labeltolol
--- NOTE | 2021-04-14 11:20 | PM.PNGS ---
Subjective Subjective Date of Service: 04/14/21 Interval history: Out of bed to chair this morning. He reports that he feels weak. Had significant abdominal pain this morning that was crampy in nature. Better now. Passing flatus. No bowel movement. Tolerating full liquid diet. Physical Exam Vital Signs: Vital Signs: Last Vital Signs Temp 99.0 F 04/14/21 03:38 Pulse 77 04/14/21 09:30 Resp 16 04/14/21 08:00 BP 130/74 04/14/21 09:30 Pulse Ox 99 04/14/21 08:00 Body Mass Index 21.2 Laboratory Results - last 24 hr 04/10/21 04/14/21 04/14/21 17:40 05:51 05:51 WBC 10.8 RBC 3.02 L Hgb 9.3 L Hct 27.5 L MCV 91.1 MCH 30.8 MCHC 33.8 RDW 14.6 Plt Count 209 D MPV 10.6 Absolute Nucleated RBC 0.030 H Nucleated RBC % (a uto) 0.3 H Sodium 136 Potassium 3.4 Chloride 106 Carbon Dioxide 19 L Anion Gap 14 BUN 30 H Creatinine 1.67 H Estim Creat Clear Calc 46.6 Estimated GFR 44 Random Glucose 110 Calcium 7.5 L Phosphorus 3.5 Magnesium 2.1 Albumin 2.8 L Crossmatch See Detail Const: Other: Alert, looks tired, no acute distress Resp: Effort & Inspection: normal respiratory effort Auscultation: clear to auscultation bilaterally Cardio: Rate: regular rate Rhythm: regular rhythm GI: Other: Nondistended, hypoactive bowel sounds, incision clean and dry. DEBI output serosanguineous. Skin: Other: Warm and dry Progress Note: A&P Assessment and plan (1) Crohn's colitis: Status: Acute (2) Lower gastrointestinal hemorrhage: Status: Acute (3) Bleeding diathesis: Status: Acute Assessment and Plan: 51-year-old male status post right colectomy for bleeding secondary to Crohn's colitis. Postoperative course complicated by bleeding requiring return to the operating room, no evidence of recurrent bleeding. Improving slowly postoperatively. Remains on TPN. Tolerating full liquid diet. Will advance to solid diet today. If he does well with this, he can stop TPN. Remains on Dilaudid ELEVATOR MECHANIC APPRENTICE. Had difficulty with acute pain this morning, so will continue on ELEVATOR MECHANIC APPRENTICE for now, but likely will switch to oral regimen with IV backup tomorrow. Continue usual methadone dose. Discussed with him. Non ST elevation [place], being followed by Cardiology, Dr. Alanis. Plan is for noninvasive testing once he has recovered adequately postoperatively. Fall Risk Details Current Medications: Current Medications Generic Name Dose Route Start Last Admin Trade Name Christopher PRN Reason Stop Dose Admin Amlodipine Besylate 5 mg 04/13/21 09:00 04/14/21 09:29 Amlodipine Besylate 5 Mg Tablet PO 5 mg DAILY L[facility]ORA Administration Atorvastatin Calcium 80 mg 04/11/21 21:00 04/13/21 20:30 Atorvastatin Calcium 80 Mg Tablet PO 80 mg BEDTIME L[facility]ORA Administration Hydromorphone HCl 20 mg in 100 mls @ 0 mls/hr 04/11/21 18:45 04/14/21 05:34 Dilaudid IVCONT 0.5 mg/hr .Q0M [facility] 2.5 mls/hr Infusion Protocol Per Protocol Labetalol HCl 200 mg 04/13/21 09:45 04/14/21 09:30 Labetalol Hcl 200 Mg Tablet PO 200 mg BID LEN[facility]A Administration Protocol Methadone HCl 80 mg 04/09/21 08:00 04/14/21 09:29 Methadone Hcl 1 Mg/0.1 Ml Oral.Conc PO 80 mg DAILY LENORA Administration Nicotine 14 mg 04/08/21 09:00 04/14/21 09:30 Nicotine 14 Mg Patch.Td24 TRANSDERMA 14 mg DAILY LENORA Administration Nitroglycerin 2 inch 04/12/21 09:00 04/14/21 09:42 Nitroglycerin 2 % Oint 1 Gm Packet TRANSDERMA Not Given Q6H [facility] Sodium Chloride 3 ml 04/08/21 00:31 04/14/21 09:25 0.9 % Sodium Chloride Flush 3 Ml Syringe IVFLUSH Not Given QSHIFT LENORA Time Spent With Patient Time: Total time spent is greater than 50% in coordination of care (as documented) at patient's floor/unit and/or counseling patient: Time with patient: 15 - 24 minutes Procedures Date of Service Date of Service: 04/14/21
--- NOTE | 2021-04-14 13:08 | PM.PNCARD ---
Subjective Subjective Date of Service: 04/14/21 Principal diagnosis: NSTEMI Interval history: No cardiac symptoms to report. Blood pressure is much better controlled. Review of Systems Constitutional: Reports weakness Cardiovascular: Reports no additional cardiovascular complaints Respiratory: Reports no additional respiratory complaints Reports system reviewed and no additional complaints, except as documented and Reports weakness Psychiatric: Reports no additional psychiatric complaints Endocrine: Reports no additional endocrine complaints Physical Exam Vital Signs: Last Vital Signs Temp 97.5 F 04/14/21 11:55 Pulse 85 04/14/21 11:55 Resp 19 04/14/21 11:55 BP 111/74 04/14/21 11:55 Pulse Ox 98 04/14/21 11:55 Body Mass Index 21.2 Const General: cooperative, comfortable, no acute distress, alert, awake and tired appearing Nutritional Appearance: thin Orientation/consciousness: patient oriented x3 Neck Neck: Yes trachea midline, Yes supple and Yes no JVD Resp Effort & Inspection: normal respiratory effort Auscultation: clear to auscultation bilaterally Cardio Jugular venous distension: no JVD Palpation: normal PMI Rate: regular rate Rhythm: regular rhythm Heart sounds: S1 normal heart sound present and S2 normal heart sound present Neuro General: patient oriented x3 Extrem General: Yes no clubbing, cyanosis or edema Results Labs and Meds Result diagrams: 04/14/21 05:51 04/14/21 05:51 Lab results: Laboratory Results - last 24 hr 04/10/21 04/14/21 04/14/21 17:40 05:51 05:51 WBC 10.8 RBC 3.02 L Hgb 9.3 L Hct 27.5 L MCV 91.1 MCH 30.8 MCHC 33.8 RDW 14.6 Plt Count 209 D MPV 10.6 Absolute Nucleated RBC 0.030 H Nucleated RBC % (auto) 0.3 H Sodium 136 Potassium 3.4 Chloride 106 Carbon Dioxide 19 L Anion Gap 14 BUN 30 H Creatinine 1.67 H Estim Creat Clear Calc 46.6 Estimated GFR 44 Random Glucose 110 Calcium 7.5 L Phosphorus 3.5 Magnesium 2.1 Albumin 2.8 L Crossmatch See Detail Progress Note: A&P Assessment and plan (1) NSTEMI (non-ST elevated myocardial infarction): Status: Acute Assessment and Plan: Blood pressure is doing extremely well. No cardiac symptoms actively at this point time. Continue medical management. Continue labetalol and Norvasc at current dose. Switch nitro paste to isosorbide mononitrate 30 mg b.i.d.. Continue statin therapy. Discussed with surgery, and they say patient is okay with low-dose aspirin therapy at this point time. Can be started. Myocardial ischemic workup prior to discharge will be done early next week. Continue supportive care. Continue care for his underlying medical/surgical issues. Fall Risk Details Current Medications: Current Medications Generic Name Dose Route Start Last Admin Trade Name Christopher PRN Reason Stop Dose Admin Amlodipine Besylate 5 mg 04/13/21 09:00 04/14/21 09:29 Amlodipine Besylate 5 Mg Tablet PO 5 mg DAILY LENORA Administration Atorvastatin Calcium 80 mg 04/11/21 21:00 04/13/21 20:30 Atorvastatin Calcium 80 Mg Tablet PO 80 mg BEDTIME LENORA Administration Hydromorphone HCl 20 mg in 100 mls @ 0 mls/hr 04/11/21 18:45 04/14/21 05:34 Dilaudid IVCONT 0.5 mg/hr .Q0M LENORA 2.5 mls/hr Infusion Protocol Per Protocol Isosorbide Mononitrate 30 mg 04/14/21 21:00 Isosorbide Mononitrate 30 Mg Tab.Er.24h PO BID LENORA Protocol Labetalol HCl 200 mg 04/13/21 09:45 04/14/21 09:30 Labetalol Hcl 200 Mg Tablet PO 200 mg BID LENORA Administration Protocol Methadone HCl 80 mg 04/09/21 08:00 04/14/21 09:29 Methadone Hcl 1 Mg/0.1 Ml Oral.Conc PO 80 mg DAILY LENORA Administration Nicotine 14 mg 04/08/21 09:00 04/14/21 09:30 Nicotine 14 Mg Patch.Td24 TRANSDERMA 14 mg DAILY L[facility]ORA Administration Sodium Chloride 3 ml 04/08/21 00:31 04/14/21 09:25 0.9 % Sodium Chloride Flush 3 Ml Syringe IVFLUSH Not Given QSHIFT LENORA Time Spent With Patient Time: Total time spent is greater than 50% in coordination of care (as documented) at patient's floor/unit and/or counseling patient: Time with patient: 15 - 24 minutes Procedures Date of Service Date of Service: 04/14/21
[2021-04-14] MEDS: Aspirin Enteric Coated 81 MG TABLET.DR PO (14:08)
--- NOTE | 2021-04-14 16:27 | PC.NURSE ---
PT moved his bowels today. Stools were watery with dark red blood. No coffee ground appearance. Dr. Wyman made aware. Will continue to monitor as it could be old blood.
[2021-04-14] MEDS: 0.9 % Sodium Chloride Flush 3 ML SYRINGE IVFLUSH (17:04)
[2021-04-14] MEDS: Atorvastatin Calcium 80 MG TABLET PO (22:23)
[2021-04-15] VITALS (17 sets, daily range): BP systolic 117–140; BP diastolic 69–84; PULSE 70–89; RESP 16–20; TEMP 36.8–37.6; O2SAT 97–100
--- NOTE | 2021-04-15 | CA_ITS ---
Acquisition Time: 2021-04-16 10:24:47 Total Exercise Time: 00:02:00 Test Indications: NSTEMI Medications: SEE CHART Protocol: LEXISCAN Max HR: 107 BPM 62% of Pred: 171 BPM Max BP: 112/068 mmHG Max Work Load: 1.0 METS Pharmacological stress test with Lexiscan injection, while sitting and kicking his legs, without anginal symptoms, without arrythmia, with normotensive response to injection, with nondiagnostic EKG for ischemia. At 7 min recovery his SBP was noted to be 88 and he was then Treated with Aminophylline 75mg IVP to reverse Lexiscan with no significant change in BP. He was then given a 100cc bolus of normal saline ( 50cc given during first part of test) with improvement in BP back to near baseline. Nuclear images pending. Test reviewed with Dr Anders. Referred By: Donovan Alanis Overread By: INOCENCIA WEBSTER
--- NOTE | 2021-04-15 04:52 | PC.NURSE ---
At 0400 rounds this RN noticed that RESPIRATORY COORDINATOR pump was not recording boluses properly, and not showing boluses that had preciously showed. nursing supervisor metal placing at bedside and had been at bed side previously and witnessed previous recording that are not showing at this time. pt reports feeling relief from pain, states he hears pump running when he pressed his button. RESPIRATORY COORDINATOR pump changed out. Will cont to monitor
[2021-04-15 07:15] LABS: Hematocrit 28.3 % (42-52); Hemoglobin 9.3 g/dl (14.0-18.0); Mean Corpuscular HGB Conc 32.9 g/dl (31.0-36.0); Mean Corpuscular Hemoglobin 30.4 pg (27.0-33.0); Mean Corpuscular Volume 92.5 fL (80-98); Mean Platelet Volume 10.7 fL (9.4-12.4); Platelet Count 229 X10*3/uL (160-400); Red Blood Count 3.06 X10*6/uL (4.60-5.80); Red Cell Distribution Width 15.5 % (11.0-16.0); White Blood Count 10.8 X10*3/uL (4.8-10.8)
[2021-04-15 07:36] LABS: Anion Gap 10 (12-20); Blood Urea Nitrogen 33 mg/dL (9-16); Calcium 7.7 mg/dL (8.4-10.2); Carbon Dioxide 22 mmol/L (22-29); Chloride 108 mmol/L (96-108); Creatinine Clr Calc Pharmacy 44.5; Estimated Glomerular Filt Rate 42; Glucose Fasting 73 mg/dL (60-99); Potassium 3.9 mmol/L (3.3-5.1); Sodium 136 mmol/L (135-145)
[2021-04-15] MEDS: Aspirin Enteric Coated 81 MG TABLET.DR PO (08:20)
[2021-04-15] MEDS: 0.9 % Sodium Chloride Flush 3 ML SYRINGE IVFLUSH ×3 (08:20→20:30)
[2021-04-15] MEDS: Nicotine 14 MG PATCH.TD24 TRANSDERMA (08:20)
--- NOTE | 2021-04-15 11:24 | HO.PM.IMPN ---
Subjective Subjective Date of Service: 04/15/21 Interval History: had bm, pain present but improving Cardiovascular Cardiovascular: Reports no additional cardiovascular complaints Genitourinary Genitourinary: Reports no additional male genitourinary complaints Physical Exam Vital Signs: Vital Signs: Last Vital Signs Temp 98.7 F 04/15/21 10:00 Pulse 78 04/15/21 10:00 Resp 16 04/15/21 10:00 BP 118/72 04/15/21 10:00 Pulse Ox 98 04/15/21 10:00 Body Mass Index 21.2 General: AO X 3, no acute distress, frail Resp: CTA bilateral CVS: S1,S2,RRR GI: soft, drain in place, surgical site appears clean Neuro: motor grossly intact Psych: appropriate affect Objective Data Current Medications Generic Name Dose Route Start Last Admin Trade Name Freq PRN Reason Stop Dose Admin Amlodipine Besylate 5 mg 04/13/21 09:00 04/15/21 08:25 Amlodipine Besylate 5 Mg Tablet PO Not Given DAILY LENORA Aspirin 81 mg 04/14/21 13:25 04/15/21 08:20 Aspirin Enteric Coated 81 Mg Tablet.Dr PO 81 mg DAILY LENORA Administration Atorvastatin Calcium 80 mg 04/11/21 21:00 04/14/21 22:23 Atorvastatin Calcium 80 Mg Tablet PO 80 mg BEDTIME LENORA Administration Hydromorphone HCl 0.5 mg 04/15/21 11:07 Hydromorphone Hcl 0.5 Mg/0.5 Ml Syringe IVPUSH Q4H PRN pain Isosorbide Mononitrate 30 mg 04/14/21 21:00 04/15/21 08:26 Isosorbide Mononitrate 30 Mg Tab.Er.24h PO Not Given BID LENORA Protocol Labetalol HCl 200 mg 04/13/21 09:45 04/15/21 08:26 Labetalol Hcl 200 Mg Tablet PO Not Given BID L[facility]ORA Protocol Methadone HCl 80 mg 04/09/21 08:00 04/15/21 08:20 Methadone Hcl 1 Mg/0.1 Ml Oral.Conc PO 80 mg DAILY LENORA Administration Nicotine 14 mg 04/08/21 09:00 04/15/21 08:20 Nicotine 14 Mg Patch.Td24 TRANSDERMA 14 mg DAILY L[facility]ORA Administration Sodium Chloride 3 ml 04/08/21 00:31 04/15/21 08:20 0.9 % Sodium Chloride Flush 3 Ml Syringe IVFLUSH 3 ml QSHIFT LENORA Administration Labs CBC & Chem 7: 04/15/21 05:41 04/15/21 05:41 Microbiology Microbiology Results: Microbiology 04/10/21 07:36 Blood - Venous Blood Culture - Final No growth after 5 days. 04/08/21 21:16 Stool Stool Culture - Final 04/10/21 Unknown Blood - Venous Blood Culture - Final Assessment and Plan (1) NSTEMI (non-ST elevated myocardial infarction): Status: Acute Assessment and Plan: 51M presented with hematochezia, initially admitted to medical floor, but next morning started bleeding briskly, became unstable, hgb decreased to 5.5, was transfered to ICU, received multiple tranfusions, colonoscopy 04/10/21 revealed Actively bleeding Dieulafoy lesion of ascending colon, received epi and sclerotherapy and was transferred to OR for Exploratory laparotomy, right colectomy with ileocolonic anastomosis. hgb then dropped again to 5.7 and patient became tachycardiac on 04/11/21 he underwent Exploratory laparotomy, evacuation of hemoperitoneum, over-saw of oozing areas in the right gutter, placement of Surgicel in the retroperitoneal surface, course complicated by NSTEMI, troponins peaked at 3500, felt to by type II OR, will need ischemic work up as outpaitnet. also complicated by ALLISON, due to hypoperfusion, creatinine now stable around 1.6. patient now stable, transfered to medical floor 04/13/21. acute blood loss anemia due to crohns flare with bleeding dieuloafoy lesion s/p surgery hgb remains stable wean off dilaudid, will change from pump to intermittent IV tolerating solids, had BM NSTEMI type II plan for stress test tomorrow ALLISON stable, monitor HTN amlodipine labetolol imdur
--- NOTE | 2021-04-15 11:37 | PM.PNGS ---
Subjective Subjective Date of Service: 04/15/21 Interval history: Out of bed. Feeling a little stronger today. He reports that he is tolerating solid food though he does not have a big appetite yet. Had moderate abdominal pain when he woke up this morning, but now improved. He thinks that he just needed to catch up on the pain medication as he did yesterday. The pain was not as bad today as it was yesterday. Physical Exam Vital Signs: Vital Signs: Last Vital Signs Temp 98.7 F 04/15/21 10:00 Pulse 78 04/15/21 10:00 Resp 16 04/15/21 10:00 BP 118/72 04/15/21 10:00 Pulse Ox 98 04/15/21 10:00 Body Mass Index 21.2 Const: General: cooperative, no acute distress and alert Resp: Effort & Inspection: normal respiratory effort Cardio: Rate: regular rate Rhythm: regular rhythm GI: Other: Soft, nondistended, mild tenderness present. Incision clean dry and intact. DEBI remains in place right abdomen-output serosanguineous and moderate in volume Skin: Other: Warm and dry Progress Note: A&P Assessment and plan (1) Bleeding diathesis: Status: Acute (2) Crohn's colitis: Status: Acute (3) Lower gastrointestinal hemorrhage: Status: Acute (4) NSTEMI (non-ST elevated myocardial infarction): Status: Acute Assessment and Plan: 51-year-old male status post right colectomy for bleeding secondary to Crohn's colitis. Postoperative course complicated by bleeding requiring return to the operating room, no evidence of recurrent bleeding. Improving slowly postoperatively. Tolerating regular diet. TPN discontinued yesterday. 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 Had difficulty with acute pain again this morning, but improved from yesterday. CLINICAL ASSOCIATE to be discontinued today. Non ST elevation DC, being followed by Cardiology, Dr. Alanis. Plan is for noninvasive testing once he has recovered adequately postoperatively. Fall Risk Details Current Medications: Current Medications Generic Name Dose Route Start Last Admin Trade Name Freq PRN Reason Stop Dose Admin Amlodipine Besylate 5 mg 04/13/21 09:00 04/15/21 08:25 Amlodipine Besylate 5 Mg Tablet PO Not Given DAILY [facility] Aspirin 81 mg 04/14/21 13:25 04/15/21 08:20 Aspirin Enteric Coated 81 Mg Tablet. PO 81 mg DAILY LENORA Administration Atorvastatin Calcium 80 mg 04/11/21 21:00 04/14/21 22:23 Atorvastatin Calcium 80 Mg Tablet PO 80 mg BEDTIME LENORA Administration Hydromorphone HCl 0.5 mg 04/15/21 11:07 Hydromorphone Hcl 0.5 Mg/0.5 Ml Syringe IVPUSH Q4H PRN pain Isosorbide Mononitrate 30 mg 04/14/21 21:00 04/15/21 08:26 Isosorbide Mononitrate 30 Mg Tab.Er.24h PO Not Given BID LENORA Protocol Labetalol HCl 200 mg 04/13/21 09:45 04/15/21 08:26 Labetalol Hcl 200 Mg Tablet PO Not Given BID LENORA Protocol Methadone HCl 80 mg 04/09/21 08:00 04/15/21 08:20 Methadone Hcl 1 Mg/0.1 Ml Oral.Conc PO 80 mg DAILY LENORA Administration Nicotine 14 mg 04/08/21 09:00 04/15/21 08:20 Nicotine 14 Mg Patch.Td24 TRANSDERMA 14 mg DAILY LENORA Administration Sodium Chloride 3 ml 04/08/21 00:31 04/15/21 08:20 0.9 % Sodium Chloride Flush 3 Ml Syringe IVFLUSH 3 ml QSHIFT LENORA Administration Time Spent With Patient Time: Total time spent is greater than 50% in coordination of care (as documented) at patient's floor/unit and/or counseling patient: Time with patient: less than 15 minutes Procedures Date of Service Date of Service: 04/15/21
[2021-04-15] MEDS: HYDROmorphone HCl 0.5 MG/0.5 ML SYRINGE IVPUSH ×4 (12:42→23:06)
[2021-04-15] MEDS: Atorvastatin Calcium 80 MG TABLET PO (20:26)
[2021-04-15] MEDS: Isosorbide Mononitrate 30 MG TAB.ER.24H PO (20:27)
[2021-04-15] MEDS: Labetalol HCL 200 MG TABLET PO (20:27)
[2021-04-16] VITALS (10 sets, daily range): BP systolic 97–138; BP diastolic 63–78; PULSE 78–85; RESP 16–20; TEMP 36.1–36.7; O2SAT 98–100
[2021-04-16] MEDS: HYDROmorphone HCl 0.5 MG/0.5 ML SYRINGE IVPUSH ×8 (02:22→23:55)
[2021-04-16 06:58] LABS: Hematocrit 26.4 % (42-52); Hemoglobin 8.7 g/dl (14.0-18.0); Mean Corpuscular Hemoglobin 30.2 pg (27.0-33.0); Mean Corpuscular Volume 91.7 fL (80-98); Mean Platelet Volume 10.4 fL (9.4-12.4); Platelet Count 251 X10*3/uL (160-400); Red Blood Count 2.88 X10*6/uL (4.60-5.80); Red Cell Distribution Width 15.6 % (11.0-16.0); White Blood Count 7.8 X10*3/uL (4.8-10.8)
[2021-04-16 07:06] LABS: Anion Gap 11 (12-20); Blood Urea Nitrogen 29 mg/dL (9-16); Calcium 7.5 mg/dL (8.4-10.2); Carbon Dioxide 20 mmol/L (22-29); Chloride 109 mmol/L (96-108); Creatinine Clr Calc Pharmacy 48.7; Estimated Glomerular Filt Rate 46; Glucose Fasting 83 mg/dL (60-99); Potassium 3.9 mmol/L (3.3-5.1); Sodium 136 mmol/L (135-145)
[2021-04-16] MEDS: 0.9 % Sodium Chloride Flush 3 ML SYRINGE IVFLUSH ×3 (08:30→21:14)
--- NOTE | 2021-04-16 08:47 | HE.PHANOTE ---
Waste of ketamine recorded by CRYS Adan and CRYS DAVENPORT on handwritten document on 04/13/21 @2618. Filed with other controlled substance records in Pharmacy.
[2021-04-16] MEDS: Nicotine 14 MG PATCH.TD24 TRANSDERMA (08:57)
[2021-04-16] MEDS: Isosorbide Mononitrate 30 MG TAB.ER.24H PO ×2 (08:58→21:13)
[2021-04-16] MEDS: amLODIPine Besylate 5 MG TABLET PO (08:59)
[2021-04-16] MEDS: Aspirin Enteric Coated 81 MG TABLET.DR PO (08:59)
[2021-04-16] MEDS: Labetalol HCL 200 MG TABLET PO ×2 (08:59→21:12)
--- NOTE | 2021-04-16 09:52 | P.PNIM_ITS ---
Subjective Subjective Date of Service: 04/16/21 Interval History: abd pain Cardiovascular Cardiovascular: Reports no additional cardiovascular complaints Respiratory Respiratory: Reports no additional respiratory complaints Physical Exam Vital Signs: Vital Signs: Last Vital Signs Temp 98.2 F 04/15/21 23:40 Pulse 85 04/16/21 08:58 Resp 16 04/16/21 04:00 BP 118/73 04/16/21 08:58 Pulse Ox 98 04/16/21 04:00 Body Mass Index 21.2 Const General: cooperative, no acute distress and alert Resp Effort & Inspection: normal respiratory effort Cardio Rate: regular rate Rhythm: regular rhythm GI Other: Soft, nondistended, mild tenderness present. Incision clean dry and in tact. DEBI remains in place right abdomen-output serosanguineous and moderate in volume Skin Other: Warm and dry Objective Data Current Medications Generic Name Dose Route Start Last Admin Trade Name Freq PRN Reason Stop Dose Admin Amlodipine Besylate 5 mg 04/13/21 09:00 04/16/21 08:59 Amlodipine Besylate 5 Mg Tablet PO 5 mg DAILY LENORA Administration Aspirin 81 mg 04/14/21 13:25 04/16/21 08:59 Aspirin Enteric Coated 81 Mg Tablet.Dr PO 81 mg DAILY LENORA Administration Atorvastatin Calcium 80 mg 04/11/21 21:00 04/15/21 20:26 Atorvastatin Calcium 80 Mg Tablet PO 80 mg BEDTIME LENORA Administration Hydromorphone HCl 0.5 mg 04/15/21 15:20 04/16/21 08:25 Hydromorphone Hcl 0.5 Mg/0.5 Ml Syringe IVPUSH 0.5 mg Q2H PRN Administration pain Isosorbide Mononitrate 30 mg 04/14/21 21:00 04/16/21 08:58 Isosorbide Mononitrate 30 Mg Tab.Er.24h PO 30 mg BID LENORA Administration Protocol Labetalol HCl 200 mg 04/13/21 09:45 04/16/21 08:59 Labetalol Hcl 200 Mg Tablet PO 200 mg BID LENORA Administration Protocol Methadone HCl 80 mg 04/09/21 08:00 04/16/21 08:58 Methadone Hcl 1 Mg/0.1 Ml Oral.Conc PO 80 mg DAILY LENORA Administration Nicotine 14 mg 04/08/21 09:00 04/16/21 08:57 Nicotine 14 Mg Patch.Td24 TRANSDERMA 14 mg DAILY LENORA Administration Sodium Chloride 3 ml 04/08/21 00:31 04/16/21 08:30 0.9 % Sodium Chloride Flush 3 Ml Syringe IVFLUSH 3 ml QSHIFT LENORA Administration Labs CBC & Chem 7: 04/16/21 06:12 04/16/21 06:12 Microbiology Microbiology Results: Microbiology 04/10/21 07:36 Blood - Venous Blood Culture - Final No growth after 5 days. 04/08/21 21:16 Stool Stool Culture - Final 04/10/21 Unknown Blood - Venous Blood Culture - Final Assessment and Plan (1) NSTEMI (non-ST elevated myocardial infarction): Status: Acute Assessment and Plan: 51M presented with hematochezia, initially admitted to medical floor, but next morning started bleeding briskly, became unstable, hgb decreased to 5.5, was transfered to ICU, received multiple tranfusions, colonoscopy 04/10/21 revealed Actively bleeding Dieulafoy lesion of ascending colon, received epi and sclerotherapy and was transferred to OR for Exploratory laparotomy, right colectomy with ileocolonic anastomosis. hgb then dropped again to 5.7 and patient became tachycardiac on 04/11/21 he underwent Exploratory laparotomy, evacuation of hemoperitoneum, over-saw of oozing areas in the right gutter, placement of Surgicel in the retroperitoneal surface, course complicated by NSTEMI, troponins peaked at 3500, felt to by type II [place], will need ischemic work up as outpaitnet. also complicated by ALLISON, due to hypoperfusion, creatinine now stable around 1.6. patient now stable, transfered to medical floor 04/13/21. acute blood loss anemia due to crohns flare with bleeding dieuloafoy lesion s/p surgery hgb remains stable, 8.7 today wean off dilaudid, transitioned forom pump to intermittent on 04/15/21 having pain with solids, had BM NSTEMI type II plan for stress test today ALLISON stable, monitor HTN amlodipine labetolol imdur
--- NOTE | 2021-04-16 11:16 | MHC.CLN ---
F/U TPN D/C PO INTAKE 100% X 2 MEALS (04/13) DIET RX: LOW RESIDUE-APPROPRIATE RECOMMEND ADDING ENSURE TID TO INCREASE KCALS SUPPLEMENT TO PROVIDE 1050KCALS, 60G PROTEIN MONITOR PO INTAKE CLOSELY
--- NOTE | 2021-04-16 12:29 | PM.PNCARD ---
Subjective Subjective Date of Service: 04/16/21 <ALBERTO Millard - Last Filed: 04/16/21 13:24> 04/16/21 <Skinny Anders MD - Last Filed: 04/16/21 14:11> Principal diagnosis: NSTEMI <ALBERTO Millard - Last Filed: 04/16/21 13:24> Interval history: Cardiology follow up for NSTEMI/ Seen at 1100. Today he reports doing OK. Still feeling very weak. No sob, chest pains, palpitation. Not dizzy with standing. No Leg swelling. <ALBERTO Millard - Last Filed: 04/16/21 13:24> Review of Systems Review of Systems as above <ALBERTO Millard Last Filed: 04/16/21 13:24> Yes all other systems are reviewed and are negative <ALBRETO Millard - Last Filed: 04/16/21 13:24> Physical Exam Vital Signs: Last Vital Signs Temp 97.5 F 04/16/21 11:58 Pulse 82 04/16/21 11:58 Resp 18 04/16/21 11:58 BP 112/63 04/16/21 11:58 Pulse Ox 98 04/16/21 11:58 Body Mass Index 21.2 <ALBERTO Millard - Last Filed: 04/16/21 13:24> Const General: no acute distress, alert and awake <ALBERTO Millard - Last Filed: 04/16/21 13:24> Orientation/consciousness: patient oriented x3 <ALBERTO Millard - Last Filed: 04/16/21 13:24> Neck Neck: Yes normal visual inspection and Yes no JVD <ALBERTO Millard Last Filed: 04/16/21 13:24> Resp Effort & Inspection: normal respiratory effort, able to speak in complete sentences and not labored <ALBERTO Millard Last Filed: 04/16/21 13:24> Auscultation: clear to auscultation bilaterally, no crackles, no rales, no rhonchi and no wheezes <ALBERTO Millard - Last Filed: 04/16/21 13:24> Cardio Palpation: normal PMI <Maddison ZhaoJACQUELYNC - Last Filed: 04/16/21 13:24> Rate: regular rate <Maddiosn ZhaoJACQUELYNC - Last Filed: 04/16/21 13:24> Rhythm: regular rhythm <Maddison ZhaoJACQUELYNC - Last Filed: 04/16/21 13:24> Heart sounds: S1 normal heart sound present and S2 normal heart sound present <Maddison ZhaoJACQUELYNC - Last Filed: 04/16/21 13:24> Peripheral pulses: Peripheral pulses 2+ throughout <Maddison ZhaoJACQUELYNC - Last Filed: 04/16/21 13:24> Neuro General: patient oriented x3 <Maddison ZhaoJACQUELYNC - Last Filed: 04/16/21 13:24> Extrem General: Yes normal to inspection and No edema <Maddison Nava ALBERTO Zhao - Last Filed: 04/16/21 13:24> Results Labs and Meds Result diagrams: : 04/16/21 06:12 04/16/21 06:12 <Maddison ZhaoJACQUELYNC - Last Filed: 04/16/21 13:24> Lab results: Laboratory Results - last 24 hr 04/16/21 04/16/21 06:12 06:12 WBC 7.8 RBC 2.88 L Hgb 8.7 L Hct 26.4 L MCV 91.7 MCH 30.2 MCHC 33.0 RDW 15.6 Plt Count 251 MPV 10.4 Absolute Nucleated RBC 0.000 Nucleated RBC % (auto) 0.0 Sodium 136 Potassium 3.9 Chloride 109 H Carbon Dioxide 20 L Anion Gap 11 L BUN 29 H Creatinine 1.60 H Estim Creat Clear Calc 48.7 Estimated GFR 46 Fasting Glucose 83 Calcium 7.5 L <Maddison GriggsALBERTO morales - Last Filed: 04/16/21 13:24> Progress Note: A&P Assessment and plan (1) NSTEMI (non-ST elevated myocardial infarction): Status: Acute <Maddison Nava ALBERTO Zhao Last Filed: 04/16/21 13:24> Assessment and Plan: NSTEMI 04/11 in setting of acute medical/ surgical event. EKG with T wave inversions inferiorly. Troponin level up to 3512 and has come down. Echo showed EF 60-65%, basal inferior, inferior septal WMA, RCA territory. Managed medically and continues on Aspirin, Atorvastatin, Imdur, Labetolol, Amlodipine. BP had been elevated, now improved. Having stress portion of nuclear stress test today, Rest images will be obtained tomorrow. Continue current mgt.Ongoing tele monitoring. EKG if he reports CP. We will follow. <ALBERTO Millard - Last Filed: 04/16/21 13:24> Fall Risk Details Current Medications: Current Medications Generic Name Dose Route Start Last Admin Trade Name Freq PRN Reason Stop Dose Admin Amlodipine Besylate 5 mg 04/13/21 09:00 04/16/21 08:59 Amlodipine Besylate 5 Mg Tablet PO 5 mg DAILY L[facility]A Administration Aspirin 81 mg 04/14/21 13:25 04/16/21 08:59 Aspirin Enteric Coated 81 Mg Tablet. PO 81 mg DAILY LENORA Administration Atorvastatin Calcium 80 mg 04/11/21 21:00 04/15/21 20:26 Atorvastatin Calcium 80 Mg Tablet PO 80 mg BEDTIME LENORA Administration Hydromorphone HCl 0.5 mg 04/15/21 15:20 04/16/21 11:56 Hydromorphone Hcl 0.5 Mg/0.5 Ml Syringe IVPUSH 0.5 mg Q2H PRN Administration pain Isosorbide Mononitrate 30 mg 04/14/21 21:00 04/16/21 08:58 Isosorbide Mononitrate 30 Mg Tab.Er.24h PO 30 mg BID LENORA Administration Protocol Labetalol HCl 200 mg 04/13/21 09:45 04/16/21 08:59 Labetalol Hcl 200 Mg Tablet PO 200 mg BID LENORA Administration Protocol Methadone HCl 80 mg 04/09/21 08:00 04/16/21 08:58 Methadone Hcl 1 Mg/0.1 Ml Oral.Conc PO 80 mg DAILY LENORA Administration Nicotine 14 mg 04/08/21 09:00 04/16/21 08:57 Nicotine 14 Mg Patch.Td24 TRANSDERMA 14 mg DAILY LENORA Administration Sodium Chloride 3 ml 04/08/21 00:31 04/16/21 08:30 0.9 % Sodium Chloride Flush 3 Ml Syringe IVFLUSH 3 ml QSHIFT LENORA Administration <ALBERTO Millard - Last Filed: 04/16/21 13:24> Time Spent With Patient Time: Total time spent is greater than 50% in coordination of care (as documented) at patient's floor/unit and/or counseling patient: 20 <ALBERTO Millard - Last Filed: 04/16/21 13:24> Time with patient: 15 - 24 minutes <ALBERTO Millard - Last Filed: 04/16/21 13:24> Procedures Date of Service Date of Service: 04/16/21 <ALBERTO Millard - Last Filed: 04/16/21 13:24>
--- NOTE | 2021-04-16 15:57 | PM.PNGS ---
Subjective Subjective Date of Service: 04/16/21 Interval history: POD #6 s/p ileaocolectomy for right colon bleeding, Crohn's disease, bleeding diathesis, now tolerating some solid food without nausea or vomiting. He is concerned about pain control but mainly is taking IV pain medications. He reports loose bowel movements but denies any bleeding. Physical Exam Vital Signs: Vital Signs: Last Vital Signs Temp 97.5 F 04/16/21 15:16 Pulse 85 04/16/21 15:16 Resp 20 04/16/21 15:16 BP 107/66 04/16/21 15:16 Pulse Ox 100 04/16/21 15:16 Body Mass Index 21.2 Const: General: no acute distress, alert and awake Nutritional Appearance: thin Orientation/consciousness: patient oriented x3 Limitations: no limitations Resp: Effort & Inspection: normal respiratory effort GI: Other: Abdomen is flat nondistended, incision clean, dry, and intact with intact sweetie; and DEBI intact draining a scant amount of serous fluid. Skin: Other: Warm, dry, no rash, normal color Neuro: General: patient oriented x3 Extrem: General: No edema Progress Note: A&P Assessment and plan (1) Lower gastrointestinal hemorrhage: Status: Acute Assessment and Plan: Patient with no evidence of active bleeding at this time. He is tolerating some p.o. but does report loose bowels. Wounds are clean and intact. Patient undergoing workup for NSTEMI, underwent stress test today. Will keep DEBI in for now, probable removal tomorrow if continued low output. Fall Risk Details Current Medications: Current Medications Generic Name Dose Route Start Last Admin Trade Name Christopher PRN Reason Stop Dose Admin Amlodipine Besylate 5 mg 04/13/21 09:00 04/16/21 08:59 Amlodipine Besylate 5 Mg Tablet PO 5 mg DAILY [facility] Administration Aspirin 81 mg 04/14/21 13:25 04/16/21 08:59 Aspirin Enteric Coated 81 Mg Tablet. PO 81 mg DAILY [facility] Administration Atorvastatin Calcium 80 mg 04/11/21 21:00 04/15/21 20:26 Atorvastatin Calcium 80 Mg Tablet PO 80 mg BEDTIME [facility] Administration Hydromorphone HCl 0.5 mg 04/15/21 15:20 04/16/21 14:30 Hydromorphone Hcl 0.5 Mg/0.5 Ml Syringe IVPUSH 0.5 mg Q2H PRN Administration pain Isosorbide Mononitrate 30 mg 04/14/21 21:00 04/16/21 08:58 Isosorbide Mononitrate 30 Mg Tab.Er.24h PO 30 mg BID [facility] Administration Protocol Labetalol HCl 200 mg 04/13/21 09:45 04/16/21 08:59 Labetalol Hcl 200 Mg Tablet PO 200 mg BID [facility] Administration Protocol Methadone HCl 80 mg 04/09/21 08:00 04/16/21 08:58 Methadone Hcl 1 Mg/0.1 Ml Oral.Conc PO 80 mg DAILY [facility] Administration Nicotine 14 mg 04/08/21 09:00 04/16/21 08:57 Nicotine 14 Mg Patch.Td24 TRANSDERMA 14 mg DAILY [facility]A Administration Sodium Chloride 3 ml 04/08/21 00:31 04/16/21 14:32 0.9 % Sodium Chloride Flush 3 Ml Syringe IVFLUSH 3 ml QSHIFT [facility]A Administration Time Spent With Patient Time: Total time spent is greater than 50% in coordination of care (as documented) at patient's floor/unit and/or counseling patient: Time with patient: 15 - 24 minutes Procedures Date of Service Date of Service: 04/16/21
[2021-04-16] MEDS: Zolpidem Tartrate 5 MG TABLET PO (21:13)
[2021-04-16] MEDS: oxyCODONE HCl Immed Release 5 MG TABLET PO (21:13)
[2021-04-16] MEDS: Atorvastatin Calcium 80 MG TABLET PO (21:13)
[2021-04-17] VITALS (13 sets, daily range): BP systolic 95–125; BP diastolic 51–69; PULSE 78–88; RESP 14–20; TEMP 36.2–37.2; O2SAT 96–100
[2021-04-17] MEDS: HYDROmorphone HCl 0.5 MG/0.5 ML SYRINGE IVPUSH ×5 (02:32→23:28)
[2021-04-17] MEDS: oxyCODONE HCl Immed Release 5 MG TABLET PO ×3 (02:32→20:49)
[2021-04-17 06:51] LABS: Anion Gap 10 (12-20); Blood Urea Nitrogen 25 mg/dL (9-16); Calcium 7.6 mg/dL (8.4-10.2); Carbon Dioxide 22 mmol/L (22-29); Chloride 111 mmol/L (96-108); Creatinine Clr Calc Pharmacy 51.9; Estimated Glomerular Filt Rate 50; Glucose Fasting 73 mg/dL (60-99); Sodium 139 mmol/L (135-145)
[2021-04-17 06:56] LABS: Hematocrit 25.3 % (42-52); Hemoglobin 8.3 g/dl (14.0-18.0); Mean Corpuscular HGB Conc 32.8 g/dl (31.0-36.0); Mean Corpuscular Hemoglobin 30.5 pg (27.0-33.0); Mean Platelet Volume 10.1 fL (9.4-12.4); Platelet Count 289 X10*3/uL (160-400); Red Blood Count 2.72 X10*6/uL (4.60-5.80); Red Cell Distribution Width 15.4 % (11.0-16.0); White Blood Count 5.7 X10*3/uL (4.8-10.8)
[2021-04-17] MEDS: Labetalol HCL 200 MG TABLET PO (08:06)
[2021-04-17] MEDS: Isosorbide Mononitrate 30 MG TAB.ER.24H PO ×2 (08:07→20:50)
[2021-04-17] MEDS: Aspirin Enteric Coated 81 MG TABLET.DR PO (08:07)
[2021-04-17] MEDS: 0.9 % Sodium Chloride Flush 3 ML SYRINGE IVFLUSH ×3 (08:11→20:54)
[2021-04-17] MEDS: Nicotine 14 MG PATCH.TD24 TRANSDERMA (08:11)
[2021-04-17] MEDS: amLODIPine Besylate 5 MG TABLET PO (10:03)
--- NOTE | 2021-04-17 12:26 | HO.PM.IMPN ---
Subjective Subjective Date of Service: 04/17/21 Interval History: having trouble eating Cardiovascular Cardiovascular: Reports no additional cardiovascular complaints Genitourinary Genitourinary: Reports no additional male genitourinary complaints Physical Exam Vital Signs: Vital Signs: Last Vital Signs Temp 97.5 F 04/17/21 11:51 Pulse 88 04/17/21 11:51 Resp 20 04/17/21 11:51 BP 95/51 L 04/17/21 11:51 Pulse Ox 100 04/17/21 11:51 Body Mass Index 21.2 Const General: cooperative, no acute distress and alert Resp Effort & Inspection: normal respiratory effort Cardio Rate: regular rate Rhythm: regular rhythm GI Other: Soft, nondistended, mild tenderness present. Incision clean dry and intact. DEBI remains in place right abdomen-output serosanguineous and moderate in volume Skin Other: Warm and dry Objective Data Current Medications Generic Name Dose Route Start Last Admin Trade Name Freq PRN Reason Stop Dose Admin Amlodipine Besylate 5 mg 04/13/21 09:00 04/17/21 10:03 Amlodipine Besylate 5 Mg Tablet PO 5 mg DAILY [facility] Administration Aspirin 81 mg 04/14/21 13:25 04/17/21 08:07 Aspirin Enteric Coated 81 Mg Tablet.Dr PO 81 mg DAILY [facility] Administration Atorvastatin Calcium 80 mg 04/11/21 21:00 04/16/21 21:13 Atorvastatin Calcium 80 Mg Tablet PO 80 mg BEDTIME [facility] Administration Hydromorphone HCl 0.5 mg 04/15/21 15:20 04/17/21 10:03 Hydromorphone Hcl 0.5 Mg/0.5 Ml Syringe IVPUSH 0.5 mg Q2H PRN Administration pain Isosorbide Mononitrate 30 mg 04/14/21 21:00 04/17/21 08:07 Isosorbide Mononitrate 30 Mg Tab.Er.24h PO 30 mg BID [facility] Administration Protocol Labetalol HCl 200 mg 04/13/21 09:45 04/17/21 08:06 Labetalol Hcl 200 Mg Tablet PO 200 mg BID [facility] Administration Protocol Methadone HCl 80 mg 04/09/21 08:00 04/17/21 08:06 Methadone Hcl 1 Mg/0.1 Ml Oral.Conc PO 80 mg DAILY [facility] Administration Nicotine 14 mg 04/08/21 09:00 04/17/21 08:11 Nicotine 14 Mg Patch.Td24 TRANSDERMA 14 mg DAILY [facility] Administration Oxycodone HCl 5 mg 04/16/21 20:08 04/17/21 11:18 Oxycodone Hcl Immed Release 5 Mg Tablet PO 5 mg Q4H PRN Administration Pain, Severe (Pain Scale 7-10) Sodium Chloride 3 ml 04/08/21 00:31 04/17/21 08:11 0.9 % Sodium Chloride Flush 3 Ml Syringe IVFLUSH 3 ml QSHIFT [facility] Administration Zolpidem Tartrate 5 mg 04/16/21 21:00 04/16/21 21:13 Zolpidem Tartrate 5 Mg Tablet PO 5 mg BEDTIME [facility] Administration Labs CBC & Chem 7: 04/17/21 05:33 04/17/21 05:33 Labs: Laboratory Results - last 24 hr 04/17/21 04/17/21 05:33 05:33 WBC 5.7 RBC 2.72 L Hgb 8.3 L Hct 25.3 L MCV 93.0 MCH 30.5 MCHC 32.8 RDW 15.4 Plt Count 289 MPV 10.1 Absolute Nucleated RBC 0.000 Nucleated RBC % (auto) 0.0 Sodium 139 Potassium 4.0 Chloride 111 H Carbon Dioxide 22 Anion Gap 10 L BUN 25 H Creatinine 1.50 H Estim Creat Clear Calc 51.9 Estimated GFR 50 Fasting Glucose 73 Calcium 7.6 L Assessment and Plan (1) NSTEMI (non-ST elevated myocardial infarction): Status: Acute Assessment and Plan: 51M presented with hematochezia, initially admitted to medical floor, but next morning started bleeding briskly, became unstable, hgb decreased to 5.5, was transfered to ICU, received multiple tranfusions, colonoscopy 04/10/21 revealed Actively bleeding Dieulafoy lesion of ascending colon, received epi and sclerotherapy and was transferred to OR for Exploratory laparotomy, right colectomy with ileocolonic anastomosis. hgb then dropped again to 5.7 and patient became tachycardiac on 04/11/21 he underwent Exploratory laparotomy, evacuation of hemoperitoneum, over-saw of oozing areas in the right gutter, placement of Surgicel in the retroperitoneal surface, course complicated by NSTEMI, troponins peaked at 3500, felt to by type II CA, will need ischemic work up as outpaitnet. also complicated by ALLISON, due to hypoperfusion, creatinine now stable around 1.6. patient now stable, transfered to medical floor 04/13/21. acute blood loss anemia due to crohns flare with bleeding dieuloafoy lesion 9 units prbc total 6 units total FFP, 1 platelets, 1 cryoprecipitate s/p surgery right colectomy 04/10 and exploarion and hemoperitoneum evac 04/11 hgb mostly stable now, has dropped 1gm from 9.3 to 8.3 over 48hrs, unlikely active bleed, continue to monitor wean off dilaudid, transitioned from pump to intermittent on 04/15/21 having pain with solids, had BM, but hesitant to eat due to pain NSTEMI type II second part of stress test today ALLISON stable, monitor HTN amlodipine labetolol imdur
--- NOTE | 2021-04-17 14:53 | PM.PNGS ---
Subjective Subjective Date of Service: 04/17/21 Interval history: Adrián reports intestinal soreness associated with diarrhea which he attributes to his Crohn's disease. He feels the incisional pain is much improved. Physical Exam Vital Signs: Vital Signs: Last Vital Signs Temp 97.4 F 04/17/21 13:00 Pulse 88 04/17/21 11:51 Resp 20 04/17/21 11:51 BP 95/51 L 04/17/21 11:51 Pulse Ox 100 04/17/21 11:51 Body Mass Index 21.2 Const: General: cooperative and no acute distress Resp: Effort & Inspection: normal respiratory effort GI: Other: Soft, nondistended, active bowel sounds, incision clean, dry, and intact. DEBI with serous output Skin: General skin exam: no rashes or lesions noted Extrem: Other: No edema Progress Note: A&P Assessment and plan (1) Lower gastrointestinal hemorrhage: Status: Acute Assessment and Plan: Status post right colectomy for bleeding lesion, no evidence of recurrent bleeding. Bowels are now moving and he is tolerating a diet without nausea or vomiting. Patient may need to restart his diphenoxylate atropine to control his bowel. Encouraged ambulation. Fall Risk Details Current Medications: Current Medications Generic Name Dose Route Start Last Admin Trade Name Freq PRN Reason Stop Dose Admin Amlodipine Besylate 5 mg 04/13/21 09:00 04/17/21 10:03 Amlodipine Besylate 5 Mg Tablet PO 5 mg DAILY [facility] Administration Aspirin 81 mg 04/14/21 13:25 04/17/21 08:07 Aspirin Enteric Coated 81 Mg Tablet. PO 81 mg DAILY [facility] Administration Atorvastatin Calcium 80 mg 04/11/21 21:00 04/16/21 21:13 Atorvastatin Calcium 80 Mg Tablet PO 80 mg BEDTIME [facility] Administration Hydromorphone HCl 0.5 mg 04/15/21 15:20 04/17/21 14:38 Hydromorphone Hcl 0.5 Mg/0.5 Ml Syringe IVPUSH 0.5 mg Q2H PRN Administration pain Isosorbide Mononitrate 30 mg 04/14/21 21:00 04/17/21 08:07 Isosorbide Mononitrate 30 Mg Tab.Er.24h PO 30 mg BID [facility] Administration Protocol Labetalol HCl 200 mg 04/13/21 09:45 04/17/21 08:06 Labetalol Hcl 200 Mg Tablet PO 200 mg BID [facility] Administration Protocol Methadone HCl 80 mg 04/09/21 08:00 04/17/21 08:06 Methadone Hcl 1 Mg/0.1 Ml Oral.Conc PO 80 mg DAILY [facility] Administration Nicotine 14 mg 04/08/21 09:00 04/17/21 08:11 Nicotine 14 Mg Patch.Td24 TRANSDERMA 14 mg DAILY [facility] Administration Oxycodone HCl 5 mg 04/16/21 20:08 04/17/21 11:18 Oxycodone Hcl Immed Release 5 Mg Tablet PO 5 mg Q4H PRN Administration Pain, Severe (Pain Scale 7-10) Sodium Chloride 3 ml 04/08/21 00:31 04/17/21 08:11 0.9 % Sodium Chloride Flush 3 Ml Syringe IVFLUSH 3 ml QSHIFT [facility]A Administration Zolpidem Tartrate 5 mg 04/16/21 21:00 04/16/21 21:13 Zolpidem Tartrate 5 Mg Tablet PO 5 mg BEDTIME [facility]ORA Administration Time Spent With Patient Time: Total time spent is greater than 50% in coordination of care (as documented) at patient's floor/unit and/or counseling patient: Time with patient: 15 - 24 minutes Procedures Date of Service Date of Service: 04/17/21
[2021-04-17] MEDS: Atorvastatin Calcium 80 MG TABLET PO (20:49)
[2021-04-17] MEDS: Zolpidem Tartrate 5 MG TABLET PO (20:50)
--- NOTE | 2021-04-17 21:34 | PM.EVENT ---
Event Note Date of Service: 04/17/21 Event Note: GI Follow up--Course noted I will plan to see patient for further evaluation on 04/18. Given the endoscopic, surgical, and path findings, I don't think he is having any symptoms from active Crohn's. In regard to his diarrhea, I have ordered a stool for C.diff, started him on prn Imodium, and added Lactose-free restrictions to his diet. I will also add Dicyclomine prn for any intestinal spasms and discomfort. Going forward we can consider adding Cholestyramine for any ongoing diarrhea to treat any component of bile-induced diarrhea given his altered GI anatomy. He will need to resume his Humira as an outpatient. Thanks.
[2021-04-17] MEDS: Nystatin Powder 15 GM BOTTLE 1 APPL TOPICAL (23:24)
[2021-04-18] VITALS (10 sets, daily range): BP systolic 100–128; BP diastolic 51–69; PULSE 75–82; RESP 14–20; TEMP 36.6–37.4; O2SAT 98–100
[2021-04-18] MEDS: oxyCODONE HCl Immed Release 5 MG TABLET PO ×5 (02:26→22:08)
[2021-04-18 07:09] LABS: Hematocrit 24.1 % (42-52); Hemoglobin 7.9 g/dl (14.0-18.0); Mean Corpuscular HGB Conc 32.8 g/dl (31.0-36.0); Mean Corpuscular Hemoglobin 30.2 pg (27.0-33.0); Mean Platelet Volume 10.4 fL (9.4-12.4); Platelet Count 325 X10*3/uL (160-400); Red Blood Count 2.62 X10*6/uL (4.60-5.80); Red Cell Distribution Width 14.8 % (11.0-16.0); White Blood Count 6.4 X10*3/uL (4.8-10.8)
[2021-04-18 07:42] LABS: Anion Gap 10 (12-20); Blood Urea Nitrogen 23 mg/dL (9-16); Calcium 7.4 mg/dL (8.4-10.2); Carbon Dioxide 22 mmol/L (22-29); Chloride 110 mmol/L (96-108); Creatinine Clr Calc Pharmacy 54.9; Estimated Glomerular Filt Rate 53; Glucose Fasting 82 mg/dL (60-99); Potassium 3.6 mmol/L (3.3-5.1); Sodium 138 mmol/L (135-145)
[2021-04-18] MEDS: amLODIPine Besylate 5 MG TABLET PO (08:36)
[2021-04-18] MEDS: Dicyclomine HCl 10 MG CAPSULE PO ×3 (08:36→17:58)
[2021-04-18] MEDS: Labetalol HCL 200 MG TABLET PO ×2 (08:36→20:13)
[2021-04-18] MEDS: Isosorbide Mononitrate 30 MG TAB.ER.24H PO ×2 (08:36→20:12)
[2021-04-18] MEDS: Nicotine 14 MG PATCH.TD24 TRANSDERMA (08:37)
[2021-04-18] MEDS: 0.9 % Sodium Chloride Flush 3 ML SYRINGE IVFLUSH ×3 (08:37→20:13)
[2021-04-18] MEDS: Aspirin Enteric Coated 81 MG TABLET.DR PO (08:37)
--- NOTE | 2021-04-18 10:47 | PM.PNCARD ---
Subjective Subjective Date of Service: 04/18/21 Principal diagnosis: NSTEMI Interval history: Generally weak but no specific cardiac symptoms. Review of Systems Review of Systems Yes all other systems are reviewed and are negative Cardiovascular: Reports as per HPI, Reports no additional cardiovascular complaints, Denies acrocyanosis, Denies cool extremities, Denies painful fingertips, Denies chest pain, Denies chest pain at rest, Denies diaphoresis, Denies syncope, Denies irregular heart rhythm, Denies claudication, Denies leg edema, Denies lightheadedness, Denies palpitations and Denies dyspnea Respiratory: Denies dyspnea Denies syncope Endocrine: Denies palpitations Physical Exam Vital Signs: Last Vital Signs Temp 99.3 F 04/18/21 07:58 Pulse 75 04/18/21 09:32 Resp 20 04/18/21 07:58 BP 119/69 04/18/21 09:32 Pulse Ox 98 04/18/21 07:58 Body Mass Index 21.2 Const General: cooperative, comfortable and no acute distress Orientation/consciousness: patient oriented x3 HENMT Other: Unremarkable Neck Neck: Yes normal visual inspection Chest Chest palpation & inspection: normal inspection of the chest Resp Auscultation: clear to auscultation bilaterally, no crackles and no wheezes Cardio Jugular venous distension: no JVD Palpation: normal PMI Heart sounds: S1 normal heart sound present, S2 normal heart sound present, no gallops, no murmurs and no rubs GI Palpation (GI): Soft to palpation Back/Spine/Pelvis Other: unremarkable Skin General skin exam: no rashes or lesions noted Neuro General: patient oriented x3 Extrem General: Yes no clubbing, cyanosis or edema Psych Mental Status: mental status grossly normal Results Labs and Meds Result diagrams: 04/18/21 05:48 04/18/21 05:48 Lab results: Laboratory Results - last 24 hr 04/08/21 04/18/21 04/18/21 21:16 05:48 05:48 WBC 6.4 RBC 2.62 L Hgb 7.9 L Hct 24.1 L MCV 92.0 MCH 30.2 MCHC 32.8 RDW 14.8 Plt Count 325 MPV 10.4 Absolute Nucleated RBC 0.000 Nucleated RBC % (auto) 0.0 Sodium 138 Potassium 3.6 Chloride 110 H Carbon Dioxide 22 Anion Gap 10 L BUN 23 H Creatinine 1.42 H Estim Creat Clear Calc 54.9 Estimated GFR 53 Fasting Glucose 82 Calcium 7.4 L O & P Trichrome Stain SEE NOTE Imaging Radiologist's impression: Impressions Myocardial Perfusion Scan Nuc [facility] 04/16/21 07:55 Impression: 1. Myocardial perfusion imaging study shows basal and mid inferior nontransmural infarct without reversible ischemia 2. Gated LVEF is 60% 3. Transient ischemic dilatation not present EKG is nondiagnostic for ischemia Progress Note: A&P Assessment and plan (1) NSTEMI (non-ST elevated myocardial infarction): Status: Acute Assessment and Plan: Cardiac studies reviewed. Echocardiogram with normal LVEF, 60-65%. There is basal inferior, basal inferoseptal and basal inferolateral akinesis. Myocardial perfusion imaging study shows basal and mid inferior nontransmural infarct but there is no reversible ischemia. Overall, we can treat him for stable CAD. Continue low-dose aspirin. Continue beta-blockers, amlodipine and high-dose statins. He is also on long-acting nitrates. Will arrange follow-up in the office. Fall Risk Details Current Medications: Current Medications Generic Name Dose Route Start Last Admin Trade Name Freq PRN Reason Stop Dose Admin Amlodipine Besylate 5 mg 04/13/21 09:00 04/18/21 08:36 Amlodipine Besylate 5 Mg Tablet PO 5 mg DAILY L[facility]A Administration Aspirin 81 mg 04/14/21 13:25 04/18/21 08:37 Aspirin Enteric Coated 81 Mg Tablet. PO 81 mg DAILY [facility] Administration Atorvastatin Calcium 80 mg 04/11/21 21:00 04/17/21 20:49 Atorvastatin Calcium 80 Mg Tablet PO 80 mg BEDTIME [facility] Administration Dicyclomine HCl 10 mg 04/18/21 07:30 04/18/21 08:36 Dicyclomine Hcl 10 Mg Capsule PO 10 mg TIDAC [facility]EN[facility]A Administration Hydromorphone HCl 0.5 mg 04/15/21 15:20 04/17/21 23:28 Hydromorphone Hcl 0.5 Mg/0.5 Ml Syringe IVPUSH 0.5 mg Q2H PRN Administration pain Isosorbide Mononitrate 30 mg 04/14/21 21:00 04/18/21 08:36 Isosorbide Mononitrate 30 Mg Tab.Er.24h PO 30 mg BID L[facility]A Administration Protocol Labetalol HCl 200 mg 04/13/21 09:45 04/18/21 08:36 Labetalol Hcl 200 Mg Tablet PO 200 mg BID [facility]A Administration Protocol Loperamide HCl 2 mg 04/17/21 21:34 Loperamide Hcl 2 Mg Capsule PO Q4H PRN Diarrhea Methadone HCl 80 mg 04/09/21 08:00 04/18/21 08:37 Methadone Hcl 1 Mg/0.1 Ml Oral.Conc PO 80 mg DAILY L[facility]A Administration Nicotine 14 mg 04/08/21 09:00 04/18/21 08:37 Nicotine 14 Mg Patch.Td24 TRANSDERMA 14 mg DAILY L[facility]ORA Administration Nystatin 1 appl 04/17/21 22:00 04/18/21 08:50 Nystatin Powder 15 Gm Bottle TOPICAL Not Given BID [facility] Protocol Oxycodone HCl 5 mg 04/16/21 20:08 04/18/21 08:36 Oxycodone Hcl Immed Release 5 Mg Tablet PO 5 mg Q4H PRN Administration Pain, Severe (Pain Scale 7-10) Sodium Chloride 3 ml 04/08/21 00:31 04/18/21 08:37 0.9 % Sodium Chloride Flush 3 Ml Syringe IVFLUSH 3 ml QSHIFT L[facility]A Administration Zolpidem Tartrate 5 mg 04/16/21 21:00 04/17/21 20:50 Zolpidem Tartrate 5 Mg Tablet PO 5 mg BEDTIME L[facility]ORA Administration Time Spent With Patient Time: Total time spent is greater than 50% in coordination of care (as documented) at patient's floor/unit and/or counseling patient: Time with patient: less than 15 minutes Progress Note: Quality Stroke Does the patient have a stroke diagnosis?: No VTE Prior VTE?: No VTE Risk Level:: Medical - moderate - high VTE Device Contraindication: N/A - Device Ordered VTE Drug Contraindication: N/A - Med Ordered Procedures Date of Service Date of Service: 04/18/21
[2021-04-18] MEDS: Acetaminophen 325 MG TABLET 650 MG PO (11:13)
--- NOTE | 2021-04-18 13:20 | MHC.CLN ---
F/U PO INTAKE 25% DIET RX: LOW RESIDUE LACTOSE FREE-APPROPRIATE PT REPORTED TOLERATING 1/2 HAM SANDWICH TODAY; ALSO TOLERATING SOUP AT MEALS PT RECEPTIVE TO DRINKING ENSURE; PREFERS [facility] BUT WANTS ALL FLAVORS SUPPLEMENT PROVIDES 1050KCALS (62% EST KCALS NEEDS), 60G PROTEIN (65% EST PROTEIN NEEDS) MONITOR PO INTAKE CLOSELY GAVE PT'S FAMILY MEMBER COUPONS FOR ENSURE UPON DISCHARGE
--- NOTE | 2021-04-18 13:43 | P.PNGS_ITS ---
Subjective Subjective Date of Service: 04/18/21 Interval history: Patient complains of rash in groin; started Immodium and Bentyl. Ambulated with physical therapy. Physical Exam Vital Signs: Vital Signs: Last Vital Signs Temp 98.5 F 04/18/21 11:30 Pulse 82 04/18/21 11:30 Resp 19 04/18/21 11:30 BP 103/64 04/18/21 11:30 Pulse Ox 100 04/18/21 11:30 Body Mass Index 21.2 Const: General: cooperative and comfortable Nutritional Appearance: thin Orientation/consciousness: patient oriented x3 Limitations: no limitations Resp: Effort & Inspection: normal respiratory effort GI: Other: soft, flat, normal BS, well healed midline incision. DEBI intact with serous discharge Skin: Other: warm, dry, rash in groin Neuro: General: patient oriented x3 Progress Note: A&P Assessment and plan (1) Lower gastrointestinal hemorrhage: Status: Acute Assessment and Plan: Patient's blood count is drifting down slowly; no evidence of rebleeding. DEBI with serous fluid. DEBI removed today. Continue PT, ambulation and stair training. Diet as tolerated. Pain management Fall Risk Details Current Medications: Current Medications Generic Name Dose Route Start Last Admin Trade Name Freq PRN Reason Stop Dose Admin Acetaminophen 650 mg 04/18/21 10:52 04/18/21 11:13 Acetaminophen 325 Mg Tablet PO 650 mg Q6H PRN Administration Pain, Mild (Pain Scale 1-3) Amlodipine Besylate 5 mg 04/13/21 09:00 04/18/21 08:36 Amlodipine Besylate 5 Mg Tablet PO 5 mg DAILY [facility]ORA Administration Aspirin 81 mg 04/14/21 13:25 04/18/21 08:37 Aspirin Enteric Coated 81 Mg Tablet.Dr PO 81 mg DAILY [facility]A Administration Atorvastatin Calcium 80 mg 04/11/21 21:00 04/17/21 20:49 Atorvastatin Calcium 80 Mg Tablet PO 80 mg BEDTIME [facility]A Administration Dicyclomine HCl 10 mg 04/18/21 07:30 04/18/21 11:13 Dicyclomine Hcl 10 Mg Capsule PO 10 mg TIDAC LENORA Administration Hydromorphone HCl 0.5 mg 04/15/21 15:20 04/17/21 23:28 Hydromorphone Hcl 0.5 Mg/0.5 Ml Syringe IVPUSH 0.5 mg Q2H PRN Administration pain Isosorbide Mononitrate 30 mg 04/14/21 21:00 04/18/21 08:36 Isosorbide Mononitrate 30 Mg Tab.Er.24h PO 30 mg BID [facility] Administration Protocol Labetalol HCl 200 mg 04/13/21 09:45 04/18/21 08:36 Labetalol Hcl 200 Mg Tablet PO 200 mg BID [facility] Administration Protocol Loperamide HCl 2 mg 04/17/21 21:34 Loperamide Hcl 2 Mg Capsule PO Q4H PRN Diarrhea Methadone HCl 80 mg 04/09/21 08:00 04/18/21 08:37 Methadone Hcl 1 Mg/0.1 Ml Oral.Conc PO 80 mg DAILY [facility] Administration Nicotine 14 mg 04/08/21 09:00 04/18/21 08:37 Nicotine 14 Mg Patch.Td24 TRANSDERMA 14 mg DAILY [facility]A Administration Nystatin 1 appl 04/17/21 22:00 04/18/21 08:50 Nystatin Powder 15 Gm Bottle TOPICAL Not Given BID [facility] Protocol Oxycodone HCl 5 mg 04/16/21 20:08 04/18/21 12:34 Oxycodone Hcl Immed Release 5 Mg Tablet PO 5 mg Q4H PRN Administration Pain, Severe (Pain Scale 7-10) Sodium Chloride 3 ml 04/08/21 00:31 04/18/21 08:37 0.9 % Sodium Chloride Flush 3 Ml Syringe IVFLUSH 3 ml QSHIFT [facility] Administration Zolpidem Tartrate 5 mg 04/16/21 21:00 04/17/21 20:50 Zolpidem Tartrate 5 Mg Tablet PO 5 mg BEDTIME [facility]ORA Administration Time Spent With Patient Time: Total time spent is greater than 50% in coordination of care (as documented) at patient's floor/unit and/or counseling patient: Time with patient: 15 - 24 minutes Procedures Date of Service Date of Service: 04/18/21 Quality Stroke Does the patient have a stroke diagnosis?: No VTE Prior VTE?: No VTE Risk Level:: Medical - moderate - high VTE Device Contraindication: N/A - Device Ordered VTE Drug Contraindication: N/A - Med Ordered
--- NOTE | 2021-04-18 14:46 | P.CONWO_ITS ---
History of Present Illness Data of Consult Service Date: 04/18/21 Requesting physician: Sean Jensen Primary Care Provider: Tobin Keen MD HPI Reason for consult: Scrotal perineum rash The patient is a 51-year-old male with a complex history of lower GI bleed [place] disease who underwent partial colectomy and then required reoperation for intra-abdominal bleeding. He is doing better from this now. However he has been having multiple loose stools uncontrollable and this has led to breakdown of his scrotal perineum medial thigh. Wound care consult is now being requested for this. Patient is doing a little bit better with his GI and food tolerance. Still having moderate diarrhea. Review of Systems Review of Systems: as above Yes all other systems are reviewed and are negative and Unobtainable due to mental condition Constitutional: Constitutional: Reports as per HPI, Reports no additional constitutional complaints, Reports fatigue, Reports lethargy, Reports malaise, Denies night sweats and Reports weakness Cardiovascular: Cardiovascular: Reports as per HPI, Reports no additional cardiovascular complaints, Denies acrocyanosis, Denies cool extremities, Denies painful fingertips, Denies chest pain, Denies chest pain at rest, Denies diaphoresis, Denies syncope, Reports rapid heart rate, Denies irregular heart rhythm, Denies claudication, Denies leg edema, Denies lightheadedness, Denies Loss of Consciousness, Denies palpitations and Denies dyspnea Respiratory: Respiratory: Reports no additional respiratory complaints, Denies cough, Denies dyspnea and Denies wheezing Gastrointestinal: Gastrointestinal: Reports no additional gastrointestinal complaints, Reports abdominal pain, Denies bloating, Reports hematochezia, Reports diarrhea, Reports loose stools, Denies nausea and Denies hematemesis Genitourinary: Genitourinary: Reports no additional male genitourinary comp laints Neurologic: Reports system reviewed and no additional complaints, except as documented, Denies syncope and Reports weakness Psychiatric: Psychiatric: Reports no additional psychiatric complaints and Re ports depression Endocrine: Endocrine: Reports no additional endocrine complaints, Reports fatigue and Denies palpitations Hematologic/Lymphatic: Hematologic/Lymphatic: Reports no additional hematologic/lymphatic complaints Allergic/Immunologic: Allergic/Immunologic: Denies wheezing [facility] Medical History Crohn's colitis Crohn's disease Psoriasis Surgical History H/O colectomy Social History Household Members: Family Housing: House Do you presently have visiting nurse or other home services: No Patient Tobacco Use Status: Current everyday Tobacco user Patient Interested in Nicotine Replacement: Yes Use of substances other than those prescribed or required for medical reasons: No Currently Displaying Signs/Symptoms of Drug Intoxication Withdrawal: No Have you been hit, kicked, punched, or otherwise hurt by someone within the past year? If so, by whom?: No Do you feel safe in your current relationship?: No Is there a partner from a previous relationship who is making you feel unsafe now?: No Are you made to feel afraid or neglected: No Advance Directives: No Advance Directives Information Provided: No Do you have thoughts of harming others: None Do you have a plan to hurt others: No Plan Recently lost weight without trying: No Eating poorly because of decreased appetite: Yes Nutrition Risks: No Nutritional Risk Poor oral hygiene: No service: No Current occupational status: employed Meds Allergies Allergy/AdvReac Type Severity Reaction Status Date / Time No Known Allergies Allergy Verified 04/07/21 16:01 [No Known Allergies*] Active Medications: Current Medications Generic Name Dose Route Start Last Admin Trade Name Freq PRN Reason Stop Dose Admin Acetaminophen 650 mg 04/18/21 10:52 04/18/21 11:13 Acetaminophen 325 Mg Tablet PO 650 mg Q6H PRN Administration Pain, Mild (Pain Scale 1-3) Amlodipine Besylate 5 mg 04/13/21 09:00 04/18/21 08:36 Amlodipine Besylate 5 Mg Tablet PO 5 mg DAILY [facility] Administration Aspirin 81 mg 04/14/21 13:25 04/18/21 08:37 Aspirin Enteric Coated 81 Mg Tablet.Dr PO 81 mg DAILY [facility] Administration Atorvastatin Calcium 80 mg 04/11/21 21:00 04/17/21 20:49 Atorvastatin Calcium 80 Mg Tablet PO 80 mg BEDTIME [facility] Administration Dicyclomine HCl 10 mg 04/18/21 07:30 04/18/21 11:13 Dicyclomine Hcl 10 Mg Capsule PO 10 mg TIDAC [facility] Administration Hydromorphone HCl 0.5 mg 04/15/21 15:20 04/17/21 23:28 Hydromorphone Hcl 0.5 Mg/0.5 Ml Syringe IVPUSH 0.5 mg Q2H PRN Administration pain Isosorbide Mononitrate 30 mg 04/14/21 21:00 04/18/21 08:36 Isosorbide Mononitrate 30 Mg Tab.Er.24h PO 30 mg BID [facility] Administration Protocol Labetalol HCl 200 mg 04/13/21 09:45 04/18/21 08:36 Labetalol Hcl 200 Mg Tablet PO 200 mg BID [facility] Administration Protocol Loperamide HCl 2 mg 04/17/21 21:34 Loperamide Hcl 2 Mg Capsule PO Q4H PRN Diarrhea Methadone HCl 80 mg 04/09/21 08:00 04/18/21 08:37 Methadone Hcl 1 Mg/0.1 Ml Oral.Conc PO 80 mg DAILY [facility] Administration Nicotine 14 mg 04/08/21 09:00 04/18/21 08:37 Nicotine 14 Mg Patch.Td24 TRANSDERMA 14 mg DAILY [facility] Administration Nystatin 1 appl 04/17/21 22:00 04/18/21 08:50 Nystatin Powder 15 Gm Bottle TOPICAL Not Given BID [facility] Protocol Oxycodone HCl 5 mg 04/16/21 20:08 04/18/21 12:34 Oxycodone Hcl Immed Release 5 Mg Tablet PO 5 mg Q4H PRN Administration Pain, Severe (Pain Scale 7-10) Sodium Chloride 3 ml 04/08/21 00:31 04/18/21 08:37 0.9 % Sodium Chloride Flush 3 Ml Syringe IVFLUSH 3 ml QSHIFT [facility] Administration Zinc Oxide 1 appl 04/18/21 14:43 Zinc Oxide 20% Ointment 28.35 Gm Tube TOPICAL DAILY PRN Rash Protocol Zolpidem Tartrate 5 mg 04/16/21 21:00 04/17/21 20:50 Zolpidem Tartrate 5 Mg Tablet PO 5 mg BEDTIME [facility] Administration Home Medications Medication Instructions Recorded Confirmed Last Taken Type adalimumab [Humira(CF) Pen] 40 mg SUBCUT Q2W 04/07/21 04/07/21 Unknown History budesonide 2 cap PO DAILY 04/07/21 04/07/21 Unknown History diphenoxylate-atropine 2 tab PO NEEDED PRN 04/07/21 04/07/21 Unknown History Physical Exam Vital Signs and Narrative: Vital Signs: Last Vital Signs Temp 98.5 F 04/18/21 11:30 Pulse 82 04/18/21 11:30 Resp 19 04/18/21 11:30 BP 103/64 04/18/21 11:30 Pulse Ox 100 04/18/21 11:30 Body Mass Index 21.2 Const: Other: Alert, looks tired, no acute distress General: cooperative, healthy appearing, comfortable, no acute distress, alert, awake, anxious, ill appearing and tired appearing Nutritional Appearance: average body habitus and thin Orientation/consciousness: oriented to person, oriented to place and patient oriented x3 Limitations: no limitations HENMT: Other: Unremarkable Head: Yes normal to inspection, Yes normocephalic and Yes atraumatic Ears: hearing grossly normal bilaterally Eyes: General: appearance normal, both eyes and all related structures Sclerae: sclerae normal EOM: EOMs intact bilaterally Neck: Yes normal visual inspection, Yes full ROM, Yes no lymphadenopathy, Yes trachea midline, Yes supple and Yes no JVD Chest: Chest palpation & inspection: normal inspection of the chest Resp: Effort & Inspection: normal respiratory effort, able to speak in complete sentences, no cough, not labored, no respiratory distress, no stridor and not tachypneic Auscultation: clear to auscultation bilaterally, no crackles, no rales, no rhonchi, no wheezes and diminished lung sounds Cardio: Heart sounds: no gallops, no murmurs and no rubs Peripheral pulses: Peripheral pulses 2+ throughout GI: Other: soft, flat, normal BS, well healed midline incision. DEBI intact with serous discharge Inspection: Yes normal to inspection and Yes other (Status post recent surgery. Tender) Palpation (GI): Soft to palpation, nontender, no guarding, not rigid, Hernia present umbilical and ventral, no masses and Other GI palpation findings present ( Nontender) Auscultation: normal bowel sounds, abnormal bowel sounds and Hypoactive bowel sounds present Back/Spine/Pelvis: Other: unremarkable Skin: Other: Generally his skin is within normal limits however at the base of the penis moving posteriorly all along his scrotum and going to clarence rectum there is erythematous a little edematous changes consistent with may be a partial cellulitis and a rash with moisture in the area. Along the right medial thigh there is some deep partial-thickness breakdown of the skin. Neuro: General: oriented to person, oriented to place, patient oriented x3 and no focal motor deficits Cognition (Neuro): normal cognition Extrem: Other: No edema General: Yes normal to inspection, Yes no clubbing, cyanosis or edema, Yes no pedal edema, No clubbing, No cyanosis and No edema Psych: Mental Status: mental status grossly normal Affect: Depressed mood present Results Labs CBC and Chem 7: 04/18/21 05:48 04/18/21 05:48 Labs: Laboratory Results - last 24 hr 04/08/21 04/18/21 04/18/21 21:16 05:48 05:48 MCV 92.0 MCH 30.2 MCHC 32.8 RDW 14.8 Plt Count 325 MPV 10.4 Absolute Nucleated RBC 0.000 Nucleated RBC % (auto) 0.0 Anion Gap 10 L Estim Creat Clear Calc 54.9 Estimated GFR 53 Fasting Glucose 82 Calcium 7.4 L O & P Trichrome Stain SEE NOTE Imaging Radiologist's Impressions: Impressions Myocardial Perfusion Scan Nuc Med 04/16/21 07:55 Impression: 1. Myocardial perfusion imaging study shows basal and mid inferior nontransmural infarct without reversible ischemia 2. Gated LVEF is 60% 3. Transient ischemic dilatation not present EKG is nondiagnostic for ischemia Assessment and Plan (1) Lower gastrointestinal hemorrhage: Status: Acute Patient's blood count is drifting down slowly; no evidence of rebleeding. DEBI with serous fluid. DBEI removed today. Continue PT, ambulation and stair training. Diet as tolerated. Pain management (2) Fungal rash of torso: Status: Acute 51-year-old male with rash over the scrotum medial size going to the clarence rectum area very tender macerated skin secondary to probable diarrhea due to his bowels surgeries ingrown disease. At this point plan is to use at least 20% zinc oxide mixed with the nystatin cream and apply daily all over the region. Patient and nursing team nose. Hopefully this will heal my quickly and the medical management will be able to decrease the consistency of his stool and frequent sees which will also be helpful. Patient understands agrees with the above plan
--- NOTE | 2021-04-18 16:21 | P.PNIM_ITS ---
Subjective Subjective Date of Service: 04/18/21 Interval History: the patient was seen and evaluated this morning Laying in bed, feels comfortable overall mainly complaining of increased w eakness and wounds in his inguinal area Denies any fever, chills or shortness of breath No reported other overnight events. Systemic review: No fever, chills but complaining mainly of weakness No chest pain, palpitation No shortness of breath or coughing No abdominal pain, nausea or vomiting but reporting episodes of diarrhea on daily basis No urinary symptoms As rash in his inguinal and perineal areas. Physical Exam Vital Signs: Vital Signs: Last Vital Signs Temp 98.5 F 04/18/21 11:30 Pulse 82 04/18/21 11:30 Resp 19 04/18/21 11:30 BP 103/64 04/18/21 11:30 Pulse Ox 100 04/18/21 11:30 Body Mass Index 21.2 Const: Other: Constitutional : Alert, oriented, looks tired and weak Neck : Normal inspection, Supple Cardiovascular : RRR, S1 S2, no lower extremity edema Respiratory : Good bilateral air entry, no crackles, wheezes or rhonchi Gastrointestinal: soft, lax, Normal bowel sounds, Non tender Skin : Warm/Dry, rash in the inguinal and perineal area seems to be under check Neurological : Alert & oriented x3, No focal deficit Objective Data Current Medications Generic Name Dose Route Start Last Admin Trade Name Freq PRN Reason Stop Dose Admin Acetaminophen 650 mg 04/18/21 10:52 04/18/21 11:13 Acetaminophen 325 Mg Tablet PO 650 mg Q6H PRN Administration Pain, Mild (Pain Scale 1-3) Amlodipine Besylate 5 mg 04/13/21 09:00 04/18/21 08:36 Amlodipine Besylate 5 Mg Tablet PO 5 mg DAILY [facility] Administration Aspirin 81 mg 04/14/21 13:25 04/18/21 08:37 Aspirin Enteric Coated 81 Mg Tablet.Dr PO 81 mg DAILY [facility] Administration Atorvastatin Calcium 80 mg 04/11/21 21:00 04/17/21 20:49 Atorvastatin Calcium 80 Mg Tablet PO 80 mg BEDTIME [facility] Administration Dicyclomine HCl 10 mg 04/18/21 07:30 04/18/21 11:13 Dicyclomine Hcl 10 Mg Capsule PO 10 mg TIDAC [facility] Administration Hydromorphone HCl 0.5 mg 04/15/21 15:20 04/17/21 23:28 Hydromorphone Hcl 0.5 Mg/0.5 Ml Syringe IVPUSH 0.5 mg Q2H PRN Administration pain Isosorbide Mononitrate 30 mg 04/14/21 21:00 04/18/21 08:36 Isosorbide Mononitrate 30 Mg Tab.Er.24h PO 30 mg BID [facility] Administration Protocol Labetalol HCl 200 mg 04/13/21 09:45 04/18/21 08:36 Labetalol Hcl 200 Mg Tablet PO 200 mg BID [facility] Administration Protocol Loperamide HCl 2 mg 04/17/21 21:34 Loperamide Hcl 2 Mg Capsule PO Q4H PRN Diarrhea Methadone HCl 80 mg 04/09/21 08:00 04/18/21 08:37 Methadone Hcl 1 Mg/0.1 Ml Oral.Conc PO 80 mg DAILY [facility] Administration Nicotine 14 mg 04/08/21 09:00 04/18/21 08:37 Nicotine 14 Mg Patch.Td24 TRANSDERMA 14 mg DAILY [facility] Administration Nystatin 1 appl 04/17/21 22:00 04/18/21 08:50 Nystatin Powder 15 Gm Bottle TOPICAL Not Given BID [facility] Protocol Oxycodone HCl 5 mg 04/16/21 20:08 04/18/21 12:34 Oxycodone Hcl Immed Release 5 Mg Tablet PO 5 mg Q4H PRN Administration Pain, Severe (Pain Scale 7-10) Sodium Chloride 3 ml 04/08/21 00:31 04/18/21 08:37 0.9 % Sodium Chloride Flush 3 Ml Syringe IVFLUSH 3 ml QSHIFT [facility] Administration Zinc Oxide 1 appl 04/18/21 14:43 Zinc Oxide 20% Ointment 28.35 Gm Tube TOPICAL DAILY PRN Rash Protocol Zolpidem Tartrate 5 mg 04/16/21 21:00 04/17/21 20:50 Zolpidem Tartrate 5 Mg Tablet PO 5 mg BEDTIME [facility] Administration Labs CBC & Chem 7: 04/18/21 05:48 04/18/21 05:48 Labs: Laboratory Results - last 24 hr 04/18/21 04/18/21 05:48 05:48 WBC 6.4 RBC 2.62 L Hgb 7.9 L Hct 24.1 L MCV 92.0 MCH 30.2 MCHC 32.8 RDW 14.8 Plt Count 325 MPV 10.4 Absolute Nucleated RBC 0.000 Nucleated RBC % (auto) 0.0 Sodium 138 Potassium 3.6 Chloride 110 H Carbon Dioxide 22 Anion Gap 10 L BUN 23 H Creatinine 1.42 H Estim Creat Clear Calc 54.9 Estimated GFR 53 Fasting Glucose 82 Calcium 7.4 L Quality Stroke Does the patient have a stroke diagnosis?: No VTE Prior VTE?: No VTE Risk Level:: Medical - moderate - high VTE Device Contraindication: N/A - Device Ordered VTE Drug Contraindication: N/A - Med Ordered Assessment and Plan (1) NSTEMI (non-ST elevated myocardial infarction): Status: Acute Assessment and Plan: 51M presented with hematochezia, initially admitted to medical floor, but next morning started bleeding briskly, became unstable, hgb decreased to 5.5, was transfered to ICU, received multiple tranfusions, colonoscopy 04/10/21 revealed Actively bleeding Dieulafoy lesion of ascending colon, received epi and sclerotherapy and was transferred to OR for Exploratory laparotomy, right colectomy with ileocolonic anastomosis. hgb then dropped again to 5.7 and patient became tachycardiac on 04/11/21 he underwent Exploratory laparotomy, evacuation of hemoperitoneum, over-saw of oozing areas in the right gutter, placement of Surgicel in the retroperitoneal surface, course complicated by NSTEMI, troponins peaked at 3500, felt to by type II MN, will need ischemic work up as outpaitnet. also complicated by ALLISON, due to hypoperfusion, creatinine now stable around 1.6. patient now stable, transfered to medical floor 04/13/21. acute blood loss anemia due to crohns flare with bleeding dieuloafoy lesion 9 units prbc total 6 units total FFP, 1 platelets, 1 cryoprecipitate s/p surgery right colectomy 04/10 and exploarion and hemoperitoneum evac 04/11 hgb mostly stable now, has dropped 1gm from 9.3 to 8.3 over 48hrs, unlikely acti ve bleed, continue to monitor wean off dilaudid, transitioned from pump to intermittent on 04/15/21 having pain with solids, had BM, but hesitant to eat due to pain NSTEMI type II Stress test was showing basis inferior, inferoseptal inferolateral akinesis. With ejection fraction of 60 65%. Cardiology input appreciated, continue low-dose aspirin, beta-cristobal and amlodipine along with statin next Lyme continue long-acting nitrate ALLISON stable, monitor HTN amlodipine labetolol imdur Physical deconditioning Physical therapy Perineum wounds From diarrhea To get wound care evaluation Diarrhea GI input appreciated Pending C diff Start Imodium as needed DVT PPX SCDs
[2021-04-18] MEDS: Zinc Oxide 20% Ointment 28.35 GM TUBE 1 APPL TOPICAL (17:58)
[2021-04-18] MEDS: Loperamide HCl 2 MG CAPSULE PO ×2 (18:13→22:08)
[2021-04-18 19:03] LABS: CDIFF Ag Negative (Negative); CDIFF Internal ctrl Dots and bkg OK (V); CDiff Toxin Negative (Negative)
--- NOTE | 2021-04-18 19:15 | PM.GIPN ---
Subjective Subjective Date of Service: 04/18/21 Interval History: Patient seen at Noon today. He feels weak but walked with PT. Abdominal discomfort is improving. Apetite is fair. Denies N/V. Denies any rectal bleeding. No BM's today as yet. Critical Care Time (minutes): 0 Physical Exam Vital Signs: Vital Signs: Last Vital Signs Temp 97.9 F 04/18/21 16:00 Pulse 75 04/18/21 16:00 Resp 14 04/18/21 16:00 BP 100/51 L 04/18/21 16:00 Pulse Ox 100 04/18/21 16:00 Body Mass Index 21.2 Const: General: cooperative, comfortable, no acute distress and alert Nutritional Appearance: thin GI: Other: +BS, soft, Nondistended, Mild diffuse tenderness, No mass/rebound/guarding Objective Data Labs CBC & Chem 7: 04/18/21 05:48 04/18/21 05:48 Labs: Laboratory Results - last 24 hr 04/18/21 04/18/21 04/18/21 05:48 05:48 18:17 WBC 6.4 RBC 2.62 L Hgb 7.9 L Hct 24.1 L MCV 92.0 MCH 30.2 MCHC 32.8 RDW 14.8 Plt Count 325 MPV 10.4 Absolute Nucleated RBC 0.000 Nucleated RBC % (auto) 0.0 Sodium 138 Potassium 3.6 Chloride 110 H Carbon Dioxide 22 Anion Gap 10 L BUN 23 H Creatinine 1.42 H Estim Creat Clear Calc 54.9 Estimated GFR 53 Fasting Glucose 82 Calcium 7.4 L C. difficile Toxin A&B Negative C. difficile Antigen Negative C. difficile Interpret SEE NOTE Microbiology Microbiology Results: Microbiology 04/10/21 07:36 Blood - Venous Blood Culture - Final No growth after 5 days. 04/08/21 21:16 Stool Stool Culture - Final 04/10/21 Unknown Blood - Venous Blood Culture - Final Progress Note: A&P Fall Risk Details Current Medications: Current Medications Generic Name Dose Route Start Last Admin Trade Name Freq PRN Reason Stop Dose Admin Acetaminophen 650 mg 04/18/21 10:52 04/18/21 11:13 Acetaminophen 325 Mg Tablet PO 650 mg Q6H PRN Administration Pain, Mild (Pain Scale 1-3) Amlodipine Besylate 5 mg 04/13/21 09:00 04/18/21 08:36 Amlodipine Besylate 5 Mg Tablet PO 5 mg DAILY [facility] Administration Aspirin 81 mg 04/14/21 13:25 04/18/21 08:37 Aspirin Enteric Coated 81 Mg Tablet.Dr PO 81 mg DAILY [facility] Administration Atorvastatin Calcium 80 mg 04/11/21 21:00 04/17/21 20:49 Atorvastatin Calcium 80 Mg Tablet PO 80 mg BEDTIME [facility] Administration Dicyclomine HCl 10 mg 04/18/21 07:30 04/18/21 17:58 Dicyclomine Hcl 10 Mg Capsule PO 10 mg TIDAC [facility] Administration Hydromorphone HCl 0.5 mg 04/15/21 15:20 04/17/21 23:28 Hydromorphone Hcl 0.5 Mg/0.5 Ml Syringe IVPUSH 0.5 mg Q2H PRN Administration pain Isosorbide Mononitrate 30 mg 04/14/21 21:00 04/18/21 08:36 Isosorbide Mononitrate 30 Mg Tab.Er.24h PO 30 mg BID [facility] Administration Protocol Labetalol HCl 200 mg 04/13/21 09:45 04/18/21 08:36 Labetalol Hcl 200 Mg Tablet PO 200 mg BID [facility] Administration Protocol Loperamide HCl 2 mg 04/17/21 21:34 04/18/21 18:13 Loperamide Hcl 2 Mg Capsule PO 2 mg Q4H PRN Administration Diarrhea Methadone HCl 80 mg 04/09/21 08:00 04/18/21 08:37 Methadone Hcl 1 Mg/0.1 Ml Oral.Conc PO 80 mg DAILY [facility] Administration Nicotine 14 mg 04/08/21 09:00 04/18/21 08:37 Nicotine 14 Mg Patch.Td24 TRANSDERMA 14 mg DAILY [facility] Administration Nystatin 1 appl 04/17/21 22:00 04/18/21 08:50 Nystatin Powder 15 Gm Bottle TOPICAL Not Given BID [facility] Protocol Oxycodone HCl 5 mg 04/16/21 20:08 04/18/21 17:58 Oxycodone Hcl Immed Release 5 Mg Tablet PO 5 mg Q4H PRN Administration Pain, Severe (Pain Scale 7-10) Sodium Chloride 3 ml 04/08/21 00:31 04/18/21 17:59 0.9 % Sodium Chloride Flush 3 Ml Syringe IVFLUSH 3 ml QSHIFT [facility] Administration Zinc Oxide 1 appl 04/18/21 14:43 04/18/21 17:58 Zinc Oxide 20% Ointment 28.35 Gm Tube TOPICAL 1 appl DAILY PRN Administration Rash Protocol Zolpidem Tartrate 5 mg 04/16/21 21:00 04/17/21 20:50 Zolpidem Tartrate 5 Mg Tablet PO 5 mg BEDTIME [facility] Administration Time Spent With Patient Time: Total time spent is greater than 50% in coordination of care (as documented) at patient's floor/unit and/or counseling patient: Time with patient: 15 - 24 minutes Procedures Date of Service Date of Service: 04/18/21 Quality Stroke Does the patient have a stroke diagnosis?: No VTE Prior VTE?: No VTE Risk Level:: Medical - moderate - high VTE Device Contraindication: N/A - Device Ordered VTE Drug Contraindication: N/A - Med Ordered
[2021-04-18] MEDS: Nystatin Powder 15 GM BOTTLE 1 APPL TOPICAL (20:11)
[2021-04-18] MEDS: Atorvastatin Calcium 80 MG TABLET PO (20:12)
[2021-04-18] MEDS: Zolpidem Tartrate 5 MG TABLET PO (20:12)
[2021-04-19] VITALS (8 sets, daily range): BP systolic 89–104; BP diastolic 55–61; PULSE 70–84; RESP 16–19; TEMP 36–37.3; O2SAT 98–100
[2021-04-19] MEDS: oxyCODONE HCl Immed Release 5 MG TABLET PO ×5 (02:11→23:13)
[2021-04-19 08:30] LABS: MANUAL DIFF FLAG NO
[2021-04-19 08:32] LABS: Basophils Percent Auto 0.3 % (0-2); Eosinophils Absolute Auto 0.3 X10*3/uL (0.0-0.4); Eosinophils Percent Auto 4.6 % (0-4); Hematocrit 24.5 % (42-52); Hemoglobin 8.1 g/dl (14.0-18.0); Imm Gran Abs Auto 0.07 X10*3/uL (0.00-0.03); Lymphocytes Absolute Auto 0.9 X10*3/uL (1.2-4.9); Lymphocytes Percent Auto 13.1 % (20-40); Mean Corpuscular HGB Conc 33.1 g/dl (31.0-36.0); Mean Corpuscular Hemoglobin 30.7 pg (27.0-33.0); Mean Corpuscular Volume 92.8 fL (80-98); Mean Platelet Volume 9.9 fL (9.4-12.4); Monocytes Percent Auto 14.7 % (2-11); Neutrophils Absolute Auto 4.5 X10*3/uL (2.0-8.3); Neutrophils Percent Auto 66.3 % (45-73); Platelet Count 350 X10*3/uL (160-400); Red Blood Count 2.64 X10*6/uL (4.60-5.80); White Blood Count 6.8 X10*3/uL (4.8-10.8)
[2021-04-19 08:38] LABS: INTERNATIONAL NORM RATIO 1.1 (0.9-1.1); Prothrombin Time 12.6 SEC (10.8-13.0)
[2021-04-19] MEDS: Aspirin Enteric Coated 81 MG TABLET.DR PO (08:54)
[2021-04-19] MEDS: Labetalol HCL 200 MG TABLET PO (08:55)
[2021-04-19] MEDS: Isosorbide Mononitrate 30 MG TAB.ER.24H PO (08:55)
[2021-04-19] MEDS: amLODIPine Besylate 5 MG TABLET PO (08:55)
[2021-04-19] MEDS: Dicyclomine HCl 10 MG CAPSULE PO ×3 (08:55→17:43)
[2021-04-19] MEDS: Nicotine 14 MG PATCH.TD24 TRANSDERMA (08:56)
[2021-04-19] MEDS: 0.9 % Sodium Chloride Flush 3 ML SYRINGE IVFLUSH ×3 (08:57→20:39)
[2021-04-19] MEDS: Nystatin Powder 15 GM BOTTLE 1 APPL TOPICAL ×2 (09:01→20:38)
[2021-04-19 09:03] LABS: Anion Gap 12 (12-20); Blood Urea Nitrogen 24 mg/dL (9-16); Calcium 7.7 mg/dL (8.4-10.2); Carbon Dioxide 24 mmol/L (22-29); Chloride 109 mmol/L (96-108); Creatinine Clr Calc Pharmacy 54.9; Estimated Glomerular Filt Rate 53; Glucose Random 78 mg/dL (60-115); Potassium 4.3 mmol/L (3.3-5.1); Sodium 141 mmol/L (135-145)
--- NOTE | 2021-04-19 09:04 | PM.PNGS ---
Subjective Subjective Date of Service: 04/19/21 Interval history: Patient is mostly concerned about his groin rash which is slow causing him pain. His bowels are much improved after starting Imodium. He is tolerating regular diet this morning without nausea or vomiting. Physical Exam Vital Signs: Vital Signs: Last Vital Signs Temp 99.2 F 04/19/21 08:00 Pulse 78 04/19/21 08:00 Resp 19 04/19/21 08:00 BP 103/61 04/19/21 08:00 Pulse Ox 98 04/19/21 08:00 Body Mass Index 21.2 Const: General: cooperative, comfortable, no acute distress, well developed and alert Nutritional Appearance: thin Orientation/consciousness: patient oriented x3 Limitations: no limitations Resp: Effort & Inspection: normal respiratory effort GI: Other: Soft, nondistended, nontender, healing midline incision without redness or discharge. 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 Patient with no ongoing bleeding but blood count is slowly drifting perhaps due to poor nutrition. His appetite is improving now that his bowels are better controlled. Patient now receiving treatment for his groin rash. Fall Risk Details Current Medications: Current Medications Generic Name Dose Route Start Last Admin Trade Name Freq PRN Reason Stop Dose Admin Acetaminophen 650 mg 04/18/21 10:52 04/18/21 11:13 Acetaminophen 325 Mg Tablet PO 650 mg Q6H PRN Administration Pain, Mild (Pain Scale 1-3) Amlodipine Besylate 5 mg 04/13/21 09:00 04/19/21 08:55 Amlodipine Besylate 5 Mg Tablet PO 5 mg DAILY LENORA Administration Aspirin 81 mg 04/14/21 13:25 04/19/21 08:54 Aspirin Enteric Coated 81 Mg Tablet. PO 81 mg DAILY LENORA Administration Atorvastatin Calcium 80 mg 04/11/21 21:00 04/18/21 20:12 Atorvastatin Calcium 80 Mg Tablet PO 80 mg BEDTIME LENORA Administration Dicyclomine HCl 10 mg 04/18/21 07:30 04/19/21 08:55 Dicyclomine Hcl 10 Mg Capsule PO 10 mg TIDAC LENORA Administration Hydromorphone HCl 0.5 mg 04/15/21 15:20 04/17/21 23:28 Hydromorphone Hcl 0.5 Mg/0.5 Ml Syringe IVPUSH 0.5 mg Q2H PRN Administration pain Isosorbide Mononitrate 30 mg 04/14/21 21:00 04/19/21 08:55 Isosorbide Mononitrate 30 Mg Tab.Er.24h PO 30 mg BID LENORA Administration Protocol Labetalol HCl 200 mg 04/13/21 09:45 04/19/21 08:55 Labetalol Hcl 200 Mg Tablet PO 200 mg BID LENORA Administration Protocol Loperamide HCl 2 mg 04/17/21 21:34 04/18/21 22:08 Loperamide Hcl 2 Mg Capsule PO 2 mg Q4H PRN Administration Diarrhea Methadone HCl 80 mg 04/09/21 08:00 04/19/21 08:55 Methadone Hcl 1 Mg/0.1 Ml Oral.Conc PO 80 mg DAILY LENORA Administration Nicotine 14 mg 04/08/21 09:00 04/19/21 08:56 Nicotine 14 Mg Patch.Td24 TRANSDERMA 14 mg DAILY LENORA Administration Nystatin 1 appl 04/17/21 22:00 04/19/21 09:01 Nystatin Powder 15 Gm Bottle TOPICAL 1 appl BID LENORA Administration Protocol Oxycodone HCl 5 mg 04/16/21 20:08 04/19/21 05:57 Oxycodone Hcl Immed Release 5 Mg Tablet PO 5 mg Q4H PRN Administration Pain, Severe (Pain Scale 7-10) Sodium Chloride 3 ml 04/08/21 00:31 04/19/21 08:57 0.9 % Sodium Chloride Flush 3 Ml Syringe IVFLUSH 3 ml QSHIFT LENORA Administration Zinc Oxide 1 appl 04/18/21 14:43 04/18/21 17:58 Zinc Oxide 20% Ointment 28.35 Gm Tube TOPICAL 1 appl DAILY PRN Administration Rash Protocol Zolpidem Tartrate 5 mg 04/16/21 21:00 04/18/21 20:12 Zolpidem Tartrate 5 Mg Tablet PO 5 mg BEDTIME LENORA Administration Time Spent With Patient Time: Total time spent is greater than 50% in coordination of care (as documented) at patient's floor/unit and/or counseling patient: Time with patient: 15 - 24 minutes Procedures Date of Service Date of Service: 04/19/21 Quality Stroke Does the patient have a stroke diagnosis?: No VTE Prior VTE?: No VTE Risk Level:: Medical - moderate - high VTE Device Contraindication: N/A - Device Ordered VTE Drug Contraindication: N/A - Med Ordered
[2021-04-19 09:05] LABS: Iron 10 mcg/dL (45-160); Percent Iron Saturation 5 % (15-50); Total Iron Binding Capacity 202 mcg/dL (228-428); Unsaturated Iron Binding 192 ug/dL
[2021-04-19] MEDS: HYDROmorphone HCl 0.5 MG/0.5 ML SYRINGE IVPUSH ×2 (09:14→13:02)
[2021-04-19 09:25] LABS: Ferritin 164 ng/mL (20-250)
[2021-04-19 09:29] LABS: Alanine Aminotransferase 14 U/L (0-40); Albumin Level 2.6 g/dL (3.5-5.0); Alkaline Phosphatase 58 U/L (39-117); Aspartate Amino Transferase 12 U/L (5-37); Bilirubin Direct 0.3 mg/dL (0.0-0.5); Bilirubin Total 0.4 mg/dL (0.0-1.0); Total Protein 4.4 g/dL (6.5-8.0)
[2021-04-19 10:01] LABS: Folate 12.5 ng/mL (> or = 4.0); Vitamin B12 < 146 pg/mL (200-900)
--- NOTE | 2021-04-19 11:31 | P.PNIM_ITS ---
Subjective Subjective Date of Service: 04/19/21 Interval History: the patient was seen and evaluated this morning Laying in bed, feels better overall complaining of increased weakness and pain from wounds in his perineum area Denies any fever, chills or shortness of breath No reported other overnight events. Systemic review: No fever, chills but complaining mainly of weakness No chest pain, palpitation No shortness of breath or coughing No abdominal pain, nausea or vomiting but reporting episodes of diarrhea on daily basis No urinary symptoms As rash in his perineal area Physical Exam Vital Signs: Vital Signs: Last Vital Signs Temp 99.2 F 04/19/21 08:00 Pulse 78 04/19/21 10:10 Resp 19 04/19/21 08:00 BP 103/61 04/19/21 10:10 Pulse Ox 98 04/19/21 10:10 Body Mass Index 21.2 Const: Other: Constitutional : Alert, oriented, looks tired and weak Neck : Normal inspection, Supple Cardiovascular : RRR, S1 S2, no lower extremity edema Respiratory : Good bilateral air entry, no crackles, wheezes or rhonchi Gastrointestinal: soft, lax, Normal bowel sounds, Non tender Skin : Warm/Dry, exfoliating rash in the perineal area covered with cream Neurological : Alert & oriented x3, No focal deficit Objective Data Current Medications Generic Name Dose Route Start Last Admin Trade Name Freq PRN Reason Stop Dose Admin Acetaminophen 650 mg 04/18/21 10:52 04/18/21 11:13 Acetaminophen 325 Mg Tablet PO 650 mg Q6H PRN Administration Pain, Mild (Pain Scale 1-3) Amlodipine Besylate 5 mg 04/13/21 09:00 04/19/21 08:55 Amlodipine Besylate 5 Mg Tablet PO 5 mg DAILY LENORA Administration Aspirin 81 mg 04/14/21 13:25 04/19/21 08:54 Aspirin Enteric Coated 81 Mg Tablet.Dr PO 81 mg DAILY LENORA Administration Atorvastatin Calcium 80 mg 04/11/21 21:00 04/18/21 20:12 Atorvastatin Calcium 80 Mg Tablet PO 80 mg BEDTIME LENORA Administration Dicyclomine HCl 10 mg 04/18/21 07:30 04/19/21 08:55 Dicyclomine Hcl 10 Mg Capsule PO 10 mg TIDAC LENORA Administration Hydromorphone HCl 0.5 mg 04/15/21 15:20 04/19/21 09:14 Hydromorphone Hcl 0.5 Mg/0.5 Ml Syringe IVPUSH 0.5 mg Q2H PRN Administration pain Isosorbide Mononitrate 30 mg 04/14/21 21:00 04/19/21 08:55 Isosorbide Mononitrate 30 Mg Tab.Er.24h PO 30 mg BID LENORA Administration Protocol Labetalol HCl 200 mg 04/13/21 09:45 04/19/21 08:55 Labetalol Hcl 200 Mg Tablet PO 200 mg BID LENORA Administration Protocol Loperamide HCl 2 mg 04/17/21 21:34 04/18/21 22:08 Loperamide Hcl 2 Mg Capsule PO 2 mg Q4H PRN Administration Diarrhea Methadone HCl 80 mg 04/09/21 08:00 04/19/21 08:55 Methadone Hcl 1 Mg/0.1 Ml Oral.Conc PO 80 mg DAILY LENORA Administration Nicotine 14 mg 04/08/21 09:00 04/19/21 08:56 Nicotine 14 Mg Patch.Td24 TRANSDERMA 14 mg DAILY LENORA Administration Nystatin 1 appl 04/17/21 22:00 04/19/21 09:01 Nystatin Powder 15 Gm Bottle TOPICAL 1 appl BID LENORA Administration Protocol Oxycodone HCl 5 mg 04/16/21 20:08 04/19/21 10:39 Oxycodone Hcl Immed Release 5 Mg Tablet PO 5 mg Q4H PRN Administration Pain, Severe (Pain Scale 7-10) Sodium Chloride 3 ml 04/08/21 00:31 04/19/21 08:57 0.9 % Sodium Chloride Flush 3 Ml Syringe IVFLUSH 3 ml QSHIFT LENORA Administration Zinc Oxide 1 appl 04/18/21 14:43 04/18/21 17:58 Zinc Oxide 20% Ointment 28.35 Gm Tube TOPICAL 1 appl DAILY PRN Administration Rash Protocol Zolpidem Tartrate 5 mg 04/16/21 21:00 04/18/21 20:12 Zolpidem Tartrate 5 Mg Tablet PO 5 mg BEDTIME LENORA Administration Labs CBC & Chem 7: 04/19/21 07:55 04/19/21 07:55 Labs: Laboratory Results - last 24 hr 04/18/21 04/19/21 04/19/21 18:17 07:55 07:55 WBC 6.8 RBC 2.64 L Hgb 8.1 L Hct 24.5 L MCV 92.8 MCH 30.7 MCHC 33.1 RDW 15.0 Plt Count 350 MPV 9.9 Immature Gran % (Auto) 1.0 H Neut % (Auto) 66.3 Lymph % (Auto) 13.1 L [place] % (Auto) 14.7 H Eos % (Auto) 4.6 H Baso % (Auto) 0.3 Lymph # (Auto) 0.9 L [place] # (Auto) 1.0 Eos # (Auto) 0.3 Baso # (Auto) 0.0 Abs Immat Gran (auto) 0.07 H Absolute Neuts (auto) 4.5 Absolute Nucleated RBC 0.000 Nucleated RBC % (auto) 0.0 PT INR Sodium 141 Potassium 4.3 Chloride 109 H Carbon Dioxide 24 Anion Gap 12 BUN 24 H Creatinine 1.42 H Estim Creat Clear Calc 54.9 Estimated GFR 53 Random Glucose 78 Calcium 7.7 L Iron TIBC % Saturation Unsat Iron Binding Ferritin Total Bilirubin Direct Bilirubin AST ALT Alkaline Phosphatase Total Protein Albumin Vitamin B12 Folate C. difficile Toxin A&B Negative C. difficile Antigen Negative C. difficile Interpret SEE NOTE 04/19/21 04/19/21 04/19/21 07:55 07:55 07:55 WBC RBC Hgb Hct MCV MCH MCHC RDW Plt Count MPV Immature Gran % (Auto) Neut % (Auto) Lymph % (Auto) [place] % (Auto) Eos % (Auto) Baso % (Auto) Lymph # (Auto) [place] # (Auto) Eos # (Auto) Baso # (Auto) Abs Immat Gran (auto) Absolute Neuts (auto) Absolute Nucleated RBC Nucleated RBC % (auto) PT 12.6 INR 1.1 Sodium Potassium Chloride Carbon Dioxide Anion Gap BUN Creatinine Estim Creat Clear Calc Estimated GFR Random Glucose Calcium Iron 10 L TIBC 202 L % Saturation 5 L Unsat Iron Binding 192 Ferritin 164 Total Bilirubin 0.4 Direct Bilirubin 0.3 AST 12 D ALT 14 Alkaline Phosphatase 58 D Total Protein 4.4 L Albumin 2.6 L Vitamin B12 Folate C. difficile Toxin A&B C. difficile Antigen C. difficile Interpret 04/19/21 07:55 WBC RBC Hgb Hct MCV MCH MCHC RDW Plt Count MPV Immature Gran % (Auto) Neut % (Auto) Lymph % (Auto) [place] % (Auto) Eos % (Auto) Baso % (Auto) Lymph # (Auto) [place] # (Auto) Eos # (Auto) Baso # (Auto) Abs Immat Gran (auto) Absolute Neuts (auto) Absolute Nucleated RBC Nucleated RBC % (auto) PT INR Sodium Potassium Chloride Carbon Dioxide Anion Gap BUN Creatinine Estim Creat Clear Calc Estimated GFR Random Glucose Calcium Iron TIBC % Saturation Unsat Iron Binding Ferritin Total Bilirubin Direct Bilirubin AST ALT Alkaline Phosphatase Total Protein Albumin Vitamin B12 < 146 L Folate 12.5 C. difficile Toxin A&B C. difficile Antigen C. difficile Interpret Quality Stroke Does the patient have a stroke diagnosis?: No VTE Prior VTE?: No VTE Risk Level:: Medical - moderate - high VTE Device Contraindication: N/A - Device Ordered VTE Drug Contraindication: N/A - Med Ordered Assessment and Plan (1) NSTEMI (non-ST elevated myocardial infarction): Status: Acute Assessment and Plan: 51M presented with hematochezia, initially admitted to medical floor, but next morning started bleeding briskly, became unstable, hgb decreased to 5.5, was transfered to ICU, received multiple tranfusions, colonoscopy 04/10/21 revealed Actively bleeding Dieulafoy lesion of ascending colon, received epi and sclerotherapy and was transferred to OR for Exploratory laparotomy, right colectomy with ileocolonic anastomosis. hgb then dropped again to 5.7 and patient became tachycardiac on 04/11/21 he underwent Exploratory laparotomy, evacuation of hemoperitoneum, over-saw of oozing areas in the right gutter, placement of Surgicel in the retroperitoneal surface, course complicated by NSTEMI, troponins peaked at 3500, felt to by type II [place], will need ischemic work up as outpaitnet. also complicated by ALLISON, due to hypoperfusion, creatinine now stable around 1.6. patient now stable, transfered to medical floor 04/13/21. Perineum wounds From diarrhea Wound care input appreciated, to use nystatin and zinc oxide Diarrhea GI input appreciated Pending C diff Start Imodium as needed acute blood loss anemia due to crohns flare with bleeding dieuloafoy lesion 9 units prbc total 6 units total FFP, 1 platelets, 1 cryoprecipitate: Hemoglobin stable around 8 s/p surgery right colectomy 04/10 and exploarion and hemoperitoneum evac 04/11 wean off dilaudid, transitioned from pump to intermittent on 04/15/21 having pain with solids, had BM, but hesitant to eat due to pain NSTEMI type II Stress test was showing basis inferior, inferoseptal inferolateral akinesis. Wi th ejection fraction of 60 65%. Cardiology input appreciated, continue low-dose aspirin, beta-cristobal and amlodipine along with statin next [place] continue long-acting nitrate ALLISON stable, monitor HTN amlodipine labetolol imdur Physical deconditioning Physical therapy DVT PPX SCDs
[2021-04-19] MEDS: Ferrous Sulfate 324 MG TABLET.DR PO (14:55)
[2021-04-19] MEDS: Cyanocobalamin (Vitamin B-12) 1,000 MCG/ML VIAL 1000 MCG IM (14:55)
[2021-04-19] MEDS: Zinc Oxide 20% Ointment 28.35 GM TUBE 1 APPL TOPICAL ×2 (15:01→20:39)
[2021-04-19] MEDS: Ketorolac Tromethamine 15 MG/ML VIAL IVPUSH (17:43)
--- NOTE | 2021-04-19 18:08 | PM.GIPN ---
Subjective Subjective Date of Service: 04/19/21 Interval History: Feeling OK, but weak. He feels he that is making some progress. He reports that the BM's and abdominal cramps are better with the Imodium and the Dicyclomine. He denies any bleeding. He received a B12 shot today. Critical Care Time (minutes): 0 Physical Exam Vital Signs: Vital Signs: Last Vital Signs Temp 98.1 F 04/19/21 15:15 Pulse 72 04/19/21 15:15 Resp 18 04/19/21 15:15 BP 96/60 04/19/21 15:15 Pulse Ox 100 04/19/21 15:15 Body Mass Index 21.2 Const: General: cooperative, comfortable and no acute distress GI: Other: +BS, soft, Nondistended, no mass; midline scar healing Objective Data Labs CBC & Chem 7: 04/19/21 07:55 04/19/21 07:55 Labs: Laboratory Results - last 24 hr 04/18/21 04/19/21 04/19/21 18:17 07:55 07:55 WBC 6.8 RBC 2.64 L Hgb 8.1 L Hct 24.5 L MCV 92.8 MCH 30.7 MCHC 33.1 RDW 15.0 Plt Count 350 MPV 9.9 Immature Gran % (Auto) 1.0 H Neut % (Auto) 66.3 Lymph % (Auto) 13.1 L [place] % (Auto) 14.7 H Eos % (Auto) 4.6 H Baso % (Auto) 0.3 Lymph # (Auto) 0.9 L [place] # (Auto) 1.0 Eos # (Auto) 0.3 Baso # (Auto) 0.0 Abs Immat Gran (auto) 0.07 H Absolute Neuts (auto) 4.5 Absolute Nucleated RBC 0.000 Nucleated RBC % (auto) 0.0 PT INR Sodium 141 Potassium 4.3 Chloride 109 H Carbon Dioxide 24 Anion Gap 12 BUN 24 H Creatinine 1.42 H Estim Creat Clear Calc 54.9 Estimated GFR 53 Random Glucose 78 Calcium 7.7 L Iron TIBC % Saturation Unsat Iron Binding Ferritin Total Bilirubin Direct Bilirubin AST ALT Alkaline Phosphatase Total Protein Albumin Vitamin B12 Folate C. difficile Toxin A&B Negative C. difficile Antigen Negative C. difficile Interpret SEE NOTE 04/19/21 04/19/21 04/19/21 07:55 07:55 07:55 WBC RBC Hgb Hct MCV MCH MCHC RDW Plt Count MPV Immature Gran % (Auto) Neut % (Auto) Lymph % (Auto) [place] % (Auto) Eos % (Auto) Baso % (Auto) Lymph # (Auto) [place] # (Auto) Eos # (Auto) Baso # (Auto) Abs Immat Gran (auto) Absolute Neuts (auto) Absolute Nucleated RBC Nucleated RBC % (auto) PT 12.6 INR 1.1 Sodium Potassium Chloride Carbon Dioxide Anion Gap BUN Creatinine Estim Creat Clear Calc Estimated GFR Random Glucose Calcium Iron 10 L TIBC 202 L % Saturation 5 L Unsat Iron Binding 192 Ferritin 164 Total Bilirubin 0.4 Direct Bilirubin 0.3 AST 12 D ALT 14 Alkaline Phosphatase 58 D Total Protein 4.4 L Albumin 2.6 L Vitamin B12 Folate C. difficile Toxin A&B C. difficile Antigen C. difficile Interpret 04/19/21 07:55 WBC RBC Hgb Hct MCV MCH MCHC RDW Plt Count MPV Immature Gran % (Auto) Neut % (Auto) Lymph % (Auto) [place] % (Auto) Eos % (Auto) Baso % (Auto) Lymph # (Auto) [place] # (Auto) Eos # (Auto) Baso # (Auto) Abs Immat Gran (auto) Absolute Neuts (auto) Absolute Nucleated RBC Nucleated RBC % (auto) PT INR Sodium Potassium Chloride Carbon Dioxide Anion Gap BUN Creatinine Estim Creat Clear Calc Estimated GFR Random Glucose Calcium Iron TIBC % Saturation Unsat Iron Binding Ferritin Total Bilirubin Direct Bilirubin AST ALT Alkaline Phosphatase Total Protein Albumin Vitamin B12 < 146 L Folate 12.5 C. difficile Toxin A&B C. difficile Antigen C. difficile Interpret Microbiology Microbiology Results: Microbiology 04/10/21 07:36 Blood - Venous Blood Culture - Final No growth after 5 days. 04/08/21 21:16 Stool Stool Culture - Final 04/10/21 Unknown Blood - Venous Blood Culture - Final Progress Note: A&P Fall Risk Details Current Medications: Current Medications Generic Name Dose Route Start Last Admin Trade Name Freq PRN Reason Stop Dose Admin Acetaminophen 650 mg 04/18/21 10:52 04/18/21 11:13 Acetaminophen 325 Mg Tablet PO 650 mg Q6H PRN Administration Pain, Mild (Pain Scale 1-3) Amlodipine Besylate 5 mg 04/13/21 09:00 04/19/21 08:55 Amlodipine Besylate 5 Mg Tablet PO 5 mg DAILY LENORA Administration Aspirin 81 mg 04/14/21 13:25 04/19/21 08:54 Aspirin Enteric Coated 81 Mg Tablet. PO 81 mg DAILY LENORA Administration Atorvastatin Calcium 80 mg 04/11/21 21:00 04/18/21 20:12 Atorvastatin Calcium 80 Mg Tablet PO 80 mg BEDTIME LENORA Administration Cyanocobalamin 1,000 mcg 04/19/21 14:00 04/19/21 14:55 Cyanocobalamin (Vitamin B-12) 1,000 Mcg/Ml Vial IM 05/10/21 09:01 1,000 mcg Th@0900 LENORA Administration Dicyclomine HCl 10 mg 04/18/21 07:30 04/19/21 17:43 Dicyclomine Hcl 10 Mg Capsule PO 10 mg TIDAC LENORA Administration Ferrous Sulfate 324 mg 04/19/21 14:00 04/19/21 14:55 Ferrous Sulfate 324 Mg Tablet. PO 324 mg DAILY LENORA Administration Hydromorphone HCl 0.5 mg 04/15/21 15:20 04/19/21 13:02 Hydromorphone Hcl 0.5 Mg/0.5 Ml Syringe IVPUSH 0.5 mg Q2H PRN Administration pain Isosorbide Mononitrate 30 mg 04/14/21 21:00 04/19/21 08:55 Isosorbide Mononitrate 30 Mg Tab.Er.24h PO 30 mg BID LENORA Administration Protocol Labetalol HCl 200 mg 04/13/21 09:45 04/19/21 08:55 Labetalol Hcl 200 Mg Tablet PO 200 mg BID LENORA Administration Protocol Loperamide HCl 2 mg 04/17/21 21:34 04/18/21 22:08 Loperamide Hcl 2 Mg Capsule PO 2 mg Q4H PRN Administration Diarrhea Methadone HCl 80 mg 04/09/21 08:00 04/19/21 08:55 Methadone Hcl 1 Mg/0.1 Ml Oral.Conc PO 80 mg DAILY LENORA Administration Nicotine 14 mg 04/08/21 09:00 04/19/21 08:56 Nicotine 14 Mg Patch.Td24 TRANSDERMA 14 mg DAILY LENROA Administration Nystatin 1 appl 04/17/21 22:00 04/19/21 09:01 Nystatin Powder 15 Gm Bottle TOPICAL 1 appl BID LENORA Administration Protocol Oxycodone HCl 5 mg 04/16/21 20:08 04/19/21 15:08 Oxycodone Hcl Immed Release 5 Mg Tablet PO 5 mg Q4H PRN Administration Pain, Severe (Pain Scale 7-10) Sodium Chloride 3 ml 04/08/21 00:31 04/19/21 15:08 0.9 % Sodium Chloride Flush 3 Ml Syringe IVFLUSH 3 ml QSHIFT LENORA Administration Zinc Oxide 1 appl 04/19/21 15:00 04/19/21 15:01 Zinc Oxide 20% Ointment 28.35 Gm Tube TOPICAL 1 appl TID LENORA Administration Protocol Zolpidem Tartrate 5 mg 04/16/21 21:00 04/18/21 20:12 Zolpidem Tartrate 5 Mg Tablet PO 5 mg BEDTIME LENORA Administration Time Spent With Patient Time: Total time spent is greater than 50% in coordination of care (as documented) at patient's floor/unit and/or counseling patient: Time with patient: 15 - 24 minutes Procedures Date of Service Date of Service: 04/19/21 Quality Stroke Does the patient have a stroke diagnosis?: No VTE Prior VTE?: No VTE Risk Level:: Medical - moderate - high VTE Device Contraindication: N/A - Device Ordered VTE Drug Contraindication: N/A - Med Ordered
[2021-04-19] MEDS: Atorvastatin Calcium 80 MG TABLET PO (20:37)
[2021-04-19] MEDS: Zolpidem Tartrate 5 MG TABLET PO (20:38)
[2021-04-20] VITALS (11 sets, daily range): BP systolic 98–125; BP diastolic 48–66; PULSE 62–82; RESP 17–20; TEMP 36.4–37; O2SAT 99–100
[2021-04-20] MEDS: oxyCODONE HCl Immed Release 5 MG TABLET PO ×4 (04:16→20:11)
[2021-04-20 07:21] LABS: Anion Gap 12 (12-20); Blood Urea Nitrogen 29 mg/dL (9-16); Calcium 7.6 mg/dL (8.4-10.2); Carbon Dioxide 23 mmol/L (22-29); Chloride 108 mmol/L (96-108); Creatinine Clr Calc Pharmacy 52.3; Estimated Glomerular Filt Rate 50; Glucose Random 82 mg/dL (60-115); Potassium 4.2 mmol/L (3.3-5.1); Sodium 139 mmol/L (135-145)
[2021-04-20] MEDS: Acetaminophen 325 MG TABLET 650 MG PO ×2 (08:03→16:26)
[2021-04-20] MEDS: Nicotine 14 MG PATCH.TD24 TRANSDERMA (08:03)
[2021-04-20] MEDS: Aspirin Enteric Coated 81 MG TABLET.DR PO (08:04)
[2021-04-20] MEDS: Ferrous Sulfate 324 MG TABLET.DR PO (08:04)
[2021-04-20] MEDS: Dicyclomine HCl 10 MG CAPSULE PO ×3 (08:04→16:26)
[2021-04-20] MEDS: 0.9 % Sodium Chloride Flush 3 ML SYRINGE IVFLUSH ×3 (08:05→20:08)
[2021-04-20] MEDS: Nystatin Powder 15 GM BOTTLE 1 APPL TOPICAL (08:06)
[2021-04-20] MEDS: Sodium Ferric Gluconat/Sucrose 125 MG in 0.9 % Sodium Chloride 100 ML 100 MG IV (08:54)
[2021-04-20] MEDS: Ketorolac Tromethamine 15 MG/ML VIAL IVPUSH ×2 (09:51→23:55)
[2021-04-20] MEDS: Zinc Oxide 20% Ointment 28.35 GM TUBE 1 APPL TOPICAL ×3 (11:10→20:07)
[2021-04-20] MEDS: Nystatin/Triamcinolone Cream 15 GM TUBE 1 APPL TOPICAL ×2 (11:10→20:07)
[2021-04-20] MEDS: Omeprazole 20 MG CAPSULE.DR PO ×2 (11:42→16:26)
--- NOTE | 2021-04-20 13:32 | P.PNIM_ITS ---
Subjective Subjective Date of Service: 04/20/21 Interval History: the patient was seen and evaluated this morning Laying in bed, feels better overall but has worsening pain from wounds in his perineum area Denies any fever, chills or shortness of breath No reported other overnight events. Systemic review: No fever, chills but complaining mainly of weakness No chest pain, palpitation No shortness of breath or coughing No abdominal pain, nausea or vomiting but reporting episodes of diarrhea on daily basis No urinary symptoms As rash in his perineal area getting worse Physical Exam Vital Signs: Vital Signs: Last Vital Signs Temp 98.2 F 04/20/21 11:40 Pulse 67 04/20/21 11:41 Resp 20 04/20/21 11:40 BP 98/48 L 04/20/21 11:41 Pulse Ox 100 04/20/21 11:40 Body Mass Index 21.2 Const: Other: Constitutional : Alert, oriented, looks tired and weak Neck : Normal inspection, Supple Cardiovascular : RRR, S1 S2, no lower extremity edema Respiratory : Good bilateral air entry, no crackles, wheezes or rhonchi Gastrointestinal: soft, lax, Normal bowel sounds, Non tender Skin : Warm/Dry, exfoliating rash in the perineal area covered with cream with areas of bleeding Neurological : Alert & oriented x3, No focal deficit Objective Data Current Medications Generic Name Dose Route Start Last Admin Trade Name Freq PRN Reason Stop Dose Admin Acetaminophen 650 mg 04/18/21 10:52 04/20/21 08:03 Acetaminophen 325 Mg Tablet PO 650 mg Q6H PRN Administration Pain, Mild (Pain Scale 1-3) Aspirin 81 mg 04/14/21 13:25 04/20/21 08:04 Aspirin Enteric Coated 81 Mg Tablet. PO 81 mg DAILY [facility] Administration Atorvastatin Calcium 80 mg 04/11/21 21:00 04/19/21 20:37 Atorvastatin Calcium 80 Mg Tablet PO 80 mg BEDTIME [facility] Administration Cyanocobalamin 1,000 mcg 04/19/21 14:00 04/19/21 14:55 Cyanocobalamin (Vitamin B-12) 1,000 Mcg/Ml Vial IM 05/10/21 09:01 1,000 mcg Th@0900 [facility] Administration Dicyclomine HCl 10 mg 04/18/21 07:30 04/20/21 11:42 Dicyclomine Hcl 10 Mg Capsule PO 10 mg TIDAC [facility] Administration Ferrous Sulfate 324 mg 04/19/21 14:00 04/20/21 08:04 Ferrous Sulfate 324 Mg Tablet. PO 324 mg DAILY [facility] Administration Hydromorphone HCl 0.5 mg 04/15/21 15:20 04/19/21 13:02 Hydromorphone Hcl 0.5 Mg/0.5 Ml Syringe IVPUSH 0.5 mg Q2H PRN Administration pain Ferric Sodium Gluconate 110 mls @ 100 mls/hr 04/20/21 09:00 04/20/21 10:33 Complex 125 mg/ Sodium IV 04/22/21 10:05 Infused Chloride DAILY [facility] Infusion Ketorolac Tromethamine 15 mg 04/20/21 09:38 04/20/21 09:51 Ketorolac Tromethamine 15 Mg/Ml Vial IVPUSH 15 mg RQ8H PRN Administration Pain, Moderate (Pain Scale 4-6 Loperamide HCl 2 mg 04/17/21 21:34 04/18/21 22:08 Loperamide Hcl 2 Mg Capsule PO 2 mg Q4H PRN Administration Diarrhea Methadone HCl 80 mg 04/09/21 08:00 04/20/21 08:03 Methadone Hcl 1 Mg/0.1 Ml Oral.Conc PO 80 mg DAILY [facility] Administration Metoprolol Succinate 25 mg 04/20/21 09:00 04/20/21 11:41 Metoprolol Succinate Er 25 Mg Tab.Er.24h PO Not Given DAILY [facility] Protocol Nicotine 14 mg 04/08/21 09:00 04/20/21 08:03 Nicotine 14 Mg Patch.Td24 TRANSDERMA 14 mg DAILY [facility] Administration Nystatin/Triamcinolone Acetonide 1 appl 04/20/21 09:40 04/20/21 11:10 Nystatin/Triamcinolone Cream 15 Gm Tube TOPICAL 1 appl BID [facility] Administration Protocol Omeprazole 20 mg 04/20/21 09:45 04/20/21 11:42 Omeprazole 20 Mg Capsule. PO 20 mg BID@0630,1630 [facility] Administration Oxycodone HCl 5 mg 04/16/21 20:08 04/20/21 08:04 Oxycodone Hcl Immed Release 5 Mg Tablet PO 5 mg Q4H PRN Administration Pain, Severe (Pain Scale 7-10) Sodium Chloride 3 ml 04/08/21 00:31 04/20/21 08:05 0.9 % Sodium Chloride Flush 3 Ml Syringe IVFLUSH 3 ml QSHIFT [facility] Administration Zinc Oxide 1 appl 04/19/21 15:00 04/20/21 11:10 Zinc Oxide 20% Ointment 28.35 Gm Tube TOPICAL 1 appl TID [facility] Administration Protocol Zolpidem Tartrate 5 mg 04/16/21 21:00 04/19/21 20:38 Zolpidem Tartrate 5 Mg Tablet PO 5 mg BEDTIME [facility] Administration Labs CBC & Chem 7: 04/19/21 07:55 04/20/21 05:31 Labs: Laboratory Results - last 24 hr 04/20/21 05:31 Sodium 139 Potassium 4.2 Chloride 108 Carbon Dioxide 23 Anion Gap 12 BUN 29 H Creatinine 1.49 H Estim Creat Clear Calc 52.3 Estimated GFR 50 Random Glucose 82 Calcium 7.6 L Quality Stroke Does the patient have a stroke diagnosis?: No VTE Prior VTE?: No VTE Risk Level:: Medical - moderate - high VTE Device Contraindication: N/A - Device Ordered VTE Drug Contraindication: N/A - Med Ordered Assessment and Plan (1) NSTEMI (non-ST elevated myocardial infarction): Status: Acute Assessment and Plan: 51M presented with hematochezia, initially admitted to medical floor, but next morning started bleeding briskly, became unstable, hgb decreased to 5.5, was transfered to ICU, received multiple tranfusions, colonoscopy 04/10/21 revealed Actively bleeding Dieulafoy lesion of ascending colon, received epi and sclerotherapy and was transferred to OR for Exploratory laparotomy, right colectomy with ileocolonic anastomosis. hgb then dropped again to 5.7 and patient became tachycardiac on 04/11/21 he underwent Exploratory laparotomy, evacuation of hemoperitoneum, over-saw of oozing areas in the right gutter, placement of Surgicel in the retroperitoneal surface, course complicated by NSTEMI, troponins peaked at 3500, felt to by type II [place], will need ischemic work up as outpaitnet. also complicated by ALLISON, due to hypoperfusion, creatinine now stable around 1.6. patient now stable, transfered to medical floor 04/13/21. Perineum wounds From diarrhea Wound care input appreciated, to use nystatin and zinc oxide To add steroid cream Diarrhea GI input appreciated negative C diff Imodium as needed Acute blood loss anemia due to crohns flare with bleeding dieuloafoy lesion 9 units prbc total 6 units total FFP, 1 platelets, 1 cryoprecipitate: H emoglobin stable around 8 s/p surgery right colectomy 04/10 and exploarion and hemoperitoneum evac 04/11 wean off dilaudid, transitioned from pump to intermittent on 04/15/21 having pain with solids, had BM, but hesitant to eat due to pain NSTEMI type II Stress test was showing basis inferior, inferoseptal inferolateral akinesis. With ejection fraction of 60 65%. Cardiology input appreciated, continue low-dose aspirin, beta-cristobal and amlodipine along with statin next [place] continue long-acting nitrate ALLISON stable, monitor HTN amlodipine labetolol imdur Physical deconditioning Physical therapy DVT PPX SCDs
--- NOTE | 2021-04-20 14:03 | PM.PNGS ---
Subjective Subjective Date of Service: 04/20/21 Interval history: Patient denies abdominal pain, nausea, or vomiting. He has been eating multiple small meals and tolerating this fairly well. His major complaint continues to be the skin irritation which is being monitored by wound care. Zinc oxide is being applied to the skin in the perineal region. Physical Exam Vital Signs: Vital Signs: Last Vital Signs Temp 98.2 F 04/20/21 11:40 Pulse 67 04/20/21 13:28 Resp 20 04/20/21 11:40 BP 98/48 L 04/20/21 13:28 Pulse Ox 100 04/20/21 11:40 Body Mass Index 21.2 Const: General: cooperative, comfortable, no acute distress, alert and awake Nutritional Appearance: thin Orientation/consciousness: patient oriented x3 Limitations: no limitations Resp: Effort & Inspection: normal respiratory effort, no stridor and not tachypneic GI: Other: Soft, nondistended, normal bowel sounds, well-healed midline incision without redness or discharge. Intact sweetie. Skin: Other: Warm, dry, perineal rash Neuro: General: patient oriented x3 Extrem: Other: no edema Progress Note: A&P Assessment and plan (1) Lower gastrointestinal hemorrhage: Status: Acute Assessment and Plan: status post right colectomy for bleeding lesion and right colon. No evidence of ongoing bleeding. Patient is now dealing with. Anal skin irritation related to diarrhea which is now better controlled. Abdominal wounds are healing well without evidence of infection. Sweetie were removed today. Patient was evaluated by Physical therapy today but he was unable to ambulate due to pain and bleeding from his perianal skin irritation. He will try again tomorrow. Fall Risk Details Current Medications: Current Medications Generic Name Dose Route Start Last Admin Trade Name Freq PRN Reason Stop Dose Admin Acetaminophen 650 mg 04/18/21 10:52 04/20/21 08:03 Acetaminophen 325 Mg Tablet PO 650 mg Q6H PRN Administration Pain, Mild (Pain Scale 1-3) Aspirin 81 mg 04/14/21 13:25 04/20/21 08:04 Aspirin Enteric Coated 81 Mg Tablet. PO 81 mg DAILY [facility] Administration Atorvastatin Calcium 80 mg 04/11/21 21:00 04/19/21 20:37 Atorvastatin Calcium 80 Mg Tablet PO 80 mg BEDTIME [facility] Administration Cyanocobalamin 1,000 mcg 04/19/21 14:00 04/19/21 14:55 Cyanocobalamin (Vitamin B-12) 1,000 Mcg/Ml Vial IM 05/10/21 09:01 1,000 mcg Th@0900 [facility] Administration Dicyclomine HCl 10 mg 04/18/21 07:30 04/20/21 11:42 Dicyclomine Hcl 10 Mg Capsule PO 10 mg TIDAC [facility] Administration Ferrous Sulfate 324 mg 04/19/21 14:00 04/20/21 08:04 Ferrous Sulfate 324 Mg Tablet. PO 324 mg DAILY [facility] Administration Hydromorphone HCl 0.5 mg 04/15/21 15:20 04/19/21 13:02 Hydromorphone Hcl 0.5 Mg/0.5 Ml Syringe IVPUSH 0.5 mg Q2H PRN Administration pain Ferric Sodium Gluconate 110 mls @ 100 mls/hr 04/20/21 09:00 04/20/21 10:33 Complex 125 mg/ Sodium IV 04/22/21 10:05 Infused Chloride DAILY [facility] Infusion Ketorolac Tromethamine 15 mg 04/20/21 09:38 04/20/21 09:51 Ketorolac Tromethamine 15 Mg/Ml Vial IVPUSH 15 mg RQ8H PRN Administration Pain, Moderate (Pain Scale 4-6 Loperamide HCl 2 mg 04/17/21 21:34 04/18/21 22:08 Loperamide Hcl 2 Mg Capsule PO 2 mg Q4H PRN Administration Diarrhea Methadone HCl 80 mg 04/09/21 08:00 04/20/21 08:03 Methadone Hcl 1 Mg/0.1 Ml Oral.Conc PO 80 mg DAILY [facility] Administration Metoprolol Succinate 25 mg 04/20/21 09:00 04/20/21 11:41 Metoprolol Succinate Er 25 Mg Tab.Er.24h PO Not Given DAILY [facility] Protocol Nicotine 14 mg 04/08/21 09:00 04/20/21 08:03 Nicotine 14 Mg Patch.Td24 TRANSDERMA 14 mg DAILY [facility] Administration Nystatin/Triamcinolone Acetonide 1 appl 04/20/21 09:40 04/20/21 11:10 Nystatin/Triamcinolone Cream 15 Gm Tube TOPICAL 1 appl BID [facility] Administration Protocol Omeprazole 20 mg 04/20/21 09:45 04/20/21 11:42 Omeprazole 20 Mg Capsule. PO 20 mg BID@8251,2144 [facility] Administration Oxycodone HCl 5 mg 04/16/21 20:08 04/20/21 13:42 Oxycodone Hcl Immed Release 5 Mg Tablet PO 5 mg Q4H PRN Administration Pain, Severe (Pain Scale 7-10) Sodium Chloride 3 ml 04/08/21 00:31 04/20/21 08:05 0.9 % Sodium Chloride Flush 3 Ml Syringe IVFLUSH 3 ml QSHIFT [facility] Administration Zinc Oxide 1 appl 04/19/21 15:00 04/20/21 11:10 Zinc Oxide 20% Ointment 28.35 Gm Tube TOPICAL 1 appl TID [facility] Administration Protocol Zolpidem Tartrate 5 mg 04/16/21 21:00 04/19/21 20:38 Zolpidem Tartrate 5 Mg Tablet PO 5 mg BEDTIME [facility] Administration Time Spent With Patient Time: Total time spent is greater than 50% in coordination of care (as documented) at patient's floor/unit and/or counseling patient: Time with patient: 15 - 24 minutes Procedures Date of Service Date of Service: 04/20/21 Quality Stroke Does the patient have a stroke diagnosis?: No VTE Prior VTE?: No VTE Risk Level:: Medical - moderate - high VTE Device Contraindication: N/A - Device Ordered VTE Drug Contraindication: N/A - Med Ordered
--- NOTE | 2021-04-20 14:24 | MHC.CLN ---
F/U PO INTAKE 25% PER PT DIET RX: LOW RESIDUE LACTOSE FREE-APPROPRIATE PT RECEIVING ENSURE TID; PREFERS [facility] BUT WANTS ALL FLAVORS SUPPLEMENT PROVIDES 1050KCALS (62% EST KCALS NEEDS), 60G PROTEIN (65% EST PROTEIN NEEDS) MONITOR PO INTAKE CLOSELY
--- NOTE | 2021-04-20 14:41 | PC.NURSE ---
Pt. seen today for wound/skin issues. Pt. has excoriation with skin peeling on penis, scrotum to perianal area and upper inner thighs from diarrhea. Pt. was seen by Dr. Carpenter from wound clinic, 20% zinc oxide and nystatin powder was ordered for patient. Spoke with Dr. De La Torre this morning about wound which he said looked worse. We added nystatin/triamcinolone cream in addition to the 20% zinc oxide. This was applied today.
[2021-04-20] MEDS: Atorvastatin Calcium 80 MG TABLET PO (20:06)
[2021-04-20] MEDS: Zolpidem Tartrate 5 MG TABLET PO (20:06)
[2021-04-21 04:00] VITALS: BP 109/66; PULSE 79; RESP 20; TEMP 36.9; O2SAT 100
[2021-04-21] MEDS: Omeprazole 20 MG CAPSULE.DR PO ×2 (04:57→16:28)
[2021-04-21] MEDS: oxyCODONE HCl Immed Release 5 MG TABLET PO ×2 (04:57→13:28)
[2021-04-21 06:11] LABS: Anion Gap 12 (12-20); Blood Urea Nitrogen 30 mg/dL (9-16); Calcium 7.9 mg/dL (8.4-10.2); Carbon Dioxide 23 mmol/L (22-29); Chloride 108 mmol/L (96-108); Creatinine Clr Calc Pharmacy 48.7; Estimated Glomerular Filt Rate 46; Glucose Random 74 mg/dL (60-115); Potassium 4.1 mmol/L (3.3-5.1); Sodium 139 mmol/L (135-145)
[2021-04-21 07:29] VITALS: BP 122/64; PULSE 72; RESP 16; TEMP 37.1; O2SAT 100
[2021-04-21] MEDS: Ketorolac Tromethamine 15 MG/ML VIAL IVPUSH ×2 (08:42→16:28)
[2021-04-21 08:44] VITALS: BP 122/64; PULSE 72
[2021-04-21] MEDS: Aspirin Enteric Coated 81 MG TABLET.DR PO (08:44)
[2021-04-21] MEDS: Metoprolol Succinate ER 25 MG TAB.ER.24H PO (08:44)
[2021-04-21] MEDS: Nicotine 14 MG PATCH.TD24 TRANSDERMA (08:44)
[2021-04-21] MEDS: Dicyclomine HCl 10 MG CAPSULE PO ×3 (08:44→16:28)
[2021-04-21] MEDS: Ferrous Sulfate 324 MG TABLET.DR PO (08:44)
[2021-04-21] MEDS: Zinc Oxide 20% Ointment 28.35 GM TUBE 1 APPL TOPICAL ×2 (08:46→15:38)
[2021-04-21] MEDS: Nystatin/Triamcinolone Cream 15 GM TUBE 1 APPL TOPICAL (08:46)
[2021-04-21] MEDS: 0.9 % Sodium Chloride Flush 3 ML SYRINGE IVFLUSH ×2 (08:47→15:37)
--- NOTE | 2021-04-21 09:09 | PM.PNGS ---
Subjective Subjective Date of Service: 04/21/21 Patient reports: no new complaints, feels better, flatus and no bowel movement Interval history: skin rash is improving but not gone Physical Exam Vital Signs: Vital Signs: Last Vital Signs Temp 98.8 F 04/21/21 07:29 Pulse 72 04/21/21 08:44 Resp 16 04/21/21 07:29 BP 122/64 04/21/21 08:44 Pulse Ox 100 04/21/21 07:29 Body Mass Index 21.2 Resp: Other: breathing comfortably on room air, no respiratory distress GI: Other: well healed midline incision Palpation (GI): Soft to palpation, not firm, nontender, no guarding and no hernias Extrem: Other: no edema Progress Note: A&P Assessment and plan (1) Lower gastrointestinal hemorrhage: Status: Acute Assessment and Plan: status post right colectomy for bleeding lesion and right colon. No evidence of ongoing bleeding. Patient is now dealing with perianal skin irritation related to diarrhea which is now better controlled. Abdominal wounds are healing well without evidence of infection. Continue physical therapy; discharge planning. Fall Risk Details Current Medications: Current Medications Generic Name Dose Route Start Last Admin Trade Name Freq PRN Reason Stop Dose Admin Acetaminophen 650 mg 04/18/21 10:52 04/20/21 16:26 Acetaminophen 325 Mg Tablet PO 650 mg Q6H PRN Administration Pain, Mild (Pain Scale 1-3) Aspirin 81 mg 04/14/21 13:25 04/21/21 08:44 Aspirin Enteric Coated 81 Mg Tablet. PO 81 mg DAILY [facility] Administration Atorvastatin Calcium 80 mg 04/11/21 21:00 04/20/21 20:06 Atorvastatin Calcium 80 Mg Tablet PO 80 mg BEDTIME [facility] Administration Cyanocobalamin 1,000 mcg 04/19/21 14:00 04/19/21 14:55 Cyanocobalamin (Vitamin B-12) 1,000 Mcg/Ml Vial IM 05/10/21 09:01 1,000 mcg Th@0900 [facility] Administration Dicyclomine HCl 10 mg 04/18/21 07:30 04/21/21 08:44 Dicyclomine Hcl 10 Mg Capsule PO 10 mg TIDAC [facility] Administration Ferrous Sulfate 324 mg 04/19/21 14:00 04/21/21 08:44 Ferrous Sulfate 324 Mg Tablet. PO 324 mg DAILY [facility] Administration Ferric Sodium Gluconate 110 mls @ 100 mls/hr 04/20/21 09:00 04/20/21 10:33 Complex 125 mg/ Sodium IV 04/22/21 10:05 Infused Chloride DAILY [facility] Infusion Ketorolac Tromethamine 15 mg 04/20/21 09:38 04/21/21 08:42 Ketorolac Tromethamine 15 Mg/Ml Vial IVPUSH 15 mg RQ8H PRN Administration Pain, Moderate (Pain Scale 4-6 Loperamide HCl 2 mg 04/17/21 21:34 04/18/21 22:08 Loperamide Hcl 2 Mg Capsule PO 2 mg Q4H PRN Administration Diarrhea Methadone HCl 80 mg 04/09/21 08:00 04/21/21 08:58 Methadone Hcl 1 Mg/0.1 Ml Oral.Conc PO 80 mg DAILY [facility] Administration Metoprolol Succinate 25 mg 04/20/21 09:00 04/21/21 08:44 Metoprolol Succinate Er 25 Mg Tab.Er.24h PO 25 mg DAILY [facility] Administration Protocol Nicotine 14 mg 04/08/21 09:00 04/21/21 08:44 Nicotine 14 Mg Patch.Td24 TRANSDERMA 14 mg DAILY [facility] Administration Nystatin/Triamcinolone Acetonide 1 appl 04/20/21 09:40 04/21/21 08:46 Nystatin/Triamcinolone Cream 15 Gm Tube TOPICAL 1 appl BID [facility] Administration Protocol Omeprazole 20 mg 04/20/21 09:45 04/21/21 04:57 Omeprazole 20 Mg Capsule.Dr PO 20 mg BID@0630,1630 [facility] Administration Oxycodone HCl 5 mg 04/16/21 20:08 04/21/21 04:57 Oxycodone Hcl Immed Release 5 Mg Tablet PO 5 mg Q4H PRN Administration Pain, Severe (Pain Scale 7-10) Sodium Chloride 3 ml 04/08/21 00:31 04/21/21 08:47 0.9 % Sodium Chloride Flush 3 Ml Syringe IVFLUSH 3 ml QSHIFT [facility] Administration Zinc Oxide 1 appl 04/19/21 15:00 04/21/21 08:46 Zinc Oxide 20% Ointment 28.35 Gm Tube TOPICAL 1 appl TID [facility] Administration Protocol Zolpidem Tartrate 5 mg 04/16/21 21:00 04/20/21 20:06 Zolpidem Tartrate 5 Mg Tablet PO 5 mg BEDTIME [facility] Administration Time Spent With Patient Time: Total time spent is greater than 50% in coordination of care (as documented) at patient's floor/unit and/or counseling patient: Time with patient: 15 - 24 minutes Procedures Date of Service Date of Service: 04/21/21 Quality Stroke Does the patient have a stroke diagnosis?: No VTE Prior VTE?: No VTE Risk Level:: Medical - moderate - high VTE Device Contraindication: N/A - Device Ordered VTE Drug Contraindication: N/A - Med Ordered
[2021-04-21] MEDS: Sodium Ferric Gluconat/Sucrose 125 MG in 0.9 % Sodium Chloride 100 ML 100 MG IV (10:02)
[2021-04-21 11:21] VITALS: BP 107/66; PULSE 67; RESP 18; TEMP 37.2; O2SAT 99
--- NOTE | 2021-04-21 11:33 | HO.PM.IMPN ---
Subjective Subjective Date of Service: 04/21/21 Interval History: the patient was seen and evaluated this morning Laying in bed, feels better overall Improvement in the pain of the inguinal wounds Denies any fever, chills or shortness of breath No reported other overnight events. Systemic review: No fever, chills but complaining mainly of weakness No chest pain, palpitation No shortness of breath or coughing No abdominal pain, nausea or vomiting but reporting episodes of diarrhea on daily basis No urinary symptoms As rash in his perineal area getting little better today Physical Exam Vital Signs: Vital Signs: Last Vital Signs Temp 99.0 F 04/21/21 11:21 Pulse 67 04/21/21 11:21 Resp 18 04/21/21 11:21 BP 107/66 04/21/21 11:21 Pulse Ox 99 04/21/21 11:21 Body Mass Index 21.2 Const: Other: Constitutional : Alert, oriented, looks tired and weak Neck : Normal inspection, Supple Cardiovascular : RRR, S1 S2, no lower extremity edema Respiratory : Good bilateral air entry, no crackles, wheezes or rhonchi Gastrointestinal: soft, lax, Normal bowel sounds, Non tender Skin : Warm/Dry, exfoliating rash in the perineal area covered with cream with areas of bleeding Neurological : Alert & oriented x3, No focal deficit Objective Data Current Medications Generic Name Dose Route Start Last Admin Trade Name Michq PRN Reason Stop Dose Admin Acetaminophen 650 mg 04/18/21 10:52 04/20/21 16:26 Acetaminophen 325 Mg Tablet PO 650 mg Q6H PRN Administration Pain, Mild (Pain Scale 1-3) Aspirin 81 mg 04/14/21 13:25 04/21/21 08:44 Aspirin Enteric Coated 81 Mg Tablet. PO 81 mg DAILY [facility] Administration Atorvastatin Calcium 80 mg 04/11/21 21:00 04/20/21 20:06 Atorvastatin Calcium 80 Mg Tablet PO 80 mg BEDTIME [facility] Administration Cyanocobalamin 1,000 mcg 04/19/21 14:00 04/19/21 14:55 Cyanocobalamin (Vitamin B-12) 1,000 Mcg/Ml Vial IM 05/10/21 09:01 1,000 mcg Th@0900 [facility] Administration Dicyclomine HCl 10 mg 04/18/21 07:30 04/21/21 11:28 Dicyclomine Hcl 10 Mg Capsule PO 10 mg TIDAC [facility] Administration Ferrous Sulfate 324 mg 04/19/21 14:00 04/21/21 08:44 Ferrous Sulfate 324 Mg Tablet. PO 324 mg DAILY [facility] Administration Ferric Sodium Gluconate 110 mls @ 100 mls/hr 04/20/21 09:00 04/21/21 11:08 Complex 125 mg/ Sodium IV 04/22/21 10:05 Infused Chloride DAILY [facility] Infusion Ketorolac Tromethamine 15 mg 04/20/21 09:38 04/21/21 08:42 Ketorolac Tromethamine 15 Mg/Ml Vial IVPUSH 15 mg RQ8H PRN Administration Pain, Moderate (Pain Scale 4-6 Loperamide HCl 2 mg 04/17/21 21:34 04/18/21 22:08 Loperamide Hcl 2 Mg Capsule PO 2 mg Q4H PRN Administration Diarrhea Methadone HCl 80 mg 04/09/21 08:00 04/21/21 08:58 Methadone Hcl 1 Mg/0.1 Ml Oral.Conc PO 80 mg DAILY [facility] Administration Metoprolol Succinate 25 mg 04/20/21 09:00 04/21/21 08:44 Metoprolol Succinate Er 25 Mg Tab.Er.24h PO 25 mg DAILY [facility] Administration Protocol Nicotine 14 mg 04/08/21 09:00 04/21/21 08:44 Nicotine 14 Mg Patch.Td24 TRANSDERMA 14 mg DAILY [facility] Administration Nystatin/Triamcinolone Acetonide 1 appl 04/20/21 09:40 04/21/21 08:46 Nystatin/Triamcinolone Cream 15 Gm Tube TOPICAL 1 appl BID [facility] Administration Protocol Omeprazole 20 mg 04/20/21 09:45 04/21/21 04:57 Omeprazole 20 Mg Capsule. PO 20 mg BID@0630,1630 [facility] Administration Oxycodone HCl 5 mg 04/16/21 20:08 04/21/21 04:57 Oxycodone Hcl Immed Release 5 Mg Tablet PO 5 mg Q4H PRN Administration Pain, Severe (Pain Scale 7-10) Sodium Chloride 3 ml 04/08/21 00:31 04/21/21 08:47 0.9 % Sodium Chloride Flush 3 Ml Syringe IVFLUSH 3 ml QSHIFT [facility] Administration Zinc Oxide 1 appl 04/19/21 15:00 04/21/21 08:46 Zinc Oxide 20% Ointment 28.35 Gm Tube TOPICAL 1 appl TID [facility] Administration Protocol Zolpidem Tartrate 5 mg 04/16/21 21:00 04/20/21 20:06 Zolpidem Tartrate 5 Mg Tablet PO 5 mg BEDTIME [facility] Administration Labs CBC & Chem 7: 04/19/21 07:55 04/21/21 05:12 Labs: Laboratory Results - last 24 hr 04/19/21 04/21/21 07:55 05:12 Sodium 139 Potassium 4.1 Chloride 108 Carbon Dioxide 23 Anion Gap 12 BUN 30 H Creatinine 1.60 H Estim Creat Clear Calc 48.7 Estimated GFR 46 Random Glucose 74 Calcium 7.9 L Cortisol 18.2 Quality Stroke Does the patient have a stroke diagnosis?: No VTE Prior VTE?: No VTE Risk Level:: Medical - moderate - high VTE Device Contraindication: N/A - Device Ordered VTE Drug Contraindication: N/A - Med Ordered Assessment and Plan (1) NSTEMI (non-ST elevated myocardial infarction): Status: Acute Assessment and Plan: 51M presented with hematochezia, initially admitted to medical floor, but next morning started bleeding briskly, became unstable, hgb decreased to 5.5, was transfered to ICU, received multiple tranfusions, colonoscopy 04/10/21 revealed Actively bleeding Dieulafoy lesion of ascending colon, received epi and sclerotherapy and was transferred to OR for Exploratory laparotomy, right colectomy with ileocolonic anastomosis. hgb then dropped again to 5.7 and patient became tachycardiac on 04/11/21 he underwent Exploratory laparotomy, evacuation of hemoperitoneum, over-saw of oozing areas in the right gutter, placement of Surgicel in the retroperitoneal surface, course complicated by NSTEMI, troponins peaked at 3500, felt to by type II [place], will need ischemic work up as outpaitnet. also complicated by ALLISON, due to hypoperfusion, creatinine now stable around 1.6. patient now stable, transfered to medical floor 04/13/21. Perineum wounds From diarrhea Wound care input appreciated, to use nystatin and zinc oxide continue steroid cream Diarrhea resolved negative C diff Imodium as needed Acute blood loss anemia due to crohns flare with bleeding dieuloafoy lesion 9 units prbc total 6 units total FFP, 1 platelets, 1 cryoprecipitate: Hemoglobin stable around 8 s/p surgery right colectomy 04/10 and exploarion and hemoperitoneum evac 04/11 wean off dilaudid, transitioned from pump to intermittent on 04/15/21 having pain with solids, had BM, but hesitant to eat due to pain NSTEMI type II Stress test was showing basis inferior, inferoseptal inferolateral akinesis. With ejection fraction of 60 65%. Cardiology input appreciated, continue low-dose aspirin, beta-cristobal and amlodipine along with statin next [place] continue long-acting nitrate ALLISON stable, monitor HTN amlodipine labetolol imdur Physical deconditioning Physical therapy DVT PPX SCDs
[2021-04-21 15:27] VITALS: BP 109/65; PULSE 68; RESP 18; TEMP 36.9; O2SAT 100
[2021-04-21 19:00] VITALS: BP 121/66; PULSE 66; RESP 18; TEMP 37.1; O2SAT 99
[2021-04-21] MEDS: Atorvastatin Calcium 80 MG TABLET PO (21:47)
[2021-04-21] MEDS: Zolpidem Tartrate 5 MG TABLET PO (21:47)
[2021-04-22] VITALS: BP 119/69; PULSE 70; RESP 18; TEMP 36.8; O2SAT 97
[2021-04-22] MEDS: Ketorolac Tromethamine 15 MG/ML VIAL IVPUSH (00:04)
[2021-04-22] MEDS: 0.9 % Sodium Chloride Flush 3 ML SYRINGE IVFLUSH ×2 (01:49→09:58)
[2021-04-22 04:00] VITALS: BP 122/72; PULSE 69; RESP 18; TEMP 37.1; O2SAT 100
[2021-04-22] MEDS: Omeprazole 20 MG CAPSULE.DR PO (06:28)
[2021-04-22 06:30] LABS: Hematocrit 26.8 % (42-52); Hemoglobin 8.6 g/dl (14.0-18.0); Mean Corpuscular HGB Conc 32.1 g/dl (31.0-36.0); Mean Corpuscular Hemoglobin 29.8 pg (27.0-33.0); Mean Corpuscular Volume 92.7 fL (80-98); Mean Platelet Volume 10.2 fL (9.4-12.4); Platelet Count 420 X10*3/uL (160-400); Red Blood Count 2.89 X10*6/uL (4.60-5.80); Red Cell Distribution Width 14.6 % (11.0-16.0); White Blood Count 7.4 X10*3/uL (4.8-10.8)
[2021-04-22 07:30] VITALS: BP 126/69; PULSE 75; RESP 18; TEMP 37.3; O2SAT 100
[2021-04-22] MEDS: Sodium Ferric Gluconat/Sucrose 125 MG in 0.9 % Sodium Chloride 100 ML 100 MG IV (09:52)
--- NOTE | 2021-04-22 09:54 | PM.PNGS ---
Subjective Subjective Date of Service: 04/22/21 Interval history: Adrián feels improved with decreased pain in the perianal skin and minimal abdominal incisional pain. He is tolerating a regular diet without nausea or vomiting. He reports a normal bowel movement yesterday without bleeding or diarrhea. He was able to ambulate yesterday and feels reasonably comfortable to go home today. Physical Exam Vital Signs: Vital Signs: Last Vital Signs Temp 99.1 F 04/22/21 07:30 Pulse 75 04/22/21 07:30 Resp 18 04/22/21 07:30 BP 126/69 04/22/21 07:30 Pulse Ox 100 04/22/21 07:30 Body Mass Index 21.2 Const: General: cooperative, comfortable, no acute distress, alert and awake Resp: Other: Breathing comfortably on room air, no respiratory distress GI: Other: Soft, nondistended, well-healed midline incision without erythema or discharge Skin: Other: Warm, dry, no rash, normal color Extrem: General: Yes no clubbing, cyanosis or edema Progress Note: A&P Assessment and plan (1) Lower gastrointestinal hemorrhage: Status: Acute Assessment and Plan: Status post right colectomy for bleeding lesion and right colon. No evidence of ongoing bleeding. Patient is now dealing with perianal skin irritation related to diarrhea which is now better controlled. Abdominal wounds are healing well without evidence of infection. Patient's bowels are now solid without bleeding. His energy level is improving and he is ready for discharge to home from my standpoint. He should follow up my office in approximately 2 weeks. No lifting greater than 10 lb the next 2 weeks. Fall Risk Details Current Medications: Current Medications Generic Name Dose Route Start Last Admin Trade Name Christopher PRN Reason Stop Dose Admin Acetaminophen 650 mg 04/18/21 10:52 04/20/21 16:26 Acetaminophen 325 Mg Tablet PO 650 mg Q6H PRN Administration Pain, Mild (Pain Scale 1-3) Aspirin 81 mg 04/14/21 13:25 04/21/21 08:44 Aspirin Enteric Coated 81 Mg Tablet. PO 81 mg DAILY [facility] Administration Atorvastatin Calcium 80 mg 04/11/21 21:00 04/21/21 21:47 Atorvastatin Calcium 80 Mg Tablet PO 80 mg BEDTIME [facility] Administration Cyanocobalamin 1,000 mcg 04/19/21 14:00 04/19/21 14:55 Cyanocobalamin (Vitamin B-12) 1,000 Mcg/Ml Vial IM 05/10/21 09:01 1,000 mcg Th@0900 [facility] Administration Dicyclomine HCl 10 mg 04/18/21 07:30 04/21/21 16:28 Dicyclomine Hcl 10 Mg Capsule PO 10 mg TIDAC [facility] Administration Ferrous Sulfate 324 mg 04/19/21 14:00 04/21/21 08:44 Ferrous Sulfate 324 Mg Tablet. PO 324 mg DAILY [facility] Administration Ferric Sodium Gluconate 110 mls @ 100 mls/hr 04/20/21 09:00 04/21/21 11:08 Complex 125 mg/ Sodium IV 04/22/21 10:05 Infused Chloride DAILY [facility] Infusion Loperamide HCl 2 mg 04/17/21 21:34 04/18/21 22:08 Loperamide Hcl 2 Mg Capsule PO 2 mg Q4H PRN Administration Diarrhea Methadone HCl 80 mg 04/09/21 08:00 04/21/21 08:58 Methadone Hcl 1 Mg/0.1 Ml Oral.Conc PO 80 mg DAILY [facility] Administration Metoprolol Succinate 25 mg 04/20/21 09:00 04/21/21 08:44 Metoprolol Succinate Er 25 Mg Tab.Er.24h PO 25 mg DAILY [facility] Administration Protocol Nicotine 14 mg 04/08/21 09:00 04/21/21 08:44 Nicotine 14 Mg Patch.Td24 TRANSDERMA 14 mg DAILY [facility] Administration Nystatin/Triamcinolone Acetonide 1 appl 04/20/21 09:40 04/21/21 22:02 Nystatin/Triamcinolone Cream 15 Gm Tube TOPICAL Not Given BID [facility] Protocol Omeprazole 20 mg 04/20/21 09:45 04/22/21 06:28 Omeprazole 20 Mg Capsule. PO 20 mg BID@0630,1630 [facility] Administration Sodium Chloride 3 ml 04/08/21 00:31 04/22/21 01:49 0.9 % Sodium Chloride Flush 3 Ml Syringe IVFLUSH 3 ml QSHIFT [facility] Administration Zinc Oxide 1 appl 04/19/21 15:00 04/21/21 22:01 Zinc Oxide 20% Ointment 28.35 Gm Tube TOPICAL Not Given TID [facility] Protocol Zolpidem Tartrate 5 mg 04/21/21 21:37 04/21/21 21:47 Zolpidem Tartrate 5 Mg Tablet PO 5 mg BEDTIME PRN Administration Insomnia Time Spent With Patient Time: Total time spent is greater than 50% in coordination of care (as documented) at patient's floor/unit and/or counseling patient: Time with patient: 15 - 24 minutes Procedures Date of Service Date of Service: 04/22/21 Quality Stroke Does the patient have a stroke diagnosis?: No VTE Prior VTE?: No VTE Risk Level:: Medical - moderate - high VTE Device Contraindication: N/A - Device Ordered VTE Drug Contraindication: N/A - Med Ordered
[2021-04-22 09:59] VITALS: BP 126/69; PULSE 75
[2021-04-22] MEDS: Dicyclomine HCl 10 MG CAPSULE PO ×2 (09:59→13:21)
[2021-04-22] MEDS: Loperamide HCl 2 MG CAPSULE PO (09:59)
[2021-04-22] MEDS: Ferrous Sulfate 324 MG TABLET.DR PO (09:59)
[2021-04-22] MEDS: Aspirin Enteric Coated 81 MG TABLET.DR PO (09:59)
[2021-04-22] MEDS: Metoprolol Succinate ER 25 MG TAB.ER.24H PO (09:59)
[2021-04-22] MEDS: Nicotine 14 MG PATCH.TD24 TRANSDERMA (10:00)
[2021-04-22] MEDS: Zinc Oxide 20% Ointment 28.35 GM TUBE 1 APPL TOPICAL (10:04)
--- NOTE | 2021-04-22 11:03 | P.DS_ITS ---
DS: Providers Provider Date of Service: 04/22/21 Date of admission: 04/07/21 22:45 Primary care physician: Tobin Keen MD Consults: 04/08/21 00:31 Consult to Gastroenterology Routine Consulting Provider: Lane De La Torre Reason for consultation: Crohn's flare, bloody diarrhea Has provider been notified: No 04/09/21 10:20 Consult to General Surgery Routine Consulting Provider: Mark Simmons Reason for consultation: Crohn's with GI bleeding Has provider been notified: Yes 04/11/21 10:19 Consult to Hematology / Oncology Routine Consulting Provider: Qian Sevilla Reason for consultation: bleeding diathesis Has provider been notified: Yes 04/12/21 08:05 Consult to Cardiology Routine Consulting Provider: Donovan Alanis Reason for consultation: ACS Has provider been notified: Yes 04/18/21 10:53 Consult to Wound Care Routine Consulting Provider: Hellen Manning Reason for consultation: pelvic rash and sloughing for your eval and rec. DS: Diagnosis Discharge Diagnosis (1) Lower gastrointestinal hemorrhage: Status: Acute (2) Acute anemia: Status: Acute (3) ALLISON (acute kidney injury): Status: Acute (4) Blood loss anemia: Status: Acute (5) Fungal rash of torso: Status: Acute (6) NSTEMI (non-ST elevated myocardial infarction): Status: Acute (7) Bleeding diathesis: Status: Acute (8) Urinary retention: Status: Acute (9) Crohn's colitis: Status: Acute DS: Medications Discharge Medications Home Medications: Home Medications Medication Instructions Recorded Confirmed Humira(CF) Pen 40 mg SUBCUT Q2W 04/07/21 04/07/21 budesonide 2 cap PO DAILY 04/07/21 04/07/21 diphenoxylate-atropine 2 tab PO NEEDED PRN 04/07/21 04/07/21 Previous Rx's Medication Instructions Recorded aspirin 81 mg PO DAILY #30 tab 04/22/21 atorvastatin 80 mg PO BEDTIME #30 tab 04/22/21 dicyclomine 10 mg PO TIDAC 30 Days #90 cap 04/22/21 ferrous sulfate 324 mg PO DAILY #30 tab 04/22/21 loperamide 2 mg PO Q4H PRN #30 cap 04/22/21 metoprolol succinate 25 mg PO DAILY #30 tab 04/22/21 nicotine 14 mg TRANSDERMAL DAILY 30 Days ea 04/22/21 nystatin-triamcinolone 1 appl TOPICAL BID 14 Days g 04/22/21 omeprazole 20 mg PO BID@0630,1630 #60 cap 04/22/21 zinc oxide 1 appl TOPICAL TID 14 Days g 04/22/21 DS: Summary Hospital Course Hospital Course: The patient has prolonged hospital stay for full details please returned to EMR. Admission note HPI This is a 51-year-old male with past medical history of Crohn's disease currently and he marrow and budesonide as well as psoriasis who presents to the hospital with complaints of 2 days history of diarrhea with blood. Patient reports that his Crohn was under control for very long time but last night he developed diarrhea that was bloody and then again had a second episode of bloody bowel movements. Patient reports that he lost about 1 gal of blood. He became lightheaded, weak, loss of appetite. He reports that for the past 2 months he probably lost about 25 lb mostly due to loss of appetite. He denies any abdominal pain, he denies any fever or chills, he reports a flare of his psoriasis. He denies any headache, change in vision, no chest pain, no shortness of breath, no urinary symptoms and no lower extremity edema. Arrival to the ED hemodynamically stable with no significant abnormal vitals Labs are significant for WBC count 12.2, hemoglobin of 7.8 (no baseline for comparison, hematocrit of 23.3, INR 1.0, creatinine of 1.4, normal LFTs, CRP of 0.56, albumin of 3.0, COVID-19 negative. Patient received 2 units of PRBC and will be admitted for further management Past medical history as below on confirm the patient CT abdomen shows multiple segments of bowels which exhibit circumferential wall thickening, most prominent in the right colon adjacent to surgical anastomosis site right lower quadrant, cecum this is compatible with patient history of Crohn's disease. Include in the differential also has common entities including colitis, neoplasm, ischemia. No evidence of bowel obstruction. Hospital course The patient presented to the ED on April 07 complaining of 2 days of red bloody diarrhea, dizziness, shortness of breath, and a clammy feeling. He had not been eating and drinking normally and had unintentional weight loss of 25 lb over the prior few months. In the ED, the patient was tachycardic and hypotensive. Labs were notable for Hb 7.8, and transfused 2 units of blood at that point. Overnight the patient had multiple episodes of GI bleeds with picture of hemorrhagic shock for which he was transferred to the ICU and treated with red cells and FFP. colonoscopy in the clinical laboratory aide of April 10, at which he was found to have an arterial pumper near the anastomotic site. It was unable to be controlled by Dr. De La Torre, therefore the patient underwent laparotomy and right colectomy with primary ileocolonic anastomosis by doctor Simmons. At surgery, Dr. Simmons identified a significant area of inflammation in the distal ileum/colonic anastomosis, but there was no active Crohn's disease proximal to that in the i leum. The patient did well in the initial hours postoperatively but that then developed recurrent hypotension and hemorrhagic shock. Abd CT showed large hemoperitoneum. He was taken back to the OR for E-lap by Dr. Rivas, at which he was found to have large hemoperitoneum. About 2500 cc blood was evacuated. No specific bleeding site was found, more a general ooze from mult surfaces, thought secondary to dilutional coagulopathy. The patient was given more products including FFP, cryoprecipitate, and platelets, plus TXA. The patient was extubated and returned to the ICU in the clinical laboratory aide of April 11. The night of April 10, he bumped his troponin and had some T wave inversion. Peak trop was in the 3000 range. His EKG normalized by the next morning. Echo showed regional wall motion abnormalities in the basal inferior inferoseptal segment in RCA territory. The patient never had any chest pain. He was given statin and beta cristobal, but could not be given ASA or anticoagulation. followed by Dr. Alanis who treated as type 2 NSTEMI. To be discharged on baby aspirin, metoprolol and atorvastatin. Patient was transferred back to the medical floor on April 14. No further ble eding noticed at that stage with stable hemoglobin around 8. He was started on iron supplement in to be discharged on iron pills. Noticed to have diarrhea with a result of uremia wounds. Tested negative for C diff. responded well to as needed Imodium. Evaluated by wound care team who suggested using the statin, zinc oxide and steroid cream with good response. Evaluated by physical therapy team as the patient as to be discharged home with VNA day to continue physical therapy at home. Discharge plan Start iron pills for anemia Continue aspirin, atorvastatin and metoprolol for the heart attack Use loperamide as needed for diarrhea Start omeprazole twice Daily To use the creams as prescribed for the affected area To do physical therapy at home To follow-up with Dr. Alanis from Cardiology in 2 weeks To follow-up with Dr. Simmons From surgery in 2 weeks To follow-up with Dr. De La Torre from Gastroenterology after calling for an appointment Time Spent with Patient Time attestation: Total time spent providing and/or coordinating discharge services: Discharge coordination time: Greater than 30 minutes Quality: Stroke Does the patient have a stroke diagnosis?: No Physical Exam Vital Signs: Vital Signs: Last Vital Signs Temp 99.1 F 04/22/21 07:30 Pulse 75 04/22/21 09:59 Resp 18 04/22/21 07:30 BP 126/69 04/22/21 09:59 Pulse Ox 100 04/22/21 07:30 Body Mass Index 21.2 Const: Other: Constitutional : Alert, oriented, looks tired and weak Neck : Normal inspection, Supple Cardiovascular : RRR, S1 S2, no lower extremity edema Respiratory : Good bilateral air entry, no crackles, wheezes or rhonchi Gastrointestinal: soft, lax, Normal bowel sounds, Non tender Skin : Warm/Dry, rash in the perineal area improving, less erythematous and tender Neurological : Alert & oriented x3, No focal deficit DS: Data Data Completed and Pending Completed studies during hospitalization [Text1]: Pending at discharge 04/10/21 11:30 Surgical [PTH] Routine Labs on day of discharge: Laboratory Results - last 24 hr 04/22/21 06:09 WBC 7.4 RBC 2.89 L Hgb 8.6 L Hct 26.8 L MCV 92.7 MCH 29.8 MCHC 32.1 RDW 14.6 Plt Count 420 H MPV 10.2 Absolute Nucleated RBC 0.000 Nucleated RBC % (auto) 0.[address] scan - abdomen: Radiologist's impression: ITS Impressions Abdomen/Pelvis CT 04/07/21 16:36 IMPRESSION: 1. There are multiple segments of bowel which exhibits circumferential wall thickening, most prominent is in the right colon adjacent to surgical anastomosis site right lower quadrants, cecum, although nonspecific, this is compatible with patient history of Crohn's disease. Included in the differential are less common entities including colitis, neoplasm, ischemia . No evidence of bowel obstruction.. Clinical correlation and Follow-up recommended. 2. Anterior abdominal wall hernias containing fat and mesentery. 3. No evidence of lymphadenopathy. GI Bleed Scan Nuclear Medicine 04/08/21 08:34 IMPRESSION: Unremarkable GI bleeding scan. No active focus of isotope extravasation seen. Head CT 04/08/21 12:10 IMPRESSION: No evidence of acute intracranial hemorrhage or edematous territorial infarction. Chest X-Ray 04/10/21 03:04 IMPRESSION: Right IJ central line tip in the region of the cavoatrial junction. Abdomen X-Ray 04/10/21 20:40 IMPRESSION: Postoperative changes. Unremarkable bowel gas pattern. Abdomen/Pelvis CT 04/10/21 23:12 IMPRESSION: Postop hemorrhage with hemoperitoneum and blood in the mesentery. Free intraperitoneal air most likely secondary to recent postop state. Grossly abnormal edematous remaining colon. This critical result was discussed with Robert JADE at 11:25 PM on the evening of the exam and it was ascertained that the content and urgency of the report was understood at the time of direct communication. Myocardial Perfusion Scan Nuc Med 04/16/21 07:55 Impression: 1. Myocardial perfusion imaging study shows basal and mid inferior nontransmural infarct without reversible ischemia 2. Gated LVEF is 60% 3. Transient ischemic dilatation not present EKG is nondiagnostic for ischemia Discharge Plan Discharge Patient Disposition: Home Health Service Discharge Diagnosis: Gastrointestinal bleeding Acute kidney injury Myocardial infarction Referrals: [facility] [Outside] - 1 Week Tobin Keen MD [Primary Care Provider] - 1 Week Mark Simmons MD [Physician] - 2 Weeks Discharge Medications: New dicyclomine 10 mg Capsule 10 mg PO TIDAC 30 Days Qty: 90 RF: 0 nicotine 14 mg/24 hr Patch 24 Hour 14 mg transdermal DAILY 30 Days RF: 0 ferrous sulfate 324 mg (65 mg iron) Tablet,Delayed Release (Dr/Ec) 324 mg PO DAILY Qty: 30 RF: 0 atorvastatin 80 mg Tablet 80 mg PO BEDTIME Qty: 30 RF: 0 metoprolol succinate 25 mg Tablet Extended Release 24 Hr 25 mg PO DAILY Qty: 30 RF: 0 aspirin 81 mg Tablet,Delayed Release (Dr/Ec) 81 mg PO DAILY Qty: 30 RF: 0 loperamide 2 mg Capsule 2 mg PO Q4H PRN (Reason: Diarrhea) Qty: 30 RF: 0 omeprazole 20 mg Capsule,Delayed Release(Dr/Ec) 20 mg PO BID@0630,1630 Qty: 60 RF: 0 nystatin-triamcinolone 100,000-0.1 unit/g-% Cream 1 appl topical BID 14 Days RF: 0 zinc oxide 20 % Ointment 1 appl topical TID 14 Days RF: 0 Continued diphenoxylate-atropine 2.5-0.025 mg tablet 2 tab PO NEEDED PRN (Reason: Diarrhea) RF: 0 budesonide 3 mg capsule,delayed,extend.release 2 cap PO DAILY RF: 0 Humira(CF) Pen 40 mg/0.4 mL pen injector kit 40 mg subcut Q2W RF: 0 Discharge Orders: Discharge Order (Routine); Ordered 04/22/21 Ordered By: Sean Jensen Diet: advance to usual diet Activity on Discharge: As tolerated Stand Alone Forms: Patient Portal Discharge page Care Plan Goals: Read below Health Concerns: Read below Plan of Treatment: You were admitted to the hospital for gastrointestinal bleeding. Received multiple transfusion and monitored in the ICU. Had a colonoscopy done showing large bleeding lesion of the cold requiring right colon resection with anastomosis. Requiring a 2nd surgery to clear the leakage from the anastomosis side. You did improve after that and became able to tolerate diet well. After the 2nd surgery you were noticed to have a heart attack treated by [facility] with IV heparin and oral medications with good response. Noticed to have a rash in the perineal area followed by the wound care and treated with creams with significant improvement. Assessment: Start iron pills for anemia Continue aspirin, atorvastatin and metoprolol for the heart attack Use loperamide as needed for diarrhea Start omeprazole twice Daily To use the creams as prescribed for the affected area To do physical therapy at home To follow-up with Dr. Alanis from Cardiology in 2 weeks To follow-up with Dr. Simmons From surgery in 2 weeks To follow-up with Dr. De La Torre from Gastroenterology after calling for an appointment
--- NOTE | 2021-04-22 11:10 | MHC.CM.PN ---
PT CLEARED TO DC HOME TODAY WITH [facility]. FAMILY TO TRANSPORT
[2021-04-22 11:33] VITALS: BP 128/76; PULSE 73; RESP 18; TEMP 37.1; O2SAT 100
== END 2021-04-22 13:48 | disposition home health service (06) | DRG 329 ==
LOC: HO.ED 17:33 → HO.IMC 23:03 → HO.ICU 04-08 08:43 → HO.IMC 04-13 18:36
PROVIDERS: Anesthesiology; Internal Medicine; Internal Medicine Pulmonary Disease; Nurse Practitioner Family; Physician Assistant; Physician Assistant Medical; Surgery; Admitting Provider Internal Medicine; Emergency Provider Emergency Medicine; PCP Family Medicine; Visit Provider Student in an Organized Health Care Education/Training Program
PROC: 0DJ08ZZ Inspection of Upper Intestinal Tract, Via Natural or Artificial Opening Endoscopic (ICD-10-PCS; principal; 2021-04-10 07:30)
PROC: 0DBF0ZZ Excision of Right Large Intestine, Open Approach (ICD-10-PCS; CPT 49000; 2021-04-10 07:30)
PROC: (CPT 49000; principal; 2021-04-11 00:45)
DX: K50.112 Crohn's disease of large intestine with intestinal obstruction (principal); R57.8 Other shock; K63.81 Dieulafoy lesion of intestine; I21.A1 Myocardial infarction type 2; N17.9 Acute kidney failure, unspecified; D68.9 Coagulation defect, unspecified; K91.840 Postprocedural hemorrhage of a digestive system organ or structure following a digestive system procedure; D62 Acute posthemorrhagic anemia; K44.9 Diaphragmatic hernia without obstruction or gangrene; E87.5 Hyperkalemia; R21 Rash and other nonspecific skin eruption; I10 Essential (primary) hypertension; I95.9 Hypotension, unspecified; L40.9 Psoriasis, unspecified; F17.210 Nicotine dependence, cigarettes, uncomplicated; Z71.6 Tobacco abuse counseling; Z20.822 Contact with and (suspected) exposure to COVID-19; Z79.82 Long term (current) use of aspirin; Z79.899 Other long term (current) drug therapy
CPT/HCPCS: 36415; 70450; 71045; 74018; 74176; 74178; 78278; 78452; 80048; 80051; 80053; 80076; 82040; 82436; 82533; 82565; 82607; 82728; 82746; 83540; 83605; 83735; 84100; 84133; 84300; 84443; 84478; 84484; 84520; 85014; 85018; 85025; 85027; 85384; 85610; 85652; 85730; 86140; 86850; 86900; 86901; 86923; 87040; 87045; 87046; 87177; 87209; 87324; 87329; 87449; 87635; 88307; 89055; 93005; 93017; 93306; 94002; 94003; 94799; 97110; 97116; 97163; 99024; 99285; A9500; A9560; C1769; J0171; J0280; J0330; J0610; J0690; J1170; J1885; J1940; J2060; J2370; J2405; J2785; J2916; J2920; J3010; J3430; J3475; P9012; P9016; P9017; P9035; P9047; Q9967

== ENCOUNTER → 2021-05-03 12:54 | Outpatient (BNVA) | payer OTHER, SELFPAY | PROVIDERS: PCP Internal Medicine; Referring Provider Family Medicine; Visit Provider Nurse Practitioner Family ==

== ENCOUNTER → 2021-05-31 12:52 | Outpatient (BNVA) | payer OTHER, SELFPAY | PROVIDERS: PCP Family Medicine; Referring Provider Family Medicine; Visit Provider Surgery ==

== ENCOUNTER → 2021-06-13 12:55 | Outpatient (BNVA) | payer OTHER, SELFPAY | PROVIDERS: PCP Family Medicine; Referring Provider Family Medicine; Visit Provider Nurse Practitioner Family ==

== ENCOUNTER → 2021-09-18 15:22 | Outpatient (BNVA) | payer OTHER, SELFPAY | PROVIDERS: PCP Family Medicine; Referring Provider Family Medicine; Visit Provider Internal Medicine Cardiovascular Disease ==

== ENCOUNTER 2021-09-29 10:31 | Outpatient (REF) | payer OTHER, SELFPAY ==
[2021-09-29 11:38] LABS: Alanine Aminotransferase 21 U/L (0-40); Aspartate Amino Transferase 25 U/L (5-37); Cholesterol 163 mg/dL; HDL Cholesterol 37 mg/dL; LDL Cholesterol Calculated 90 mg/dl; Triglycerides 184 mg/dL
[2021-10-02 09:16] LABS: CRP High Sensitivity 2.3 mg/L
== END 2021-09-29 10:32 | disposition home or self-care (01) ==
LOC: HO.LAB 10:31
PROVIDERS: Nurse Practitioner Family; PCP Family Medicine; Visit Provider Internal Medicine Cardiovascular Disease
DX: I24.1 Dressler's syndrome (principal); I25.10 Atherosclerotic heart disease of native coronary artery without angina pectoris; E78.5 Hyperlipidemia, unspecified
CPT/HCPCS: 36415; 80061; 84450; 84460; 86141

== ENCOUNTER → 2022-02-15 08:23 | Outpatient (REF) | payer OTHER, SELFPAY ==
--- NOTE | 2022-02-15 08:32 | CA_ITS ---
Transthoracic Echocardiogram Patient (Last, First, Middle): Adrián Cornejo, Gender: Male Date of : 1970 Age: 51 Procedure Date: 02/15/2022 Procedure Type: Transthoracic Echocardiogram Location: OP Height: 180.34 cm Weight: 72.58 kg BSA: 1.92 m2 Heart Rate: bpm BP: 140 / 80 mmHg Urgent Care Physician Assistant: VH/TO Referring MD: Donovan Alanis MD Symptoms: I25.10 - Atherosclerotic heart disease of [place] coronary... Study Quality: Good Conclusions: - Normal left ventricular size, thickness, and systolic function. The visually estimated ejection fraction is between 55-60%. There is no evidence of regional wall motion abnormalities. Diastolic function is normal for age. - Normal right ventricular cavity size and systolic function. - There is mild dilatation of the sinuses of Valsalva measuring 3.77 cm and mild dilatation of the ascending aorta measuring 3.90 cm. Findings Left Ventricle Normal left ventricular size, thickness, and systolic function. The visually estimated ejection fraction is between 55-60%. There is no evidence of regional wall motion abnormalities. Diastolic function is normal for age. Right Ventricle Normal right ventricular cavity size and systolic function. Atria The left atrium is mildly dilated. Aortic Valve Normal aortic valve structure and function. There is no aortic valve stenosis. There is no aortic valve regurgitation. Mitral Valve Normal mitral valve structure and function. There is no mitral valve regurgitation. There is no mitral valve stenosis. Pulmonic Valve The pulmonic valve is likely normal. Tricuspid Valve Normal tricuspid valve structure and function. There is trace tricuspid valve regurgitation. Normal right atrial pressure. There is no evidence of pulmonary hypertension. Great Vessels There is mild dilatation of the sinuses of Valsalva measuring 3.77 cm and mild dilatation of the ascending aorta measuring 3.90 cm. The visualized portions of the pulmonary artery and branches are normal. Venous The inferior vena cava is normal in size and collapses greater than 50% with inspiration. Pericardium/Pleural There is no evidence of pericardial effusion. Prior Study Comparison Changes noted compared to prior study dated: 04/12/2021. Mildly dilated aorta. No RWMA present now. Measurements 2D Linear Measurements IVSd: 0.87 0.6-0.9/0.6-1.0 cm LVIDd: 5.36 3.9-5.3/4.2-5.9 cm LVIDd Index: 2.79 2.4-3.2/2.2-3.1 cm/m2 LVIDs: 3.63 2.0-3.6 cm LVPWd: 0.91 0.7-1.1 cm LA Diam: 3.70 2.7-3.8/3.0-4.0 cm LAIDs Index: 1.93 1.5-2.3 cm/m2 LV Mass: 219.04 67-162/88-224 g LV Mass Index: 114.08 43-95/49-115 g/m2 LVOT Diam: 2.20 3.0+(-)1.3 cm 2D Systolic Function EF 4C: 61.40 >55% EF 2C: 55.50 >55% EF BiP: 57.60 >55% Mitral Valve MV Pk E: 0.99 MV PK A: 0.68 MV Decel Time: 172.00 E/A: 1.50 E'Lateral: 12.80 E'Medial: 11.00 E/E' Med: 9.00 E/E' Lat: 7.70 PHT: 50.00 MVA PHT: 4.40 Decel [place]: 5.72 Aortic Valve AoV Pk Yung: 1.36 AoV Mn Yung: 0.92 AoV VTI: 0.29 AoV Pk Grad: 7.00 Aov Mn Grad: 4.00 HIRAM Cont.VTI: 2.94 LVOT LVOT Pk Yung: 1.00 LVOT Mn Yung: 0.67 LVOT VTI: 0.22 LVOT Pk Grad: 4.00 LVOT Mn Grad: 2.00 LVOT Diam: 2.20 LVOT Area: 3.80 Diastolic Function MV Pk E: 0.99 MV Pk A: 0.68 E/A: 1.50 E'Medial: 11.00 E/E' Med: 9.00 E' Laterial: 12.80 E/E' Lat: 7.70 Right Ventricle TAPSE (mm): 22.60 TVS' Yung: 12.70 Tricuspid Valve TR Pk Yung: 2.23 TR Pk Grad: 20.00 RA Press: 3.00 RVSP: 23.00 Great Vessels Aorta Sinus of Valsalva: 3.77 2.0-3.[address] [place]: 3.50 1.7-3.4 cm Ao Asc: 3.90 2.1-3.4 cm Updated in Other Vendor System with Status of Final Tunde Lopez MD electronically signed on 02/17/2022 1:08:20 PM with status of Final
== END ==
LOC: HO.CARD 08:23
PROVIDERS: PCP Family Medicine; Visit Provider Internal Medicine Cardiovascular Disease
DX: I25.10 Atherosclerotic heart disease of native coronary artery without angina pectoris (principal)
CPT/HCPCS: 93306

== ENCOUNTER → 2022-03-28 15:18 | Outpatient (BNVA) | payer OTHER, SELFPAY | PROVIDERS: PCP Family Medicine; Referring Provider Family Medicine; Visit Provider Internal Medicine Cardiovascular Disease | DX: I25.10 Atherosclerotic heart disease of native coronary artery without angina pectoris (principal); I10 Essential (primary) hypertension | CPT/HCPCS: 93005 ==

== ENCOUNTER → 2022-11-29 10:25 | Outpatient (BNVA) | payer OTHER, SELFPAY | PROVIDERS: PCP Family Medicine; Visit Provider Urology | DX: Z13.89 Encounter for screening for other disorder (principal) ==

== ENCOUNTER 2023-02-28 14:41 | Outpatient (REF) | payer OTHER, SELFPAY ==
--- NOTE | ~2023-02-28 | US_ITS ---
EXAMINATION: US RETROPERITONEAL LIMITED (RENAL ONLY) CLINICAL INFORMATION: Stage 3a chronic kidney disease. COMPARISON: CT abdomen and pelvis 04/10/2021 TECHNIQUE: Real-time imaging of the kidneys. FINDINGS: RIGHT KIDNEY: 9.3 x 5.6 x 4.4 cm (SAG x AP x TRV). The kidney is small but otherwise normal in appearance. Renal cortical thickness is normal. No calculi or focal parenchymal lesions. No hydronephrosis. LEFT KIDNEY: 8.8 x 4.3 x 4.2 cm (SAG x AP x TRV). The kidney is small but otherwise normal in appearance. Renal cortical thickness is normal. No calculi or focal parenchymal lesions. No hydronephrosis. US/US renal BI IMPRESSION: Small kidneys. Normal parenchymal echogenicity. No hydronephrosis.
== END 2023-02-28 14:42 | disposition home or self-care (01) ==
LOC: HO.US 14:41
PROVIDERS: PCP Family Medicine; Visit Provider Internal Medicine Nephrology
DX: I12.9 Hypertensive chronic kidney disease with stage 1 through stage 4 chronic kidney disease, or unspecified chronic kidney disease (principal); N18.31 Chronic kidney disease, stage 3a
CPT/HCPCS: 76775

== ENCOUNTER 2023-03-05 16:19 | Outpatient (REF) | payer OTHER, SELFPAY ==
[2023-03-05 16:50] LABS: MANUAL DIFF FLAG NO
[2023-03-05 17:35] LABS: Basophils Percent Auto 0.6 % (0-2); Eosinophils Absolute Auto 0.4 X10*3/uL (0.0-0.4); Eosinophils Percent Auto 5.1 % (0-4); Hematocrit 35.8 % (42.0-52.0); Hemoglobin 11.6 g/dl (14.0-18.0); Imm Gran Abs Auto 0.04 X10*3/uL (0.00-0.03); Imm Gran Pct Auto 0.6 % (0.0-0.4); Lymphocytes Absolute Auto 1.4 X10*3/uL (1.2-4.9); Lymphocytes Percent Auto 19.9 % (20-40); Mean Corpuscular HGB Conc 32.4 g/dl (31.0-36.0); Mean Corpuscular Hemoglobin 28.4 pg (27.0-33.0); Mean Corpuscular Volume 87.5 fL (80.0-98.0); Mean Platelet Volume 9.6 fL (9.4-12.4); Monocytes Absolute Auto 0.8 X10*3/uL (0.1-1.2); Monocytes Percent Auto 10.7 % (2-11); Neutrophils Absolute Auto 4.6 x10*3/uL (2.0-8.3); Neutrophils Percent Auto 63.1 % (45-73); Platelet Count 354 X10*3/uL (160-400); Red Blood Count 4.09 X10*6/uL (4.60-5.80); Red Cell Distribution Width 14.5 % (11.0-16.0); White Blood Count 7.2 X10*3/uL (4.8-10.8)
[2023-03-05 17:41] LABS: INTERNATIONAL NORM RATIO 0.9 (0.9-1.1); Prothrombin Time 10.5 SEC (10.0-13.1)
[2023-03-05 18:09] LABS: Alanine Aminotransferase 7 U/L (0-40); Albumin Level 3.5 g/dL (3.5-5.0); Alkaline Phosphatase 88 U/L (39-117); Anion Gap 11 (12-20); Aspartate Amino Transferase 11 U/L (5-37); Bilirubin Direct < 0.2 mg/dL (0.0-0.5); Bilirubin Total 0.2 mg/dL (0.0-1.0); Blood Urea Nitrogen 12 mg/dL (9-16); Calcium 8.8 mg/dL (8.4-10.2); Carbon Dioxide 27 mmol/L (22-29); Chloride 106 mmol/L (96-108); Estimated Glomerular Filt Rate 42; Potassium 5.2 mmol/L (3.3-5.1); Sodium 139 mmol/L (135-145); Total Protein 6.2 g/dL (6.5-8.0)
[2023-03-05 19:15] LABS: Appearance Urine Clear; Color Urine Dark Yellow; Glucose Urine UA Negative (Negative); Leukocyte Esterase Urine Negative (Negative); Nitrite Urine Negative (Negative); PH 5.5 (5.0-9.0); Urine Blood Negative (Negative); Urine Ketones Trace mg/dL (Negative); Urine Protein Trace mg/dL (Neg-Trace)
[2023-03-05 19:20] LABS: Bacteria Urine None Seen (None Seen); RBC Urine 0-2 /HPF (0-2); Squamous Epithelial Cell Urine 0-2 /HPF (0-2); WBC Urine 0-5 /HPF (0-5)
[2023-03-05 19:28] LABS: Creatinine Urine 182.88 mg/dL; Protein/Creatinine Ratio, Ur 0.09 (<0.2); Total Protein Urine Random 17 mg/dL (<12)
[2023-03-07 04:43] LABS: HIV AB/AG Nonreactive (Nonreactive); HIV Num 1 0.08 S/CO (0.00-0.99); Hepatitis B Core Antibody Nonreactive (Nonreactive); ~HepC Num1 0.13 S/CO (0.00-0.79); ~Hepatitis C Antibody Nonreactive (Nonreactive)
[2023-03-07 12:38] LABS: Prot Elec - Albumin 3.5 g/dL (3.8-4.8); Prot Elec - Alpha1 0.5 g/dL (0.2-0.3); Prot Elec - Alpha2 0.8 g/dL (0.5-0.9); Prot Elec - Beta 1 0.4 g/dL (0.4-0.6); Prot Elec - Beta 2 0.4 g/dL (0.2-0.5); Prot Elec - Total Protein 6.6 g/dL (6.1-8.1)
[2023-03-07 19:44] LABS: Complement C3 102 mg/dL (82-185)
[2023-03-10 15:24] LABS: Neutrophil Cyto Ab Screen NEGATIVE (NEGATIVE)
[2023-03-17 02:43] LABS: Phospholipase A2 IgG ELISA <4 RU/mL; Phospholipase A2 IgG IFA NEGATIVE (NEGATIVE)
== END 2023-03-05 16:20 | disposition home or self-care (01) ==
LOC: HO.LAB 16:19
PROVIDERS: PCP Family Medicine; Visit Provider Internal Medicine Nephrology
DX: I12.9 Hypertensive chronic kidney disease with stage 1 through stage 4 chronic kidney disease, or unspecified chronic kidney disease (principal); N18.31 Chronic kidney disease, stage 3a; R79.9 Abnormal finding of blood chemistry, unspecified
CPT/HCPCS: 36415; 80051; 80076; 81001; 82310; 82565; 83520; 84156; 84165; 84520; 85025; 85610; 86036; 86037; 86160; 86255; 86704; 86803; 87389

== ENCOUNTER → 2023-04-01 14:54 | Outpatient (BNVA) | payer OTHER, SELFPAY | PROVIDERS: PCP Family Medicine; Referring Provider Family Medicine; Visit Provider Internal Medicine Cardiovascular Disease | DX: I25.10 Atherosclerotic heart disease of native coronary artery without angina pectoris (principal) | CPT/HCPCS: 93005 ==

== ENCOUNTER 2024-02-12 11:03 | Outpatient (REF) | payer OTHER, SELFPAY ==
--- NOTE | ~2024-02-12 | XR_ITS ---
EXAMINATION: XR CHEST CLINICAL INFORMATION: Cough, chest pain, wheezing. COMPARISON: AP view of the chest of 04/30/2021 and 05/16/2016. Prior lateral views are not available. TECHNIQUE: 3 views of the chest. FINDINGS: Well-inflated lungs with prominent retrosternal clear space. Trace blunting of the posterior sulcus may represent trace amount of pleural fluid. Mild retrocardiac opacities may represent atelectasis, although pneumonia should also be considered in the appropriate clinical setting. Heart size is normal. There is no gross pneumothorax. Mild dextroscoliosis of the thoracic spine with mild degenerative changes. XR/XR chest 2V IMPRESSION: 1. Trace blunting of the posterior sulcus may represent trace amount of pleural fluid. Mild retrocardiac opacities may represent atelectasis, although pneumonia should also be considered in the appropriate clinical setting. 2. Well inflated lungs with prominent retrosternal clear space.
== END 2024-02-12 11:04 | disposition home or self-care (01) ==
LOC: HO.XRAY 11:03
PROVIDERS: PCP Family Medicine; Visit Provider Family Medicine
DX: R05.9 Cough, unspecified (principal)
CPT/HCPCS: 71046

== ENCOUNTER 2024-02-13 15:58 | Outpatient (AMB) | payer OTHER, SELFPAY ==
[2024-02-13 16:02] VITALS: BP 120/80; PULSE 102; O2SAT 98; BMI 22.5
--- NOTE | 2024-02-13 16:02 | HO.NEPHOV ---
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 He has history of Crohn's disease for over 2 decades. He has history of colectomy. He has taking mesalamine and Remicade as well as Humira. He has his given ATN from a GI bleed 2020. He has no history of significant proteinuria or nephrolithiasis. He has history of IA during his GI bleed. He has been tolerating lisinopril. He is not a diabetic. He does not use nonsteroidal anti-inflammatory medications. He maintains good hydration. He does not have any nausea vomiting, diarrhea, chest pain, shortness for, proximal nocturnal dyspnea, orthopnea or pedal edema or orthostatic symptoms. There where no new complaints at she the time this office visit [facility] Medical History Crohn's colitis Crohn's disease NSTEMI (non-ST elevated myocardial infarction) Psoriasis Surgical History H/O colectomy Family History Father HTN (hypertension) S/P triple vessel bypass Social History Household Members: Family Housing: House Do you presently have visiting nurse or other home services: No Alcohol intake: never Patient Tobacco Use Status: Current everyday Tobacco user Cigarettes Per Day: 5 Years Smoked: 6+/- service: No Current occupational status: employed Physical Exam Vital Signs: Last Vital Signs Pulse 102 H 02/13/24 16:02 BP 120/80 02/13/24 16:02 Pulse Ox 98 02/13/24 16:02 Oxygen Delivery Method Room Air 02/13/24 16:02 BMI result Body Mass Index 22.5 Const General: comfortable and no acute distress Orientation/consciousness: patient oriented x3 HEENT Head: Yes normocephalic Mouth: Normal oral and palatal mucosa present Eyes EOM: EOMs intact bilaterally Neck Neck: Yes supple Resp Auscultation: clear to auscultation bilaterally Cardio Jugular venous distension: no JVD Rate: regular rate GI Palpation (GI): Soft to palpation Auscultation: normal bowel sounds General: Yes no CVA tenderness Back/Spine/Pelvis Back: no CVA tenderness Skin General skin exam: no rashes or lesions noted Neuro General: patient oriented x3 and moves all extremities Extrem General: Yes no pedal edema Assessment & Plan Assessment & Plan (1) HTN (hypertension): Code(s): I10 - Essential (primary) hypertension Category: Medical Qualifiers: Hypertension type: primary hypertension Qualified Code(s): I10 - Essential (primary) hypertension (2) CKD (chronic kidney disease), stage III: Code(s): N18.30 - Chronic kidney disease, stage 3 unspecified Category: Medical Qualifiers: Chronic kidney disease stage 3 subtype: stage 3a (GFR 45-59) Qualified Code(s): N18.31 - Chronic kidney disease, stage 3a Omayra Sampson has 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 He also had ATN with some loss of GFR. His renal USS in the past showed small kidneys. Renal biopsy showed 30 % scarring with no glomerular pathology. His serum creatinine has been stable. His BP is at goal. He is tolerating ACEI. He maintains good hydration and avoids NSAID's. I ordered blood work as well as 24 hour urine for creatinine clearance. NO medication changes were done during this visit. All questions answered. Follow up appointment given Orders: Orders Creatinine 02/13/24 N18.31 - Chronic kidney disease, stage 3a, I10 - Essential (primary) hypertension Blood Urea Nitrogen 02/13/24 N18.31 - Chronic kidney disease, stage 3a, I10 - Essential (primary) hypertension Vitamin D 25-OH Total 02/13/24 N18.31 - Chronic kidney disease, stage 3a, I10 - Essential (primary) hypertension Phosphorus 02/13/24 N18.31 - Chronic kidney disease, stage 3a, I10 - Essential (primary) hypertension Creatinine Clearance Urine 24U 02/13/24 N18.31 - Chronic kidney disease, stage 3a, I10 - Essential (primary) hypertension Electrolytes 02/13/24 N18.31 - Chronic kidney disease, stage 3a, I10 - Essential (primary) hypertension Calcium 02/13/24 N18.31 - Chronic kidney disease, stage 3a, I10 - Essential (primary) hypertension Parathyroid Hormone Intact 02/13/24 N18.31 - Chronic kidney disease, stage 3a, I10 - Essential (primary) hypertension Complete Blood Count Auto Diff 02/13/24 N18.31 - Chronic kidney disease, stage 3a, I10 - Essential (primary) hypertension Medications: New lisinopril 10 mg PO DAILY 90 tabs 3RF 90 days Coding Level of Care Code Est Pt Level 4 (74612) Diagnoses Primary hypertension I10 Hypertension type: primary hypertension Stage 3a chronic kidney disease N18.31 Chronic kidney disease stage 3 subtype: stage 3a (GFR 45-59)
== END 2024-02-13 16:27 | disposition home or self-care (01) ==
PROVIDERS: PCP Family Medicine; Visit Provider Internal Medicine Nephrology
DX: I10 Essential (primary) hypertension (principal); N18.31 Chronic kidney disease, stage 3a
CPT/HCPCS: 99214

== ENCOUNTER → 2024-02-13 15:58 | Outpatient (BNVA) | payer OTHER, SELFPAY | PROVIDERS: PCP Family Medicine; Visit Provider Internal Medicine Nephrology ==

== ENCOUNTER 2024-08-02 21:01 | Inpatient (IN) | payer OTHER, SELFPAY ==
--- NOTE | ~2024-08-02 | CT_ITS ---
EXAMINATION: CT ABDOMEN AND PELVIS WITHOUT CONTRAST CLINICAL INFORMATION: Right abdominal pain. History of Crohn's disease. COMPARISON: CT abdomen and pelvis 04/10/2021 TECHNIQUE: Multidetector volumetric imaging was performed from the superior aspect of the liver through the pubic symphysis. Sagittal and coronal reformatted images were obtained on the technologist's workstation. This CT examination was performed using dose optimization techniques as appropriate, variously including the following: *Automated exposure control *Adjustment of mA and/or kV according to patient size (this includes techniques or standardized protocols for targeted exams where dose is matched to indication/reason for exam; i.e. extremities or head) *Use of iterative reconstruction technique DLP: 350 mGy-cm FINDINGS: LUNG BASES: 6 partial visualization of right coronary artery calcific atherosclerosis. LIVER, GALLBLADDER, AND BILIARY TREE: The liver is normal in size, shape, and attenuation. No focal hepatic lesion or biliary ductal dilatation is present. The gallbladder is unremarkable with no evidence of radiopaque gallstones, gallbladder wall thickening, or obvious pericholecystic inflammatory changes. PANCREAS: Unremarkable. SPLEEN: Unremarkable. ADRENAL GLANDS: Unremarkable. KIDNEYS AND URETERS: Minimal scattered renal vascular calcifications. No hydronephrosis or definitive urolithiasis. BLADDER: Decompressed GASTROINTESTINAL TRACT: Neural stratification of the colon consistent with the long-term sequela of inflammatory bowel disease with submucosal fat deposition. Ileocolic anastomotic sutures are noted within the right upper abdominal quadrant. Concentric mural thickening of the distal ileum is noted. Dilated small bowel segments measuring up to 3.7 cm in diameter are present in transition point between dilated and nondilated small bowel segments is suggested within the right lower abdominal quadrant. No free intraperitoneal fluid or gas collections identified. Stomach is decompressed. ABDOMINAL WALL: No significant hernia is appreciated. LYMPH NODES: Normal. VASCULAR: Mild scattered calcific atherosclerosis. PELVIC VISCERA: Normal appearance of the prostate. OSSEOUS STRUCTURES: No evidence of inflammatory arthropathic changes of the sacroiliac joints. Marked intervertebral disc space narrowing, vacuum phenomena and discogenic endplate sclerosis at L4-L5 and partially visualized broad-based disc-osteophyte complexes L4-L5 and L5-S1. CT/CT abdomen pelvis wo IV con IMPRESSION: *Findings suspicious for small bowel obstruction. Abnormally dilated small bowel segments measuring up to 3.7 cm are present with a transition between dilated and nondilated small bowel segments suggested within the right lower abdominal quadrant. No evidence of intestinal perforation. Etiology of the small bowel obstruction may be adhesions which are otherwise occult on CT imaging. Alternatively, a small bowel obstruction may represent functional obstruction related to active inflammatory bowel disease related to inflammatory changes within the distal ileum. The distal ileum over an approximate 10 cm length demonstrates concentric mural thickening to which of 6 mm. *Inflammatory bowel disease. Concentric mural thickening of the distal ileum immediately adjacent to an ileocolic anastomosis is present consistent with the given history of Crohn's disease. Furthermore, chronic appearing mural stratification with submucosal fat deposition is present within the colon consistent with the long-term sequela of inflammatory bowel disease. Electronically signed by: Aman Parr MD 08/03/2024 02:50 AM EDT RP
[2024-08-02 21:04] VITALS: BP 96/66; PULSE 110; RESP 18; TEMP 37.1; O2SAT 100; BMI 20.9
[2024-08-02 21:19] LABS: MANUAL DIFF FLAG NO
[2024-08-02 21:20] LABS: Basophils Percent Auto 0.4 % (0-2); Eosinophils Absolute Auto 0.5 X10*3/uL (0.0-0.4); Eosinophils Percent Auto 5.8 % (0-4); Hematocrit 35.3 % (42.0-52.0); Hemoglobin 11.8 g/dl (14.0-18.0); Imm Gran Abs Auto 0.03 X10*3/uL (0.00-0.03); Imm Gran Pct Auto 0.4 % (0.0-0.4); Lymphocytes Absolute Auto 1.3 X10*3/uL (1.2-4.9); Lymphocytes Percent Auto 16.3 % (20-40); Mean Corpuscular HGB Conc 33.4 g/dl (31.0-36.0); Mean Corpuscular Hemoglobin 28.2 pg (27.0-33.0); Mean Corpuscular Volume 84.2 fL (80.0-98.0); Mean Platelet Volume 9.5 fL (9.4-12.4); Monocytes Absolute Auto 1.1 X10*3/uL (0.1-1.2); Monocytes Percent Auto 13.8 % (2-11); Neutrophils Absolute Auto 5.2 x10*3/uL (2.0-8.3); Neutrophils Percent Auto 63.3 % (45-73); Platelet Count 380 X10*3/uL (160-400); Red Blood Count 4.19 X10*6/uL (4.60-5.80); Red Cell Distribution Width 13.8 % (11.0-16.0); White Blood Count 8.2 X10*3/uL (4.8-10.8)
[2024-08-02 21:38] LABS: Alanine Aminotransferase 7 U/L (0-40); Albumin Level 3.9 g/dL (3.5-5.0); Alkaline Phosphatase 70 U/L (39-117); Anion Gap 17 (12-20); Aspartate Amino Transferase 11 U/L (5-37); Bilirubin Direct 0.1 mg/dL (0.0-0.5); Bilirubin Total 0.3 mg/dL (0.0-1.0); Blood Urea Nitrogen 51 mg/dL (9-16); Calcium 9.1 mg/dL (8.4-10.2); Carbon Dioxide 20 mmol/L (22-29); Chloride 103 mmol/L (96-108); Creatinine Clr Calc Pharmacy 26.3; Estimated Glomerular Filt Rate 21; Glucose Random 119 mg/dL (60-115); Lipase 55 U/L (8-78); Potassium 3.7 mmol/L (3.3-5.1); Sodium 136 mmol/L (135-145); Total Protein 7.7 g/dL (6.5-8.0)
[2024-08-03] VITALS (14 sets, daily range): BP systolic 101–119; BP diastolic 57–72; PULSE 64–85; RESP 16–22; TEMP 36–37; O2SAT 97–100; BMI 21.0
[2024-08-03 00:28] LABS: Appearance Urine Clear; Color Urine Dark Yellow; Glucose Urine UA Negative (Negative); Leukocyte Esterase Urine Trace (Negative); Nitrite Urine Negative (Negative); PH 5.5 (5.0-9.0); Specific Gravity - Urine 1.025 (1.005-1.025); UMIC TRIGGER UACC YES; Urine Blood Negative (Negative); Urine Ketones 15 mg/dL (Negative); Urine Protein 30 (1+) mg/dL (Neg-Trace)
[2024-08-03 00:35] LABS: Bacteria Urine None Seen (None Seen); Granular Casts Urine Present; Hyaline Casts Urine >20 /LPF (0-2); RBC Urine 0-2 /HPF (0-2); WBC Urine 0-5 /HPF (0-5)
--- NOTE | 2024-08-03 01:05 | ED_ITS ---
HPI - Abdominal Pain General Chief Complaint: Abdominal Pain Stated Complaint: crohn's flair up Time Seen by Provider: 08/03/24 00:42 Source: patient Mode of arrival: ambulatory Limitations: no limitations History of Present Illness ED Provider: Dr. Juany Harris HPI narrative: Patient comes to the emergency room complaining of abdominal pain, nausea vomiting and diarrhea for about 3 days. Patient states that he is known to have Crohn's. Patient is supposed to be taking Humira but has not taking it due to insurance problems. Patient states that he has been vomiting and having copious diarrhea. Patient has been taking Lomotil at home . The diarrhea has slowed down but it is still present. Patient denies any blood in the stool. Denies fever chills, denies flank pain or UTI symptoms. Related Data Home Medications ?Medication ?Instructions ?Recorded ?Confirmed tadalafil 5 mg tablet 5 mg PO DAILY sexual activity 04/01/23 04/01/23 adalimumab 40 mg/0.8 mL 40 mg subcut Q2W 02/13/24 subcutaneous syringe kit (Humira) cholecalciferol (vitamin D3) 50 50 mcg PO DAILY 02/13/24 mcg (2,000 unit) capsule diphenoxylate-atropine 2.5 2 tab PO QID PRN 02/13/24 mg-0.025 mg tablet fluticasone propionate 50 1 spray intranasal DAILY PRN 02/13/24 mcg/actuation nasal spray,suspension mecobalamin (vitamin B12) 10,000 mcg IV 02/13/24 mcg solution for injection Previous Rx's ?Medication ?Instructions ?Recorded ferrous sulfate 324 mg (65 mg 324 mg PO DAILY #30 tabs 04/22/21 iron) tablet,delayed release lisinopril 10 mg tablet 10 mg PO DAILY 90 days #90 tabs 02/13/24 Allergies Allergy/AdvReac Type Severity Reaction Status Date / Time No Known Allergies Allergy Verified 08/02/24 21:06 [No Known Allergies*] Review of Systems Review of Systems Constitutional : No Weight loss, No Fever, No Chills, No Night Sweats, No Fatigue, No Malaise ENT/Mouth : No Hearing loss, No Ear Pain, No Nasal Congestion, No Sinus Pain, No Hoarseness, No sore throat, No Rhinorrhea, No Swallowing Difficulty Eyes: No Eye Pain, No Swelling, No Redness, No Foreign Body, No Discharge, No Vision Changes Cardiovascular : No Chest Pain, No SOB, No Dyspnea on Exertion, No Orthopnea, No Edema, No Palpitations Respiratory : No Cough, No Sputum, No Wheezing, No Smoke Exposure, No Dyspnea Gastrointestinal : Complaining of nausea, vomiting, diarrhea, abdominal pain especially in the right upper and lower quadrant Genitourinary : no irregular bleeding, No Dysuria, No Urinary Frequency, No Hematuria, No Urinary Incontinence, No Urgency, No Flank Pain, No Urinary Flow Changes, No Hesitancy Musculoskeletal : No joint pain, No Myalgias, No Joint Swelling Skin : No Skin Lesions, No rash Neuro : No Weakness, No Numbness, No Paresthesias, No Loss of Consciousness, No Dizziness, No Headache Psych : No Anxiety/Panic, No Depression, No SI/HI/AH/VH, No Social Issues, Heme/Lymph: No Bruising, No Bleeding,No Lymphadenopathy Endocrine : No Polyuria, No Polydipsia, No Temperature Intolerance [facility] Past Medical History Medical History NSTEMI (non-ST elevated myocardial infarction) Psoriasis Crohn's colitis Crohn's disease Surgical History H/O colectomy Family History Family History Father HTN (hypertension) S/P triple vessel bypass Social History Social History Household Members: Family Housing: House Do you presently have visiting nurse or other home services: No Alcohol intake: never Patient Tobacco Use Status: Current everyday Tobacco user Cigarettes Per Day: 5 Years Smoked: 6+/- Smoked in Last 30 Days: No Use of substances other than those prescribed or required for medical reasons: No Advance Directives: No Advance Directives Information Provided: Yes service: No Current occupational status: employed Physical Exam ED Vital Signs: Vital Signs - 24 hr 08/02/24 21:04 08/03/24 00:12 08/03/24 01:23 Temperature 98.7 F 98.6 F Pulse Rate 110 H 83 Respiratory Rate 18 16 16 Blood Pressure 96/66 115/69 Pulse Oximetry 100 98 Oxygen Delivery Method Room Air Room Air 08/03/24 02:37 Temperature 98.3 F Pulse Rate 77 Respiratory Rate 16 Blood Pressure 101/65 Pulse Oximetry 99 Oxygen Delivery Method Room Air BMI result Body Mass Index 20.9 Const Other: Appearance: Alert. Oriented X3. No acute distress. Eyes: Pupils equal, round and reactive to light. ENT: Pharynx normal. Neck: Normal inspection. Neck supple. No lymph nodes noted. No crepitus CVS: Normal heart rate and rhythm. Pulses normal. Normal S1 and S2 Respiratory: No respiratory distress. Breath sounds normal. No Wheezing. No rales Abdomen: Soft , pain to palpation in the right upper and lower quadrant, no rebound or guarding, distention Skin: Skin warm and dry. Normal skin color. Normal skin turgor. Extremities: No lower extremity edema. No Lacerations. No Rash Neuro: Oriented X 3. No motor deficit. No sensory deficit. Moving all extremities. No slurred speech. CN 2 through 12 grossly intact Psych: calm, cooperative, normal affect Course Course Course Narrative: -patient's CT scan pending. -patient receiving IV fluids, Zofran, morphine, Solu-Medrol Medical Decision Making Medical Decision Making [facility] Narrative: My interpretation of labs: Patient's white blood cell count within normal limits, creatinine shows 3.16 which is elevated from his baseline of 1.72. -CT scan of the abdomen pending, will have to be done without contrast due to elevated creatinine. -my interpretation of CT scan, likely SBO -CT scan report SBO secondary to previous surgeries versus intestinal inflammation. -overall patient feels better but still in pain. -patient not tolerating p.o., we will not give p.o. contrast at this time -I discussed the patient with Dr. Guzmna, patient being admitted Differential Diagnosis Differential Diagnoses: The differential diagnosis associated with the presentation includes (Crohn's disease, colitis, SBO) Admission/Observation Consideration of admission/observation: Escalation of care including admission/observation considered (Given patient's symptoms, labs, observation/admission has been considered) Consult Healthcare Provider Management of the patient was discussed with: Hospitalist Lab Data [facility] Lab Attestation statement: I reviewed the patient's lab results. 08/02/24 21:15 08/02/24 21:15 Labs: Lab Results 08/02/24 08/03/24 Range/Units 21:15 00:21 WBC 8.2 (4.8-10.8) X10*3/uL RBC 4.19 L (4.60-5.80) X10*6/uL Hgb 11.8 L (14.0-18.0) g/dl Hct 35.3 L (42.0-52.0) % MCV 84.2 (80.0-98.0) fL MCH 28.2 (27.0-33.0) pg MCHC 33.4 (31.0-36.0) g/dl RDW 13.8 (11.0-16.0) % Plt Count 380 (160-400) X10*3/uL MPV 9.5 (9.4-12.4) fL Immature Gran % (Auto) 0.4 (0.0-0.4) % Neut % (Auto) 63.3 (45-73) % Lymph % (Auto) 16.3 L (20-40) % Br[place]ley % (Auto) 13.8 H (2-11) % Eos % (Auto) 5.8 H (0-4) % Baso % (Auto) 0.4 (0-2) % Lymph # (Auto) 1.3 (1.2-4.9) X10*3/uL [place] # (Auto) 1.1 (0.1-1.2) X10*3/uL Eos # (Auto) 0.5 H (0.0-0.4) X10*3/uL Baso # (Auto) 0.0 (0.0-0.2) X10*3/uL Abs Immat Gran (auto) 0.03 (0.00-0.03) X10*3/uL Absolute Neuts (auto) 5.2 (2.0-8.3) x10*3/uL Absolute Nucleated RBC 0.000 (0.0-0.012) X10*3/uL Nucleated RBC % (auto) 0.0 (0.0-0.2) /100WBC Sodium 136 (135-145) mmol/L Potassium 3.7 (3.3-5.1) mmol/L Chloride 103 (96-108) mmol/L Carbon Dioxide 20 L (22-29) mmol/L Anion Gap 17 (12-20) BUN 51 H (9-16) mg/dL Creatinine 3.16 H (0.5-1.4) mg/dL Estim Creat Clear Calc 26.3 Estimated GFR 21 Random Glucose 119 H (60-115) mg/dL Calcium 9.1 (8.4-10.2) mg/dL Total Bilirubin 0.3 (0.0-1.0) mg/dL Direct Bilirubin 0.1 (0.0-0.5) mg/dL AST 11 (5-37) U/L ALT 7 (0-40) U/L Alkaline Phosphatase 70 (39-117) U/L Total Protein 7.7 (6.5-8.0) g/dL Albumin 3.9 (3.5-5.0) g/dL Lipase 55 (8-78) U/L Urine Color Dark Yellow Urine Appearance Clear Urine pH 5.5 (5.0-9.0) Ur Specific [place] 1.025 (1.005-1.025) Urine Protein 30 (1+) H (Neg-Trace) mg/dL Urine Glucose (UA) Negative (Negative) mg/dL Urine Ketones 15 (Negative) mg/dL Urine Blood Negative (Negative) Urine Nitrite Negative (Negative) Ur Leukocyte Esterase Trace H (Negative) Urine RBC 0-2 (0-2) /HPF Urine WBC 0-5 (0-5) /HPF Ur Squamous Epith Cells 3-5 (0-2) /HPF Urine Bacteria None Seen (None Seen) Hyaline Casts >20 (0-2) /LPF Granular Casts Present Independent Interpretation I performed an independent interpretation of an: CT Scan Radiology Impression Discussion of test interpretation with radiology: I have reviewed the radiologist's reading. Radiologist Impression: FINDINGS: LUNG BASES: 6 partial visualization of right coronary artery calcific atherosclerosis. LIVER, GALLBLADDER, AND BILIARY TREE: The liver is normal in size, shape, and attenuation. No focal hepatic lesion or biliary ductal dilatation is present. The gallbladder is unremarkable with no evidence of radiopaque gallstones, gallbladder wall thickening, or obvious pericholecystic inflammatory changes. PANCREAS: Unremarkable. SPLEEN: Unremarkable. ADRENAL GLANDS: Unremarkable. KIDNEYS AND URETERS: Minimal scattered renal vascular calcifications. No hydronephrosis or definitive urolithiasis. BLADDER: Decompressed GASTROINTESTINAL TRACT: Neural stratification of the colon consistent with the long-term sequela of inflammatory bowel disease with submucosal fat deposition. Ileocolic anastomotic sutures are noted within the right upper abdominal quadrant. Concentric mural thickening of the distal ileum is noted. Dilated small bowel segments measuring up to 3.7 cm in diameter are present in transition point between dilated and nondilated small bowel segments is suggested within the right lower abdominal quadrant. No free intraperitoneal fluid or gas collections identified. Stomach is decompressed. ABDOMINAL WALL: No significant hernia is appreciated. LYMPH NODES: Normal. VASCULAR: Mild scattered calcific atherosclerosis. PELVIC VISCERA: Normal appearance of the prostate. OSSEOUS STRUCTURES: No evidence of inflammatory arthropathic changes of the sacroiliac joints. Marked intervertebral disc space narrowing, vacuum phenomena and discogenic endplate sclerosis at L4-L5 and partially visualized broad-based disc-osteophyte complexes L4-L5 and L5-S1. CT/CT abdomen pelvis wo IV con IMPRESSION: *Findings suspicious for small bowel obstruction. Abnormally dilated small bowel segments measuring up to 3.7 cm are present with a transition between dilated and nondilated small bowel segments suggested within the right lower abdominal quadrant. No evidence of intestinal perforation. Etiology of the small bowel obstruction may be adhesions which are otherwise occult on CT imaging. Alternatively, a small bowel obstruction may represent functional obstruction related to active inflammatory bowel disease related to inflammatory changes within the distal ileum. The distal ileum over an approximate 10 cm length demonstrates concentric mural thickening to which of 6 mm. *Inflammatory bowel disease. Concentric mural thickening of the distal ileum immediately adjacent to an ileocolic anastomosis is present consistent with the given history of Crohn's disease. Furthermore, chronic appearing mural stratification with submucosal fat deposition is present within the colon consistent with the long-term sequela of inflammatory bowel disease. Medications Administered Generic Name Dose Route Start Last Admin Trade Name Freq PRN Reason Stop Dose Admin Lactated Ringer's 2,000 mls @ 999 mls/hr 08/03/24 01:15 08/03/24 01:24 Lr IV 08/03/24 03:15 999 mls/hr .Q2H1M LENORA Administration Discontinued Medications Generic Name Dose Route Start Last Admin Trade Name Freq PRN Reason Stop Dose Admin Methylprednisolone Sodium Succinate 60 mg 08/03/24 01:14 08/03/24 01:32 Methylprednisolone Sod Succ 125 Mg/2 Ml Vial IVPUSH 08/03/24 01:15 60 mg ONCE ONE Administration Morphine Sulfate 4 mg 08/03/24 01:03 08/03/24 01:23 Morphine Sulfate 4 Mg/Ml Cartridge IVPUSH 08/03/24 01:04 4 mg ONCE ONE Administration Protocol Ondansetron HCl 4 mg 08/03/24 01:03 08/03/24 01:24 Ondansetron Hcl 4 Mg/2 Ml Vial IVPUSH 08/03/24 01:04 4 mg ONCE ONE Administration Critical Care Time Critical Care Time Critical Care Time: Yes Total Critical Care Time: 60 Attestation: I have personally provided critical care time. Time includes review of lab data, radiology results, discussion with consultants, and monitoring for potential decompensation. Intervention performed as documented. Discharge Plan Discharge Clinical Impression: Exacerbation of Crohn's disease, SBO (small bowel obstruction), Acute kidney injury superimposed on CKD Patient Disposition: Admitted As Inpatient Prescriptions: No Action ferrous sulfate 324 mg (65 mg iron) Tablet,Delayed Release (Dr/Ec) 324 mg PO DAILY Qty: 30 0RF tadalafil 5 mg tablet 5 mg PO DAILY fluticasone propionate 50 mcg/actuation spray,suspension 1 spray intranasal DAILY PRN diphenoxylate-atropine 2.5-0.025 mg tablet 2 tab PO QID PRN cholecalciferol (vitamin D3) 50 mcg (2,000 unit) capsule 50 mcg PO DAILY mecobalamin (vitamin B12) 10,000 mcg recon soln IV Humira 40 mg/0.8 mL syringe kit 40 mg subcut Q2W lisinopril 10 mg tablet 10 mg PO DAILY 90 Days Qty: 90 3RF Print Language: Estonian
[2024-08-03] MEDS: Morphine Sulfate 4 MG/ML CARTRIDGE IVPUSH ×2 (01:23→04:22)
[2024-08-03] MEDS: Lactated Ringers 2,000 ML 999 ML IV (01:24)
[2024-08-03] MEDS: ondansetron HCL 4 MG/2 ML VIAL IVPUSH ×4 (01:24→18:41)
[2024-08-03] MEDS: methylPREDNISolone Sod Succ 125 MG/2 ML VIAL 60 MG IVPUSH (01:32)
--- NOTE | 2024-08-03 03:15 | P.HPHOSP_ITS ---
History of Present Illness Date of Service: 08/03/24 Chief Complaint: Abdominal pain This is a 54-year-old male with pertinent history of Crohn's disease, hypertension, CKD stage 3, coronary artery disease who presents to the emergency department for evaluation of abdominal pain. Patient states his symptoms began 4 days prior to presentation. He has been having abdominal pain, nonbloody emesis and nonbloody diarrhea. Abdominal pain is generalized, nonradiating and without any relieving factors. Patient states he has been having multiple episodes of watery diarrhea. He has not been taking his Humira due to insurance issues. He last took Humira about 5-6 months ago. Unable to tolerate p.o. intake. No fever, chills, chest discomfort, palpitations, shortness of breath, changes in urinary habits. In the emergency department, creatinine found to be elevated. Imaging concerning for SBO. Review of Systems 2 Constitutional: Constitutional: Reports fatigue, Reports malaise and Reports poor appetite Cardiovascular: Cardiovascular: Reports no additional cardiovascular complaints Respiratory: Respiratory: Reports no additional respiratory complaints Gastrointestinal: Gastrointestinal: Reports abdominal pain, Reports diarrhea, Reports loose stools, Reports nausea and Reports vomiting Genitourinary: Genitourinary: Reports no additional male genitourinary complaints Endocrine: Endocrine: Reports fatigue [facility] Medical History NSTEMI (non-ST elevated myocardial infarction) Psoriasis Crohn's colitis Crohn's disease Family History Father HTN (hypertension) S/P triple vessel bypass Surgical History H/O colectomy Social History Household Members: Family Housing: House Do you presently have visiting nurse or other home services: No Alcohol intake: never Patient Tobacco Use Status: Current everyday Tobacco user Cigarettes Per Day: 5 Years Smoked: 6+/- Smoked in Last 30 Days: No Use of substances other than those prescribed or required for medical reasons: No Advance Directives: No Advance Directives Information Provided: Yes service: No Current occupational status: employed Meds Allergies Allergy/AdvReac Type Severity Reaction Status Date / Time No Known Allergies Allergy Verified 08/02/24 21:06 [No Known Allergies*] Home Medications ?Medication ?Instructions ?Recorded ?Confirmed ?Last Taken ?Type tadalafil 5 mg tablet 5 mg PO DAILY sexual activity 04/01/23 04/01/23 Unknown History adalimumab 40 mg/0.8 mL 40 mg subcut Q2W 02/13/24 Unknown History subcutaneous syringe kit (Humira) cholecalciferol (vitamin D3) 50 50 mcg PO DAILY 02/13/24 Unknown History mcg (2,000 unit) capsule diphenoxylate-atropine 2.5 2 tab PO QID PRN 02/13/24 Unknown History mg-0.025 mg tablet fluticasone propionate 50 1 spray intranasal DAILY PRN 02/13/24 Unknown History mcg/actuation nasal spray,suspension mecobalamin (vitamin B12) 10,000 mcg IV 02/13/24 Unknown History mcg solution for injection Physical Exam 2 Vital Signs and Narrative: Vital Signs: Last Vital Signs Temp 98.3 F 08/03/24 02:37 Pulse 77 08/03/24 02:37 Resp 16 08/03/24 02:37 BP 101/65 08/03/24 02:37 Pulse Ox 99 08/03/24 02:37 O2 Del Method Room Air 08/03/24 02:37 BMI result Body Mass Index 20.9 Middle-aged male lying in bed in no distress Neck supple, no JVD Regular rate and rhythm, S1-S2 heard Regular breath sounds bilaterally, no wheezing or crackles appreciated Abdomen soft, tenderness to palpation present, no guarding, no rigidity Patient is awake, alert and oriented to self, place, time and person ; no focal motor deficit Psych: Normal mood No pedal edema Results Labs 08/03/24 04:41 08/03/24 04:41 Labs: Laboratory Results - last 24 hr 08/02/24 08/03/24 21:15 00:21 MCV 84.2 MCH 28.2 MCHC 33.4 RDW 13.8 Plt Count 380 MPV 9.5 Immature Gran % (Auto) 0.4 Neut % (Auto) 63.3 Lymph % (Auto) 16.3 L [place] % (Auto) 13.8 H Eos % (Auto) 5.8 H Baso % (Auto) 0.4 Lymph # (Auto) 1.3 [place] # (Auto) 1.1 Eos # (Auto) 0.5 H Baso # (Auto) 0.0 Abs Immat Gran (auto) 0.03 Absolute Neuts (auto) 5.2 Absolute Nucleated RBC 0.000 Nucleated RBC % (auto) 0.0 Anion Gap 17 Estim Creat Clear Calc 26.3 Estimated GFR 21 Random Glucose 119 H Calcium 9.1 Total Bilirubin 0.3 Direct Bilirubin 0.1 AST 11 ALT 7 Alkaline Phosphatase 70 Total Protein 7.7 Albumin 3.9 Lipase 55 Urine Color Dark Yellow Urine Appearance Clear Urine pH 5.5 Ur Specific [place] 1.025 Urine Protein 30 (1+) H Urine Glucose (UA) Negative Urine Ketones 15 Urine Blood Negative Urine Nitrite Negative Ur Leukocyte Esterase Trace H Urine RBC 0-2 Urine WBC 0-5 Ur Squamous Epith Cells 3-5 Urine Bacteria None Seen Hyaline Casts >20 Granular Casts Present Imaging Radiologist's Impressions: Impressions Abdomen/Pelvis CT 08/03/24 01:08 IMPRESSION: *Findings suspicious for small bowel obstruction. Abnormally dilated small bowel segments measuring up to 3.7 cm are present with a transition between dilated and nondilated small bowel segments suggested within the right lower abdominal quadrant. No evidence of intestinal perforation. Etiology of the small bowel obstruction may be adhesions which are otherwise occult on CT imaging. Alternatively, a small bowel obstruction may represent functional obstruction related to active inflammatory bowel disease related to inflammatory changes within the distal ileum. The distal ileum over an approximate 10 cm length demonstrates concentric mural thickening to which of 6 mm. *Inflammatory bowel disease. Concentric mural thickening of the distal ileum immediately adjacent to an ileocolic anastomosis is present consistent with the given history of Crohn's disease. Furthermore, chronic appearing mural stratification with submucosal fat deposition is present within the colon consistent with the long-term sequela of inflammatory bowel disease. Electronically signed by: Aman Parr MD 08/03/2024 02:50 AM EDT Assessment and Plan (1) Exacerbation of Crohn's disease: Status: Acute (2) Acute kidney injury superimposed on CKD: Status: Acute (3) SBO (small bowel obstruction): Status: Acute Plan This is a 54-year-old male with pertinent history of Crohn's disease, hypertension, CKD stage 3, coronary artery disease who presents to the emergency department for evaluation of abdominal pain. #. Acute exacerbation of Crohn's disease/Crohn's flare: Will admit patient with IV steroids. Will keep patient NPO. Consulting Gastroenterology. Patient stopped taking Humira due to insurance issues. Imaging concerning for SBO. Also consulting general surgery. IV opioids p.r.n. for analgesia #. Acute kidney injury on CKD stage 3, prerenal due to GI losses: Monitor creatinine and urine output with crystalloid resuscitation. Avoid nephrotoxins #. Hypertension: Hold lisinopril in the setting of ALLISON Med rec pending DVT prophylaxis: Mechanical Full code Admit as inpatient and will require two night minimum hospital stay for treatment of Crohn's flare with IV opiates, IV steroids (as above), which is not possible in a lesser acute setting. Specialist consult pending Quality Stroke Does the patient have a stroke diagnosis?: No VTE Prior VTE?: No VTE Risk Level:: Medical - moderate - high VTE Device Contraindication: N/A - Device Ordered VTE Drug Contraindication: Treatment Not Indicated
[2024-08-03] MEDS: Lactated Ringers 1,000 ML 125 ML IVCONT ×3 (04:19→21:05)
[2024-08-03 05:09] LABS: MANUAL DIFF FLAG NO
[2024-08-03 05:11] LABS: Basophils Percent Auto 0.4 % (0-2); Eosinophils Absolute Auto 0.2 X10*3/uL (0.0-0.4); Eosinophils Percent Auto 2.9 % (0-4); Hematocrit 30.4 % (42.0-52.0); Hemoglobin 10.1 g/dl (14.0-18.0); Imm Gran Abs Auto 0.02 X10*3/uL (0.00-0.03); Imm Gran Pct Auto 0.4 % (0.0-0.4); Lymphocytes Absolute Auto 0.6 X10*3/uL (1.2-4.9); Lymphocytes Percent Auto 11.2 % (20-40); Mean Corpuscular HGB Conc 33.2 g/dl (31.0-36.0); Mean Corpuscular Hemoglobin 28.6 pg (27.0-33.0); Mean Corpuscular Volume 86.1 fL (80.0-98.0); Mean Platelet Volume 10.1 fL (9.4-12.4); Monocytes Absolute Auto 0.2 X10*3/uL (0.1-1.2); Neutrophils Absolute Auto 4.3 x10*3/uL (2.0-8.3); Neutrophils Percent Auto 81.1 % (45-73); Platelet Count 309 X10*3/uL (160-400); Red Blood Count 3.53 X10*6/uL (4.60-5.80); Red Cell Distribution Width 13.7 % (11.0-16.0); White Blood Count 5.3 X10*3/uL (4.8-10.8)
[2024-08-03 05:23] LABS: Anion Gap 16 (12-20); Blood Urea Nitrogen 49 mg/dL (9-16); Calcium 8.4 mg/dL (8.4-10.2); Carbon Dioxide 20 mmol/L (22-29); Chloride 105 mmol/L (96-108); Creatinine Clr Calc Pharmacy 33.5; Estimated Glomerular Filt Rate 28; Glucose Random 93 mg/dL (60-115); Potassium 4.1 mmol/L (3.3-5.1); Sodium 137 mmol/L (135-145)
--- NOTE | 2024-08-03 08:29 | P.CONGS_ITS ---
History of Present Illness Consult details Consult date: 08/03/24 Requesting physician: Linda Guzman Narrative: 54 year old male with PMH significant for Crohns disease, HTN, CAD and hx NSTEMI, CKD presenting to the ED with complaints of abdominal pain. The pain began 4 days prior to presentation. It is diffuse and crampy in nature associated with vomiting and diarrhea. He has been unable to tolerate any PO intake and therefore decided to seek evaluation in the ED. Work up in the ED included CBC, BMP, LFTs which showed a mild anemia and ALLISON. CT scan demonstrated dilated small bowel loops with concentric mural thickening of distal ileum concerning for SBO. He has a surgical history significant for a distant ileal resection and exploratory laparotomy, right colectomy with ileocolonic anastomosis for GI bleed right colon, Crohns disease followed by exploratory laparotomy, evacuation of hemoperitoneum, over-saw of oozing areas in the right gutter, placement of Surgicel in the retroperitoneal surface in 04/23. He had been doing well since however he has not been taking his Humira due to insurance issues. He last took Humira about 5-6 months ago. Last GI f/u at [facility] was about a year ago. He denies fever, chills, hematemesis, hematochezia, melena, sick contacts. He feels somewhat improved this morning with less abdominal pain. He reports the nausea/vomiting is improved but reports immediate diarrhea following oral intake. Review of Systems 2 Constitutional: Constitutional: Denies chills and Denies fever(s) ENT: Denies dizziness Cardiovascular: Cardiovascular: Denies chest pain and Denies dyspnea Respiratory: Respiratory: Denies dyspnea Gastrointestinal: Gastrointestinal: Reports as per HPI Genitourinary: Genitourinary: Denies dysuria Musculoskeletal: Musculoskeletal: Denies numbness Integumentary/Breasts: Skin/Breast: Denies rash and Denies jaundice Neurologic: Denies dizziness and Denies numbness PMFSH Past Medical History Medical History NSTEMI (non-ST elevated myocardial infarction) Psoriasis Crohn's colitis Crohn's disease Family History Family History Father HTN (hypertension) S/P triple vessel bypass Surgical History Surgical History (Updated 08/03/24 @ 10:33 by Francheska Navarro PA-C) H/O colectomy Social History Social History Household Members: Family Housing: House Do you presently have visiting nurse or other home services: No Alcohol intake: never Patient Tobacco Use Status: Current everyday Tobacco user Cigarettes Per Day: 5 Years Smoked: 6+/- Smoked in Last 30 Days: No Use of substances other than those prescribed or required for medical reasons: No Advance Directives: No Advance Directives Information Provided: Yes service: No Current occupational status: employed Meds Allergies Allergy/AdvReac Type Severity Reaction Status Date / Time No Known Allergies Allergy Verified 08/02/24 21:06 [No Known Allergies*] Active Medications: Current Medications Acetaminophen (Acetaminophen 325 Mg Tablet) 650 mg PO Q6H PRN PRN Reason: Pain, Mild (Pain Scale 1-3), fever or headache Calcium Carbonate (Calcium Carbonate 750 Mg Tab.Chew) 750 mg PO Q4H PRN PRN Reason: Heartburn Lactated Ringer's (Lr) 1,000 mls @ 125 mls/hr IVCONT .Q8H [facility] Last Admin: 08/03/24 04:19 Dose: 125 mls/hr Magnesium Hydroxide (Milk Of Magnesia 30 Ml Oral.Susp) 30 ml PO DAILY PRN PRN Reason: Constipation Melatonin (Melatonin 3 Mg Tablet) 6 mg PO BEDTIME PRN PRN Reason: Insomnia Methylprednisolone Sodium Succinate (Methylprednisolone Sod Succ 40 Mg/Ml Vial) 20 mg IVPUSH Q8H [facility] Ondansetron HCl (Ondansetron Hcl 4 Mg/2 Ml Vial) 4 mg IVPUSH Q8H PRN PRN Reason: Nausea and Vomiting Last Admin: 08/03/24 04:22 Dose: 4 mg Sodium Chloride (0.9 % Sodium Chloride Flush 3 Ml Syringe) 3 ml IVFLUSH QSHIFT [facility] Home Medications ?Medication ?Instructions ?Recorded ?Confirmed ?Last Taken ?Type cholecalciferol (vitamin D3) 50 50 mcg PO DAILY 02/13/24 08/03/24 07/30/24 History mcg (2,000 unit) capsule diphenoxylate-atropine 2.5 2 tab PO QID PRN Loose Stool 02/13/24 08/03/24 08/02/24 History mg-0.025 mg tablet mecobalamin (vitamin B12) 10,000 10,000 mcg IV Q28D 02/13/24 08/03/24 07/08/24 History mcg solution for injection cyanocobalamin (vitamin B-12) 1,000 mcg PO DAILY 08/03/24 08/03/24 07/30/24 History 1,000 mcg tablet (Vitamin B-12) Physical Exam 2 Vital Signs: Vital Signs: Last Vital Signs Temp 98.6 F 08/03/24 07:38 Pulse 84 08/03/24 07:38 Resp 20 08/03/24 07:38 BP 113/64 08/03/24 07:38 Pulse Ox 97 08/03/24 07:38 O2 Del Method Room Air 08/03/24 07:38 BMI result Body Mass Index 20.9 Const: General: comfortable, no acute distress and alert O rientation/consciousness: patient oriented x3 Neck: Neck: No JVD Resp: Effort & Inspection: normal respiratory effort GI: Inspection: Yes distended (mildly ), Yes scar (midline laparotomy scar) and Yes visible herniation (umbilical, soft and reducible ) Palpation (GI): S oft to palpation, Tenderness to palpation present (GI) (mild diffuse, R >L) with no rebound tenderness, no guarding and not rigid Percussion: Yes tympanic to percussion Skin: General skin exam: no rashes or lesions noted and no jaundice Neuro: General: patient oriented x3 and moves all extremities Results Labs 08/03/24 04:41 08/03/24 04:41 Labs: Abnormal lab results 08/02/24 08/03/24 08/03/24 Range/Units 21:15 00:21 04:41 RBC 4.19 L 3.53 L (4.60-5.80) X10*6/uL Hgb 11.8 L 10.1 L (14.0-18.0) g/dl Hct 35.3 L 30.4 L (42.0-52.0) % Neut % (Auto) 81.1 H (45-73) % Lymph % (Auto) 16.3 L 11.2 L (20-40) % [place] % (Auto) 13.8 H (2-11) % Eos % (Auto) 5.8 H (0-4) % Lymph # (Auto) 0.6 L (1.2-4.9) X10*3/uL Eos # (Auto) 0.5 H (0.0-0.4) X10*3/uL Carbon Dioxide 20 L 20 L (22-29) mmol/L BUN 51 H 49 H (9-16) mg/dL Creatinine 3.16 H 2.48 H (0.5-1.4) mg/dL Random Glucose 119 H (60-115) mg/dL Urine Protein 30 (1+) H (Neg-Trace) mg/dL Ur Leukocyte Esterase Trace H (Negative) Short CBC 08/02/24 08/03/24 Range/Units 21:15 04:41 WBC 8.2 5.3 (4.8-10.8) X10*3/uL Hgb 11.8 L 10.1 L (14.0-18.0) g/dl Hct 35.3 L 30.4 L (42.0-52.0) % Plt Count 380 309 (160-400) X10*3/uL BMP 08/02/24 08/03/24 21:15 04:41 Sodium 136 137 Potassium 3.7 4.1 Chloride 103 105 Carbon Dioxide 20 L 20 L BUN 51 H 49 H Creatinine 3.16 H 2.48 H Calcium 9.1 8.4 D Liver Function 08/02/24 Range/Units 21:15 Total Bilirubin 0.3 (0.0-1.0) mg/dL Direct Bilirubin 0.1 (0.0-0.5) mg/dL AST 11 (5-37) U/L ALT 7 (0-40) U/L Alkaline Phosphatase 70 (39-117) U/L Albumin 3.9 (3.5-5.0) g/dL Urine 08/03/24 Range/Units 00:21 Urine Color Dark Yellow Urine Appearance Clear Urine pH 5.5 (5.0-9.0) Ur Specific [place] 1.025 (1.005-1.025) Urine Protein 30 (1+) H (Neg-Trace) mg/dL Urine Glucose (UA) Negative (Negative) mg/dL All other labs normal. Imaging Abdomen CT scan report/results: report reviewed and image reviewed Assessment and Plan (1) SBO (small bowel obstruction): Status: Acute (2) Exacerbation of Crohn's disease: Status: Acute Plan 54 year old male with PMH significant for Crohns disease, HTN, CAD and hx NSTEMI, CKD past SB resection and right colectomy, ileocolonic anastomosis in past for GI bleed, Crohns flare presenting with acute onset of diffuse abd pain, nausea and diarrhea with CT scan demonstrating dilated small bowel loops with mural thickening of distal ileum consistent with SBO likely due to Crohns flare. He is improved today with less abdominal pain, abdomen is overall benign. Recommend GI consult, continuing supportive treatment with IVF, IV steroids. He can have clear liquids as tolerated. Will continue to follow but currently no acute surgical intervention needed. Procedures Date of Service Date of Service: 08/03/24
[2024-08-03] MEDS: methylPREDNISolone Sod Succ 40 MG/ML VIAL 20 MG IVPUSH ×2 (08:46→17:17)
[2024-08-03] MEDS: Morphine Sulfate 4 MG/ML CARTRIDGE 3 MG IVPUSH ×4 (09:27→22:45)
--- NOTE | 2024-08-03 09:42 | PHA.MEDREC ---
Addendum entered by Andrea Martinez 08/03/24 09:44: Incompleted note. Original Note: Pharmacy Consult ? Medication Reconciliation Pharmacy has completed the medication reconciliation. Confirmed medications with patient. Patient stated he has not taken his Humira in about 6-7 months.
--- NOTE | 2024-08-03 09:45 | PHA.MEDREC ---
Addendum entered by Madeleine Pichardo RPh 08/03/24 10:12: Reviewed by [facility] Original Note: Pharmacy Consult ? Medication Reconciliation Pharmacy has completed the medication reconciliation. Confirmed medications with patient. Patient stated he has not taken his Humira in about 6-7 months for reasons pt stated were his fault. He is taking a Vitamin B12 10,000 unit injection once a month and he states he is due for it this or Friday and he states he takes it the same time in the first week of the month every month. He confirmed his Vitamin D3 50mcg tab and states he is taking a Vitamin B12 tab once daily but was not 100% sure on the dosing of the tabs and thinks they were 1,000 mcg per tablet. He states he took his Lisinopril 10mg tab and his Diphenoxylate-atropine 2.5mg-0.025mg tablets yesterday and his vitamins he last took those Monday 07/30.
--- NOTE | 2024-08-03 10:56 | PC.NURSE ---
Pt ambulatory to the BR to provide stool sample with a steady gait.
[2024-08-03 12:01] LABS: CDiff Gene PCR NEGATIVE (Negative)
--- NOTE | 2024-08-03 12:14 | MHC.CM.PN ---
PT LIVES WITH IS INDEPENDENT HAS OWN RIDE HOME DC PLAN HOME NO SERVIESDC PLAN HOME NO SERVIES
[2024-08-03 12:37] LABS: Adenovirus F 40/41 Not Detected (Not Detect.); Astrovirus Not Detected (Not Detect.); Campylobacter Not Detected (Not Detect.); Cryptosporidium Not Detected (Not Detect.); Cyclospora cayetanensis Not Detected (Not Detect.); E. coli EAEC Not Detected (Not Detect.); E. coli EPEC Not Detected (Not Detect.); E. coli ETEC Not Detected (Not Detect.); E. coli STEC Not Detected (Not Detect.); Entamoeba histolytica Not Detected (Not Detect.); Giardia lamblia Not Detected (Not Detect.); Norovirus GI/GII Not Detected (Not Detect.); Plesiomonas shigelloides Not Detected (Not Detect.); Rotavirus A Not Detected (Not Detect.); Salmonella Not Detected (Not Detect.); Sapovirus Not Detected (Not Detect.); Shigella sp./EIEC Not Detected (Not Detect.); Vibrio Not Detected (Not Detect.); Vibrio Cholerae Not Detected (Not Detect.); Yersinia enterocolitica Not Detected (Not Detect.)
--- NOTE | 2024-08-03 12:42 | PC.NURSE ---
Pt reports nausea/pain levels are tolerable at this time and do not require any medications. Stated he will alert RN if this changes.
[2024-08-03] MEDS: 0.9 % Sodium Chloride Flush 3 ML SYRINGE IVFLUSH ×2 (17:18→21:08)
--- NOTE | 2024-08-03 18:44 | PC.NURSE ---
Patient reports he takes 90mg of methadone daily and receives methadone from the [facility] in [facility]. Clinic is closed. This RN to pass along to next RN.
[2024-08-03] MEDS: Zolpidem Tartrate 5 MG TABLET PO (22:48)
[2024-08-04] MEDS: methylPREDNISolone Sod Succ 40 MG/ML VIAL 20 MG IVPUSH ×3 (00:12→16:23)
[2024-08-04] MEDS: Morphine Sulfate 4 MG/ML CARTRIDGE 3 MG IVPUSH ×5 (02:41→20:28)
[2024-08-04] MEDS: ondansetron HCL 4 MG/2 ML VIAL IVPUSH (02:42)
[2024-08-04] MEDS: Calcium Carbonate 750 MG TAB.CHEW PO (02:43)
[2024-08-04 03:13] VITALS: RESP 16
[2024-08-04 03:49] VITALS: BP 124/66; PULSE 63; RESP 18; TEMP 36.7; O2SAT 99
[2024-08-04] MEDS: Lactated Ringers 1,000 ML 125 ML IVCONT ×3 (04:41→20:29)
[2024-08-04] MEDS: 0.9 % Sodium Chloride Flush 3 ML SYRINGE IVFLUSH ×2 (07:24→16:24)
--- NOTE | 2024-08-04 07:54 | HE.PHANOTE ---
RE: methadone Patient got 90mg at [facility] 07/27 with 6 take home bottles through 08/02.
[2024-08-04 08:00] VITALS: BP 142/77; PULSE 60; RESP 16; TEMP 36.8; O2SAT 99
--- NOTE | 2024-08-04 08:49 | P.PNGS_ITS ---
Subjective Subjective Date of Service: 08/04/24 Interval history: Initially felt improved last night and had a normal BM but had multiple loose stools overnight and nausea. Physical Exam 2 Vital Signs: Vital Signs: Last Vital Signs Temp 98.2 F 08/04/24 08:00 Pulse 60 08/04/24 08:00 Resp 16 08/04/24 08:00 BP 142/77 H 08/04/24 08:00 Pulse Ox 99 08/04/24 08:00 O2 Del Method Room Air 08/04/24 08:00 BMI result Body Mass Index 21.0 Const: General: comfortable, no acute distress and alert O rientation/consciousness: patient oriented x3 Resp: Effort & Inspection: normal respiratory effort GI: Inspection: No distended Palpation (GI): Soft to palpation, Tenderness to palpation present (GI) (mild diffuse tenderness) and no guarding Skin: General skin exam: no rashes or lesions noted Neuro: General: patient oriented x3 Objective Data Active Medications Acetaminophen (Acetaminophen 325 Mg Tablet) 650 mg PO Q6H PRN PRN Reason: Pain, Mild (Pain Scale 1-3), fever or headache Calcium Carbonate (Calcium Carbonate 750 Mg Tab.Chew) 750 mg PO Q4H PRN PRN Reason: Heartburn Last Admin: 08/04/24 02:43 Dose: 750 mg Documented By: SEAN Cyanocobalamin (Cyanocobalamin (Vitamin B-12) 1,000 Mcg Tablet) 1,000 mcg PO DAILY [facility] Cyanocobalamin (Cyanocobalamin (Vitamin B-12) 1,000 Mcg/Ml Vial) 1,000 mcg IM Q28D [facility] Diphenoxylate HCl/Atropine (Diphenoxylate/Atrop 2.5/0.025 Tablet) 2 tab PO QID PRN PRN Reason: Loose Stool Lactated Ringer's (Lr) 1,000 mls @ 125 mls/hr IVCONT .Q8H [facility] Last Admin: 08/04/24 04:41 Dose: 125 mls/hr Documented By: SEAN Magnesium Hydroxide (Milk Of Magnesia 30 Ml Oral.Susp) 30 ml PO DAILY PRN PRN Reason: Constipation Methadone HCl (Methadone Hcl 20 Mg/2 Ml Oral.Conc) 90 mg PO DAILY [facility] Methylprednisolone Sodium Succinate (Methylprednisolone Sod Succ 40 Mg/Ml Vial) 20 mg IVPUSH Q8H [facility] Last Admin: 08/04/24 07:24 Dose: 20 mg Documented By: VICKI Morphine Sulfate (Morphine Sulfate 4 Mg/Ml Cartridge) 3 mg IVPUSH Q4H PRN; Protocol PRN Reason: Pain, Severe (Pain Scale 7-10) Last Admin: 08/04/24 07:35 Dose: 3 mg Documented By: VICKI Ondansetron HCl (Ondansetron Hcl 4 Mg/2 Ml Vial) 4 mg IVPUSH Q8H PRN PRN Reason: Nausea and Vomiting Last Admin: 08/04/24 02:42 Dose: 4 mg Documented By: SEAN Sodium Chloride (0.9 % Sodium Chloride Flush 3 Ml Syringe) 3 ml IVFLUSH QSHIFT [facility] Last Admin: 08/04/24 07:24 Dose: 3 ml Documented By: VICKI Vitamin D (Cholecalciferol (Vitamin D3) 25 Mcg Tablet) 50 mcg PO DAILY [facility] Zolpidem Tartrate (Zolpidem Tartrate 5 Mg Tablet) 5 mg PO BEDTIME PRN PRN Reason: Insomnia Last Admin: 08/03/24 22:48 Dose: 5 mg Documented By: SEAN Labs 08/03/24 04:41 08/03/24 04:41 Labs: Laboratory Results - last 24 hr 08/03/24 10:57 Stl C. cayetanensis PCR Not Detected Stool Rotavirus A PCR Not Detected Stl Adenov F 40/41 PCR Not Detected Stool Astrovirus (PCR) Not Detected Stool Campylobacter PCR Not Detected Stool Cryptosporidium PCR Not Detected Stl Sh Tox Pr E STEC PCR Not Detected Stool E coli O157 PCR Not applicable Stl Enterotoxigenic E PCR Not Detected Stool EPEC (PCR) Not Detected Stool EAEC (PCR) Not Detected Stl E. histolytica PCR Not Detected Stool Giardia Lamblia PCR Not Detected Stl P. shigelloides PCR Not Detected Stool Salmonella PCR Not Detected Stool Sapovirus (PCR) Not Detected Stl Shigella/EIEC PCR Not Detected St Y.enterocolitica PCR Not Detected Stool Vibrio (PCR) Not Detected Stl Vibrio cholerae PCR Not Detected Stl Norovirus GI/GII PCR Not Detected C. difficile Tox B Gene NEGATIVE Procedures Date of Service Date of Service: 08/04/24 Progress Note: A&P Assessment and plan (1) SBO (small bowel obstruction): Status: Acute (2) Exacerbation of Crohn's disease: Status: Acute Plan Abd remains overall benign. Cont supportive measures of IVF, IV steroids and clear liquids for now. Await GI input. Will continue to follow. Time Spent With Patient Time: Total time managing care of this patient today ____ minutes. Quality Stroke Does the patient have a stroke diagnosis?: No VTE Prior VTE?: No VTE Risk Level:: Medical - moderate - high VTE Device Contraindication: N/A - Device Ordered VTE Drug Contraindication: Treatment Not Indicated
[2024-08-04] MEDS: Diphenoxylate/Atrop 2.5/0.025 TABLET 2 TAB PO ×3 (09:00→16:22)
[2024-08-04] MEDS: Cholecalciferol (Vitamin D3) 25 MCG TABLET 50 MCG PO (09:03)
[2024-08-04] MEDS: methADONE HCl 20 MG/2 ML ORAL.CONC 90 MG PO (09:03)
[2024-08-04] MEDS: Cyanocobalamin (Vitamin B-12) 1,000 MCG TABLET 1000 MCG PO (09:03)
[2024-08-04 09:36] LABS: Anion Gap 15 (12-20); Blood Urea Nitrogen 42 mg/dL (9-16); Calcium 8.4 mg/dL (8.4-10.2); Carbon Dioxide 23 mmol/L (22-29); Chloride 107 mmol/L (96-108); Creatinine Clr Calc Pharmacy 49.6; Estimated Glomerular Filt Rate 43; Glucose Random 126 mg/dL (60-115); Potassium 4.6 mmol/L (3.3-5.1); Sodium 140 mmol/L (135-145)
--- NOTE | 2024-08-04 13:33 | P.PNIM_ITS ---
Subjective Subjective Date of Service: 08/04/24 Interval History: crohn flare Review of Systems has some abd pain ,diarrhae no fever Physical Exam 2 Vital Signs: Vital Signs: Last Vital Signs Temp 98.2 F 08/04/24 08:00 Pulse 60 08/04/24 08:00 Resp 16 08/04/24 08:00 BP 142/77 H 08/04/24 08:00 Pulse Ox 99 08/04/24 08:00 O2 Del Method Room Air 08/04/24 08:00 BMI result Body Mass Index 21.0 Appearance: Alert.? Oriented X3.? cvs: rrr, [id number] , no murmur res: clear to auscultation ,no rhonchii or wheezing abd: no rebound or guarding ,mild diffuse abd pain , bs present. ext pulses present , no cyanosis . neuro: axo3 , nonfocal. Objective Data Active Medications Acetaminophen (Acetaminophen 325 Mg Tablet) 650 mg PO Q6H PRN PRN Reason: Pain, Mild (Pain Scale 1-3), fever or headache Calcium Carbonate (Calcium Carbonate 750 Mg Tab.Chew) 750 mg PO Q4H PRN PRN Reason: Heartburn Last Admin: 08/04/24 02:43 Dose: 750 mg Documented By: SEAN Cyanocobalamin (Cyanocobalamin (Vitamin B-12) 1,000 Mcg Tablet) 1,000 mcg PO DAILY [facility] Last Admin: 08/04/24 09:03 Dose: 1,000 mcg Documented By: VICKI Cyanocobalamin (Cyanocobalamin (Vitamin B-12) 1,000 Mcg/Ml Vial) 1,000 mcg IM Q28D [facility] Diphenoxylate HCl/Atropine (Diphenoxylate/Atrop 2.5/0.025 Tablet) 2 tab PO QID PRN PRN Reason: Loose Stool Last Admin: 08/04/24 12:21 Dose: 2 tab Documented By: VICKI Lactated Ringer's (Lr) 1,000 mls @ 125 mls/hr IVCONT .Q8H [facility] Last Admin: 08/04/24 12:23 Dose: 125 mls/hr Documented By: VICKI Magnesium Hydroxide (Milk Of Magnesia 30 Ml Oral.Susp) 30 ml PO DAILY PRN PRN Reason: Constipation Methadone HCl (Methadone Hcl 20 Mg/2 Ml Oral.Conc) 90 mg PO DAILY [facility] Last Admin: 08/04/24 09:03 Dose: 90 mg Documented By: VICKI Co-signed By: ANAHI Methylprednisolone Sodium Succinate (Methylprednisolone Sod Succ 40 Mg/Ml Vial) 20 mg IVPUSH Q8H [facility] Last Admin: 08/04/24 07:24 Dose: 20 mg Documented By: VICKI Morphine Sulfate (Morphine Sulfate 4 Mg/Ml Cartridge) 3 mg IVPUSH Q4H PRN; Protocol PRN Reason: Pain, Severe (Pain Scale 7-10) Last Admin: 08/04/24 12:21 Dose: 3 mg Documented By: VICKI Ondansetron HCl (Ondansetron Hcl 4 Mg/2 Ml Vial) 4 mg IVPUSH Q8H PRN PRN Reason: Nausea and Vomiting Last Admin: 08/04/24 02:42 Dose: 4 mg Documented By: SEAN Sodium Chloride (0.9 % Sodium Chloride Flush 3 Ml Syringe) 3 ml IVFLUSH QSHIFT [facility] Last Admin: 08/04/24 07:24 Dose: 3 ml Documented By: VICKI Vitamin D (Cholecalciferol (Vitamin D3) 25 Mcg Tablet) 50 mcg PO DAILY [facility] Last Admin: 08/04/24 09:03 Dose: 50 mcg Documented By: VICKI Zolpidem Tartrate (Zolpidem Tartrate 5 Mg Tablet) 5 mg PO BEDTIME PRN PRN Reason: Insomnia Last Admin: 08/03/24 22:48 Dose: 5 mg Documented By: SEAN Labs 08/03/24 04:41 08/04/24 08:10 Labs: Laboratory Results - last 24 hr 08/04/24 08:10 Anion Gap 15 Estim Creat Clear Calc 49.6 Estimated GFR 43 Random Glucose 126 H Calcium 8.4 Assessment and Plan (1) Exacerbation of Crohn's disease: Status: Acute (2) SBO (small bowel obstruction): Status: Acute (3) Acute kidney injury superimposed on CKD: Status: Acute Plan 54-year-old male with pertinent history of Crohn's disease, hypertension, CKD stage 3, coronary artery disease who presents to the emergency department for evaluation of abdominal pain. Acute exacerbation of Crohn's disease/Crohn's flare: still syptomatic -continue IV steroids. Patient stopped taking Humira due to insurance issues. Imaging concerning for SBO. patient seems somewhat improvin surgery rec- clearliquid diet, steriods Acute kidney injury on CKD stage 3, prerenal due to GI losses: seems improved to baseline with iv hydration,Avoid nephrotoxins Hypertension: Hold lisinopril in the setting of ALLISON DVT prophylaxis: Mechanical Full code ongoing hospitlisation stay for treatment of Crohn's flare with IV opiates, IV steroids (as above), which is not possible in a lesser acute setting. Specialist consult pending Quality Stroke Does the patient have a stroke diagnosis?: No VTE Prior VTE?: No VTE Risk Level:: Medical - moderate - high VTE Device Contraindication: N/A - Device Ordered VTE Drug Contraindication: Treatment Not Indicated
[2024-08-04 15:32] VITALS: BP 126/68; PULSE 50; RESP 16; TEMP 36.6; O2SAT 100
[2024-08-04 19:30] VITALS: BP 124/76; PULSE 53; RESP 16; TEMP 36.6; O2SAT 97
[2024-08-04] MEDS: Zolpidem Tartrate 5 MG TABLET PO (23:37)
[2024-08-05] MEDS: Morphine Sulfate 4 MG/ML CARTRIDGE 3 MG IVPUSH (00:47)
[2024-08-05] MEDS: methylPREDNISolone Sod Succ 40 MG/ML VIAL 20 MG IVPUSH ×2 (00:48→08:21)
--- NOTE | 2024-08-05 01:35 | CONS_ITS ---
DATE OF SERVICE: 08/04/2024 REFERRING PHYSICIAN: Dr. Pressley REASON FOR CONSULTATION: Crohn disease. HISTORY OF PRESENT ILLNESS: The patient is a pleasant 54-year-old man with a history of Crohn disease, who was admitted to the hospital on August 03 after presenting to the emergency department with abdominal pain, vomiting, and nonbloody diarrhea. Symptoms began 4 days prior to admission. He had stopped Humira above 5 months ago by his report because of an insurance issue and was not taking any other medications for his Crohn disease. Friday before admission, he developed onset of abdominal pain with vomiting that was not bloody or feculent and some generalized lower abdominal pain with diarrhea that was nonbloody. This persisted despite trying a clear liquid diet at home and pushing fluids and he presented to the emergency room. In the emergency room, he was evaluated and imaging studies were obtained, which are reviewed. CT of the abdomen and pelvis shows thickening of the distal ileum consistent with his known history of Crohn disease. There was upstream small bowel dilation consistent with a partial small bowel obstruction. He has been admitted to the hospital and started on steroids with improvement in his abdominal discomfort and vomiting. He has had persistent diarrhea. Stool testing has been negative for C diff and a GI panel. PAST MEDICAL HISTORY: 1. Crohn disease involving the ileum diagnosed approximately 20 years ago. There was also some involvement of the ileocecal valve. He follows with Dr. Caba and has been treated with Humira, but stopped this several months ago due to insurance issue. He has had probable ileocolectomy with a diversion that was subsequently closed. He has been on budesonide in the past. 2. Right colectomy with ileocolonic anastomosis for GI bleeding and subsequent hemoperitoneum in 2020. 3. Psoriasis. 4. History of NSTEMI. 5. Hypertension. 6. Chronic kidney disease. CURRENT MEDICATIONS: Current medication list is reviewed in the chart. ALLERGIES: THERE ARE NONE REPORTED. FAMILY HISTORY: This is reviewed with the patient and is noncontributory. SOCIAL HISTORY: He does smoke. He denies alcohol use. REVIEW OF SYSTEMS: SKIN: No pruritus. HEENT: Negative. CARDIOPULMONARY: No shortness of breath or chest pain. GASTROINTESTINAL: As above. GENITOURINARY: Negative. NEUROPSYCHIATRIC: Negative. PHYSICAL EXAMINATION: GENERAL: Reveals a pleasant male, lying comfortably in bed. VITAL SIGNS: Reviewed in the electronic medical record and are stable. SKIN: Anicteric. HEENT: Shows no scleral icterus. NECK: Without lymphadenopathy or thyromegaly. LUNGS: Clear. HEART: Shows a regular rate and rhythm. S1, S2. No murmur. ABDOMEN: Soft without focal masses or tenderness. Bowel sounds are present. He has well-healed incisions from his prior surgeries. EXTREMITIES: Without edema. LABORATORY DATA AND IMAGING STUDIES: Reviewed. IMPRESSION: Crohn disease. This appears to represent exacerbation of his Crohn disease, likely triggered by his discontinuation of Humira. I agree with treating him with steroids. He will have further stool testing for ova and parasites as well as fecal calprotectin and white blood cells, who gradually advance his diet as tolerated and on discharge, he can go home on prednisone 50 mg daily, tapering by 5 mg per week. He will need to follow up with Dr. Caba regarding restarting his Humira. Thanks for asking me to see him. I will follow him in the hospital with you. MD ELIZA Hou/DANIELA / [phone]
[2024-08-05 03:19] VITALS: BP 152/86; PULSE 47; RESP 18; TEMP 36.7; O2SAT 97
--- NOTE | 2024-08-05 03:50 | PC.NURSE ---
at 345 am HR reported 47 pt is a symptomatic Md notified
--- NOTE | 2024-08-05 07:46 | P.PNGS_ITS ---
Subjective Subjective Date of Service: 08/05/24 Interval history: Reports only mild abdominal pain this morning, feels much improved. Physical Exam 2 Vital Signs: Vital Signs: Last Vital Signs Temp 98.0 F 08/05/24 03:19 Pulse 47 L 08/05/24 03:19 Resp 18 08/05/24 03:19 BP 152/86 H 08/05/24 03:19 Pulse Ox 97 08/05/24 03:19 O2 Del Method Room Air 08/05/24 03:19 BMI result Body Mass Index 21.0 Const: General: comfortable and no acute distress Nutritional Appearance: w ell nourished Orientation/consciousness: patient oriented x3 Resp: Effort & Inspection: normal respiratory effort GI: Inspection: Yes normal to inspection Palpation (GI): Soft to palpation, nontender, no guarding and not rigid Percussion: Yes normal to percussion Skin: Other: Warm, dry, no rashes Neuro: General: patient oriented x3 Objective Data Active Medications Acetaminophen (Acetaminophen 325 Mg Tablet) 650 mg PO Q6H PRN PRN Reason: Pain, Mild (Pain Scale 1-3), fever or headache Calcium Carbonate (Calcium Carbonate 750 Mg Tab.Chew) 750 mg PO Q4H PRN PRN Reason: Heartburn Last Admin: 08/04/24 02:43 Dose: 750 mg Documented By: SEAN Cyanocobalamin (Cyanocobalamin (Vitamin B-12) 1,000 Mcg Tablet) 1,000 mcg PO DAILY [facility] Last Admin: 08/04/24 09:03 Dose: 1,000 mcg Documented By: VICKI Cyanocobalamin (Cyanocobalamin (Vitamin B-12) 1,000 Mcg/Ml Vial) 1,000 mcg IM Q28D [facility] Diphenoxylate HCl/Atropine (Diphenoxylate/Atrop 2.5/0.025 Tablet) 2 tab PO QID PRN PRN Reason: Loose Stool Last Admin: 08/04/24 16:22 Dose: 2 tab Documented By: VICKI Magnesium Hydroxide (Milk Of Magnesia 30 Ml Oral.Susp) 30 ml PO DAILY PRN PRN Reason: Constipation Methadone HCl (Methadone Hcl 20 Mg/2 Ml Oral.Conc) 90 mg PO DAILY [facility] Last Admin: 08/04/24 09:03 Dose: 90 mg Documented By: VICKI Co-signed By: ANAHI Methylprednisolone Sodium Succinate (Methylprednisolone Sod Succ 40 Mg/Ml Vial) 20 mg IVPUSH Q8H [facility] Last Admin: 08/05/24 00:48 Dose: 20 mg Documented By: RONALD Morphine Sulfate (Morphine Sulfate 4 Mg/Ml Cartridge) 3 mg IVPUSH Q4H PRN; Protocol PRN Reason: Pain, Severe (Pain Scale 7-10) Last Admin: 08/05/24 00:47 Dose: 3 mg Documented By: RONALD Ondansetron HCl (Ondansetron Hcl 4 Mg/2 Ml Vial) 4 mg IVPUSH Q8H PRN PRN Reason: Nausea and Vomiting Last Admin: 08/04/24 02:42 Dose: 4 mg Documented By: SEAN Sodium Chloride (0.9 % Sodium Chloride Flush 3 Ml Syringe) 3 ml IVFLUSH QSHIFT [facility] Last Admin: 08/05/24 01:13 Dose: Not Given Documented By: RONALD Non-Admin Reason: IV Running Vitamin D (Cholecalciferol (Vitamin D3) 25 Mcg Tablet) 50 mcg PO DAILY [facility] Last Admin: 08/04/24 09:03 Dose: 50 mcg Documented By: VICKI Zolpidem Tartrate (Zolpidem Tartrate 5 Mg Tablet) 5 mg PO BEDTIME PRN PRN Reason: Insomnia Last Admin: 08/04/24 23:37 Dose: 5 mg Documented By: RONALD Labs 08/03/24 04:41 08/04/24 08:10 Labs: Laboratory Results - last 24 hr 08/04/24 08:10 Anion Gap 15 Estim Creat Clear Calc 49.6 Estimated GFR 43 Random Glucose 126 H Calcium 8.4 Procedures Date of Service Date of Service: 08/05/24 Progress Note: A&P Assessment and plan (1) SBO (small bowel obstruction): Status: Acute (2) Exacerbation of Crohn's disease: Status: Acute Plan 54-year-old male patient with probable Crohn's flare now on steroid bolus with improvement of his overall symptoms. Abdomen is soft and nondistended, nontender. Continue management of Crohn's flare per hospitalist team. No surgical intervention anticipated at this time. Please reconsult for changes. Time Spent With Patient Time: Total time managing care of this patient today ____ minutes. Quality Stroke Does the patient have a stroke diagnosis?: No VTE Prior VTE?: No VTE Risk Level:: Medical - moderate - high VTE Device Contraindication: N/A - Device Ordered VTE Drug Contraindication: Treatment Not Indicated
[2024-08-05 07:57] VITALS: BP 168/79; PULSE 53; RESP 16; TEMP 37; O2SAT 97
[2024-08-05] MEDS: Cholecalciferol (Vitamin D3) 25 MCG TABLET 50 MCG PO (08:20)
[2024-08-05] MEDS: methADONE HCl 20 MG/2 ML ORAL.CONC 90 MG PO (08:21)
[2024-08-05] MEDS: 0.9 % Sodium Chloride Flush 3 ML SYRINGE IVFLUSH (08:21)
[2024-08-05] MEDS: Cyanocobalamin (Vitamin B-12) 1,000 MCG TABLET 1000 MCG PO (08:21)
[2024-08-05] MEDS: Cyanocobalamin (Vitamin B-12) 1,000 MCG/ML VIAL 1000 MCG IM (09:29)
[2024-08-05] MEDS: Nicotine 21 MG PATCH.TD24 TRANSDERMA (09:53)
[2024-08-05] MEDS: amLODIPine Besylate 2.5 MG TABLET PO (09:53)
[2024-08-05 11:15] LABS: Leukocytes Stool Qualitative NEGATIVE (NEGATIVE)
--- NOTE | 2024-08-05 11:31 | PM.DS ---
DS: Providers Provider Date of Service: 08/05/24 Date of admission: 08/03/24 03:14 Date of discharge: 08/05/24 Primary care physician: Unknown Physician Consults: 08/03/24 03:14 Consult to Gastroenterology Routine Consulting Provider: Lane De La Torre Reason for consultation: crohns flare Consult to General Surgery Routine Consulting Provider: [facility] General Surgeons Reason for consultation: SBO Attending physician on discharge: Velasquez Pressley Discharging clinician: Velasquez Pressley DS: Diagnosis Discharge Diagnosis (1) SBO (small bowel obstruction): Status: Acute (2) Exacerbation of Crohn's disease: Status: Acute DS: Summary Hospital Course Hospital Course: HPI: 54-year-old male with pertinent history of Crohn's disease, hypertension, CKD stage 3, coronary artery disease who presents to the emergency department for evaluation of abdominal pain. Patient states his symptoms began 4 days prior to presentation. He has been having abdominal pain, nonbloody emesis and nonbloody diarrhea. Abdominal pain is generalized, nonradiating and without any relieving factors. Patient states he has been having multiple episodes of watery diarrhea. He has not been taking his Humira due to insurance issues. He last took Humira about 5-6 months ago. Unable to tolerate p.o. intake. No fever, chills, chest discomfort, palpitations, shortness of breath, changes in urinary habits. In the emergency department, creatinine found to be elevated. Imaging concerning for SBO. Hospital course: Patient was admitted to the hospital because of diarrhea and abdominal pain, has history of Crohn disease was on Humira which he ran out-subsequently started having these symptoms: Admitted to the hospital no leukocytosis or fever, had ALLISON on CKD, also abdominal pain and diarrhea. Patient was started on bowel rest, IV fluids, IV Solu-Medrol, CT abdomen showed suspicious for small bowel obstruction, hence patient was seen by GI and surgery: Patient was producing bowels, abdominal pain also improving with the above management, surgery saw the patient patient abdomen is benign and no acute surgical intervention recommended. Stool for WBC negative, calprotectin and stool for ova parasite sent and testing pending,GI saw the patient recommended since patient is improving-possible can go home with prednisone taper prednisone 50 mg daily, tapering by 5 mg per week. follow up with Dr. Caba regarding restarting his Humira. Since patient is improved significantly, and tolerating diet, currently asymptomatic-will send him home with prednisone as above, follow-up with outpatient with PCP- calprotectin and stool for ova parasite sent and testing . ALLISON also improved with hydration, now creatinine is at his baseline. Follow BMP outpatient. Hold lisinopril until next week, amlodipine 2.5 mg adily x 5 day supply given-after that repeat BMP and start lisinopril since renal function seems to be improving to baseline now. Patient was also encouraged for p.o. hydration and intake. Currently tolerating diet and abdominal pain seems to be resolved. If any new abdominal symptoms including fever or worsening diarrhea or bleeding-should go to the nearest emergency room for further evaluation. plan: prednisone taper prednisone 50 mg daily, tapering by 5 mg per week. follow up with Dr. Caba regarding restarting his Humira. amlodipine 2.5 mg adily x 5 day supply given-after that repeat BMP and start lisinopril . follow up with Dr. Caba regarding restarting his Humira. follow-up with outpatient with PCP- calprotectin and stool for ova parasite sent and testing . Above management discussed with the patient in detail length he understand in agreement with the above plan, time spent 40 minute. Time Attestation Total time managing care of this patient today: 40 mintues. Discharge Coordination Time (in mins): 40 min Quality: Safe Use of Opioids Does Pt have an Active Cancer Diagnosis on the Problem List?: No Quality: Stroke Does the patient have a stroke diagnosis?: No Physical Exam Vital Signs: Vital Signs: Last Vital Signs Temp 98.6 F 08/05/24 07:57 Pulse 53 08/05/24 07:57 Resp 16 08/05/24 07:57 BP 168/79 H 08/05/24 07:57 Pulse Ox 97 08/05/24 07:57 O2 Del Method Room Air 08/05/24 07:57 BMI result Body Mass Index 21.0 Appearance: Alert.? Oriented X3.? cvs: rrr, [id number] , no murmur res: clear to auscultation ,no rhonchii or wheezing abd: no rebound or guarding ,nd,nt, , bs present. ext pulses present , no cyanosis . neuro: axo3 , nonfoc DS: Data Data Completed and Pending Completed studies during hospitalization [Text1]: Procedures Control Bleeding in Retroperitoneum, Open Approach (04/07/21) Drainage of Bladder with Drainage Device, Via Natural or Artificial Opening Endoscopic (04/07/21) Excision of Right Large Intestine, Open Approach (04/07/21) Extirpation of Matter from Peritoneal Cavity, Open Approach (04/07/21) Inspection of Upper Intestinal Tract, Via Natural or Artificial Opening Endoscopic (04/07/21) Introduction of Other Therapeutic Substance into Lower GI, Via Natural or Artificial Opening Endoscopic (04/07/21) Transfusion of Nonautologous Frozen Plasma into Peripheral Vein, Percutaneous Approach (04/07/21) Transfusion of Nonautologous Platelets into Peripheral Vein, Percutaneous Approach (04/07/21) Transfusion of Nonautologous Red Blood Cells into Peripheral Vein, Percutaneous Approach (04/07/21) Labs on day of discharge: Laboratory Results - last 24 hr 08/05/24 Unknown Stool Leukocytes, Qual NEGATIVE Imaging Chest x-ray: Radiologist's impression: ITS Impressions Abdomen/Pelvis CT 08/03/24 01:08 IMPRESSION: *Findings suspicious for small bowel obstruction. Abnormally dilated small bowel segments measuring up to 3.7 cm are present with a transition between dilated and nondilated small bowel segments suggested within the right lower abdominal quadrant. No evidence of intestinal perforation. Etiology of the small bowel obstruction may be adhesions which are otherwise occult on CT imaging. Alternatively, a small bowel obstruction may represent functional obstruction related to active inflammatory bowel disease related to inflammatory changes within the distal ileum. The distal ileum over an approximate 10 cm length demonstrates concentric mural thickening to which of 6 mm. *Inflammatory bowel disease. Concentric mural thickening of the distal ileum immediately adjacent to an ileocolic anastomosis is present consistent with the given history of Crohn's disease. Furthermore, chronic appearing mural stratification with submucosal fat deposition is present within the colon consistent with the long-term sequela of inflammatory bowel disease. Electronically signed by: Aman Parr MD 08/03/2024 02:50 AM EDT Discharge Plan Discharge Anticipated Discharge Date/Time: 08/05/24 10:55 Patient Disposition: Home, Self-Care Discharge Diagnosis: allison on ckd ,crohn flare Referrals: Physician,Unknown J [Primary Care Provider] - 1 Week Discharge Medications: New omeprazole 20 mg capsule,delayed release(DR/EC) 20 mg PO DAILY Qty: 90 0RF prednisone 10 mg tablet See Rx Instructions .ROUTE .COMPLEX Qty: 190 0RF Rx Instructions: see taper instructions: Prednisone 50 mg daily for 1 week, then tapering by 5 mg per week. follow up with Dr. Caba . amlodipine 2.5 mg tablet 2.5 mg PO DAILY Qty: 5 0RF Continued cyanocobalamin (vitamin B-12) [Vitamin B-12] 1,000 mcg Tablet 1,000 mcg PO DAILY methadone [Methadone Intensol] 10 mg/mL Concentrate 90 mg PO DAILY diphenoxylate-atropine 2.5-0.025 mg tablet 2 tab PO QID PRN (Reason: Loose Stool) cholecalciferol (vitamin D3) 50 mcg (2,000 unit) capsule 50 mcg PO DAILY mecobalamin (vitamin B12) 10,000 mcg recon soln 1,000 mcg IM Q28D Held lisinopril 10 mg tablet 10 mg PO DAILY 90 Days Qty: 90 3RF Hold Instructions: Resume on 08/09/24. Discharge Orders: Discharge Order (Routine); Ordered 08/05/24 Ordered By: Velasquez Pressley Diet: Advance to usual diet Activity on Discharge: As tolerated Stand Alone Forms: Patient Portal Discharge page Print Language: Citizen Of [place] Other Ambulatory Orders: Basic Metabolic Panel (Routine) Timeframe: 1 Week Facility: [facility] - Location: Laboratory Ordered By: Velasquez Pressley Care Plan Goals: Patient was admitted to the hospital because of diarrhea and abdominal pain, has history of Crohn disease was on Humira which he ran out-subsequently started having these symptoms: Admitted to the hospital no leukocytosis or fever, had ALLISON on CKD, also abdominal pain and diarrhea. Patient was started on bowel rest, IV fluids, IV Solu-Medrol, CT abdomen showed suspicious for small bowel obstruction, hence patient was seen by GI and surgery: Patient was producing bowels, abdominal pain also improving with the above management, surgery saw the patient patient abdomen is benign and no acute surgical intervention recommended. Stool for WBC negative, calprotectin and stool for ova parasite sent and testing pending,GI saw the patient recommended since patient is improving-possible can go home with prednisone taper prednisone 50 mg daily, tapering by 5 mg per week. follow up with Dr. Caba regarding restarting his Humira. Since patient is improved significantly, and tolerating diet, currently asymptomatic-will send him home with prednisone as above, follow-up with outpatient with PCP- calprotectin and stool for ova parasite sent and testing . ALLISON also improved with hydration, now creatinine is at his baseline. Follow BMP outpatient. Hold lisinopril until next week, amlodipine 2.5 mg adily x 5 day supply given-after that repeat BMP and start lisinopril since renal function seems to be improving to baseline now. Patient was also encouraged for p.o. hydration and intake. Currently tolerating diet and abdominal pain seems to be resolved. If any new abdominal symptoms including fever or worsening diarrhea or bleeding-should go to the nearest emergency room for further evaluation. Health Concerns: As above. Plan of Treatment: prednisone taper prednisone 50 mg daily, tapering by 5 mg per week. follow up with Dr. Caba regarding restarting his Humira. amlodipine 2.5 mg adily x 5 day supply given-after that repeat BMP and start lisinopril . follow up with Dr. Caba regarding restarting his Humira. Assessment: As above.
--- NOTE | 2024-08-05 11:48 | MHC.CM.PN ---
PT WILL DC HOME TODAY WITH NO SERVICES VIA PRIVATE TRANSPORT
[2024-08-14 06:08] LABS: Calprotectin, Fecal 855 mcg/g
== END 2024-08-05 13:35 | disposition home or self-care (01) | DRG 245 ==
LOC: HO.ED 08-03 03:16 → HO.EDOVER 08-03 03:22 → HO.S3 08-03 17:05
PROVIDERS: Internal Medicine Gastroenterology; Admitting Provider Student in an Organized Health Care Education/Training Program; Emergency Provider Emergency Medicine; PCP Family Medicine; Visit Provider Internal Medicine
DX: K50.012 Crohn's disease of small intestine with intestinal obstruction (principal); F11.20 Opioid dependence, uncomplicated; I12.9 Hypertensive chronic kidney disease with stage 1 through stage 4 chronic kidney disease, or unspecified chronic kidney disease; N18.30 Chronic kidney disease, stage 3 unspecified; T45.1X6A Underdosing of antineoplastic and immunosuppressive drugs, initial encounter; I25.10 Atherosclerotic heart disease of native coronary artery without angina pectoris; I25.2 Old myocardial infarction; F17.210 Nicotine dependence, cigarettes, uncomplicated; Z71.6 Tobacco abuse counseling; Z79.899 Other long term (current) drug therapy
CPT/HCPCS: 36415; 74176; 80048; 80076; 81001; 83690; 83993; 85025; 87177; 87209; 87493; 87507; 89055; 99285; J2270; J2405; J2919; J3420; J7120

== ENCOUNTER → 2024-08-03 03:14 | Outpatient (BNV) | payer OTHER, SELFPAY | PROVIDERS: Admitting Provider Student in an Organized Health Care Education/Training Program; Emergency Provider Emergency Medicine; Visit Provider Physician Assistant Surgical | DX: K50.912 Crohn's disease, unspecified, with intestinal obstruction (principal); K56.609 Unspecified intestinal obstruction, unspecified as to partial versus complete obstruction | CPT/HCPCS: 99222; 99232 ==

== ENCOUNTER → 2024-08-03 03:14 | Outpatient (BNV) | payer OTHER, SELFPAY | PROVIDERS: Admitting Provider Student in an Organized Health Care Education/Training Program; Emergency Provider Emergency Medicine; Visit Provider Student in an Organized Health Care Education/Training Program | DX: K50.90 Crohn's disease, unspecified, without complications (principal); N17.9 Acute kidney failure, unspecified; N18.9 Chronic kidney disease, unspecified; K56.609 Unspecified intestinal obstruction, unspecified as to partial versus complete obstruction | CPT/HCPCS: 99223; 99232; 99239 ==

== ENCOUNTER 2024-08-20 16:05 | Outpatient (AMB) | payer OTHER, SELFPAY ==
--- NOTE | 2024-08-20 16:20 | HO.NEPHOV_ITS ---
Vital Signs 08/20/24 16:21 Height 5 ft 11 in Weight 150 lb 6 oz BMI 21.0 BP 100/60 Blood Pressure Location Rt brachial Position Sitting Pulse 57 Pulse Source Pulse Oximeter Pulse Oximetry (%) 100 Oxygen Delivery Method Room Air Intake Visit Reasons: CKD/ 6 MO FU- Conf Lead Pony Rider Required: No Accompanied by: Self / Same As Patient Allergies No Known Allergies [No Known Allergies*] Allergy (Verified 08/20/24 16:23) HPI Comments Details: I had the pleasure of seeing Adrián for follow-up of his chronic kidney disease. He has history of Crohn's disease for over 2 decades. He has history of colectomy. He had an exacerbation with ALLISON with a recent hospitalization. He has taking mesalamine and Remicade . He is now on Humira. He has his given ATN from a GI bleed 2020. He has no history of significant proteinuria or nephrolithiasis. He has history of MD during his GI bleed. He had been tolerating lisinopril but was discontinued when he had ALLISON. He is not a diabetic. He does not use nonsteroidal anti-inflammatory medications. He maintains good hydration. He does not have any nausea vomiting, diarrhea, chest pain, shortness for, proximal nocturnal dyspnea, orthopnea or pedal edema or orthostatic symptoms. There where no new complaints at she the time this office visit [facility] Medical History (Updated 08/13/24 @ 00:02 by Mary Moody) NSTEMI (non-ST elevated myocardial infarction) Psoriasis Crohn's colitis Crohn's disease Surgical History H/O colectomy Family History Father HTN (hypertension) S/P triple vessel bypass Social History Household Members: None Housing: House Do you presently have visiting nurse or other home services: No Alcohol intake: never Patient Tobacco Use Status: Current everyday Tobacco user Tobacco use type: Cigarette Cigarettes Per Day: 5 Years Smoked: 6+/- service: No Current occupational status: employed Review of Systems Const All systems reviewed & are unremarkable except as noted in HPI and below Physical Exam Vital Signs: Last Vital Signs Pulse 57 08/20/24 16:21 BP 100/60 10/18/24 16:21 Pulse Ox 100 08/20/24 16:21 Oxygen Delivery Method Room Air 08/20/24 16:21 BMI result Body Mass Index 21.0 Const General: comfortable and no acute distress Orientation/consciousness: patient oriented x3 HEENT Head: Yes normocephalic Mouth: Normal oral and palatal mucosa present Eyes EOM: EOMs intact bilaterally Neck Neck: Yes supple Resp Auscultation: clear to auscultation bilaterally Cardio Jugular venous distension: no JVD Rate: regular rate GI Palpation (GI): Soft to palpation Auscultation: normal bowel sounds General: Yes no CVA tenderness Back/Spine/Pelvis Back: no CVA tenderness Skin General skin exam: no rashes or lesions noted Neuro General: patient oriented x3 and moves all extremities Extrem General: Yes no pedal edema Results Reviewed Nephrology Results: Hgb 10.1 g/dl (14.0-18.0) L 08/03/24 WBC 5.3 X10*3/uL (4.8-10.8) 08/03/24 Plt Count 309 X10*3/uL (160-400) 08/03/24 Sodium 140 mmol/L (135-145) 08/04/24 Potassium 4.6 mmol/L (3.3-5.1) 08/04/24 Chloride 107 mmol/L (96-108) 08/04/24 Carbon Dioxide 23 mmol/L (22-29) 08/04/24 BUN 42 mg/dL (9-16) H 08/04/24 Creatinine 1.68 mg/dL (0.5-1.4) H 08/04/24 Calcium 8.4 mg/dL (8.4-10.2) 08/04/24 Urine Protein 30 (1+) mg/dL (Neg-Trace) H 08/03/24 Urine Creatinine 182.88 mg/dL 03/05/23 Protein/Creatinin Ratio 0.09 (<0.2) 03/05/23 Renal US 02/28/23 Assessment & Plan Assessment & Plan (1) Acute kidney injury superimposed on CKD: Code(s): N17.9 - Acute kidney failure, unspecified; N18.9 - Chronic kidney disease, unspecified Category: Medical (2) CKD (chronic kidney disease), stage III: Code(s): N18.30 - Chronic kidney disease, stage 3 unspecified Category: Medical Qualifiers: Chronic kidney disease stage 3 subtype: stage 3a (GFR 45-59) Qualified Code(s): N18.31 - Chronic kidney disease, stage 3a (3) HTN (hypertension): Code(s): I10 - Essential (primary) hypertension Category: Medical Qualifiers: Hypertension type: primary hypertension Qualified Code(s): I10 - Essent ial (primary) hypertension Omayra Sampson has 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 He also had ATN with some loss of GFR. He recently had ALLISON which has resolved. I asked him to continue to hold ACEI for now. He could continue Amlodipine 2.5 mg daily. His renal USS in the past showed small kidneys. Renal biopsy showed 30 % scarring with no glomerular pathology. His BP is at goal. He maintains good hydration and avoids NSAID's. NO medication changes were done during this visit. All questions answered. Follow up appointment given Orders: Orders Creatinine 12 Weeks N18.31 - Chronic kidney disease, stage 3a Blood Urea Nitrogen 12 Weeks N18.31 - Chronic kidney disease, stage 3a Electrolytes 12 Weeks N18.31 - Chronic kidney disease, stage 3a Medications: Changed From amlodipine 2.5 mg PO DAILY 5 tabs 0RF To amlodipine 2.5 mg PO DAILY 90 days 90 tabs 1RF Coding Level of Care Code Est Pt Level 4 (22853) Diagnoses Acute kidney injury superimposed on CKD N17.9; N18.9 Stage 3a chronic kidney disease N18.31 Chronic kidney disease stage 3 subtype: stage 3a (GFR 45-59) Primary hypertension I10 Hypertension type: primary hypertension
[2024-08-20 16:21] VITALS: BP 100/60; PULSE 57; O2SAT 100; BMI 21.0
== END 2024-08-20 16:47 | disposition home or self-care (01) ==
PROVIDERS: PCP Family Medicine; Visit Provider Internal Medicine Nephrology
DX: N17.9 Acute kidney failure, unspecified (principal); I12.9 Hypertensive chronic kidney disease with stage 1 through stage 4 chronic kidney disease, or unspecified chronic kidney disease; N18.31 Chronic kidney disease, stage 3a
CPT/HCPCS: 99214

== ENCOUNTER → 2024-08-20 16:05 | Outpatient (BNVA) | payer OTHER, SELFPAY | PROVIDERS: PCP Family Medicine; Visit Provider Internal Medicine Nephrology ==

== ENCOUNTER 2024-12-24 13:07 | Outpatient (REF) | payer OTHER, SELFPAY ==
[2024-12-24 13:24] LABS: MANUAL DIFF FLAG NO
--- OUTSIDE RECORDS SUMMARY | 2024-12-24 13:35 | XMS_ITS | Clinical Summary ---
Author Organization [facility] Address [address] [place] [address] Phone Care Team Providers Care Salesperson Burial Needs Name Role Phone Tobin Keen MD Primary Care Provider Allergies No known active allergies Medications cyanocobalamin (VITAMIN B-12) 1000 MCG/ML injection Inject 1,000 mcg into the shoulder, thigh, or buttocks Active diphenoxylate-a tropine (LOMOTIL) 2.5-0.025 MG per tablet Take 1 tablet by mouth 4 (four) times a day if needed for diarrhea Active ferrous sulfate 324 (65 Fe) MG EC tablet Take 324 mg by mouth every other day Do not crush, chew, or split. Active adalimumab (HUMIRA) 40 MG/0.8ML Prefilled Syringe Kit Inject 40 mg under the skin Active pentoxifylline (TRENtal) 400 MG CR tablet Take by mouth 2 (two) times a day Do not crush, chew, or split. Active cholecalciferol (VITAMIN D-3 SUPER STRENGTH) 50 MCG (2000 UT) tablet Take 2,000 Units by mouth 1 (one) time each day Active lisinopril 10 MG tablet Take 10 mg by mouth 1 (one) time each day 3 Active cholecalciferol (VITAMIN D-3) 50 MCG (2000 UT) capsule Take 1 capsule by mouth 1 (one) time each day 3 Active fluticasone (FLONASE) 50 MCG/ACT nasal spray SPRAY 1 SPRAY BY INTRANASAL ROUTE EVERY DAY 3 Active Active Problems Problem Noted Date Diagnosed Date Stage 3a chronic kidney disease 02/13/2023 Hypertension 02/13/2023 Chronic kidney disease 02/12/2023 Family History Medical History Relation Comments Heart disease Father Hypertension Father Relation Status Comments Father Alive Mother Alive Social History Tobacco Use Types Packs/Day Years Used Date Smoking Tobacco: Every Day Cigarettes Smokeless Tobacco: Never Tobacco Cessation:Ready to Q uit: Not Asked; Counseling Given: Not Answered Alcohol Use Standard Drinks/Week Comments Not Currently 0 (1 standard drink = 0.6 oz pur e alcohol) Sex and Gender Information Value Date Recorded Sex Assigned at Not on file Legal Sex Male 8:59 AM EDT Gender Identity Not on file Sexual Orientation Not on file Last Filed Vital Signs Vital Sign Reading Time Taken Comments Blood Pressure 137/80 08/06/2023 2:13 PM EDT Pulse 113 08/06/2023 2:13 PM EDT Temperature - - Respiratory Rate - - Oxygen Saturation 98% 08/06/2023 2:13 PM EDT Inhaled Oxygen Concentration - - Weight 70.9 kg (156 lb 3.2 oz) 04/03/2023 1:28 P M EDT Height - - Body Mass Index - - Plan of Treatment Health Maintenance Due Date Last Done Comments Pneumococcal Vaccine: Pediat rics (0 to 5 Years) and At-Risk Patients (6 to 64 Years) (1 of 2 - PCV) 1976 Hepatitis B Vaccine (1 of 3 - 19+ 3-dose series) 04/05 Colorectal Cancer Screening: Annual FOBT 2021 Colorectal Cancer Screening: Colonoscopy 2021 Colorectal Cancer Screening: Sigmoidoscopy 2021 Influenza Vaccine (#1) [address] [place] [address] [facility] Care Teams Salesperson Burial Needs Relationship Specialty Start Date End Date Tobin Keen MD [address] [place] [phone] PCP - General Family Medicine 02/12/23
[2024-12-24 14:18] LABS: Basophils Percent Auto 0.5 % (0-2); Eosinophils Absolute Auto 0.3 X10*3/uL (0.0-0.4); Eosinophils Percent Auto 4.5 % (0-4); Hematocrit 36.3 % (42.0-52.0); Hemoglobin 11.6 g/dl (14.0-18.0); Imm Gran Abs Auto 0.02 X10*3/uL (0.00-0.03); Imm Gran Pct Auto 0.3 % (0.0-0.4); Lymphocytes Absolute Auto 1.5 X10*3/uL (1.2-4.9); Lymphocytes Percent Auto 23.4 % (20-40); Mean Corpuscular Hemoglobin 28.2 pg (27.0-33.0); Mean Corpuscular Volume 88.1 fL (80.0-98.0); Mean Platelet Volume 9.8 fL (9.4-12.4); Monocytes Absolute Auto 0.7 X10*3/uL (0.1-1.2); Monocytes Percent Auto 11.5 % (2-11); Neutrophils Absolute Auto 3.8 x10*3/uL (2.0-8.3); Neutrophils Percent Auto 59.8 % (45-73); Platelet Count 215 X10*3/uL (160-400); Red Blood Count 4.12 X10*6/uL (4.60-5.80); Red Cell Distribution Width 14.3 % (11.0-16.0); White Blood Count 6.3 X10*3/uL (4.8-10.8)
[2024-12-24 14:51] LABS: Anion Gap 9 (12-20); Blood Urea Nitrogen 11 mg/dL (9-16); Calcium 8.6 mg/dL (8.4-10.2); Carbon Dioxide 28 mmol/L (22-29); Chloride 103 mmol/L (96-108); Estimated Glomerular Filt Rate 59; Phosphorus 2.7 mg/dL (2.7-4.5); Potassium 4.1 mmol/L (3.3-5.1); Sodium 136 mmol/L (135-145)
[2024-12-24 14:53] LABS: Parathyroid Hormone Intact 106.8 pg/mL (8.7-77.1)
[2024-12-24 15:08] LABS: Vitamin D 25-OH Total 24.7 ng/mL (>30)
== END 2024-12-24 13:08 | disposition home or self-care (01) ==
LOC: HO.LAB 13:07
PROVIDERS: PCP Family Medicine; Visit Provider Internal Medicine Nephrology
DX: I10 Essential (primary) hypertension (principal); N18.31 Chronic kidney disease, stage 3a
CPT/HCPCS: 36415; 80051; 82306; 82310; 82565; 83970; 84100; 84520; 85025

== ENCOUNTER 2024-12-29 13:22 | Outpatient (AMB) | payer OTHER, SELFPAY ==
[2024-12-29 13:22] VITALS: BP 162/90; PULSE 98; O2SAT 98; BMI 22.5
--- NOTE | 2024-12-29 13:22 | HO.NEPHOV_ITS ---
Vital Signs 12/29/24 13:22 Height 5 ft 11 in Weight 161 lb BMI 22.5 BP 162/90 H Blood Pressure Location Lt brachial Position Sitting Pulse 98 Pulse Oximetry (%) 98 Oxygen Delivery Method Room Air Intake Visit Reasons: Dec follow up-[facility] Power Generation Technician Required: No Allergies No Known Allergies [No Known Allergies*] Allergy (Verified 12/29/24 13:24) Do you need a note to return to daycare/school/sports/work: No HPI Comments Details: I had the pleasure of seeing Adrián for follow-up of his chronic kidney disease. He has history of Crohn's disease for over 2 decades. He has history of colectomy. He has taking mesalamine and Remicade . He is now on Humira. He has his given ATN from a GI bleed 2020. He has no history of significant proteinuria or nephrolithiasis. He has history of DE during his GI bleed. He had been tolerating lisinopril but was discontinued when he had ALLISON. He is not a diabetic. He does not use nonsteroidal anti-inflammatory medications. He maintains good hydration. He does not have any nausea vomiting, diarrhea, chest pain, shortness for, proximal nocturnal dyspnea, orthopnea or pedal edema or orthostatic symptoms. There where no new complaints at she the time this office visit [facility] Medical History NSTEMI (non-ST elevated myocardial infarction) Psoriasis Crohn's colitis Crohn's disease Surgical History H/O colectomy Family History Father HTN (hypertension) S/P triple vessel bypass Social History Household Members: None Housing: House Do you presently have visiting nurse or other home services: No Alcohol intake: never Patient Tobacco Use Status: Current everyday Tobacco user Tobacco use type: Cigarette Cigarettes Per Day: 5 Years Smoked: 6+/- service: No Current occupational status: employed Review of Systems Const All systems reviewed & are unremarkable except as noted in HPI and below Physical Exam Vital Signs: Last Vital Signs Pulse 98 02/26/25 13:22 BP 162/90 H 02/26/25 13:22 Pulse Ox 98 12/29/24 13:22 Oxygen Delivery Method Room Air 12/29/24 13:22 BMI result Body Mass Index 22.5 Const General: comfortable and no acute distress Orientation/consciousness: patient oriented x3 HEENT Head: Yes normocephalic Mouth: Normal oral and palatal mucosa present Eyes EOM: EOMs intact bilaterally Neck Neck: Yes supple Resp Auscultation: clear to auscultation bilaterally Cardio Jugular venous distension: no JVD Rate: regular rate GI Palpation (GI): Soft to palpation Auscultation: normal bowel sounds General: Yes no CVA tenderness Back/Spine/Pelvis Back: no CVA tenderness Skin General skin exam: no rashes or lesions noted Neuro General: patient oriented x3 and moves all extremities Extrem General: Yes no pedal edema Results Reviewed Nephrology Results: Hgb 11.6 g/dl (14.0-18.0) L 12/24/24 WBC 6.3 X10*3/uL (4.8-10.8) 12/24/24 Plt Count 215 X10*3/uL (160-400) 12/24/24 Sodium 136 mmol/L (135-145) 12/24/24 Potassium 4.1 mmol/L (3.3-5.1) 12/24/24 Chloride 103 mmol/L (96-108) 12/24/24 Carbon Dioxide 28 mmol/L (22-29) 12/24/24 BUN 11 mg/dL (9-16) 12/24/24 Creatinine 1.28 mg/dL (0.5-1.4) 12/24/24 Calcium 8.6 mg/dL (8.4-10.2) 12/24/24 Phosphorus 2.7 mg/dL (2.7-4.5) 12/24/24 PTH Intact 106.8 pg/mL (8.7-77.1) H 12/24/24 Assessment & Plan Assessment & Plan (1) CKD (chronic kidney disease), stage III: Code(s): N18.30 - Chronic kidney disease, stage 3 unspecified Category: Medical Qualifiers: Chronic kidney disease stage 3 subtype: stage 3a (GFR 45-59) Qualified Code(s): N18.31 - Chronic kidney disease, stage 3a (2) HTN (hypertension): Code(s): I10 - Essential (primary) hypertension Category: Medical Qualifiers: Hypertension type: primary hypertension Qualified Code(s): I10 - Essential (primary) hypertension Omayra Sampson has 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 He also had ATN with some loss of GFR. He recently had ALLISON which has resolved. I asked him to continue to hold ACEI for now. I increased Amlodipine to 5 mg daily. His renal USS in the past showed small kidneys. Renal biopsy showed 30 % scarring with no glomerular pathology. He maintains good hydration and avoids NSAID's. NO other medication changes were done during this visit. All questions answered. Follow up appointment given Orders: Orders Protein Creatinine Ratio, Ur 3 Months I10 - Essential (primary) hypertension, N18.31 - Chronic kidney disease, stage 3a Medications: Changed From amlodipine 2.5 mg PO DAILY 90 days 90 tabs 1RF To amlodipine 5 mg PO DAILY 90 days 90 tabs 3RF Coding Level of Care Code Est Pt Level 4 (76131) Diagnoses Stage 3a chronic kidney disease N18.31 Chronic kidney disease stage 3 subtype: stage 3a (GFR 45-59) Primary hypertension I10 Hypertension type: primary hypertension
--- OUTSIDE RECORDS SUMMARY | 2024-12-29 16:24 | XMS_ITS | Clinical Summary ---
Author Organization [facility] Address [address] [place] [address] Phone Care Team Providers Care Drapery Counselor Name Role Phone Tobin Keen MD Primary [...] Sigmoidoscopy 2021 Influenza Vaccine (#1) [address] [place] [address] [facility] Care Teams Drapery Counselor Relationship Specialty Start Date End Date Tobin Keen MD [address] [place] [phone] PCP - General Family Medicine 02/12/23
== END 2024-12-29 13:40 | disposition home or self-care (01) ==
PROVIDERS: PCP Family Medicine; Visit Provider Internal Medicine Nephrology
DX: N18.31 Chronic kidney disease, stage 3a (principal); I10 Essential (primary) hypertension
CPT/HCPCS: 99214

== ENCOUNTER → 2024-12-29 13:22 | Outpatient (BNVA) | payer OTHER, SELFPAY | PROVIDERS: PCP Family Medicine; Visit Provider Internal Medicine Nephrology ==

== ENCOUNTER 2025-03-30 16:24 | Outpatient (REF) | payer OTHER, SELFPAY ==
[2025-03-30 17:33] LABS: Anion Gap 12 (12-20); Blood Urea Nitrogen 11 mg/dL (9-16); Calcium 8.4 mg/dL (8.4-10.2); Carbon Dioxide 27 mmol/L (22-29); Chloride 102 mmol/L (96-108); Estimated Glomerular Filt Rate 58; Glucose Random 78 mg/dL (60-115); Potassium 4.1 mmol/L (3.3-5.1); Sodium 137 mmol/L (135-145)
[2025-03-30 18:04] LABS: Creatinine Urine 87.36 mg/dL; Total Protein Urine Random < 7 mg/dL (<12)
== END 2025-03-30 16:25 | disposition home or self-care (01) ==
LOC: HO.LAB 16:24
PROVIDERS: PCP Family Medicine; Visit Provider Internal Medicine Nephrology
DX: N17.9 Acute kidney failure, unspecified (principal); N18.9 Chronic kidney disease, unspecified; I10 Essential (primary) hypertension; N18.31 Chronic kidney disease, stage 3a
CPT/HCPCS: 36415; 80048; 82570; 84156

== ENCOUNTER 2025-04-01 16:09 | Outpatient (AMB) | payer OTHER, SELFPAY ==
--- OUTSIDE RECORDS SUMMARY | 2025-04-01 16:11 | XMS_ITS | Clinical Summary ---
Author Organization [facility] Address [address] [place] [address] Phone Care Team Providers Care Swatch Checker Name Role Phone Tobin Keen MD Primary [...] Health Maintenance Due Date Last Done Comments Hepatitis B Vaccine (1 of 3 - 19+ 3-dose series) 04/05 Pneumococcal Vaccine: 50+ Years (1 of 2 - PCV) 991 Colorectal Cancer Screening: Annual FOBT 2021 Colorectal Cancer Screening: Colonoscopy 2021 Colorectal Cancer Screening: Sigmoidoscopy 2021 Influenza Vaccine (Season Ended) [address] [place] [address] [facility] Care Teams Swatch Checker Relationship Specialty Start Date End Date Tobin Keen MD [address] [place] [phone] PCP - General Family Medicine 02/12/23
--- NOTE | 2025-04-01 16:12 | HO.NEPHOV ---
Vital Signs 04/01/25 16:13 Height 5 ft 11 in Weight 169 lb 4 oz BMI 23.6 BP 126/66 Blood Pressure Location Lt brachial Position Sitting Intake Visit Reasons: 3mon follow-up w/labs-LVM Junior Accountant Bookkeeper Required: No Accompanied by: Self / Same As Patient Allergies No Known Allergies [No Known Allergies*] Allergy (Verified 04/01/25 16:13) Do you need a note to return to daycare/school/sports/work: No HPI Comments Details: Adrián for follow-up of his chronic kidney disease. He has history of Crohn's disease for over 2 decades. He has history of colectomy. He has H/O taking mesalamine and Remicade . He is now on Humira. He also has H/O ATN & [place] from a GI bleed 2020. He has no history of significant proteinuria or nephrolithiasis. He had been tolerating lisinopril but was discontinued when he had ALLISON. He is not a diabetic. He does not use nonsteroidal anti-inflammatory medications. He maintains good hydration. He does not have any nausea vomiting, diarrhea, chest pain, shortness for, proximal nocturnal dyspnea, orthopnea or pedal edema or orthostatic symptoms. He has mild edema from Amlodipine. There where no other new complaints at she the time this office visit [facility] Medical History NSTEMI (non-ST elevated myocardial infarction) Psoriasis Crohn's colitis Crohn's disease Surgical History H/O colectomy Family History Father HTN (hypertension) S/P triple vessel bypass Social History Household Members: None Housing: House Do you presently have visiting nurse or other home services: No Alcohol intake: never Patient Tobacco Use Status: Current everyday Tobacco user Tobacco use type: Cigarette Cigarettes Per Day: 5 Years Smoked: 6+/- service: No Current occupational status: employed Physical Exam Vital Signs: Last Vital Signs BP 126/66 04/01/25 16:13 BMI result Body Mass Index 23.6 Const General: comfortable and no acute distress Orientation/consciousness: patient oriented x3 HEENT Head: Yes normocephalic Mouth: Normal oral and palatal mucosa present Eyes EOM: EOMs intact bilaterally Neck Neck: Yes supple Resp Auscultation: clear to auscultation bilaterally Cardio Jugular venous distension: no JVD Rate: regular rate GI Palpation (GI): Soft to palpation Auscultation: normal bowel sounds General: Yes no CVA tenderness Back/Spine/Pelvis Back: no CVA tenderness Skin General skin exam: no rashes or lesions noted Neuro General: patient oriented x3 and moves all extremities Extrem General: Yes no pedal edema Results Reviewed Nephrology Results: Hgb 11.6 g/dl (14.0-18.0) L 12/24/24 WBC 6.3 X10*3/uL (4.8-10.8) 12/24/24 Plt Count 215 X10*3/uL (160-400) 12/24/24 Sodium 137 mmol/L (135-145) 03/30/25 Potassium 4.1 mmol/L (3.3-5.1) 03/30/25 Chloride 102 mmol/L (96-108) 03/30/25 Carbon Dioxide 27 mmol/L (22-29) 03/30/25 BUN 11 mg/dL (9-16) 03/30/25 Creatinine 1.29 mg/dL (0.5-1.4) 03/30/25 Calcium 8.4 mg/dL (8.4-10.2) 03/30/25 Phosphorus 2.7 mg/dL (2.7-4.5) 12/24/24 PTH Intact 106.8 pg/mL (8.7-77.1) H 12/24/24 Urine Protein 30 (1+) mg/dL (Neg-Trace) H 08/03/24 Urine Creatinine 87.36 mg/dL 03/30/25 Protein/Creatinin Ratio TNP 03/30/25 Assessment & Plan Assessment & Plan (1) CKD (chronic kidney disease), stage III: Code(s): N18.30 - Chronic kidney disease, stage 3 unspecified Category: Medical Qualifiers: Chronic kidney disease stage 3 subtype: stage 3a (GFR 45-59) Qualified Code(s): N18.31 - Chronic kidney disease, stage 3a (2) HTN (hypertension): Code(s): I10 - Essential (primary) hypertension Category: Medical Qualifiers: Hypertension type: primary hypertension Qualified Code(s): I10 - Essential (primary) hypertension Plan Adrián has 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 He also had ATN with some loss of GFR. His recent ALLISON which has resolved. I asked him to continue to hold ACEI for now & continue current dose of Amlodipine. His renal USS in the past showed small kidneys. Renal biopsy showed 30 % scarring with no glomerular pathology. He maintains good hydration and avoids NSAID's. I plan to re introduce low dose of ACEI at next visit and cut back on Amlodipine given edema. He could also be a great candidate for SGLT2 i. NO other medication changes were done during this visit. All questions answered. Follow up appointment given Orders: Orders Creatinine 6 Months N18.31 - Chronic kidney disease, stage 3a Blood Urea Nitrogen 6 Months N18.31 - Chronic kidney disease, stage 3a Vitamin D 25-OH Total 6 Months N18.31 - Chronic kidney disease, stage 3a Electrolytes 6 Months N18.31 - Chronic kidney disease, stage 3a Medications: Discontinued lisinopril Discontinued Reason: Doctor's Order 10 mg PO DAILY 90 days 90 tabs 3RF Coding Level of Care Code Est Pt Level 4 (91517) Diagnoses Stage 3a chronic kidney disease N18.31 Chronic kidney disease stage 3 subtype: stage 3a (GFR 45-59) Primary hypertension I10 Hypertension type: primary hypertension
[2025-04-01 16:13] VITALS: BP 126/66; BMI 23.6
== END 2025-04-01 16:27 | disposition home or self-care (01) ==
LOC: HO.HKA 16:09
PROVIDERS: PCP Family Medicine; Visit Provider Internal Medicine Nephrology
DX: N18.31 Chronic kidney disease, stage 3a (principal); I10 Essential (primary) hypertension
CPT/HCPCS: 99214

== ENCOUNTER → 2025-04-01 16:09 | Outpatient (BNVA) | payer OTHER, SELFPAY | PROVIDERS: PCP Family Medicine; Visit Provider Internal Medicine Nephrology ==

== ENCOUNTER 2025-10-28 12:53 | Outpatient (REF) | payer OTHER, SELFPAY ==
--- OUTSIDE RECORDS SUMMARY | 2025-10-28 12:56 | XMS_ITS | Encounter Summary ---
Author Organization [facility] Address [address] [place] [phone] Phone Care Team Providers Care Cardiac Monitor Technician Name Role Phone Tobin Keen MD Primary Care Provider [phone] Encounter Details Date Type Department Care Team (Late st Contact Info) Description 12/03/2024 Procedure Pass [facility] Endoscopy Admitting Dept Virtual Department [address] [place] [id number] Social History Tobacco Use Types Packs/Day Years Used Date Smoking Tobacco: Never Assessed Education Answer Date Recorded Are you interested in more education? Not on joe e 02/28/2023 Are you concerned about learning? Not on file 02/28/2023 No 02/28/2023 No 02/28/2023 Digital Access Answer Date Recorded No 03/29/2023 No 03/29/2023 Reliable internet access at home? Not on file 03/29/2023 Device with a working camera? Not on file Sex and Gender Information Value Date Recorded Sex Assigned at Not on file Legal Sex Male 9:33 PM EDT Gender Identity Not on file Sexual Orientation Not on file documented as of this encounter Plan of Treatment Upcoming Encounters Date Type Department Care Team (Late st Contact Info) Description 04/28/2026 2:30 PM EDT Office Visit [facility] [address] [place] [address] Aram Buckley PA-C [address] [address] documented as of this encounter Visit Diagnoses Not on filedocumented in this encounter Care Teams Cardiac Monitor Technician Relationship Specialty Start Date End Date Tobin Keen MD [email or web address] PCP - General Family Medicine 04/07/19 documented as of this encounter Additional Source Comments The information contained in this document represents components of the legal health record. It is not the complete legal health record.[facility]
--- OUTSIDE RECORDS SUMMARY | 2025-10-28 12:56 | XMS_ITS | Encounter Summary ---
Author Organization [facility] Address [address] [place] [phone] Phone Care Team Providers Care Casual Shoe Inspector Name Role Phone Tobin Keen MD Primary Care Provider [phone] Encounter Details Date Type Department Care Team (Late st Contact Info) Description 11/04/2023 Transcribe Orders [facility] Phleb [address] [address] Tobin Keen MD [address] [place] [address] [phone] Social History Tobacco Use Types Packs/Day Years [...] Description 04/28/2026 2:30 PM EDT Office Visit [facility] [address] [place] [address] Aram Buckley PA-C [address] [place] [phone] [email or web address] documented as of this encounter Visit Diagnoses Not on filedocumented in this encounter Care Teams Casual Shoe Inspector Relationship Specialty Start Date End Date Tobin Keen MD [email or web address] PCP - General Family Medicine 04/07/19 documented as of this encounter Additional Source Comments The information contained in this document represents components of the legal health record. It is not the complete legal health record.[facility]
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
--- OUTSIDE RECORDS SUMMARY | 2025-10-28 12:56 | XMS_ITS | Clinical Summary ---
Author Organization [facility] Address [address] [place] [address] Phone Care Team Providers Care Butter Fat Tester Name Role Phone Tobin Keen MD Primary [...] Cancer Screening: Sigmoidoscopy 2021 Influenza Vaccine (#1) [address] [place] [address] [facility] Care Teams Butter Fat Tester Relationship Specialty Start Date End Date Tobin Keen MD [address] [place] [phone] PCP - General Family Medicine 02/12/23
--- OUTSIDE RECORDS SUMMARY | 2025-10-28 12:56 | XMS_ITS | Encounter Summary ---
Author Organization [facility] Address [address] [place] [address] Phone Care Team Providers Care Home Energy Auditor Name Role Phone Tobin Keen MD Primary Care Provider [phone]- [phone] Encounter Details Date Type Department Care Team (Latest Contact Info) Description 05/19/2020 Transcribe Orders [facility] Phleb [place] 10 [facility] 2nd [place] [address] Parker Caba MD [address] [address] Crohn's disease of small intestine without complication (Primary Dx) Social History Tobacco Use Types Packs/Day Years Used Date Smoking Tobacco: Never Assessed Sex and Gender Information Value Date Recorded Sex Assigned at Not on file Legal Sex Male 9:33 PM EDT Gender Identity Not on file Sexual Orientation Not on file documented as of this encounter Plan of Treatment Upcoming Encounters Date Type Department Care Team (Late st Contact Info) Description 04/28/2026 2:30 PM EDT Office Visit [facility] 10 [place] [address] Aram Buckley PA-C [address] [address] documented as of this encounter Results * (ABNORMAL) Iron and iron binding capacity (05/19/2020 3:17 PM EDT) IRON 27(L) 45 - 160 ug/dL [facility] IRON BINDING CAPACITY 282 228 - 428 ug/dL [facility] TRANSFERRIN SATURAT. 10(L) 20 - 55 % [facility] Blood 05/19/2020 3:17 PM EDT 05/19/2020 3:21 PM EDT us Parker Caba MD LAB BLOOD BKR ORDERABLES F inal Result [address] [address] * Vitamin B12 (05/19/2020 3:17 PM EDT) Pathologist [facility] VITAMIN B12 389 232 - 1,245 pg/mL [facility] Blood 05/19/2020 3:17 PM EDT 05/19/2020 3:21 PM EDT us Parker Caba MD LAB BLOOD BKR ORDERABLES F inal Result Performing Organization Address [facility]/ZIP Co de Phone Number [address] [address] * Folate (05/19/2020 3:17 PM EDT) Pathologist [facility] FOLIC ACID 9.2 4.2 - 19.9 ng/mL [facility] Blood 05/19/2020 3:17 PM EDT 05/19/2020 3:21 PM EDT us Parker Caba MD LAB BLOOD BKR ORDERABLES F inal Result Performing Organization Address City/[facility]/ZIP Co de Phone Number [address] [address] * Sedimentation rate (ESR) (05/19/2020 3:17 PM EDT) Pathologist [facility] ESR 9 0 - 15 mm/h [facility] Blood 05/19/2020 3:17 PM EDT 05/19/2020 3:21 PM EDT Parker Caba MD LAB BLOOD BKR ORDERABLES F inal Result [address] [address] * (ABNORMAL) C-Reactive Protein (05/19/2020 3:17 PM EDT) Pathologist [facility] C REACTIVE PROTEIN 11.3(H) 0.0 - 4.0 mg/L [facility] Blood 05/19/2020 3:17 PM EDT 05/19/2020 3:21 PM EDT Parker Caba MD LAB BLOOD BKR ORDERABLES F inal Result Performing Organization Address City/[facility] Co de Phone Number [address] [address] * Comprehensive metabolic panel (05/19/2020 3:17 PM EDT) Pathologist [facility] SODIUM 138 133 - 146 mmol/L [facility] POTASSIUM 4.3 3.3 - 5.1 mmol/L [facility] CHLORIDE 102 96 - 108 mmol/L [facility] CO2 26 21 - 35 mmol/L [facility] BUN 9 6 - 19 mg/dL [facility] CREATININE 1.10 0.5 - 1.5 mg/dL [facility] GLUCOSE 89 70 - 99 mg/dL [facility] ALBUMIN 3.9 3.9 - 4.8 g/dL [facility] TOTAL PROTEIN 7.0 6.5 - 8.0 g/dL [facility] CALCIUM 9.0 8.4 - 10.3 mg/dL [facility] ALKALINE PHOSPHATASE 67 39 - 117 U/L [facility] TOTAL BILIRUBIN 0.3 0.0 - 1.2 mg/dL [facility] AST 16 0 - 37 U/L [facility] ALT 9 0 - 40 U/L [facility] GLOBULIN 3.1 1 - 4.8 g/dL [facility] EGFR 79 >59 mL/min/1.7 3m2 [facility] Comment:Estimated glomerular filtration rate calculated using the CKD-EPI equation. ANION GAP 14 10 - 20 mmol/L [facility] Blood 05/19/2020 3:17 PM EDT 05/19/2020 3:21 PM EDT Parker Caba MD LAB BLOOD BKR ORDERABLES F inal Result Performing Organization Address [facility] Co de Phone Number [address] [address] * (ABNORMAL) CBC (05/19/2020 3:17 PM EDT) WBC 11.58(H) 4.00 - 11.00 K/uL [facility] Comment:Note Reference Range updates to all CBC and Differential results. RBC 3.78(L) 4.23 - 5.82 M/uL [facility] HGB 11.5(L) 13.4 - 17.5 g/dL [facility] Comment:Note updated Referen ce Ranges for all CBC and Differential results. HCT 36.1(L) 37.0 - 51.0 % [facility] PLT 487(H) 140 - 430 K/uL [facility] MCV 95.5 78.0 - 97.0 fL [facility] MCH 30.4 25.0 - 33.0 pg [facility] MCHC 31.9(L) 32.0 - 36.0 g/dL [facility] RDW 17.8(H) 11.0 - 15.0 % [facility] MPV 9.5 8.4 - 12.8 [facility] NRBC 0.00 0 /100 WBCs [facility] ABSOLUTE NRBC 0.00 0 K/uL [facility] Blood 05/19/2020 3:17 PM EDT 05/19/2020 3:21 PM EDT Parker Caba MD LAB BLOOD BKR ORDERABLES F inal Result Performing Organization Address [facility]/ZIP Co de Phone Number [address] [address] documented in this encounter Visit Diagnoses Diagnosis Crohn's disease of small intestine without complication- Primary documented in this encounter Care Teams Home Energy Auditor Relationship Specialty Start Date End Date Tobin Keen MD [email or web address] PCP - General Family Medicine 04/07/19 documented as of this encounter Additional Source Comments The information contained in this document represents components of the legal health record. It is not the complete legal health record.[facility]
--- OUTSIDE RECORDS SUMMARY | 2025-10-28 12:56 | XMS_ITS | Clinical Summary ---
Author Organization [facility] Address [address] [place] [phone] Phone Care Team Providers Care Abalone Diver Name Role Phone Tobin Keen MD Primary Care Provider +1- [phone] Allergies No known active allergies Medications HADLIMA,CF, PUSHTOUCH 40 mg/0.4 mL subcutaneous auto-injectorIndi cations:Crohn's disease Inject 0.4 mL (40 mg total) under the skin every 14 (fourteen) days. 0.8 mL 11 5 Active amLODIPine (NORVASC) 2.5 MG tablet daily. 4 Active adalimumab (HUMIRA) 40 mg/0.8 mL syringe kit Inject 40 mg under the skin. Active predniSONE (DELTASONE) 10 MG tablet .COMPLEX 4 Active cetirizine (ZYRTEC) 10 MG tablet 5 Active cholecalciferol (VITAMIN D3) 2,000 unit tablet Take 2,000 Units by mouth. Active cyanocobalamin (VITAMIN B-12) 1,000 mcg/mL injection Inject 1,000 mcg into the muscle. Active nicotine (NICODERM CQ) 21 mg/24 hr APPLY 1 PATCH DAILY TO SKIN 5 Active ferrous sulfate 324 mg (65 mg [place] iron) TbEC Take 324 mg by mouth. Active cyanocobalamin, vitamin B-12, 1000 MCG tablet daily. 4 Active omeprazole (PRILOSEC) 20 MG capsuleIndication s:Gastroesophagea l reflux disease Take 1 capsule (20 mg total) by mouth daily. 90 capsule 3 5 10/21/20 26 Active diphenoxylate-atr opine (LOMOTIL) 2.5-0.025 mg per tabletIndications :Diarrhea,Crohn's disease of both small and large intestine without complication Take 2 tablets by mouth 4 (four) times a day. 720 tablet 3 5 10/21/20 26 Active omeprazole (PRILOSEC) 20 MG capsule daily. 4 10/21/20 25 Discontinu ed(Reorder ) diphenoxylate-atr opine (LOMOTIL) 2.5-0.025 mg per tablet Take 1 tablet by mouth. 10/21/20 Discontinu ed(Reorder ) Active Problems Problem Noted Date Diagnosed Date Gastroesophageal reflux disease 10/21/2025 Crohn's disease of both smal l and large intestine without complication 10/21/2025 Encounters Date Type Department Care Team Description 10/21/2025 2:00 PM EST Office Visit [facility] [address] [place] [phone] Unknown, Unknown, Aram Fitzpatrick PA-C Gastroesophageal reflux disease (Primary Dx); Diarrhea; Crohn's disease of both small and large intestine without complication 09/08/2025 Telephone [facility] [address] [place] [phone] Ra Reeves 08/30/2025 Telephone [facility] [address] [place] [phone] Val Jones Patient call from Last 3 Months Social History Tobacco Use Types Packs/Day Years Used Date Smoking Tobacco: Every Day Cigarettes Tobacco Cessation:Ready to Q uit: Not Asked; Counseling Given: Not Answered Education Answer Date Recorded Are you interested [...] Sign Reading Time Taken Comments Blood Pressure 127/81 10/21/2025 2:15 PM EST Pulse 101 10/21/2025 2:15 PM EST Temperature - - Respiratory Rate - - Oxygen Saturation - - Inhaled Oxygen Concentration - - Weight 82.2 kg (181 lb 3.2 oz) 10/21/2025 2:15 P M EST Height - - Body Mass Index - - Plan of Treatment Upcoming Encounters Date Type Department Care Team (Late st Contact Info) Description 04/28/2026 2:30 PM EDT Office Visit [facility] [address] [place] [phone] Aram Buckley PA-C [address] [place] [phone] [email or web address] Health Maintenance Due Date Last Done Comments Adult Td,Tdap Booster 1972 LIPID PANEL 1972 DEPRESSION SCREENING 1984 SMOKING Hx and SMOKELESS TOBACCO SCREENING 1985 HEPATITIS C SCREENING 1990 HIV ONE-TIME SCREENING (18-65 YEARS) 1990 ZOSTER VACCINES (1 of 2) 1991 COLOGUARD 2017 FIT TEST 2017 FOBT 2017 SIGMOIDOSCOPY 2017 VIRTUAL COLONOSCOPY 2017 PNEUMOCOCCAL VACCINES (50+ years) (2 of 2 - PCV) 05/17/2017 05/17/2016 COVID-19 VACCINE (3 - Pfizer risk series) 03/26/2021 02/26/2021, 02/03/2021 RSV VACCINE (1 - Risk 50-74 years 1-dose series) 2022 INFLUENZA VACCINE (#1) 2025 0, 08/11/2019, 08/18/2018, Additional history exists COLONOSCOPY 04/04/2030 04/04/2025 COLORECTAL CANCER SCREENING 04/04/2030 HEPATITIS A VACCINES Aged Out 08/21/2012 No long er eligible based on patient's age to complete this topic HIB VACCINES Aged Out No longer eligi ble based on patient's age to complete this topic MENINGOCOCCAL VACCINES (ACWY) Aged Out No longer eligible based on patient's age to complete this topic MENINGOCOCCAL VACCINES (B) Aged Out N o longer eligible based on patient's age to complete this topic Medical Devices Not on file Procedures Procedure Name Priority Date/Time Associated Diagnosis Comments COLONOSCOPY FOR RESULT ENTRY ONLY Routine 04/04/2025 from Last 3 Months or Most Recently Relevant to Health Maintenance Results * COLONOSCOPY FOR RESULT ENTRY ONLY (04/04/2025) Colonoscopy External Historical Provider MD HEALTH MAINTENANCE Final Result from Last 3 Months or Most Recently Relevant to Health Maintenance Insurance O O HMO O HMO HMO Care Teams Abalone Diver Relationship Specialty Start Date End Date Tobin Keen MD [email or web address] PCP - General Family Medicine 04/07/19 Additional Source Comments The information contained in this document represents components of the legal health record. It is not the complete legal health record.[facility]
[2025-10-28 15:13] LABS: Anion Gap 14 (12-20); Blood Urea Nitrogen 21 mg/dL (9-16); Carbon Dioxide 24 mmol/L (22-29); Chloride 104 mmol/L (96-108); Estimated Glomerular Filt Rate 51; Potassium 4.2 mmol/L (3.3-5.1); Sodium 138 mmol/L (135-145)
== END 2025-10-28 12:54 | disposition home or self-care (01) ==
LOC: HO.LAB 12:53
PROVIDERS: PCP Family Medicine; Visit Provider Internal Medicine Nephrology
DX: I12.9 Hypertensive chronic kidney disease with stage 1 through stage 4 chronic kidney disease, or unspecified chronic kidney disease (principal); N18.31 Chronic kidney disease, stage 3a; Z13.21 Encounter for screening for nutritional disorder
CPT/HCPCS: 36415; 80051; 82306; 82565; 84520